=== PATIENT | female | born 1955 | race Caucasian/White ===

== ENCOUNTER 2019-07-24 12:42 | Outpatient (CLI) | payer MEDICARE, BC, SELFPAY ==
--- NOTE | 2019-07-24 12:57 | MM_ITS ---
WS: [id number] LEFT DIAGNOSTIC DIGITAL MAMMOGRAM WITH CAD LEFT breast ultrasound, limited HISTORY: LEFT BREAST PAIN, new probable area 7:00. COMPARISON: 02/25/2019, 04/15/2017 Technique: CC, MLO and ML views. Spot compression LEFT ML. Breast composition: There are scattered areas of fibroglandular density. Triangular palpable marker is placed over the medial anterior LEFT breast in the area of concern. There is no underlying mass. Ultrasound will be directed to this area only. LEFT breast ultrasound, limited. In the area of clinical concern there is no abnormality. This is at the 7:00 location. MM/[place] [id number] IMPRESSION: BI-RADS: 2-Benign FOLLOW UP: See Report 1. Resume annual screening screening. 2. Ultrasound imaging only to the area of clinical concern.
--- NOTE | 2019-07-24 13:04 | US_ITS ---
WS: [id number] LEFT DIAGNOSTIC DIGITAL MAMMOGRAM WITH CAD LEFT breast ultrasound, limited HISTORY: LEFT BREAST PAIN, new probable area 7:00. COMPARISON: 02/25/2019, 04/15/2017 Technique: CC, MLO and ML views. Spot compression LEFT ML. Breast composition: There are scattered areas of fibroglandular density. Triangular palpable marker is placed over the medial anterior LEFT breast in the area of concern. There is no underlying mass. Ultrasound will be directed to this area only. LEFT breast ultrasound, limited. In the area of clinical concern there is no abnormality. This is at the 7:00 location. US/US breast LT limited* [id number] IMPRESSION: BI-RADS: 2-Benign FOLLOW UP: See Report 1. Resume annual screening screening. 2. Ultrasound imaging only to the area of clinical concern.
== END 2019-07-24 12:43 | disposition home or self-care (01) ==
LOC: RADSHAW 12:48
PROVIDERS: Family Provider Nurse Practitioner Family; PCP Nurse Practitioner Family; Visit Provider Nurse Practitioner Family
DX: N64.4 Mastodynia (principal)
CPT/HCPCS: 76642; 77065

== ENCOUNTER 2019-08-20 10:44 | Outpatient (CLI) | payer MEDICARE, BC, SELFPAY ==
[2019-08-20 11:30] LABS: Basophils # 0.1 10^3/uL (0.0-0.1); Basophils % 1.1 %; Eosinophils # 0.3 10^3/uL (0.0-0.8); Eosinophils % 3.3 %; Hematocrit 44.5 % (37.0-47.0); Hemoglobin 14.3 g/dL (11.5-15.3); Lymphocytes # 2.8 10^3/uL (0.8-4.8); Lymphocytes % 27.6 %; Mean Corpuscular HGB Conc 32.1 g/dL (30.0-36.0); Mean Corpuscular Hemoglobin 28.9 pg (28.0-34.0); Mean Corpuscular Volume 89.9 fL (81-99); Mean Platelet Volume 10.9 fL (7.4-10.4); Monocytes # 0.6 10^3/uL (0.2-0.9); Monocytes % 5.9 %; Neutrophils # 6.2 10^3/uL (1.8-7.7); Neutrophils % 61.6 %; Nucleated Red Blood Cells % 0 %; Platelet Count 351 10^3/cmm (130-400); Red Blood Count 4.95 10^6/uL (4.1-5.3); Red Cell Distribution Width 14.2 % (12.1-15.1); White Blood Count 10.1 10^3/uL (4.0-10.0)
--- NOTE | 2019-08-20 11:42 | ECG_ITS ---
Measurements Intervals [place] Rate: 64 P: 19 NC: 178 QRS: -24 QRSD: 88 T: 19 QT: 356 QTc: 368 SINUS RHYTHM MINIMAL VOLTAGE CRITERIA FOR LVH, CONSIDER NORMAL VARIANT [MEETS CRITERIA IN ONE OF: R(aVL), S(V1), R(V5), R(V5/V6)+S(V1)] ANTERIOR MYOCARDIAL INFARCTION [40+ ms Q WAVE AND/OR ST/T ABNORMALITY IN V3/V4], OF OF OF INDETERMINATE AGE INFERIOR MYOCARDIAL INFARCTION [40+ ms Q WAVE AND/OR ST/T ABNORMALITY IN II/aVF], OF INDETERMINATE AGE Compared to ECG 08/06/2016 04:46:34 No significant changes Electronically Signed On 08-20-2019 17:37:27 HISTORIC SITES SUPERVISOR by Flynn Hansen M.D. [email or web address]
[2019-08-20 11:57] LABS: Anion Gap 15.8 (5-19); Blood Urea Nitrogen 15 mg/dL (8-23); Calcium 9.8 mg/dL (8.5-10.5); Carbon Dioxide 29 mmol/L (22-29); Chloride 101 mmol/L (98-107); Glomerular Filtration Rate 72.7 mL/min (90-130); Glucose 115 mg/dL (74-106); Osmolality Calculated 289 mOsm/kg (285-295); Potassium 4.8 mmol/L (3.5-5.1); Sodium 141 mmol/L (136-145)
== END 2019-08-20 10:45 | disposition home or self-care (01) ==
LOC: LAB 10:57
PROVIDERS: Family Provider Nurse Practitioner Family; PCP Nurse Practitioner Family; Visit Provider Podiatrist Foot & Ankle Surgery
DX: I10 Essential (primary) hypertension (principal); E11.9 Type 2 diabetes mellitus without complications
CPT/HCPCS: 36415; 80048; 85025; 93005

== ENCOUNTER 2019-09-01 14:06 | Outpatient (CLI) | payer MEDICARE, BC, SELFPAY ==
--- NOTE | 2019-09-01 14:07 | MR_ITS ---
WS: [id number] MRI CERVICAL SPINE NONCONTRAST TECHNIQUE: Sagittal T1, T2 and STIR imaging. Axial T2, gradient, and fiesta imaging. CLINICAL INFORMATION: MIGRAINE NOT INTRACTABLE W/O STATUS MIGRAINOSUS;CERVICALGIA COMPARISON: None. FINDINGS: Exaggeration of the normal cervical lordosis. Cord signal is normal. Mild disc bulging C5-C6 and C6-C 7. C2-C3: Normal. C3-C4: Small central disc protrusion. Mild facet arthropathy. Mild left and no significant right fora aye narrowing. C4-C5: Mild disc bulging with a small central protrusion. Slight contact of the cervical cord. Mild l eft and no significant right foraminal narrowing. Mild facet arthropathy. C5-C6: Small central disc protrusion with contact of the cervical cord. Mild central canal stenosis. Mild left greater than right foraminal narrowing. Mild facet arthropathy. C6-C7: Small left pericentral protrusion with mild central canal stenosis. Mild bilateral foraminal n arrowing. C7-T1: No significant disc bulging. Mild bilateral foraminal narrowing. Spinal canal is patent. Visualized upper thoracic cord is normal. Visualized brain stem structures: Normal. Prevertebral soft tissues: Normal. MR/MR cervical spin wo con* [id number] IMPRESSION: 1. Exaggeration of the normal cervical lordosis. Cord signal is normal. 2. Small central protrusions C5-C6 and C6-C7 with mild central canal stenosis and slight contact of the cervical cord. This is more prominent C6-C7. 3. Tiny shallow central protrusions at C3-C4 and C4-C5. 4. Mild bony foraminal narrowing more prominent at left C5-C6, bilateral C6-C7 worse on the left, and bilateral C7-T1.
== END 2019-09-01 14:07 | disposition home or self-care (01) ==
LOC: RADSHAW 14:06
PROVIDERS: Family Provider Nurse Practitioner Family; PCP Nurse Practitioner Family; Visit Provider Psychiatry & Neurology Neurology
DX: G43.909 Migraine, unspecified, not intractable, without status migrainosus (principal); M50.223 Other cervical disc displacement at C6-C7 level; M48.02 Spinal stenosis, cervical region
CPT/HCPCS: 72141

== ENCOUNTER 2019-10-08 20:00 | Outpatient (CLI) | payer MEDICARE, BC, SELFPAY | END 2019-10-08 20:01 | disposition home or self-care (01) | LOC: SLEEP 10-09 09:45 | PROVIDERS: Family Provider Nurse Practitioner Family; PCP Nurse Practitioner Family; Visit Provider Internal Medicine Critical Care Medicine | DX: G47.33 Obstructive sleep apnea (adult) (pediatric) (principal) | CPT/HCPCS: 95810 ==

== ENCOUNTER 2019-11-14 15:47 | Emergency (ER) | payer MEDICARE, BC, SELFPAY ==
[2019-11-14 15:56] VITALS: BP 193/101; PULSE 98; RESP 16; TEMP 37.2; O2SAT 98; BMI 33.9
--- NOTE | 2019-11-14 16:29 | CTR_ITS ---
PROCEDURE INFORMATION: Exam: CT Head Without Contrast Exam date and time: 11/14/2019 4:32 PM Age: 64 years old Clinical indication: Injury or trauma; Fall; Initial encounter; Blunt trauma (contusions or hematomas); Without loss of consciousness; Patient HX: Pulled off a porch by a dog - denies loc TECHNIQUE: Imaging protocol: Computed tomography of the head without contrast. Total DLP: 773.42 mGy-cm Radiation optimization: All CT scans at this facility use at least one of these dose optimization techniques: automated exposure control; mA and/or kV adjustment per patient size (includes targeted exams where dose is matched to clinical indication); or iterative reconstruction. COMPARISON: MR head wo con* [id number] 11/26/2018 2:34 PM FINDINGS: Brain: Unchanged mild periventricular low density compatible with unchanged small vessel ischemic change changes. No hemorrhage. Unremarkable white matter. No mass effect. Ventricles: The lateral ventricles are again noted to be slightly prominent but unchanged compared to the MRI. There is no funmi hydrocephalus. The temporal horns are not dilated. Third and 4th ventricles are not dilated. No new or progressive ventriculomegaly. Bones/joints: Unremarkable. No acute fracture. Sinuses: Visualized sinuses are unremarkable. No fluid levels. Mastoid air cells: Visualized mastoid air cells are well aerated. Soft tissues: Unremarkable. CT/CT head wo con* [id number] IMPRESSION: 1. No acute intracranial abnormality. 2. Unchanged prominence the lateral ventricles as compared to the prior MRI. Radiation Dose CTDIVOL = (mGy): DLP = 773.42 (mGy-cm)
--- NOTE | 2019-11-14 16:29 | XRR_ITS ---
PROCEDURE INFORMATION: Exam: XR Right Forearm Exam date and time: 11/14/2019 4:32 PM Age: 64 years old Clinical indication: Injury or trauma; Injury history: Dog bite; Initial encounter; Wrist; Right TECHNIQUE: Imaging protocol: XR Right forearm. Views: 2 views. COMPARISON: No relevant prior studies available. FINDINGS: Bones/joints: No acute bony fracture or bony puncture wound. There are mild degenerative changes in the wrist. 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 No elbow joint effusion. Soft tissues: There is abundant edema of the subcutaneous fat and soft tissues of the lateral distal forearm. There is also a trace amount of subcutaneous emphysema. No foreign body. XR/XR forearm RT 2V [id number] IMPRESSION: Soft tissue edema distal forearm. Trace subcutaneous emphysema compatible with soft tissue laceration or puncture wound. No foreign body or acute bony abnormality.
--- NOTE | 2019-11-14 16:36 | ED_ITS ---
Documented by User: Ivonne Fontenot 11/14/19 17:31 HPI - Animal Bite General: Chief Complaint: Animal Bite Stated Complaint: arm pain Time Seen by Provider: 11/14/19 15:58 Source: patient History of Present Illness: HPI narrative: pt was bit by uzbek ovalle 30 min BOTTLE GAUGER. This was neighbors dog. States UTD on vaccinations per owners. Unprovoked attack. Pt was dropping mail off at house on front porch. Dog charged her from inside. complaint: animal bite Animal: dog Location - Extremities: Right: forearm (small puncture wound and small tear) Pain description: sharp Severity scale (1-10): 6 Context: unprovoked Associated symptoms: Reports no associated symptoms Related Data: Patient tetanus UTD: No (UNABLE TO TAKE TETANUS SHOT DUE TO ALLERGY) Review of Systems General: Reports: 10 or more systems reviewed and unremarkable except in HPI and below PFSH ED PFSH: Medical History ASHD (arteriosclerotic heart disease) Diabetes mellitus Fibromyalgia GERD (gastroesophageal reflux disease) History of DVT (deep vein thrombosis) HTN (hypertension) Hyperlipidemia Neuropathy FRANCI (obstructive sleep apnea) Surgical History S/P bunionectomy S/P carpal tunnel release S/P hysterectomy S/P rotator cuff repair S/P tonsillectomy and adenoidectomy Family History Mother Diabetes Stroke Hypertension Grandmother Diabetes Hypertension Social History Smoking and tobacco status: never smoked Alcohol intake: never Lives independently: Yes Current occupational status: retired History of recent travel: No Current gender identity: Female Physical Exam Const: COMMON NORMALS: no apparent distress, oriented x3, no limitations and alert GENERAL APPEARANCE: cooperative and comfortable ORIENTATION/CONSCIOUSNESS: Yes awake, Yes oriented to person, Yes oriented to place and Yes oriented to time HENMT: COMMON NORMALS: normocephalic, head/scalp atraumatic, external ears normal, EAC's normal, TM's normal bilaterally and external nose normal HEAD & SCALP: normal to inspection, normocephalic and atraumatic FACE & SINUS: normal facial exam, sinuses nontender and face symmetric NOSE: external nose normal, nares normal and no nasal discharge EXTERNAL EAR: Yes external ears normal EXTERNAL AUDITORY CANAL: EAC's normal TYMPANIC MEMBRANE: TM's normal bilaterally MOUTH: oral and palatal mucosa normal, lip normal and tongue normal THROAT: posterior oropharynx normal, tonsils normal and uvula midline Eye: COMMON NORMALS: PERRL, EOMs intact bilaterally and conjunctivae normal GENERAL EYE: normal appearance of both eyes and normal light reflex EYELID: eyelids normal CONJUNCTIVA: Yes conjunctivae normal PUPIL: Yes PERRL EOM: Yes EOM abnormal DIRECT OPHTHALMOSCOPY: Yes normal light reflex Neck/C-Spine: COMMON NORMALS: full ROM, no lymphadenopathy, supple, no meningeal signs, no JVD and thyroid normal GENERAL: Yes normal visual inspection THYROID: thyroid normal CERVICAL SPINE: Yes cervical ROM normal and Yes normal cervical lordosis Lymph: LYMPHATIC: no lymphadenopathy noted Chest: COMMONS NORMALS: inspection of chest normal and palpation of chest normal Resp: COMMON NORMALS: normal respiratory effort, no retractions and clear to auscultation bilaterally AUSCULTATION: clear to auscultation bilaterally Cardio: COMMON NORMALS: no JVD, regular rate, regular rhythm, S1 normal heart sound, S2 normal heart sound, no gallops, no clicks, no murmurs, no rub and peripheral pulses 2+ throughout RATE: regular rate RHYTHM: regular rhythm HEART SOUNDS: S1 normal and S2 normal PERIPHERAL PULSES: pulses 2+ throughout GI: COMMON NORMALS: normal to inspection, nondistended, normoactive bowel sounds, soft to palpation, non-tender and no masses PALPATION: Yes soft : COMMON NORMALS: Yes no CVA tenderness and Yes external appearance normal BLADDER/KIDNEY EXAM: Yes no CVA tenderness Back/Pelvis: COMMON NORMALS: no CVA tenderness, thoracic and lumbar spine normal to inspection, no thoracic nor lumbar tenderness and thoraco-lumbar ROM normal Extremity: COMMON NORMALS: normal to inspection, full ROM, normal capillary refill, no joint enlargement, no clubbing, cyanosis or edema, no calf tenderness and no pedal edema GENERAL: Yes normal exam except as noted Neuro: COMMON NORMALS: oriented x3, moves all extremities, no focal motor deficits, no sensory deficits noted and gait normal SENSORIUM/ORIENTATION: Yes alert, Yes oriented to person, Yes oriented to place and Yes oriented to time MENINGEAL SIGNS: Yes no meningeal signs Psych: COMMON NORMALS: mental status grossly normal, thought process normal, cooperative, affect normal, speech normal and activity/motor behavior normal SPEECH: Yes normal speech THOUGHT PROCESS: normal thought process Skin: COMMON NORMALS: no rashes or lesions noted, no wounds and skin turgor normal GENERAL SKIN EXAM: no rashes or lesions noted and turgor normal Procedures Laceration Laceration 1: Site: upper extremity Side (If applicable): right Size (cm): 2.0 Description: linear Depth: simple, single layer Local Anesthetic: lidocaine 1% Pre-repair: wound explored and irrigated extensively Size (cm): 4-0 Number of sutures: 2 Course ED course: Due to ASA use, elevated BP, and nausea will proceed with CT of head. Cannot take tetanus shot due to allergies. Treatment with bactrim and suture to small puncture area after xray is performed of extremity. Reevaluation(s): Reevaluation #1: Lac repair of right forearm puncture wound. Report given to Bruce Ballard NP at shift change. Awaiting CT head and xray. Time: 17:30 Vital Signs: Vital signs: Vital Signs Temperature 98.9 F 11/14/19 15:56 Pulse Rate 98 11/14/19 15:56 Respiratory Rate 16 11/14/19 15:56 Blood Pressure 193/101 11/14/19 15:56 Pulse Oximetry 98 11/14/19 15:56 Discharge Plan Discharge Patient Disposition: Home, Self-Care Clinical Impression: Bite by animal Condition: Stable Prescriptions: New doxycycline hyclate 100 mg tablet 100 mg PO BID 10 Days Qty: 20 RF: 0 No Action ubixonvxlc-hwttmedayrtsg-jryr 50-325-40 mg capsule 1 cap PO Q8H PRNRF: 0 estradiol 0.1 mg/24 hr patch semiweekly transdermal RF: 0 topiramate 25 mg tablet 50 mg PO BID RF: 0 multivitamin Tablet 1 tab PO DAILY RF: 0 zolpidem 10 mg tablet 10 mg PO DAILY RF: 0 atorvastatin 20 mg tablet 20 mg PO DAILY RF: 0 hydrocodone-acetaminophen 10-325 mg tablet 1 tab PO Q4H PRNRF: 0 lansoprazole 30 mg capsule,delayed release(DR/EC) 30 mg PO BID RF: 0 pregabalin [Lyrica] 25 mg capsule 25 mg PO QID RF: 0 aspirin [Adult Low Dose Aspirin] 81 mg tablet,delayed release (DR/EC) 81 mg PO DAILY RF: 0 nitroglycerin [Nitrostat] 0.4 mg tablet, sublingual 0.4 mg SUBLINGUAL Q5M PRNRF: 0 omega-3 fatty acids [Fish Oil Concentrate] 1,000 mg capsule 1,000 mg PO DAILY RF: 0 vitamin B complex [B Complex-Vitamin B12] Tablet 1 tab PO DAILY RF: 0 cholecalciferol (vitamin D3) 4,000 unit tablet 4,000 unit PO DAILY RF: 0 magnesium 250 mg tablet 250 mg PO DAILY RF: 0 docusate sodium 100 mg capsule 100 mg PO DAILY PRNRF: 0 loratadine 10 mg tablet 10 mg PO DAILY RF: 0 amitriptyline 10 mg tablet 40 mg PO DAILY RF: 0 metoprolol tartrate 25 mg tablet 25 mg PO BID RF: 0 diltiazem HCl 120 mg capsule,extended release 24 hr 120 mg PO DAILY 30 Days Qty: 30 RF: 6 losartan 50 mg tablet 50 mg PO DAILY Qty: 90 RF: 3 furosemide [Lasix] 40 mg tablet 40 mg PO DAILY 90 Days Qty: 90 RF: 3 potassium chloride 20 mEq tablet extended release 20 meq PO DAILY 90 Days Qty: 90 RF: 3 Discharge Orders: Discharge Order (Routine); Ordered 11/14/19 Ordered By: Jero Ballard Referrals: Fortunato Palomares APN [Primary Care Provider] - Discharge Diet: Usual diet Discharge Activity: Increase activity as tolerated Patient Instructions: Animal Bite (ED) Activity Restrictions/Additional Instructions: Keep wound clean and dry. Stitches out in 7 to 10 days. Monitor for high fever or worsening pain and swelling. Follow-up with primary care in 1 week. Return to the ER for worsening symptoms or new concerns. Coding Level of Care Code ED Fitness And Wellness Director for Chg Fwd Exam Comprehensive Documented by User: MARTHA Dangelo 11/14/19 17:45 HPI - Animal Bite General: Chief Complaint: Animal Bite Stated Complaint: arm pain Time Seen by Provider: 11/14/19 15:58 PFSH ED PFSH: Medical History ASHD (arteriosclerotic heart disease) Diabetes mellitus Fibromyalgia GERD (gastroesophageal reflux disease) History of DVT (deep vein thrombosis) HTN (hypertension) Hyperlipidemia Neuropathy FRANCI (obstructive sleep apnea) Surgical History S/P bunionectomy S/P carpal tunnel release S/P hysterectomy S/P rotator cuff repair S/P tonsillectomy and adenoidectomy Family History Mother Diabetes Stroke Hypertension Grandmother Diabetes Hypertension Social History Smoking and tobacco status: never smoked Alcohol intake: never Lives independently: Yes Current occupational status: retired History of recent travel: No Current gender identity: Female Course Vital Signs: Vital signs: Vital Signs Temperature 98.9 F 11/14/19 15:56 Pulse Rate 98 11/14/19 15:56 Respiratory Rate 16 11/14/19 15:56 Blood Pressure 193/101 11/14/19 15:56 Pulse Oximetry 98 11/14/19 15:56 MDM - Animal Bite MDM Narrative: Medical decision making narrative: Received patient at 1730 from Sussy Fontenot NP. Was awaiting CT report. Patient had been attacked and injured by a neighbor's dog where she had hit her head against the ground. Concern for intracranial bleeding, CT of head was ordered. We was awaiting CT report. CT of the head came back and no sign of intracranial bleeding or changes from previous MRI was noted. X-ray of the forearm showed no foreign body or bony injury. Wounds were repaired per Ms. Fontenot. And dressing was applied. Patient was recommended for sutures out in 7 to 10 days. Antibiotic doxycycline was ordered with instruction for monitoring for worsening signs and symptoms of infection. Patient reported understanding. Discharge Plan Discharge Patient Disposition: Home, Self-Care Clinical Impression: Bite by animal Condition: Stable Prescriptions: New doxycycline hyclate 100 mg tablet 100 mg PO BID 10 Days Qty: 20 RF: 0 No Action yenngfphan-ukuqvkadicljh-bhsl 50-325-40 mg capsule 1 cap PO Q8H PRNRF: 0 estradiol 0.1 mg/24 hr patch semiweekly transdermal RF: 0 topiramate 25 mg tablet 50 mg PO BID RF: 0 multivitamin Tablet 1 tab PO DAILY RF: 0 zolpidem 10 mg tablet 10 mg PO DAILY RF: 0 atorvastatin 20 mg tablet 20 mg PO DAILY RF: 0 hydrocodone-acetaminophen 10-325 mg tablet 1 tab PO Q4H PRNRF: 0 lansoprazole 30 mg capsule,delayed release(DR/EC) 30 mg PO BID RF: 0 pregabalin [Lyrica] 25 mg capsule 25 mg PO QID RF: 0 aspirin [Adult Low Dose Aspirin] 81 mg tablet,delayed release (DR/EC) 81 mg PO DAILY RF: 0 nitroglycerin [Nitrostat] 0.4 mg tablet, sublingual 0.4 mg SUBLINGUAL Q5M PRNRF: 0 omega-3 fatty acids [Fish Oil Concentrate] 1,000 mg capsule 1,000 mg PO DAILY RF: 0 vitamin B complex [B Complex-Vitamin B12] Tablet 1 tab PO DAILY RF: 0 cholecalciferol (vitamin D3) 4,000 unit tablet 4,000 unit PO DAILY RF: 0 magnesium 250 mg tablet 250 mg PO DAILY RF: 0 docusate sodium 100 mg capsule 100 mg PO DAILY PRNRF: 0 loratadine 10 mg tablet 10 mg PO DAILY RF: 0 amitriptyline 10 mg tablet 40 mg PO DAILY RF: 0 metoprolol tartrate 25 mg tablet 25 mg PO BID RF: 0 diltiazem HCl 120 mg capsule,extended release 24 hr 120 mg PO DAILY 30 Days Qty: 30 RF: 6 losartan 50 mg tablet 50 mg PO DAILY Qty: 90 RF: 3 furosemide [Lasix] 40 mg tablet 40 mg PO DAILY 90 Days Qty: 90 RF: 3 potassium chloride 20 mEq tablet extended release 20 meq PO DAILY 90 Days Qty: 90 RF: 3 Discharge Orders: Discharge Order (Routine); Ordered 11/14/19 Ordered By: Jero Ballard Referrals: Fortunato Palomares APN [Primary Care Provider] - Discharge Diet: Usual diet Discharge Activity: Increase activity as tolerated Patient Instructions: Animal Bite (ED) Activity Restrictions/Additional Instructions: Keep wound clean and dry. Stitches out in 7 to 10 days. Monitor for high fever or worsening pain and swelling. Follow-up with primary care in 1 week. Return to the ER for worsening symptoms or new concerns. Coding Level of Care Code ED Fitness And Wellness Director for Christiana Mcnamara Exam Comprehensive
[2019-11-14] MEDS: cyclobenzaprine 10 mg Tablet PO (16:39)
[2019-11-14] MEDS: doxycycline 100 mg Tablet PO (16:39)
[2019-11-14] MEDS: HYDROcodone-acetaminophen 5-325 mg Tablet 1 TAB PO (16:39)
[2019-11-14] MEDS: lidocaine 1% INJ 20 mL INJECTION (17:00)
[2019-11-14 17:48] VITALS: BP 142/74; PULSE 89; RESP 18; O2SAT 94
== END 2019-11-14 17:48 | disposition home or self-care (01) ==
PROVIDERS: Emergency Provider Nurse Practitioner Family; Family Provider Nurse Practitioner Family; PCP Nurse Practitioner Family
DX: S51.851A Open bite of right forearm, initial encounter (principal); W54.0XXA Bitten by dog, initial encounter; Y92.009 Unspecified place in unspecified non-institutional (private) residence as the place of occurrence of the external cause; Z79.82 Long term (current) use of aspirin; I10 Essential (primary) hypertension; E78.5 Hyperlipidemia, unspecified; E11.40 Type 2 diabetes mellitus with diabetic neuropathy, unspecified; K21.9 Gastro-esophageal reflux disease without esophagitis
CPT/HCPCS: 12001; 12345; 70450; 73090; 99281; 99283; J2001

== ENCOUNTER 2019-12-15 07:10 | Outpatient (CLI) | payer MEDICARE, BC, SELFPAY ==
--- NOTE | 2019-12-15 14:23 | PFTS_ITS ---
Date of Study:12/15/19 Date of Dictation: MECHANICS: Forced vital capacity (FVC) is reduced. Forced expiratory volume in one second (FEV1) is reduced. FEV1/FVC is normal. FLOW VOLUME LOOP: Narrow, the expiratory limb suggestive of hesitation. LUNG VOLUMES: Total lung capacity (TLC) is mildly reduced. Residual volume (RV) is normal. DIFFUSING CAPACITY FOR CARBON MONOXIDE: Normal. INTERPRETATION: The pulmonary function tests are consistent with moderate restriction. The inspiratory capacity is intact with significantly reduced expiratory reserve volume suggestive of extrapulmonary restriction. Gas exchange (DLCO) is normal. MTDD
== END 2019-12-15 07:11 | disposition home or self-care (01) ==
PROVIDERS: Family Provider Nurse Practitioner Family; PCP Nurse Practitioner Family; Visit Provider Internal Medicine Critical Care Medicine
DX: R06.02 Shortness of breath (principal)
CPT/HCPCS: 94010; 94726; 94729

== ENCOUNTER 2020-03-10 20:00 | Outpatient (CLI) | payer MEDICARE, BC, SELFPAY | END 2020-03-10 20:01 | disposition home or self-care (01) | LOC: SLEEP 03-11 08:35 | PROVIDERS: Family Provider Nurse Practitioner Family; PCP Nurse Practitioner Family; Visit Provider Internal Medicine Critical Care Medicine | DX: G47.33 Obstructive sleep apnea (adult) (pediatric) (principal) | CPT/HCPCS: 95811 ==

== ENCOUNTER 2020-06-29 09:19 | Outpatient (CLI) | payer MEDICARE, BC, SELFPAY ==
[2020-06-29 10:25] VITALS: BMI 47.0
--- NOTE | 2020-06-29 10:26 | ECG_ITS ---
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 The perfusion scan will be documented separately. DATA: Baseline heart rate was 66 beats per minute. Baseline blood pressure was 130/80 millimeters of mercury. Target heart rate was 158. Maximum heart rate achieved was 90. which was 56 % of the predicted target heart rate. Maximum blood pressure was 130/80 millimeters of mercury. The reason for ending the test was completion of the protocol. The patient did not experience any symptoms. ELECTROCARDIOGRAM: BASELINE: Sinus rhythm. Normal axis. Otherwise, old inferior wall myocardial infarction. EXERCISE: After Lexiscan injection, no ST-T changes suggestive of ischemic noted. No arrhythmia noted. CONCLUSION: Please note due to baseline abnormality of the EKG specificity and sensitivity of the EKG portion of LexiScan MIBI stress test will be low 1. EKG not suggestive of ischemia 2. Lexiscan injection unremarkable. 3. Perfusion scan will be documented separately. Electronically Signed On 06-30-2020 18:34:53 SHAKER SCREEN OPERATOR by NILDA COON [email or web address]
--- NOTE | 2020-06-29 10:26 | NMCV_ITS ---
NM beck perf SPECT r/s* [id number] Ramon Nicole Age: 64 Gender: F : 1955 Exam Date: 06/29/2020 10:26 Ordering Phys: Alex Coon MD ([email or web address]) Technologist: DEEJAY Meehan Exam Location: [facility] Indications: CHEST PAIN STRESS TEST Please see separate stress test report in [facility] for full findings IMAGE PROTOCOL Rest/Stress 1 Lexiscan Day Radiopharmaceutical Dose (mCi) Administration Site Administered by Rest: Tc-99m 10.5 IV DEEJAY Joe Sestamibi Stress:Tc-99m 32.4 IV DEEJAY Joe Sestamibi Rest: 29-Jun-2020 60 Discovery 630 Stress: 29-Jun-2020 30 Discovery 630 0.4mg Lexiscan. Images obtained in supine and prone position. SPECT RESULTS Technical Quality: Excellent Raw Data Analysis: Normal Image Corrections: No attenuation or motion correction applied Summed Stress Score: 3 Summed Rest Score: 1 Summed Difference Score: 2 PERFUSION FINDINGS Perfusion scan is not suggestive of ischemia FUNCTIONAL RESULTS (calculated via Gated SPECT) Stress Image LV EF (%): 75 Stress EDV (mL):84 TID: 1.06 Stress ESV (mL):21 Rest Image LV EF (%): 75 FUNCTIONAL FINDINGS: There is normal left ventricular systolic function. IMPRESSIONS Perfusion scan is negative for ischemia. EKG segment will be documented separately. Alex Coon MD (Electronically Signed) Final Date: 29 June 2020 18:15 S
[2020-06-29] MEDS: regadenoson 0.4 Mg/5 ml Syringe IVP (11:46)
[2020-06-29 11:47] VITALS: BP 115/59; PULSE 89
== END 2020-06-29 09:20 | disposition home or self-care (01) ==
LOC: CDL 09:21
PROVIDERS: PCP Nurse Practitioner Family; Visit Provider Internal Medicine Cardiovascular Disease
DX: R07.9 Chest pain, unspecified (principal)
CPT/HCPCS: 78452; 93017; A9500; J2785

== ENCOUNTER → 2020-07-20 12:06 | Outpatient (BNVA) | payer MEDICARE, BC, SELFPAY | PROVIDERS: PCP Nurse Practitioner Family; Visit Provider Nurse Practitioner Family | DX: R42 Dizziness and giddiness (principal) | CPT/HCPCS: 80048; 84443; 85025 ==

== ENCOUNTER 2020-07-27 13:08 | Outpatient (CLI) | payer MEDICARE, BC, SELFPAY ==
--- NOTE | 2020-07-27 13:14 | MM_ITS ---
WS: [id number] BILATERAL SCREENING DIGITAL MAMMOGRAM WITH CAD HISTORY: SCREENING COMPARISON: 07/24/2019, 02/07/2018, 04/15/2017 and 02/25/2019 Bilateral CC and MLO views submitted. Computer aided detection analyzed. Breast composition: There are scattered areas of fibroglandular density. No suspicious masses, microc alcifications or architectural distortion. Asymmetries in each breast and calcifications are stable. MM/[place] [id number] IMPRESSION: BI-RADS: 2-Benign FOLLOW UP: 1 Year Follow-up
== END 2020-07-27 13:09 | disposition home or self-care (01) ==
LOC: RADSHAW 13:12
PROVIDERS: PCP Nurse Practitioner Family; Visit Provider Nurse Practitioner Family
DX: Z12.31 Encounter for screening mammogram for malignant neoplasm of breast (principal)
CPT/HCPCS: 77067

== ENCOUNTER → 2020-09-15 11:21 | Outpatient (BNVA) | payer MEDICARE, BC, SELFPAY | PROVIDERS: PCP Nurse Practitioner Family; Visit Provider Nurse Practitioner Family | DX: Z13.6 Encounter for screening for cardiovascular disorders (principal) | CPT/HCPCS: 80061; 82947; 83036 ==

== ENCOUNTER 2020-10-19 14:14 | Outpatient (CLI) | payer MEDICARE, BC, SELFPAY ==
[2020-10-19 15:29] LABS: Basophils # 0.1 10^3/uL (0.0-0.1); Eosinophils # 0.2 10^3/uL (0.0-0.8); Eosinophils % 2.2 %; Hematocrit 42.1 % (37.0-47.0); Hemoglobin 13.9 g/dL (11.5-15.3); Lymphocytes # 2.2 10^3/uL (0.8-4.8); Lymphocytes % 25.3 %; Mean Corpuscular Hemoglobin 30.1 pg (28.0-34.0); Mean Corpuscular Volume 91.1 fL (81-99); Monocytes # 0.5 10^3/uL (0.2-0.9); Monocytes % 5.7 %; Neutrophils # 5.71 10^3/uL (1.8-7.7); Neutrophils % 65.6 %; Nucleated Red Blood Cells % 0 %; Platelet Count 330 10^3/cmm (130-400); Red Blood Count 4.62 10^6/uL (4.1-5.3); Red Cell Distribution Width 13.1 % (12.1-15.1); White Blood Count 8.7 10^3/uL (4.0-10.0)
[2020-10-19 15:30] LABS: INR 1.05 (0.8-1.2)
[2020-10-19 15:42] LABS: Blood Urea Nitrogen 15 mg/dL (8-23); Carbon Dioxide 26 mmol/L (22-29); Chloride 102 mmol/L (98-107); Glomerular Filtration Rate 124.6 mL/min (90-130); Glucose 164 mg/dL (65-115); Osmolality Calculated 290 mOsm/kg (285-295); Sodium 138 mmol/L (136-145)
== END 2020-10-19 14:15 | disposition home or self-care (01) ==
PROVIDERS: Internal Medicine Cardiovascular Disease; PCP Nurse Practitioner Family; Visit Provider Internal Medicine Pulmonary Disease
DX: I10 Essential (primary) hypertension (principal)
CPT/HCPCS: 36415; 80048; 85025; 85610; 87635

== ENCOUNTER 2020-10-21 10:15 | Observation (INO) | payer MEDICARE, BC, SELFPAY ==
[2020-10-21] VITALS (57 sets, daily range): BP systolic 112–169; BP diastolic 66–89; PULSE 59–133; RESP 12–34; TEMP 36.1–37.2; O2SAT 91–98; BMI 34.7
--- NOTE | 2020-10-21 06:00 | XACV_ITS ---
Ht: 168 cm Wt: 98 kg BSA: 2.17 m2 Gender: Female : 1955 Any Known Allergies: Other Exam Priority: Routine Procedure(s): Procedure Description: Diagnostic procedure Procedure Description: Left Heart Catheterization Diagnostic Cath Status: Elective Diagnostic Findings * LM has 0% stenosis. * mLAD: Mild 40% stenosis, TUAN: 3 flow. * Mid Circumflex Coronary Artery: Severe 80% stenosis, TUAN: 3 flow. * RPDA: Mild 40% stenosis, TUAN: 3 flow. * RPDA: Mild 40% stenosis, TUAN: 3 flow. * Coronary angiography shows right dominance. PCI Indication: New Onset Angina <= 2 months Interventional Findings * Mid Circumflex Coronary Artery: 80% stenosis treated with MDT R RIGOBERTO 3.5X18 RONI. 0% residual stenosis, TUAN: 3 flow. Conclusions 1. There is severe coronary artery disease with three vessel disease. 2. Mid Circumflex Coronary Artery was treated with Drug Eluting Stent. Recommendations * 1-Return to inpatient for close monitoring and routine cath care 2-Risk factor modification for secondary prevention 3-Statin and aspirin 81 mg life--long, if tolerated 4-Patient was pre-loaded with 600 mg of Plavix, continue Plavix 75mg p.o. daily for at least one year. We will assess at the end of one year again to continue if further or not 5-Continue optimal medical management 6-Follow up with Dr. Coon in four weeks and your primary care in 10 days. Diagnostic RX Recommendation: PCI w/o planned CABG Pressures Phase:Rest AO : 141 / 104 ( 92 ) @ 3:43:00 AM 138 / 117 ( 90 ) @ 3:43:00 AM LV : 151 / -13 / @ 3:42:00 AM 146 / -8 / @ 3:43:00 AM Valves Phase:DefaultPhase AV : 0.0 @ 9:21:30 AM AV Mean Gradient: 0.0 @ 9:21:30 AM Clinical Evaluation EBL: 5mL-10mL Procedural Details Procedure Consent Obtained. Admit Source: Out Patient. Pre-Procedure Time Out. Identified patient by full name and date of as verbalized by the patient/guarantor. Does the consent match the physician's order: Yes. Accurate & Complete Informed Consent: Yes. Inpatient/Outpatient History & Physical on Chart: Yes. If H&P is completed, is and addenduem needed: N/A; If yes, is the addendum complete: N/A. Visualize and Verify Site with Patient/Guarantor: N/A. Relevant Radiology Images available: N/A. Pre-op teaching completed and patient verbalized understanding. The risks, benefits, and alternatives of sedation and/or procedure were discussed by physician. The patient agrees to continue. Procedure started. Correct patient, site and procedure confirmed by cath team. PERRLA. Strong, equal hand tie presser bilaterally. Lungs clear x 5 lobes. IV Site on Arrival: 20 gauge in the left anticubital. Pre Procedural Pulses: bilateral dorsalis pedis was Doppled. Pre Procedural Pulses: bilateral posterior tibial was Doppled. Pre Procedural Pulses: bilateral radial was 3+. Oxygen started at 2liters/min via nasal canula. bilateral groins was prepped with chloroprep then draped in the usual sterile fashion. Baseline sample Acquired. HR: 57 BPM. Physician notified. Physician arrived. Physician scrubbed in. Immediate Pre-Procedure Time Out. Correct Patient: Yes; Correct Procedure: Yes; Correct Site: Yes; Correct Patient Position: Yes; Correct Supplies: Yes; Dried Flammable Prep: Yes; Blood Products Available: N/A;. Lidocaine 1% infiltrated to the right groin. Arterial access obtained with micropuncture set. A 5 hungarian JL4 catheter in over wire. Multiple views taken of left coronary artery. Catheter out. A 5 hungarian JR4 catheter in over wire. Multiple views taken of right coronary artery. EDP Sample taken: LV 151/-14,135; HR: 64 BPM; SpO2: 100%. Pullback taken: LV 146/-9,86; AO 141/104(92); Mean: 0mmHg, Peak to Peak: 0mmHg, SEP: 9sec/min; HR: 63 BPM; SpO2: 100%. Catheter out. 6 hungarian XB 3.5 guide catheter was inserted over the wire. Docker guidewire was advanced through the guide catheter to lesion in the mid Circ. Inflation Number : 1 Bob Jackson RIGOBERTO 3.5X18 RONI -Lot Number# [id number] exp date: 10-01-2021 was prepped and advanced across the Mid CX. The stent was deployed at 14 SUNITA for 0:23 seconds. Stent balloon out over wire. Wire out. Guide catheter out. ProGlide 6F placed without complications. No signs or symptoms of hematoma noted. Sterile dressing applied per usual sterile fashion. Post Procedure: Pulses reassessed and unchanged. PERRLA. Strong, equal hand tie presser bilaterally. No VTE prophylaxis required. Medication's Wasted: Lidocaine 1% = 10 mL. Total IV fluids: 75 mL. Contrast type used: Omnipaque 300 mgI/mL, 500 mL bottle. Contrast Material : Omnipaque 149 ml. A Suture was successful obtaining hemostatsis at the Right Femoral artery insertion site. putting sheath back in due to perclose failing. 6F sheath removed. 7F sheath inserted in place. ACT drawn. Results 199 seconds. Therapeutic limits - pre-heparin administration 90-150 seconds and monitoring heparin during a vascular procedure >250 seconds. Sheath(s) sutured into position with 2-0 silk and sterile 4x4's and Op-site applied over the site. No oozing or signs and symptoms of hematoma noted. Arterial sheath flushed and connected to tranducer and pressure bag with heparinized saline. [facility] Clinical Fraility Score: 3: Managing Well. 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 Chest Pain Symptom Assessment: Typical Angina Symptoms. Cardiovascular Instability: Yes, if yes, worsening chest pain and taking more nitro. PCI Indication: segnificant stenosis of mid CX. Post-op diagnosis: successful stenting to mid CX. Complications: none. Estimated blood loss: 5mL-10mL. Procedure completed. Patient transferred by bed to 1st floor. Vital chart was stopped. Access Site Site: Right Femoral artery Sheath Size: 6 Fr Hemostasis Method: Suture Hemostasis Success: Successful Procedure Medications Start: 8:17 AM Stop: 8:17 AM Medication: Versed Amount: 1 mg Route: I.V. Start: 8:17 AM Stop: 8:17 AM Medication: Fentanyl Amount: 50 mcg Route: I.V. Start: 8:23 AM Stop: 8:23 AM Medication: Versed Amount: 1 mg Route: I.V. Start: 8:38 AM Stop: 8:38 AM Medication: Heparin Amount: 8000 units Route: I.V. Start: 8:46 AM Stop: 8:46 AM Medication: Heparin Amount: 2000 units Route: I.V. Start: 8:53 AM Stop: 8:53 AM Medication: Aggrastat 12.5 mg/250 mL Amount: 49 ml Route: I.V. bolus Start: 8:53 AM Stop: 8:53 AM Medication: Aggrastat 12.5 mg/250 mL Amount: 17.6 ml/hr Route: I.V. drip Start: 8:59 AM Stop: 8:59 AM Medication: Fentanyl Amount: 50 mcg Route: I.V. Start: 9:14 AM Stop: 9:14 AM Medication: Heparin Amount: 2000 units Route: I.V. Start: 9:20 AM Stop: 9:20 AM Medication: Plavix Amount: 600 mg Route: P.O. I, the attending physician, have reviewed and verified all procedure medications. Yes, all medications given per verbal order History/Risk Factors Hypertension: Yes Dyslipidemia: Yes Tobacco Use: Never Report Signatures Finalized by Alex Coon MD on 11/01/2020 06:34 PM
[2020-10-21] MEDS: diphenhydrAMINE 50 mg Capsule PO (06:45)
--- NOTE | 2020-10-21 09:40 | PC.NURSE ---
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 2 nurse verification of insertion site, asymptomatic. Patient educated on activity restrictions, verbalized understanding. VSS, patient A&O, nurse to continue to monitor.
[2020-10-21] MEDS: sodium chloride 0.9% 1,000 ML 100 ML IV (10:00)
[2020-10-21] MEDS: HYDROcodone-acetaminophen 10-325 mg Tablet 1 TAB PO ×3 (10:25→21:36)
[2020-10-21] MEDS: pregabalin 25 mg Capsule PO ×3 (13:12→21:39)
[2020-10-21 13:30] LABS: Partial Thromboplastin Time 36.7 SECONDS (23.9-36.7)
--- NOTE | 2020-10-21 13:30 | PC.NURSE ---
Dr. Coon notified that patient's dressing had become saturated. Dressing changed. Patient tolerated well. No new orders received. Nurse to continue to monitor.
--- NOTE | 2020-10-21 14:00 | PC.NURSE ---
Sheath pulled by Dr. al at 1326. Direct pressure held by physician for 25 minutes until hemostasis achieved. Patient tolerated well. Dressing applied, CDI. Nurse to continue to monitor.
[2020-10-21] MEDS: fentaNYL 50 mcg/mL INJ 2mL IVP (14:10)
[2020-10-21] MEDS: atorvastatin 40 mg Tablet 20 MG PO (21:37)
[2020-10-21] MEDS: losartan 50 mg Tablet 100 MG PO (21:38)
[2020-10-21] MEDS: aspirin 81 mg EC Tablet PO (21:40)
[2020-10-21] MEDS: amitriptyline 25 mg Tablet 50 MG PO (21:56)
[2020-10-21] MEDS: metoprolol tartrate 25 mg Tablet PO (21:56)
[2020-10-22] VITALS (9 sets, daily range): BP systolic 136–179; BP diastolic 65–80; PULSE 73–94; RESP 14–28; TEMP 36.7–37.1; O2SAT 90–97
[2020-10-22 05:53] LABS: Blood Urea Nitrogen 14 mg/dL (8-23); Calcium 9.7 mg/dL (8.5-10.5); Carbon Dioxide 25 mmol/L (22-29); Chloride 104 mmol/L (98-107); Glomerular Filtration Rate 84.5 mL/min (90-130); Glucose 96 mg/dL (65-115); Osmolality Calculated 286 mOsm/kg (285-295); Sodium 138 mmol/L (136-145)
[2020-10-22 05:54] LABS: Anion Gap 13.3 (5-19)
[2020-10-22 05:55] LABS: Potassium 4.3 mmol/L (3.5-5.1)
[2020-10-22] MEDS: HYDROcodone-acetaminophen 10-325 mg Tablet 1 TAB PO ×3 (06:03→16:59)
[2020-10-22 07:32] LABS: Basophils # 0.1 10^3/uL (0.0-0.1); Basophils % 0.4 %; Eosinophils # 0.1 10^3/uL (0.0-0.8); Eosinophils % 0.7 %; Hematocrit 40.1 % (37.0-47.0); Hemoglobin 13.2 g/dL (11.5-15.3); Lymphocytes # 2.3 10^3/uL (0.8-4.8); Lymphocytes % 20.2 %; Mean Corpuscular HGB Conc 32.9 g/dL (30.0-36.0); Mean Corpuscular Hemoglobin 30.1 pg (28.0-34.0); Mean Corpuscular Volume 91.6 fL (81-99); Mean Platelet Volume 10.8 fL (7.4-10.4); Monocytes # 0.9 10^3/uL (0.2-0.9); Monocytes % 7.6 %; Neutrophils # 7.94 10^3/uL (1.8-7.7); Neutrophils % 70.8 %; Nucleated Red Blood Cells % 0 %; Platelet Count 285 10^3/cmm (130-400); Red Blood Count 4.38 10^6/uL (4.1-5.3); Red Cell Distribution Width 13.2 % (12.1-15.1); White Blood Count 11.2 10^3/uL (4.0-10.0)
[2020-10-22] MEDS: cholecalciferol (vitamin D3) 1,000 unit Tablet 4000 UNIT PO (08:19)
[2020-10-22] MEDS: clopidogrel 75 mg Tablet PO (08:19)
[2020-10-22] MEDS: metoprolol tartrate 25 mg Tablet PO (08:20)
[2020-10-22] MEDS: pregabalin 25 mg Capsule PO ×3 (08:20→16:37)
[2020-10-22] MEDS: dilTIAZem ER (24HR) 120 mg Capsule PO (08:20)
--- NOTE | 2020-10-22 15:46 | P.SS_ITS ---
Short Stay Summary Providers Date of Admit/Discharge: 10/22/20 Attending Provider: Alex Coon MD Primary Care Provider: Marielle Bucio APN Chief Complaint: [facility] HPI History of Present Illness Nicole Navarro is a 65 year old female with medical history significant nonobstructive coronary artery disease for worsening of chest pain and shortness of breath in spite of medical management underwent left heart cath. She was noted to have 80% significant mid circumflex lesion treated with single drug- eluting stent. LAD mid lesion remains at 40% which is nonsignificant. No significant overnight event. This morning she is doing fine from cardiovascular perspective. Patient was loaded with 600 mg of Plavix yesterday. We will continue dual antiplatelet therapy for next 1 year at least. Further plan will be advised then. We will continue home medicine. Right groin looks good. Home Meds/Allergies Home Medications and Allergies Home Medications Medication Instructions Recorded Confirmed Type aspirin 81 mg tablet,delayed 81 mg PO DAILY 09/02/19 10/21/20 History release atorvastatin 20 mg tablet 20 mg PO DAILY 09/02/19 10/21/20 History kpawmuaiky-baiayfyyhfwjp-exoxbpon 1 cap PO Q8H PRN cap 09/02/19 10/21/20 History 50 mg-325 mg-40 mg capsule cholecalciferol (vitamin D3) 100 4,000 unit PO DAILY 09/02/19 10/21/20 History mcg (4,000 unit) tablet docusate sodium 100 mg capsule 100 mg PO DAILY PRN 09/02/19 10/21/20 History estradiol 0.1 mg/24 hr semiweekly 1 patch TRANSDERMAL BEDTIME 09/02/19 10/21/20 History transdermal patch hydrocodone 10 mg-acetaminophen 1 tab PO Q4H PRN 09/02/19 10/21/20 History 325 mg tablet lansoprazole 30 mg capsule,delayed 30 mg PO BID cap 09/02/19 10/21/20 History release magnesium 250 mg tablet 250 mg PO DAILY 09/02/19 10/21/20 History metoprolol tartrate 25 mg tablet 25 mg PO BID tab 09/02/19 10/21/20 History multivitamin 1 tab PO DAILY 09/02/19 10/21/20 History nitroglycerin 0.4 mg sublingual 0.4 mg SUBLINGUAL Q5M PRN 09/02/19 10/21/20 History tablet pregabalin 25 mg capsule 25 mg PO QID cap 09/02/19 10/21/20 History vitamin B complex 1 tab PO DAILY 09/02/19 10/21/20 History zolpidem 10 mg tablet 10 mg PO DAILY tab 09/02/19 10/21/20 History albuterol sulfate 90 mcg/actuation 2 puff INHALATION Q6H PRN 01/05/20 10/21/20 History aerosol inhaler erenumab-aooe 140 mg/mL 140 mg SUBCUT .monthly ml 05/03/20 10/21/20 History subcutaneous auto-injector vitamins-lipotropics tablet 1 tab PO DAILY 05/03/20 10/21/20 History amitriptyline 10 mg tablet 50 mg PO DAILY tab 06/01/20 10/21/20 History Allergies Allergy/AdvReac Type Severity Reaction Status Date / Time ampicillin Allergy Unknown ALGY-Rash Verified 10/21/20 07:02 Sulfa (Sulfonamide Allergy Unknown ALGY-Rash Verified 10/21/20 07:02 Antibiotics) Tetanus Vaccines and Toxoid Allergy Unknown ALGY-Redness Verified 10/21/20 07:02 of Skin isosorbide AdvReac Unknown ADR-Itching Verified 10/21/20 07:02 lisinopril AdvReac ADR-Cough Verified 10/21/20 07:02 PFSH Acute PFSH: Medical History ASHD (arteriosclerotic heart disease) Diabetes mellitus Fibromyalgia GERD (gastroesophageal reflux disease) History of DVT (deep vein thrombosis) HTN (hypertension) Hyperlipidemia Neuropathy FRANCI (obstructive sleep apnea) Surgical History S/P bunionectomy S/P carpal tunnel release S/P hysterectomy S/P rotator cuff repair S/P tonsillectomy and adenoidectomy Family History Mother Diabetes Stroke Hypertension Grandmother Diabetes Hypertension Social History Smoking and tobacco status: never smoked Alcohol intake: never Lives independently: Yes Household members: none Marital status: Single Current occupational status: retired History of recent travel: No Current gender identity: Female Dietary Habits: Current diet type/program: regular Caffeine: Yes Caffeine intake frequency: carbonated beverages and tea During the past year weight has: remained stable Vitals/I&O/Wt Last Vital Signs Temp 98.0 F 10/22/20 15:24 Pulse 75 10/22/20 15:24 Resp 28 H 10/22/20 15:24 BP 179/80 10/22/20 15:24 Pulse Ox 97 10/22/20 15:24 10/22/20 10/22/20 10/22/20 06:59 14:59 22:59 Intake Total 580 / 580 Output Total 1400 / 1400 Balance -820 / -820 Weight last 48 hrs Weight 215 lb Physical Exam Narrative: EXAM NARRATIVE: GENERAL: Patient is alert, awake and oriented x3. NECK: No jugular vein distension. HEENT: No cyanosis. No icterus. No pallor. HEART: Regular S1 and S2. No murmur, rub or gallop. LUNGS: Clear to auscultate bilaterally. ABDOMEN: Soft, nontender and nondistended. Positive bowel sounds. No guarding, rebound or tenderness. CENTRAL NERVOUS SYSTEM: Grossly nonfocal. EXTREMITIES: Lower extremities without edema bilaterally. 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 Routin e Exams 10/21/20 06:00 Taken Discharge Plan Discharge Patient Disposition: Home Condition: Stable Prescriptions: New clopidogrel 75 mg Tablet 75 mg PO DAILY Qty: 90 RF: 4 aspirin 81 mg Tablet,Delayed Release (Dr/Ec) 81 mg PO BEDTIME Qty: 90 RF: 5 Continued ojlrkslqqf-bxtpzeaponnua-ltzv 50-325-40 mg capsule 1 cap PO Q8H PRN (Reason: Migraine Headache) RF: 0 estradiol 0.1 mg/24 hr patch semiweekly 1 patch transdermal BEDTIME RF: 0 multivitamin Tablet 1 tab PO DAILY RF: 0 albuterol sulfate [ProAir HFA] 90 mcg/actuation HFA aerosol inhaler 2 puff INHALATION Q6H PRN (Reason: Shortness Of Breath Or Wheezing) RF: 0 isosorbide mononitrate 30 mg tablet extended release 24 hr 30 mg PO BID Qty: 90 RF: 3 zolpidem 10 mg tablet 10 mg PO DAILY RF: 0 atorvastatin 20 mg tablet 20 mg PO DAILY RF: 0 hydrocodone-acetaminophen 10-325 mg tablet 1 tab PO Q4H PRN (Reason: Pain) RF: 0 lansoprazole 30 mg capsule,delayed release(DR/EC) 30 mg PO BID RF: 0 pregabalin [Lyrica] 25 mg capsule 25 mg PO QID RF: 0 aspirin [Adult Low Dose Aspirin] 81 mg tablet,delayed release (DR/EC) 81 mg PO DAILY RF: 0 nitroglycerin [Nitrostat] 0.4 mg tablet, sublingual 0.4 mg SUBLINGUAL Q5M PRN (Reason: Chest Pain) RF: 0 vitamin B complex [B Complex-Vitamin B12] Tablet 1 tab PO DAILY RF: 0 cholecalciferol (vitamin D3) 4,000 unit tablet 4,000 unit PO DAILY RF: 0 magnesium 250 mg tablet 250 mg PO DAILY RF: 0 docusate sodium 100 mg capsule 100 mg PO DAILY PRN (Reason: Constipation) RF: 0 metoprolol tartrate 25 mg tablet 25 mg PO BID RF: 0 amitriptyline 10 mg tablet 50 mg PO DAILY RF: 0 Aimovig Autoinjector 140 mg/mL auto-injector 140 mg SUBCUT .monthly RF: 0 vitamins-lipotropics Tablet 1 tab PO DAILY RF: 0 diltiazem HCl 120 mg capsule,extended release 24hr 120 mg PO DAILY Qty: 90 RF: 3 potassium chloride 20 mEq tablet extended release 20 meq PO DAILY Qty: 90 RF: 3 furosemide [Lasix] 40 mg tablet 40 mg PO DAILY Qty: 90 RF: 3 Changed losartan 100 mg tablet 150 mg PO DAILY Qty: 90 RF: 3 Discharge Orders: Discharge Order (Routine); Ordered 10/22/20 Ordered By: Alex Coon Referrals: Alex Coon MD [Physician] - ([facility] will contact you to schedule an follow-up appointment with Dr. Coon in 1 month. If you haven't heard from them by Saturday. Please call ) Awa Cerna FNP [Nurse Practitioner] - ([facility] will contact you to schedule an follow-up appointment with Awa Cerna in 1 week. If you haven't heard from by Saturday. Please call ) Discharge Diet: Cardiac Discharge Activity: Increase activity as tolerated Patient Instructions: Aspirin (By mouth), Clopidogrel (By mouth), Left Heart Catheterization (DC), Post Angiogram Home Care Instructions Activity Restrictions/Additional Instructions: Follow-up with Awa Cerna cardiology nurse practitioner in 7 days, follow-up with Dr. Coon as scheduled. Attestations Medical Necessity Statement*: Stable doing fine from a cardiovascular perspective. Patient can be discharged home. 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
--- NOTE | 2020-10-22 17:15 | PC.NURSE ---
Discharge instructions given per the physician's orders. patient verbalized understanding of teaching and did not have any further questions. IV has been removed. Patient dressed self. No further needs identified at this time.
== END 2020-10-22 17:15 | disposition home or self-care (01) ==
LOC: CSU 10:18
PROVIDERS: Admitting Provider Internal Medicine Cardiovascular Disease; PCP Nurse Practitioner Family; Visit Provider Internal Medicine Cardiovascular Disease
DX: I25.10 Atherosclerotic heart disease of native coronary artery without angina pectoris (principal); I10 Essential (primary) hypertension; E78.5 Hyperlipidemia, unspecified; E11.9 Type 2 diabetes mellitus without complications; M79.7 Fibromyalgia; K21.9 Gastro-esophageal reflux disease without esophagitis; Z86.718 Personal history of other venous thrombosis and embolism; G47.33 Obstructive sleep apnea (adult) (pediatric); Z82.49 Family history of ischemic heart disease and other diseases of the circulatory system; Z83.3 Family history of diabetes mellitus; Z82.3 Family history of stroke
CPT/HCPCS: 36415; 80048; 85025; 85347; 85730; 93458; C1760; C1769; C1874; C1887; C1894; C9600; G0378; J1644; J2250; J3010; J3246; J7030; Q0163; Q9967

== ENCOUNTER → 2020-10-31 12:17 | Outpatient (BNVA) | payer MEDICARE, BC, SELFPAY | PROVIDERS: PCP Nurse Practitioner Family; Visit Provider Nurse Practitioner Family | DX: I25.10 Atherosclerotic heart disease of native coronary artery without angina pectoris (principal); I10 Essential (primary) hypertension | CPT/HCPCS: 80048 ==

== ENCOUNTER 2020-12-09 10:48 | Outpatient (CLI) | payer MEDICARE, BC, SELFPAY ==
--- NOTE | 2020-12-09 10:58 | XR_ITS ---
WS: [id number] Lumbar spine with flexion, extension, and neutral lateral, 12/09/2020 Clinical Data: SPONDYLOLISTHESIS, LUMBAR REGION Comparison: Lumbar myelogram, 01/21/2019, Lateral lumbar spine, 10/09/2018. Findings: No compression fractures are seen. There is disc space narrowing at L4-L5.There is a 0.5 cm subluxati on of L4 on L5. This does not change on flexion or extension. There is no limitation of motion on fle xion or extension. There is calcification in the abdominal aorta wall but no aneurysm is seen. XR/XR lumbar spine f/e only [id number] Impression: 1. Degenerative disc narrowing at L4-L5. 2. Subluxation of 0.5 cm of L4 on L5 which does not change with flexion or exte nsion.
--- NOTE | 2020-12-09 10:58 | XR_ITS ---
WS: [id number] Left hip, 2 views, 12/09/2020 Clinical Data: PAIN IN LEFT HIP Comparison: Left hip, 05/12/2015. Findings: No fractures or dislocations are seen. The left hip joint is intact. The soft tissues are not remarka ble. The adjacent pelvis is normal. There is calcification over the greater trochanter probably from prior injury. XR/XR hip LT 2-3V wo/w pel* [id number] Impression: Negative left hip. Tonnis classification: grade 0: normal radiographs
== END 2020-12-09 10:49 | disposition home or self-care (01) ==
PROVIDERS: PCP Nurse Practitioner Family; Visit Provider Anesthesiology Pain Medicine
DX: M25.552 Pain in left hip (principal); S33.140A Subluxation of L4/L5 lumbar vertebra, initial encounter; X58.XXXA Exposure to other specified factors, initial encounter
CPT/HCPCS: 72120; 73502

== ENCOUNTER 2021-02-13 12:02 | Outpatient (CLI) | payer MEDICARE, BC, SELFPAY ==
--- NOTE | 2021-02-13 12:06 | MM_ITS ---
WS: [id number] LEFT DIGITAL MAMMOGRAPHY WITH CAD CLINICAL INFORMATION: LEFT BREAST PAIN COMPARISON: July 27, 2020 TECHNIQUE: 4 views of the left breast were obtained. FINDINGS: Scattered fibroglandular densities of the left breast. Palpable marker upper outer left breast. No de finite underlying mammographic abnormalities. Punctate calcifications. Ultrasound is pending. ULTRASOUND BREAST LEFT TECHNIQUE: Ultrasound left breast focused area of concern. CLINICAL INFORMATION: LEFT BREAST PAIN FINDINGS: Ultrasound left breast at the 2:00 and 6:00 position. No underlying pathologic mass or lesion. No cys tic or solid nodules. No lesions to target for biopsy. No suspicious findings. MM/[place] [id number] IMPRESSION: BI-RADS: 2-Benign FOLLOW UP: 1 Year Follow-up Recommend return to annual screening mammography.
== END 2021-02-13 12:03 | disposition home or self-care (01) ==
LOC: RADSHAW 12:05
PROVIDERS: PCP Nurse Practitioner Family; Visit Provider Nurse Practitioner Family
DX: N64.4 Mastodynia (principal)
CPT/HCPCS: 76642; 77065

== ENCOUNTER → 2021-11-21 14:41 | Outpatient (BNVA) | payer MEDICARE, BC, SELFPAY | PROVIDERS: PCP Nurse Practitioner Family; Visit Provider Internal Medicine | DX: I25.10 Atherosclerotic heart disease of native coronary artery without angina pectoris (principal); I10 Essential (primary) hypertension | CPT/HCPCS: 99214 ==

== ENCOUNTER 2022-03-14 14:41 | Outpatient (CLI) | payer MEDICARE, BC, SELFPAY ==
--- NOTE | 2022-03-14 14:50 | MM_ITS ---
WS: [id number] BILATERAL 3D TOMOSYNTHESIS DIGITAL SCREENING MAMMOGRAPHY WITH CAD CLINICAL INFORMATION: SCREENING HISTORY: Screening mammogram. LEFT breast soreness COMPARISON: February 13, 2021 TECHNIQUE: Bilateral CC and MLO views. FINDINGS: Scattered fibroglandular densities bilaterally. Punctate and lucent centered calcifications. No suspi cious focal mass, asymmetry, calcifications, or architectural distortion. No evidence of malignancy. MM/[place] [id number] IMPRESSION: BI-RADS: 2-Benign FOLLOW UP: 1 Year Follow-up Recommend return to annual screening mammography.
== END 2022-03-14 14:42 | disposition home or self-care (01) ==
LOC: RAD 14:42
PROVIDERS: PCP Nurse Practitioner Family; Visit Provider Nurse Practitioner Family
DX: Z12.31 Encounter for screening mammogram for malignant neoplasm of breast (principal)
CPT/HCPCS: 77063; 77067

== ENCOUNTER 2022-03-15 08:46 | Observation (INO) | payer MEDICARE, BC, SELFPAY ==
[2022-03-15] VITALS (8 sets, daily range): BP systolic 135–183; BP diastolic 61–78; PULSE 59–74; RESP 17–21; TEMP 36.7–37.2; O2SAT 92–98; BMI 34.8
--- NOTE | 2022-03-15 09:00 | PC.NURSE ---
pt placed on continuous nibp, spo2, and cm
--- NOTE | 2022-03-15 09:10 | ECG_ITS ---
[facility] Test Date: 2022-03-15 Pat Name: Nicole Navarro Department: Room: Gender: Female Global Lead: : 1955 Requested By: Jorge Luis Carvalho Order Number: [id number] William MD: Joselyn Quezada M.D. Measurements Intervals [place] Rate: 69 P: 32 AK: 209 QRS: -16 QRSD: 97 T: 34 QT: 341 QTc: 366 Interpretive Statements SINUS RHYTHM LOW QRS VOLTAGE IN PRECORDIAL LEADS [QRS DEFLECTION < 1.0 mV IN CHEST LEADS] INFERIOR MYOCARDIAL INFARCTION , OF INDETERMINATE AGE [40+ ms Q WAVE AND/OR ST/T ABNORMALITY IN II/aVF] Compared to ECG 08/20/2019 11:10:30 Low QRS voltage now present Myocardial infarct finding still present Electronically Signed On 03-16-2022 6:23:14 CDT by Joselyn Quezada M.D. [email or web address]/store/NU/[id number]/ecg/[id number] f
--- NOTE | 2022-03-15 09:10 | XR_ITS ---
WS: [id number] Portable AP upright chest, 03/15/2022 Clinical Data: chest pain Comparison: PA and lateral chest, 08/13/2017. Findings: No nodules, masses or effusions are seen. The heart is normal. The pulmonary vascularity is not increased. No pneumonia or pneumothorax is seen. There is minimal calcification and tortuosity o f the thoracic aorta. Monitor leads are on the chest wall. XR/XR chest 1V portable [id number] Impression: Atherosclerosis.
[2022-03-15] MEDS: nitroglycerin 1 gm/inch oint Pkt 1 INCH TOPICAL (09:32)
--- NOTE | 2022-03-15 09:48 | ED_ITS ---
HPI - Chest Pain General: Chief Complaint: Chest Pain Stated Complaint: CHEST PAIN Time Seen by Provider: 03/15/22 08:57 Source: patient Mode of arrival: ambulatory History of Present Illness: 66-year-old female with a known history of coronary disease presents morning with complaint of chest pain that began while she was sleeping. She awoke with chest pain she took 3 nitro had relief for a brief period of time and then began to worsen again she called EMS they gave her 3 more nitro. On arrival here she states her pain is down to a 2 out of 10 earlier today she stated it was 10 of 10. Patient has known history of coronary artery disease had severe multivessel disease with an angiogram done approximately a year and a half ago a single stent was placed she is still taking clopidogrel. She denies any recent escalating episode of chest pain prior to today. Pain made her nauseous mildly diaphoretic and radiated into her left shoulder and down her left arm MD complaint: chest pain Pertinent past history: coronary artery disease Onset (ago): minute(s) Timing of current episode: episodic Prior episodes: No Onset: during rest Pain location: substernal and left chest Pain radiation: left arm and left shoulder Severity: severe Pain scale (0-10): 10 Quality: aching and heaviness Relieving factors: nothing Exacerbating factors: nothing Associated symptoms: Deny abdominal pain, diaphoresis, dyspnea, fever(s), leg edema, nausea, palpitations, sense of impending doom, syncope or vomiting Treatment prior to arrival: nitroglycerin Review of Systems Const: Denies: fever(s) or diaphoresis Card: Denies: palpitations or syncope Resp: Denies: dyspnea GI: Denies: abdominal pain, nausea or vomiting PFS ED PFSH: Medical History ASHD (arteriosclerotic heart disease) Chronic back pain Diabetes mellitus Fibromyalgia GERD (gastroesophageal reflux disease) History of coronary angiogram Last procedure October 2020 where she received a drug-eluting stent in her circumflex. LAD 40%, RPDA 40% at that time History of DVT (deep vein thrombosis) HTN (hypertension) Hyperlipidemia Migraine headache Neuropathy FRANCI (obstructive sleep apnea) Surgical History S/P bunionectomy S/P carpal tunnel release S/P hysterectomy S/P rotator cuff repair S/P tonsillectomy and adenoidectomy Family History Mother Diabetes Stroke Hypertension Grandmother Diabetes Hypertension Social History Smoking and tobacco status: never smoked Alcohol intake: never Lives independently: Yes Household members: none Marital status: Single Current occupational status: retired History of recent travel: No Current gender identity: Female Physical Exam Const: GENERAL APPEARANCE: cooperative and comfortable ORIENTATION/CONSCIOUSNESS: Yes awake, Yes oriented to person, Yes oriented to place and Yes oriented to time HENMT: COMMON NORMALS: normocephalic, atraumatic and hearing grossly normal bilaterally HEAD & SCALP: normocephalic and atraumatic Eye: COMMON NORMALS: Equal, round and reactive pupils present, EOMs intact bilaterally, conjunctivae normal and no scleral icterus CONJUNCTIVA: Yes conjunctivae normal PUPIL: Yes Equal, round and reactive pupils present Neck/C-Spine: COMMON NORMALS: full ROM, no lymphadenopathy, supple and no JVD Lymph: LYMPHATIC: no lymphadenopathy noted and no lymphedema noted Resp: COMMON NORMALS: normal respiratory effort, No retractions, No use of accessory muscles and clear to auscultation bilaterally AUSCULTATION: clear to auscultation bilaterally Cardio: COMMON NORMALS: no JVD, regular rate, regular rhythm and No murmurs present (Cardio) RATE: regular rate RHYTHM: regular rhythm GI: COMMON NORMALS: Soft to palpation and No hepatosplenomegaly present AUSCULTATION: Yes normoactive bowel sounds PALPATION: Yes Soft to palpation, No Tenderness to palpation present (GI), No Guarding due to palpation present (GI) and Yes No hepatosplenomegaly present Extremity: COMMON NORMALS: normal to inspection, capillary refill normal, no clubbing, cyanosis or edema, no calf tenderness and no pedal edema Neuro: SENSORIUM/ORIENTATION: Yes oriented to person, Yes oriented to place and Yes oriented to time Skin: COMMON NORMALS: no rashes or lesions noted GENERAL SKIN EXAM: no rashes or lesions noted Course Vital Signs: Vital signs: Vital Signs Temperature 98.3 F 03/16/22 16:08 Pulse Rate 79 03/16/22 16:08 Respiratory Rate 21 H 03/16/22 16:08 Blood Pressure 159/82 03/16/22 16:08 Pulse Oximetry 95 03/16/22 16:08 Oxygen Delivery Me thod 03/16/22 15:54 MDM - Chest Pain Medical Decision Making Negative stress test in June 2020. Patient has chest pain today with some response to nitro. Will admit for further evaluation with cardiology. Medical Records I reviewed the patient's medical records. Lab Data I reviewed the patient's lab results. : 03/16/22 04:24 03/16/22 04:24 Radiology Impressions Chest X-Ray 03/15/22 09:10 Impression: Atherosclerosis. Chest/Abdomen/Pelvis CTA 03/15/22 18:40 IMPRESSION: 1. Equivocal findings for acute cholecystitis. Consider ultrasound follow-up if there is clinical evidence of gallbladder disease. 2. No aortic dissection or aneurysm. 3. Focal subcutaneous edema and gas in the left lower quadrant abdominal wall. Question skin laceration or injection site. 4. Incidental findings above. Gallbladder Ultrasound 03/16/22 07:37 IMPRESSION: 1. Quality of this examination is compromised by body habitus. 2. No cholelithiasis or pericholecystic fluid. 3. Normally distended gallbladder with diffuse wall thickening. No Delacruz's sign. Changes in the gallbladder may be seen with acalculous cholecystitis or h epatocellular disease. 4. Moderate hepatomegaly with hepatic steatosis. Laboratory Results WBC 8.4 10^3/uL (4.0-10.0) 03/15/22 10:52 Corrected WBC Cancelled 03/15/22 09:04 RBC 4.64 10^6/uL (4.1-5.3) 03/15/22 10:52 Hgb 13.7 g/dL (11.5-15.3) 03/15/22 10:52 Hct 42.2 % (37.0-47.0) 03/15/22 10:52 MCV 90.9 fl (81-99) 03/15/22 10:52 MCH 29.5 pg (28.0-34.0) 03/15/22 10:52 MCHC 32.5 g/dL (30.0-36.0) 03/15/22 10:52 RDW 13.7 % (12.1-15.1) 03/15/22 10:52 Plt Count 291 10^3/cmm (130-400) 03/15/22 10:52 MPV 11.0 fL (7.4-10.4) H 03/15/22 10:52 Gran % Cancelled 03/15/22 09:04 Neut % (Auto) 70.5 % 03/15/22 10:52 Lymph % (Auto) 20.9 % 03/15/22 10:52 [place] % (Auto) 5.4 % 03/15/22 10:52 Eos % (Auto) 1.9 % 03/15/22 10:52 Baso % (Auto) 1.1 % 03/15/22 10:52 Neut # (Auto) 5.93 10^3/uL (1.8-7.7) 03/15/22 10:52 Lymph # (Auto) 1.8 10^3/uL (0.8-4.8) 03/15/22 10:52 [place] # (Auto) 0.5 10^3/uL (0.2-0.9) 03/15/22 10:52 Eos # (Auto) 0.2 10^3/uL (0.0-0.8) 03/15/22 10:52 Baso # (Auto) 0.1 10^3/uL (0.0-0.1) 03/15/22 10:52 Absolute Gran (auto) Cancelled 03/15/22 09:04 Nucleated RBC % (auto) 0 % 03/15/22 10:52 Nucleated RBCs # 0.0 /100WBC 03/15/22 10:52 Sodium 142 mmol/L (136-145) 03/15/22 09:04 Potassium 4.3 mmol/L (3.5-5.1) 03/15/22 09:04 Chloride 108 mmol/L (98-107) H 03/15/22 09:04 Carbon Dioxide 23 mmol/L (22-29) 03/15/22 09:04 Anion Gap 15.3 (5-19) 03/15/22 09:04 BUN 9 mg/dL (8-23) 03/15/22 09:04 Creatinine 0.6 mg/dL (0.5-0.9) 03/15/22 09:04 GFR Calculation 100.6 mL/min (90-130) 03/15/22 09:04 Glucose 117 mg/dL (65-115) H 03/15/22 09:04 Calculated Osmolality 294 mOsm/kg (285-295) 03/15/22 09:04 Calcium 9.0 mg/dL (8.5-10.5) 03/15/22 09:04 Total Bilirubin 0.2 mg/dL (0.15-1.2) 03/15/22 09:04 AST 13 U/L (0-32) 03/15/22 09:04 ALT 17 U/L (0-33) 03/15/22 09:04 Alkaline Phosphatase 95 U/L (35-105) 03/15/22 09:04 Troponin T Baseline 6 ng/L (0-10) 03/15/22 09:04 Troponin T 120 Minute 6.97 ng/L (0-10) 03/15/22 10:58 Delta Troponin T -0.86 ABS# (0-10) L 03/15/22 10:58 Total Protein 6.6 g/dL (6.6-8.7) 03/15/22 09:04 Albumin 3.9 g/dL (3.5-5.2) 03/15/22 09:04 Globulin 2.7 g/dL (1.3-4.6) 03/15/22 09:04 TSH 1.15 uIU/mL (0.27-4.20) 03/15/22 08:20 Discharge Plan Discharge Patient Disposition: Admitted As Inpatient Admit Provider: Bam Landa Clinical Impression: Chest pain, ASHD (arteriosclerotic heart disease), HTN (hypertension), FRANCI (obstructive sleep apnea), Diabetes mellitus, Hyperlipidemia Condition: Stable Discharge Diet: Cardiac Discharge Activity: Increase activity as tolerated Coding Level of Care Code ED Rehabilitation Attendant for Christiana Mcnamara
[2022-03-15 10:09] LABS: Alanine Aminotransferase 17 U/L (0-33); Albumin Level 3.9 g/dL (3.5-5.2); Alkaline Phosphatase 95 U/L (35-105); Blood Urea Nitrogen 9 mg/dL (8-23); Carbon Dioxide 23 mmol/L (22-29); Chloride 108 mmol/L (98-107); Globulin 2.7 g/dL (1.3-4.6); Glomerular Filtration Rate 100.6 mL/min (90-130); Glucose 117 mg/dL (65-115); Osmolality Calculated 294 mOsm/kg (285-295); Sodium 142 mmol/L (136-145); Total Bilirubin 0.2 mg/dL (0.15-1.2); Total Protein 6.6 g/dL (6.6-8.7)
[2022-03-15 10:10] LABS: Troponin(5th) Baseline 6 ng/L (0-10)
[2022-03-15 10:11] LABS: Anion Gap 15.3 (5-19); Potassium 4.3 mmol/L (3.5-5.1)
[2022-03-15 10:12] LABS: Aspartate Amino Transferase 13 U/L (0-32)
[2022-03-15 10:56] LABS: Basophils # 0.1 10^3/uL (0.0-0.1); Basophils % 1.1 %; Eosinophils # 0.2 10^3/uL (0.0-0.8); Eosinophils % 1.9 %; Hematocrit 42.2 % (37.0-47.0); Hemoglobin 13.7 g/dL (11.5-15.3); Lymphocytes # 1.8 10^3/uL (0.8-4.8); Lymphocytes % 20.9 %; Mean Corpuscular HGB Conc 32.5 g/dL (30.0-36.0); Mean Corpuscular Hemoglobin 29.5 pg (28.0-34.0); Mean Corpuscular Volume 90.9 fl (81-99); Monocytes # 0.5 10^3/uL (0.2-0.9); Monocytes % 5.4 %; Neutrophils # 5.93 10^3/uL (1.8-7.7); Neutrophils % 70.5 %; Nucleated Red Blood Cells % 0 %; Platelet Count 291 10^3/cmm (130-400); Red Blood Count 4.64 10^6/uL (4.1-5.3); Red Cell Distribution Width 13.7 % (12.1-15.1); White Blood Count 8.4 10^3/uL (4.0-10.0)
--- NOTE | 2022-03-15 11:15 | ECG_ITS ---
[facility] Test Date: 2022-03-15 Pat Name: Nicole Navarro Department: Room: Gender: Female Supervisor Rod Placing: : 1955 Requested By: Jorge Luis Carvalho Order Number: [id number] William MD: Joselyn Quezada M.D. Measurements Intervals [place] Rate: 55 P: 25 CT: 239 QRS: -14 QRSD: 93 T: 30 QT: 377 QTc: 362 Interpretive Statements SINUS BRADYCARDIA WITH FIRST DEGREE AV BLOCK INFERIOR MYOCARDIAL INFARCTION , OF INDETERMINATE AGE [40+ ms Q WAVE AND/OR ST/T ABNORMALITY IN II/aVF] Compared to ECG 03/15/2022 08:55:42 First degree AV block now present Sinus rhythm no longer present Myocardial infarct finding still present Electronically Signed On 03-16-2022 6:30:17 CDT by Joselyn Quezada M.D. [email or web address]
[2022-03-15 11:34] LABS: Troponin 5 2HR 6.97 ng/L (0-10)
[2022-03-15 11:36] LABS: Troponin 5 2HR Delta -0.86 ABS# (0-10)
--- NOTE | 2022-03-15 12:32 | PM.HP ---
Providers/Chief Complaint Admitting Physician: Bam Landa MD Primary Care Provider: Marielle Bucio APN Chief Complaint: CHEST PAIN History of Present Illness Nicole Navarro is a 66 year old female who presents to the emergency department via EMS with concerns of chest discomfort. She reports she had chest discomfort, substernal, lower sternal border awakening her from sleep at 7 AM. She states it was severe, and somewhat sharp. As it did not go away and seem to worsen she ended up taking nitroglycerin, total of 3 with minimal relief. She got in her car to drive to the hospital for evaluation, when discomfort worsened and she called ambulance services. When they arrived 3 more sublingual nitroglycerin were given and in the emergency department chest discomfort is greatly improved/resolved. She reports some associated symptoms of shortness of breath and lightheadedness. She denies any nausea, radiation of the discomfort. She has past history of coronary disease with last intervention to her circumflex in October 2020. She typically will have some chest discomfort approximately twice a month that responds promptly to nitroglycerin. She reports the discomfort she had this morning was similar but very severe. She had recently been off her Plavix for the last 9 days, restarting today. This was held secondary to an injection in her back, spinal, given for chronic back pain by anesthesiology yesterday. She reports no recent fevers, or other illness. No blood in her stool or black or tarry stools. In the emergency department some nitroglycerin ointment was applied, and she received an aspirin. Review of Systems General: Reports: 10 or more systems reviewed and unremarkable except in HPI and below Const: Denies: fever(s) or chills Eyes: Denies: change in vision ENMT: Denies: throat pain Card: Reports: chest pain; Denies: palpitations Resp: Reports: dyspnea; Denies: productive cough or non-productive cough GI: Denies: abdominal pain : Denies: flank pain Musc: Denies: neck pain Skin/Breast: Denies: rash Neuro: Denies: headache(s) Psych: Denies: anxiety or depression Endo: Denies: polyuria [place]/Lymph: Denies: easy bruising All/Imm: Denies: urticaria Medications/Allergies Home Medications Medication Instructions Recorded Confirmed Last Taken Type yzwojctkxe-yfnlpfegmdcgy-evxoqkai 1 cap PO Q8H PRN Migraine Headache 09/02/19 03/15/22 Unknown History 50 mg-325 mg-40 mg capsule cholecalciferol (vitamin D3) 100 4,000 unit PO DAILY 09/02/19 03/15/22 03/15/22 History mcg (4,000 unit) tablet docusate sodium 100 mg capsule 100 mg PO DAILY PRN Constipation 09/02/19 03/15/22 10/20/20 22:00 History hydrocodone 10 mg-acetaminophen 1 tab PO Q4H PRN Pain 09/02/19 03/15/22 10/20/20 22:00 History 325 mg tablet lansoprazole 30 mg capsule,delayed 30 mg PO BID 09/02/19 03/15/22 03/15/22 History release magnesium 250 mg tablet 250 mg PO DAILY 09/02/19 03/15/22 03/15/22 History multivitamin 1 tab PO DAILY 09/02/19 03/15/22 03/15/22 History pregabalin 25 mg capsule (Lyrica) 25 mg PO QID 09/02/19 03/15/22 03/15/22 History vitamin B complex (B 1 tab PO DAILY 09/02/19 03/15/22 03/15/22 History Complex-Vitamin B12) zolpidem 10 mg tablet 10 mg PO BEDTIME 09/02/19 03/15/22 03/14/22 History albuterol sulfate 90 mcg/actuation 2 puff inhalation Q6H PRN 01/05/20 03/15/22 Unknown History aerosol inhaler (ProAir HFA) Shortness Of Breath Or Wheezing erenumab-aooe 140 mg/mL 140 mg SUBCUT .monthly 05/03/20 03/15/22 03/14/22 History subcutaneous auto-injector (Aimovig Autoinjector) amitriptyline 10 mg tablet 50 mg PO DAILY 06/01/20 03/15/22 03/15/22 History nitroglycerin 0.4 mg sublingual 0.4 mg sublingual Q5M PRN Chest 03/24/21 03/15/22 03/15/22 Rx tablet (Nitrostat) Pain #25 tabs estradiol 1 mg tablet 1 mg PO DAILY 05/25/21 03/15/22 03/15/22 History furosemide 40 mg tablet (Lasix) 40 mg PO DAILY #90 tabs 10/19/21 03/15/22 03/15/22 Rx potassium chloride 20 mEq 20 meq PO DAILY #90 tabs 10/19/21 03/15/22 03/15/22 Rx tablet,extended release carvedilol 25 mg tablet 25 mg PO BID #180 tabs 11/21/21 03/15/22 03/15/22 Rx loratadine 10 mg tablet (Claritin) 10 mg PO DAILY PRN Allergy Symptoms 11/21/21 03/15/22 Unknown History omega-3 fatty acids 1,000 mg 2,000 mg PO BID 11/21/21 03/15/22 03/15/22 History capsule clopidogrel 75 mg tablet 75 mg PO DAILY #90 tabs 11/22/21 03/15/22 03/15/22 Rx losartan 100 mg tablet 100 mg PO DAILY #90 tabs 11/22/21 03/15/22 03/15/22 Rx aspirin 81 mg tablet,delayed 81 mg PO BEDTIME #90 tabs 11/23/21 03/15/22 03/15/22 Rx release diltiazem HCl 240 mg 240 mg PO DAILY #90 caps 12/20/21 03/15/22 03/15/22 Rx capsule,extended release 24 hr atorvastatin 20 mg tablet 20 mg PO BEDTIME 03/15/22 03/15/22 03/14/22 History isosorbide mononitrate 30 mg 30 mg PO BID 03/15/22 03/15/22 03/15/22 History tablet,extended release 24 hr Allergies Allergy/AdvReac Type Severity Reaction Status Date / Time ampicillin Allergy Unknown ALGY-Rash Verified 03/15/22 09:43 Sulfa (Sulfonamide Allergy Unknown ALGY-Rash Verified 03/15/22 09:43 Antibiotics) Tetanus Vaccines and Toxoid Allergy Unknown ALGY-Redness Verified 03/15/22 09:43 of Skin isosorbide AdvReac Unknown ADR-Itching Verified 03/15/22 09:43 lisinopril AdvReac ADR-Cough Verified 03/15/22 09:43 PFSH Acute PFSH: Medical History (Updated 03/15/22 @ 13:22 by Bam Landa MD) ASHD (arteriosclerotic heart disease) Chronic back pain Diabetes mellitus Fibromyalgia GERD (gastroesophageal reflux disease) History of coronary angiogram Last procedure October 2020 where she received a drug-eluting stent in her circumflex. LAD 40%, RPDA 40% at that time History of DVT (deep vein thrombosis) HTN (hypertension) Hyperlipidemia Migraine headache Neuropathy FRANCI (obstructive sleep apnea) Surgical History S/P bunionectomy S/P carpal tunnel release S/P hysterectomy S/P rotator cuff repair S/P tonsillectomy and adenoidectomy Family History Mother Diabetes Stroke Hypertension Grandmother Diabetes Hypertension Social History Smoking and tobacco status: never smoked Alcohol intake: never Lives independently: Yes Household members: none Marital status: Single Current occupational status: retired History of recent travel: No Current gender identity: Female Vitals/I&O/Wt Last Vital Signs Temp 98.9 F 03/15/22 08:50 Pulse 70 03/15/22 08:50 Resp 18 03/15/22 08:50 BP 158/75 03/15/22 08:50 Pulse Ox 92 03/15/22 08:50 O2 Del Method 03/15/22 08:50 Weight last 48 hrs Weight 97.976 kg Physical Exam Narrative: General exam is a white female, reporting no chest discomfort currently, in no distress HEENT: Pupils equally round. Oropharynx clear. Head is atraumatic and normocephalic. Neck is supple no lymphadenopathy thyromegaly Cardiovascular regular rate and rhythm without murmur, no S3 or S4 Lungs clear to auscultation bilaterally. No wheezes or crackles Abdomen is soft nontender positive bowel sounds. No obvious organomegaly exams deferred Extremities no cyanosis clubbing or edema, cap refill brisk Skin no rash Neuro no obvious focal deficits. Data : 03/15/22 10:52 03/15/22 09:04 Other Labs: LFTs normal, calcium normal. Troponin 6 with repeat of 6.97 Chest x-ray shows no infiltrate EKG demonstrates sinus rhythm, left axis deviation, Q waves inferiorly. No acute changes. A&P Assessment and plan (1) Chest pain: History is concerning for anginal event. However, it is somewhat atypical that troponin is not elevated with this prolonged chest discomfort event. She has known coronary disease, with three-vessel disease and most recent intervention in October where she received a circumflex drug-eluting stent. Continue her chronic medications including carvedilol, statin, Plavix, aspirin. Hold her long-acting nitroglycerin as we will be putting her on Nitropaste. At this point considering troponin is normal and she recently had a spinal yesterday for back pain I am not putting her on full dose anticoagulation. Should discomfort recur, troponin elevate then this will be done. Check echocardiogram Cardiology consultation Telemetry Check TSH Status: Acute (2) ASHD (arteriosclerotic heart disease): See above Status: Acute Plan Multiple other medical runs as outlined in past medical history Allow natural . 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 She would never want to undergo to her code situation, knowing that her outcome would likely be worse following the code and she reports overall poor quality of life currently. Lovenox for DVT prophylaxis Attestations Medical Necessity Statement*: Will require less than 2 midnight stay for evaluation and treatment of chest discomfort Coding Level of Care Code Acute [employer] for Christiana Mcnamara Diagnoses Chest pain R07.9 ASHD (arteriosclerotic heart disease) I25.10
--- NOTE | 2022-03-15 12:59 | PM.CONSULT ---
Providers/Reason For Consult Consulting Physician/Specialty*: DARRELL Vaughn MD/cardiology Reason for Consult*: Patient is a history of coronary artery disease, presenting with chest pain Requesting Physician: Dr. Landa Attending Physician: Dr. Landa Primary Care Provider: Marielle Bucio APN History of Present Illness History of Present Illness Nicole Navarro is a 66 year old female with a history of coronary disease and PCI, is present with complaints of a prolonged episode of chest pain which woke her up from sleep, this morning. Cardiology consult is requested for further cardiac evaluation recommendations. This patient has a history of atherosclerotic heart disease. She had multiple coronary angiograms in the past. In 2014, she had a cardiac catheterization which revealed a moderate lesion in the LAD. FFR at that time was unremarkable. In 2016 and 2018, she had repeat angiograms by . The FFR on the LAD lesions were performed and was found to be not significant to perform PCI. In October 2020, she had a repeat angiogram for unstable anginal symptoms. She was found to have a 80% lesion in the circumflex artery for which she underwent PCI with a drug-eluting stent. According the patient, she been doing okay since then except for occasional chest pains. This morning, she woke up with severe chest pain. The pain was 10/10 intensity. It was radiating across the chest, to the back and also to the left arm. She took a total of 3 sublingual nitro with not much relief. She was brought to emergency room by ambulance. In the ambulance, she had 3 more sublingual nitro. She started having some improvement of the pain. By the time she reached the emergency room, the pain was 5/10 in intensity. She was placed on Nitropaste. The symptoms gradually started subsiding. At the time of my examination, the pain is 1-2 over 10. She had associated shortness of breath. No nausea vomiting. No sweating or dizziness. No palpitations or syncopal episodes. According the patient, today's chest pain was different from the previous pain she had. The quality, severity and duration were different. She was taken off the Plavix for 9 days for a nerve block injection yesterday. She took the Plavix this morning She has a history of hypertension, type 2 diabetes and dyslipidemia. Her blood pressure has been staying in the 1 50-1 82 since the ER visit. Denies any fever or chills. No cough. Review of Systems Narrative: CONSTITUTIONAL: No fever or chills. EYES: No blurring of vision or other visual disturbances lately. ENT: No hoarseness of voice, auditory disturbances or sore throat. CARDIOVASCULAR: As mentioned above. RESPIRATORY: Has shortness of breath with the chest pain. GASTROINTESTINAL: No hematemesis or melena. GENITOURINARY: No dysuria or hematuria. INTEGUMENTARY: No skin rashes or history of skin cancer. NEURO: No transient ischemic attacks or amaurosis. PSYCHIATRIC: No history of psychosis or major depression. HEMATOLOGIC: No bleeding disorders or significant anemia. ENDOCRINE: History of diabetes MUSCULOSKELETAL: No recent joint pain or swelling. ALLERGY/IMMUNOLOGY: As mentioned above. Medications/Allergies Home Medications Medication Instructions Recorded Confirmed Last Taken Type nzgwkxsxbk-qieczoqmfzmko-iernfaka 1 cap PO Q8H PRN Migraine Headache 09/02/19 03/15/22 Unknown History 50 mg-325 mg-40 mg capsule cholecalciferol (vitamin D3) 100 4,000 unit PO DAILY 09/02/19 03/15/22 03/15/22 History mcg (4,000 unit) tablet docusate sodium 100 mg capsule 100 mg PO DAILY PRN Constipation 09/02/19 03/15/22 10/20/20 22:00 History hydrocodone 10 mg-acetaminophen 1 tab PO Q4H PRN Pain 09/02/19 03/15/22 10/20/20 22:00 History 325 mg tablet lansoprazole 30 mg capsule,delayed 30 mg PO BID 09/02/19 03/15/22 03/15/22 History release magnesium 250 mg tablet 250 mg PO DAILY 09/02/19 03/15/22 03/15/22 History multivitamin 1 tab PO DAILY 09/02/19 03/15/22 03/15/22 History pregabalin 25 mg capsule (Lyrica) 25 mg PO QID 09/02/19 03/15/22 03/15/22 History vitamin B complex (B 1 tab PO DAILY 09/02/19 03/15/22 03/15/22 History Complex-Vitamin B12) zolpidem 10 mg tablet 10 mg PO BEDTIME 09/02/19 03/15/22 03/14/22 History albuterol sulfate 90 mcg/actuation 2 puff inhalation Q6H PRN 01/05/20 03/15/22 Unknown History aerosol inhaler (ProAir HFA) Shortness Of Breath Or Wheezing erenumab-aooe 140 mg/mL 140 mg SUBCUT .monthly 05/03/20 03/15/22 03/14/22 History subcutaneous auto-injector (Aimovig Autoinjector) amitriptyline 10 mg tablet 50 mg PO DAILY 06/01/20 03/15/22 03/15/22 History nitroglycerin 0.4 mg sublingual 0.4 mg sublingual Q5M PRN Chest 03/24/21 03/15/22 03/15/22 Rx tablet (Nitrostat) Pain #25 tabs estradiol 1 mg tablet 1 mg PO DAILY 05/25/21 03/15/22 03/15/22 History furosemide 40 mg tablet (Lasix) 40 mg PO DAILY #90 tabs 10/19/21 03/15/22 03/15/22 Rx potassium chloride 20 mEq 20 meq PO DAILY #90 tabs 10/19/21 03/15/22 03/15/22 Rx tablet,extended release carvedilol 25 mg tablet 25 mg PO BID #180 tabs 11/21/21 03/15/22 03/15/22 Rx loratadine 10 mg tablet (Claritin) 10 mg PO DAILY PRN Allergy Symptoms 11/21/21 03/15/22 Unknown History omega-3 fatty acids 1,000 mg 2,000 mg PO BID 11/21/21 03/15/22 03/15/22 History capsule clopidogrel 75 mg tablet 75 mg PO DAILY #90 tabs 11/22/21 03/15/22 03/15/22 Rx losartan 100 mg tablet 100 mg PO DAILY #90 tabs 11/22/21 03/15/22 03/15/22 Rx aspirin 81 mg tablet,delayed 81 mg PO BEDTIME #90 tabs 11/23/21 03/15/22 03/15/22 Rx release diltiazem HCl 240 mg 240 mg PO DAILY #90 caps 12/20/21 03/15/22 03/15/22 Rx capsule,extended release 24 hr atorvastatin 20 mg tablet 20 mg PO BEDTIME 03/15/22 03/15/22 03/14/22 History isosorbide mononitrate 30 mg 30 mg PO BID 03/15/22 03/15/22 03/15/22 History tablet,extended release 24 hr Allergies Allergy/AdvReac Type Severity Reaction Status Date / Time ampicillin Allergy Unknown ALGY-Rash Verified 03/15/22 09:43 Sulfa (Sulfonamide Allergy Unknown ALGY-Rash Verified 03/15/22 09:43 Antibiotics) Tetanus Vaccines and Toxoid Allergy Unknown ALGY-Redness Verified 03/15/22 09:43 of Skin isosorbide AdvReac Unknown ADR-Itching Verified 03/15/22 09:43 lisinopril AdvReac ADR-Cough Verified 03/15/22 09:43 PFSH Acute PFSH: Medical History (Updated 03/15/22 @ 19:01 by Nohemi Vaughn MD) ASHD (arteriosclerotic heart disease) Chronic back pain Diabetes mellitus Fibromyalgia GERD (gastroesophageal reflux disease) History of coronary angiogram Last procedure October 2020 where she received a drug-eluting stent in her circumflex. LAD 40%, RPDA 40% at that time History of DVT (deep vein thrombosis) HTN (hypertension) Hyperlipidemia Migraine headache Neuropathy FRANCI (obstructive sleep apnea) Surgical History S/P bunionectomy S/P carpal tunnel release S/P hysterectomy S/P rotator cuff repair S/P tonsillectomy and adenoidectomy Family History Mother Diabetes Stroke Hypertension Grandmother Diabetes Hypertension Social History Smoking and tobacco status: never smoked Alcohol intake: never Lives independently: Yes Household members: none Marital status: Single Current occupational status: retired History of recent travel: No Current gender identity: Female Vitals/I&O/Wt Last Vital Signs Temp 98.9 F 03/15/22 08:50 Pulse 70 03/15/22 08:50 Resp 18 03/15/22 08:50 BP 158/75 03/15/22 08:50 Pulse Ox 92 03/15/22 08:50 O2 Del Method 03/15/22 08:50 Weight last 48 hrs Weight 216 lb Physical Exam Narrative: GENERAL: The patient is alert and oriented times three. Not in any acute distress. HEENT: No significant pallor, icterus or lymphadenopathy.Oral cavity: There are no mucous membrane lesions. NECK: Trachea appears to be central. No masses noted. No JVD or thyromegaly appreciated. RESPIRATORY: Chest is symmetrical. No intercostals muscle retraction or any accessory muscle activation. There is no chest wall tenderness. Breath sounds are heard bilaterally. No rales or rhonchi heard. No evidence of any consolidation. BREASTS: Deferred. HEART: The heart sounds are normal. No S3 or S4. No significant murmurs. No pericardial rub ABDOMEN: No vessel pulsations or distention. No tenderness. No organomegaly appreciated. Bowel sounds are normally heard. : Deferred. RECTAL: Deferred. LYMPHATIC: No lymphadenopathy noted in the neck. EXTREMITIES: No edema or cyanosis. No clubbing. MUSCULOSKELETAL: No acute joint deformities or swelling SKIN: There are no significant rashes or ecchymosis NEUROPSYCHIATRIC: The patient is alert and oriented x3. Appears to be in a good mood. No tremors or rigidity noted. Data : 03/15/22 10:52 03/15/22 09:04 Other Labs: Laboratory Last Values WBC 8.4 10^3/uL (4.0-10.0) 03/15/22 10:52 Corrected WBC Cancelled 03/15/22 09:04 RBC 4.64 10^6/uL (4.1-5.3) 03/15/22 10:52 Hgb 13.7 g/dL (11.5-15.3) 03/15/22 10:52 Hct 42.2 % (37.0-47.0) 03/15/22 10:52 MCV 90.9 fl (81-99) 03/15/22 10:52 MCH 29.5 pg (28.0-34.0) 03/15/22 10:52 MCHC 32.5 g/dL (30.0-36.0) 03/15/22 10:52 RDW 13.7 % (12.1-15.1) 03/15/22 10:52 Plt Count 291 10^3/cmm (130-400) 03/15/22 10:52 MPV 11.0 fL (7.4-10.4) H 03/15/22 10:52 Gran % Cancelled 03/15/22 09:04 Neut % (Auto) 70.5 % 03/15/22 10:52 Lymph % (Auto) 20.9 % 03/15/22 10:52 [place] % (Auto) 5.4 % 03/15/22 10:52 Eos % (Auto) 1.9 % 03/15/22 10:52 Baso % (Auto) 1.1 % 03/15/22 10:52 Neut # (Auto) 5.93 10^3/uL (1.8-7.7) 03/15/22 10:52 Lymph # (Auto) 1.8 10^3/uL (0.8-4.8) 03/15/22 10:52 [place] # (Auto) 0.5 10^3/uL (0.2-0.9) 03/15/22 10:52 Eos # (Auto) 0.2 10^3/uL (0.0-0.8) 03/15/22 10:52 Baso # (Auto) 0.1 10^3/uL (0.0-0.1) 03/15/22 10:52 Absolute Gran (auto) Cancelled 03/15/22 09:04 Nucleated RBC % (auto) 0 % 03/15/22 10:52 Nucleated RBCs # 0.0 /100WBC 03/15/22 10:52 Sodium 142 mmol/L (136-145) 03/15/22 09:04 Potassium 4.3 mmol/L (3.5-5.1) 03/15/22 09:04 Chloride 108 mmol/L (98-107) H 03/15/22 09:04 Carbon Dioxide 23 mmol/L (22-29) 03/15/22 09:04 Anion Gap 15.3 (5-19) 03/15/22 09:04 BUN 9 mg/dL (8-23) 03/15/22 09:04 Creatinine 0.6 mg/dL (0.5-0.9) 03/15/22 09:04 GFR Calculation 100.6 mL/min (90-130) 03/15/22 09:04 Glucose 117 mg/dL (65-115) H 03/15/22 09:04 Calculated Osmolality 294 mOsm/kg (285-295) 03/15/22 09:04 Calcium 9.0 mg/dL (8.5-10.5) 03/15/22 09:04 Total Bilirubin 0.2 mg/dL (0.15-1.2) 03/15/22 09:04 AST 13 U/L (0-32) 03/15/22 09:04 ALT 17 U/L (0-33) 03/15/22 09:04 Alkaline Phosphatase 95 U/L (35-105) 03/15/22 09:04 Troponin T Baseline 6 ng/L (0-10) 03/15/22 09:04 Troponin T 120 Minute 6.97 ng/L (0-10) 03/15/22 10:58 Delta Troponin T -0.86 ABS# (0-10) L 03/15/22 10:58 Total Protein 6.6 g/dL (6.6-8.7) 03/15/22 09:04 Albumin 3.9 g/dL (3.5-5.2) 03/15/22 09:04 Globulin 2.7 g/dL (1.3-4.6) 03/15/22 09:04 Echo: My impression: From 03/15/2022 Normal left ventricular size and systolic function, EF 55%. No ?regional wall motion abnormalities. ?The right ventricle is normal in size and function.? ?Thickened mitral valve. Mild mitral annular calcification. ?Thickened aortic valve with features of aortic valve sclerosis ?Trace tricuspid valve regurgitation. ?Estimated pulmonary artery peak systolic pressure, normal ?There is no pericardial effusion. ?There are no intracardiac masses. ?Compared to the previous study from 08/05/2016, there may not be ?a significant change EKG 1: My Interpretation: Sinus bradycardia with a rate of [address] Ts. Possible old inferior wall myocardial infarction. First-degree AV block. Normal QRS duration. EKG computer-generated impression: Chest X-Ray 03/15/22 09:10 Impression: Atherosclerosis. Other data: 10/21/20 ? * LM has 0% stenosis. ? * mLAD: Mild 40% stenosis, TUAN: 3 flow. ? * Mid Circumflex Coronary Artery: Severe 80% stenosis, TUAN: 3 flow. ? * RPDA: Mild 40% stenosis, TUAN: 3 flow. ? * RPDA: Mild 40% stenosis, TUAN: 3 flow. ? * Coronary angiography shows right dominance. A&P Assessment and plan (1) Chest pain: The etiology of patient's chest pain is unclear at this time. Apparently her pain was very severe to begin with and is different from the pains that she had in the past. Possibility of a aortic dissection causing this is a consideration. PE may be very low in my less since she has no shortness of breath at this time. If there is no evidence of dissection, this could suggest an unstable angina. Her enzymes are negative so far. No ischemic EKG changes. Her echocardiogram is unremarkable. Status: Acute (2) Atherosclerotic heart disease of [place] coronary artery with other forms of angina pectoris: Patient had a PCI of mid circumflex lesion in October of last year. She was found to have mild disease in the LAD and the right coronary artery at that time. Possibility of restenosis of the circumflex lesion is a consideration. Patient has been off the Plavix for 9 days. Is not very clear whether this has any role in the current event or not. Currently her pain is almost gone. Status: Acute (3) FRANCI (obstructive sleep apnea): May continue on the current treatment Status: Acute (4) HTN (hypertension): Cut relative blood pressure is a stage II. The antihypertensive medication need to be optimized. Status: Acute Qualifiers: Hypertension type: essential hypertension Qualified Code(s): I10 - Essential (primary) hypertension (5) Diabetes mellitus: Post monitoring of the blood sugar review appropriate. Her kidney function within normal limits. Status: Acute (6) Hyperlipidemia: May continue on the current medications. Status: Acute Plan The other problems are History of GERD Fibromyalgia Chronic back pains We will go ahead and do a CT of the chest to rule out any aortic dissection. If there is no evidence of dissection, I may go ahead and give total of 300 mg of Plavix p.o. Will discuss with Dr. Suh regarding further management. Discussed my recommendations with the Dr. Bam Landa Thank for the opportunity to evaluate this patient and make these recommendations Coding Level of Care Code Acute Docketing Specialist for Christiana Fwvidya History Expanded Problem Focused Exam Detailed Medical Decision Making High Complexity Diagnoses Chest pain R07.9 Atherosclerotic heart disease of [place] coronary artery with other forms of angina pectoris I25.118 FRANCI (obstructive sleep apnea) G47.33 HTN (hypertension) I10 Hypertension type: essential hypertension Diabetes mellitus E11.9 Hyperlipidemia E78.5
--- NOTE | 2022-03-15 13:16 | USCV_ITS ---
Ramon Nicole Age: 66 Gender: F : 1955 Exam Date: 03/15/2022 14:46 Ordering Phys: Bam Landa MD Technologist: Richard Rodríguez Exam Location: [facility] [place] Indication: chest pain BP: 131 / 61 HR: 70 Rhythm: Sinus Technical Quality: Adequate MEASUREMENTS (Male / Female) Normal Values 2D ECHO LV Diastolic Diameter PLAX 2.8 cm 4.2 - 5.9 / 3.9 - 5.3 cm LV Systolic Diameter PLAX 2.2 cm IVS Diastolic Thickness 0.8 cm 0.6 - 1.0 / 0.6 - 0.9 cm IVS Systolic Thickness 1.6 cm LVPW Diastolic Thickness 1.0 cm 0.6 - 1.0 / 0.6 - 0.9 cm LVPW Systolic Thickness 1.4 cm LVOT Diameter 2.0 cm LV Ejection Fraction 2D Teich 48.0 % LA Diameter 4.0 cm M-MODE Aortic Annulus Diameter 3.2 cm LA Ao Ratio MM 1.4 MV E Point Septal Separation 0.9 cm DOPPLER AV Peak Velocity 178.0 cm/s LVOT Peak Velocity 116.0 cm/s AV Area Cont Eq vti 2.0 cm squared AV Area Cont Eq pk 2.1 cm squared MV E' Velocity 6.0 cm/s TR Peak Velocity 196.2 cm/s TR Peak Gradient 15.4 mmHg TV Peak E Velocity 85.0 cm/s Right Atrial Pressure 3.0 mmHg Pulmonary Artery Systolic Pressu 18.4 mmHg PV Peak Velocity 110.0 cm/s FINDINGS Left Ventricle Normal left ventricular size and systolic function, EF 55%. No regional wall motion abnormalities. Right Ventricle The right ventricle is normal in size and function. Right Atrium The right atrium is normal in size. Left Atrium The left atrium is normal in size. Mitral Valve Thickened mitral valve. Mild mitral annular calcification. Aortic Valve Thickened aortic valve. Tricuspid Valve Trace tricuspid valve regurgitation. Pulmonic Valve Pulmonic valve not well visualized. Pericardium Normal pericardium without effusion. Aorta Normal ascending aorta dimension. IVC Inferior vena cava not visualized. CONCLUSIONS Normal left ventricular size and systolic function, EF 55%. No regional wall motion abnormalities. The right ventricle is normal in size and function. Thickened mitral valve. Mild mitral annular calcification. Thickened aortic valve with features of aortic valve sclerosis Trace tricuspid valve regurgitation. Estimated pulmonary artery peak systolic pressure, normal There is no pericardial effusion. There are no intracardiac masses. Compared to the previous study from 08/05/2016, there may not be a significant change Dr Nohemi Vaughn MD FAC (Electronically Signed) Final Date: 15 March 2022 18:18 S
[2022-03-15 13:44] LABS: Thyroid Stimulating Hormone 1.15 uIU/mL (0.27-4.20)
[2022-03-15 15:41] LABS: Troponin 5 6HR 6.29 ng/L (0-10)
--- NOTE | 2022-03-15 16:49 | ECG_ITS ---
[facility] Test Date: 2022-03-15 Pat Name: Nicole Navarro Department: Room: 276 Gender: Female [employer]: : 1955 Requested By: Jorge Luis Carvalho Order Number: [id number] William MD: Joselyn Quezada M.D. Measurements Intervals [place] Rate: 59 P: 27 MI: 209 QRS: -13 QRSD: 95 T: 27 QT: 371 QTc: 368 Interpretive Statements SINUS BRADYCARDIA INFERIOR MYOCARDIAL INFARCTION , OF INDETERMINATE AGE [40+ ms Q WAVE AND/OR ST/T ABNORMALITY IN II/aVF] Compared to ECG 03/15/2022 11:15:14 First degree AV block no longer present Myocardial infarct finding still present Electronically Signed On 03-16-2022 6:28:05 CDT by Joselyn Quezada M.D. [id number]
[2022-03-15 18:10] LABS: Troponin 5 6HR Delta -0.29 ng/L (0-12)
[2022-03-15] MEDS: pantoprazole DR 40 mg Tablet PO (18:24)
[2022-03-15] MEDS: enoxaparin 40 mg/0.4 mL Syringe SUBCUT (18:24)
[2022-03-15] MEDS: carvedilol 25 mg Tablet PO (18:24)
[2022-03-15] MEDS: pregabalin 25 mg Capsule PO ×2 (18:24→20:42)
[2022-03-15] MEDS: nitroglycerin 1 gm/inch oint Pkt 0.5 INCH TOPICAL ×2 (18:25→20:38)
--- NOTE | 2022-03-15 18:40 | CTR_ITS ---
PROCEDURE INFORMATION: Exam: CTA Chest With Contrast CTA Abdomen and Pelvis With Contrast Exam date and time: 03/15/2022 8:28 PM Age: 66 years old Clinical indication: Shortness of breath; Additional info: R/O aortic dissection TECHNIQUE: Imaging protocol: Computed tomographic angiography of the chest with contrast. Computed tomographic angiography of the abdomen and pelvis with contrast. 3D rendering (Not supervised by radiologist): MIP and/or 3D reconstructed images were created by the technologist. Radiation optimization: All CT scans at this facility use at least one of these dose optimization techniques: automated exposure control; mA and/or kV adjustment per patient size (includes targeted exams where dose is matched to clinical indication); or iterative reconstruction. Contrast material: OMNIPAQUE 350; Contrast volume: 95 ml; Contrast route: INTRAVENOUS (IV); COMPARISON: CR XR hip LT 2-3V wo/w pel* [id number] 12/09/2020 11:05 AM RADIATION DOSE METRICS: Total DLP (mGy-cm): 1214.5 FINDINGS: VASCULATURE: Pulmonary arteries: The central pulmonary arteries are unremarkable. Aorta: There is mild aortic atherosclerotic disease. There is no aortic dissection or aneurysm. Celiac trunk and mesenteric arteries: No occlusion or significant stenosis. Renal arteries: No occlusion or significant stenosis. Right iliac arteries: No occlusion or significant stenosis. Left iliac arteries: No occlusion or significant stenosis. CHEST: Lungs: Lungs are clear. Pleural spaces: There is no pleural effusion or pneumothorax. Heart: There is mild coronary artery calcification. There is no pericardial effusion. Heart size is normal. ABDOMEN AND PELVIS: Liver: The liver is normal. Gallbladder and bile ducts: The gallbladder is distended. The wall is mildly thickened and there is trace pericholecystic fluid adjacent to the liver. No calcified stones. No biliary dilation. Pancreas: The pancreas is unremarkable. Spleen: The spleen is unremarkable. Adrenal glands: The adrenal glands are unremarkable. Kidneys and ureters: The kidneys are unremarkable. No hydronephrosis or stones. No ureteral dilation. Stomach and bowel: The stomach is unremarkable. The small bowel is nondilated. The colon is unremarkable. Appendix: The appendix is normal. Intraperitoneal space: There is no free air or significant intraperitoneal free fluid. Urinary bladder: The urinary bladder is decompressed, preventing meaningful evaluation of wall thickness. Reproductive: The uterus is absent. There is no adnexal mass or large cyst. Lymph nodes: There is no mediastinal or hilar lymphadenopathy. There is no lymphadenopathy in the retroperitoneum, mesentery, pelvis or inguinal regions. Bones/joints: The visible portions of the clavicles and shoulders, scapula, ribs, sternum, and spine are unremarkable. There is moderate degenerative disease in the lumbar spine. The pelvis and hips are unremarkable. Soft tissues: The extrathoracic soft tissues are unremarkable. Focal subcutaneous edema and soft tissue gas in the left lower quadrant abdominal wall. The abdominal wall is intact. CT/CT angio chest abdomen pelvis IMPRESSION: 1. Equivocal findings for acute cholecystitis. Consider ultrasound follow-up if there is clinical evidence of gallbladder disease. 2. No aortic dissection or aneurysm. 3. Focal subcutaneous edema and gas in the left lower quadrant abdominal wall. Question skin laceration or injection site. 4. Incidental findings above.
[2022-03-15] MEDS: iohexol 350 mg/mL 100 mL Btl IV (20:17)
[2022-03-15] MEDS: atorvastatin 40 mg Tablet 20 MG PO (20:37)
[2022-03-15] MEDS: aspirin 81 mg EC Tablet PO (20:38)
[2022-03-15] MEDS: zolpidem 5 mg Tablet 10 MG PO (20:38)
[2022-03-15] MEDS: clopidogrel 75 mg Tablet 225 MG PO (22:21)
[2022-03-16] VITALS (20 sets, daily range): BP systolic 144–188; BP diastolic 68–98; PULSE 60–120; RESP 12–26; TEMP 36.6–36.8; O2SAT 93–96
[2022-03-16] MEDS: sodium chloride 0.9% 1,000 ML 50 ML IV (04:51)
[2022-03-16] MEDS: nitroglycerin 1 gm/inch oint Pkt 0.5 INCH TOPICAL (04:52)
[2022-03-16 04:58] LABS: Basophils # 0.1 10^3/uL (0.0-0.1); Basophils % 0.8 %; Eosinophils # 0.2 10^3/uL (0.0-0.8); Eosinophils % 1.7 %; Hematocrit 42.7 % (37.0-47.0); Hemoglobin 13.8 g/dL (11.5-15.3); Lymphocytes # 2.4 10^3/uL (0.8-4.8); Lymphocytes % 27.2 %; Mean Corpuscular HGB Conc 32.3 g/dL (30.0-36.0); Mean Corpuscular Hemoglobin 29.1 pg (28.0-34.0); Mean Corpuscular Volume 90.1 fl (81-99); Mean Platelet Volume 11.2 fL (7.4-10.4); Monocytes # 0.5 10^3/uL (0.2-0.9); Monocytes % 5.6 %; Neutrophils # 5.65 10^3/uL (1.8-7.7); Neutrophils % 64.4 %; Nucleated Red Blood Cells % 0 %; Platelet Count 291 10^3/cmm (130-400); Red Blood Count 4.74 10^6/uL (4.1-5.3); Red Cell Distribution Width 13.3 % (12.1-15.1); White Blood Count 8.8 10^3/uL (4.0-10.0)
--- NOTE | 2022-03-16 05:12 | XACV_ITS ---
Exam Room: [facility] Ht: 168 cm Wt: 98 kg BSA: 2.18 m2 Gender: Female : 1955 Performing Physician(s): Gary Suh MD Any Known Allergies: Other Exam Priority: Routine Procedure(s): Procedure Description: Diagnostic procedure Procedure Description: Left Heart Catheterization Procedure Description: Miscellaneous Procedure Description: Angio-Seal Procedure Description: Coronary Angiography Procedure Description: Pressure Wire Diagnostic Cath Status: Urgent Diagnostic Findings * Left Main has no disease. * Left Anterior Descending has no disease. * Mid Right Coronary Artery: obstructive 60% stenosis, TUAN: 3 flow. * Proximal Circumflex: minimal 30% stenosis, TUAN: 3 flow. * Coronary angiography shows right dominance. Interventional Findings * Procedure detail: We engaged RCA with JR4 guide catheter. IV heparin was administered to maintain ACT above above 250 S. iFR wire was advanced into the distal RCA after normalization. IFR value of 0.92 was obtained. As this was nonischemic, medical therapy was decided. IFR wire was removed and final angiogram was performed that showed no complications. Guide catheter was removed. Patient left the Nurse Tech in a stable condition. Conclusions 1. Moderate mid RCA stenosis. IFR nonischemic. Medical therapy.. Recommendations * Aggressive medical therapy. * Outpatient cardiology follow-up in 4 weeks. Interventional RX Recommendation: medical therapy and/or counseling Anticoagulation: Heparin Pressures Phase:Rest AO : 137 / 90 ( 113 ) @ 7:27:00 AM 136 / 89 ( 112 ) @ 7:31:00 AM 184 / 68 ( 113 ) @ 7:35:00 AM 159 / 81 ( 117 ) @ 7:35:00 AM 161 / 81 ( 117 ) @ 7:36:00 AM LV : 197 / -23 / 24 @ 7:34:00 AM 198 / -13 / 22 @ 7:35:00 AM Valves Phase:DefaultPhase AV : 25.0 @ 1:34:14 PM AV Mean Gradient: 21.0 @ 1:34:14 PM Clinical Evaluation EBL: 5mL-10mL Procedural Details Procedure Consent Obtained. Current Diagnosis : Chest Pain. Pre-Procedure Time Out. Identified patient by full name and date of as verbalized by the patient/guarantor. Does the consent match the physician's order: Yes. Accurate & Complete Informed Consent: Yes. Inpatient/Outpatient History & Physical on Chart: Yes. If H&P is completed, is and addenduem needed: No; If yes, is the addendum complete: N/A. Visualize and Verify Site with Patient/Guarantor: N/A. Relevant Radiology Images available: Yes. Pre-op teaching completed and patient verbalized understanding. The risks, benefits, and alternatives of sedation and/or procedure were discussed by physician. The patient agrees to continue. Procedure started. [facility] Clinical Fraility Score: 3: Managing Well. Nurse Tech Indications: ACS > 24 hours. Chest Pain Symptom Assessment: Atypical Angina. Correct patient, site and procedure confirmed by cath team. Current diagnosis: Chest Pain. PERRLA. Strong, equal hand cuprous chloride operator bilaterally. Lungs clear x 5 lobes. IV Site on Arrival: 20 gauge in the right forearm. IV Site on Arrival: 22 gauge in the left wrist. IV Fluids: 0.9% NaCl at KVO. 0 mL infused prior to brush clearing laborer. Oxygen started at 2liters/min via nasal canula. bilateral groins was prepped with chloroprep then draped in the usual sterile fashion. Baseline sample Acquired. HR: 72 BPM. Physician arrived. Physician scrubbed in. Immediate Pre-Procedure Time Out. Correct Patient: Yes; Correct Procedure: Yes; Correct Site: Yes; Correct Patient Position: Yes; Correct Supplies: Yes; Dried Flammable Prep: Yes; Blood Products Available: N/A;. Lidocaine 1% infiltrated to the right groin. Arterial access obtained. A 5 anguillan JL4 catheter in over wire. Multiple views taken of left coronary artery. Catheter removed over the standard wire. A 5 anguillan JR4 catheter in over wire. Multiple views taken of right coronary artery. Catheter removed over the standard wire. 6 anguillan JR 4 guide catheter was inserted over the wire. EDP Sample taken: LV 197/-24,24; HR: 81 BPM; SpO2: 96%. Pullback taken: LV 198/-14,22; AO 184/68(113); Mean: 21mmHg, Peak to Peak: 25mmHg, SEP: 21sec/min; HR: 81 BPM; SpO2: 96%. FFR guidewire was advanced through the guide catheter to lesion in the mid RCA. IFR Results: 0.92. Wire out. Guide catheter out. A Right femoral angiogram was performed to determine safe placement of closure device. Lidocaine 1% infiltrated to the right groin. A Angio-Seal VIP ([facility]) was successful obtaining hemostatsis at the Right Femoral artery insertion site. Post Procedure: Pulses reassessed and unchanged. PERRLA. Strong, equal hand cuprous chloride operator bilaterally. No VTE prophylaxis required. Medication's Wasted: Heparin = 4000 units. Total IV fluids: 50 mL. Complications: None. Estimated blood loss: 5mL-10mL. Responsiveness - Normal response to verbal stimuli; alert and oriented, PERRLA. Airway - Unaffected, no intervention required; spontaneous ventilation. Circulation: W/N/L, pulses unchanged. Nausea/Vomiting: No. Procedure completed. Patient transferred by bed to [facility]. Vital chart was stopped. Access Site Site: Right Femoral artery Sheath Size: 6 Fr Hemostasis Method: Angio-Seal VIP ([facility]) Hemostasis Success: Successful Procedure Medications Start: 6:17 AM Stop: 6:17 AM Medication: Fentanyl Amount: 50 mcg Route: I.V. Start: 6:18 AM Stop: 6:18 AM Medication: Benadryl Amount: 50 mg Route: I.V. Start: 6:19 AM Stop: 6:19 AM Medication: Versed Amount: 1 mg Route: I.V. Start: 6:22 AM Stop: 6:22 AM Medication: Fentanyl Amount: 25 mcg Route: I.V. Start: 6:25 AM Stop: 6:25 AM Medication: Versed Amount: 1 mg Route: I.V. Start: 6:32 AM Stop: 6:32 AM Medication: Fentanyl Amount: 25 mcg Route: I.V. Start: 6:32 AM Stop: 6:32 AM Medication: Heparin Amount: 7000 units Route: I.V. Start: 6:47 AM Stop: 6:47 AM Medication: Fentanyl Amount: 50 mcg Route: I.V. I, the attending physician, have reviewed and verified all procedure medications. Yes, all medications given per verbal order History/Risk Factors Hypertension: Yes Dyslipidemia: Yes Peripheral Arterial Disease (PAD): No Myocardial Infarction (SC): No Obesity: No Renal Disease: No Tobacco Use: Never Prior Interventions PCI: No CABG: No Valve Surgery: No Report Signatures Interventional Workflow Finalized by Gary Suh MD on 03/31/2022 10:23 AM Diagnostic Workflow Finalized by Gary Suh MD on 03/31/2022 10:23 AM
[2022-03-16 05:31] LABS: Anion Gap 12.8 (5-19); Blood Urea Nitrogen 10 mg/dL (8-23); Carbon Dioxide 27 mmol/L (22-29); Chloride 107 mmol/L (98-107); Glomerular Filtration Rate 84.2 mL/min (90-130); Glucose 96 mg/dL (65-115); Osmolality Calculated 295 mOsm/kg (285-295); Potassium 3.8 mmol/L (3.5-5.1); Sodium 143 mmol/L (136-145)
--- NOTE | 2022-03-16 06:19 | W.PM.OPSUD ---
Surgery/Procedure H&P Update DATE OF PROCEDURE: March 16, 2022 DATE H&P PERFORMED: 03/15/22 H&P UPDATE INFORMATION: I have reviewed H&P completed within last 30 days, I have examined patient prior to procedure and No changes to prior documentation PREOP DIAGNOSIS: Unstable angina PRIMARY INDICATION FOR PROCEDURE: Unstable angina PLANNED PROCEDURE: Operation Date: 03/16/22 06:00 Proposed Procedures p Cardiac Catheterization(Left) - Gary Suh MD PATIENT REASSESSED PRIOR TO SEDATION, WITH NO CHANGE NOTED: Yes PHYSICAL EXAM: alert, oriented x 3, clear to auscultation bilaterally and regular rate & rhythm AIRWAY EVAL/ANESTHESIA PLAN: ASA III, Local Anesthesia, Risks, benefits & alternatives of sedation and/or procedure discussed and Patient agrees to continue as planned ADDITIONAL INFORMATION: Moderate sedation
--- NOTE | 2022-03-16 06:58 | PC.NURSE ---
Off floor in [employer] Controller. Report received from shift superintendent nurse. Report also received from DAVID Ruff in catheter finisher and inspector. Awaiting patients arrival back to the floor.
--- NOTE | 2022-03-16 07:11 | PM.PN ---
Subjective Subjective: Patient is doing well. No chest pain this morning. Coronary angiogram was performed that showed moderate mid RCA stenosis and mild to moderate left circumflex artery stenosis. RCA had IFR that was nonischemic. Left for medical therapy Vitals/I&O/Wt Last Vital Signs Temp 98.3 F 03/16/22 04:00 Pulse 83 03/16/22 05:26 Resp 20 H 03/16/22 04:00 BP 168/74 03/16/22 04:00 Pulse Ox 93 03/16/22 04:00 O2 Del Method 03/16/22 00:00 03/15/22 03/16/22 03/16/22 22:59 06:59 14:59 Intake Total 400 / 400 0 / 400 Balance 400 / 400 0 / 400 Weight last 48 hrs Weight 205 lb 8 oz Weight 216 lb Physical Exam Narrative: GENERAL: Patient is alert, awake and oriented x3. [] NECK: No jugular vein distension. [] HEENT: No cyanosis. No icterus. No pallor. [] HEART: Regular S1 and S2. No murmur, rub or gallop. [] LUNGS: Clear to auscultate bilaterally. [] ABDOMEN: Soft, nontender and nondistended. Positive bowel sounds. No guarding, rebound or tenderness. [] CENTRAL NERVOUS SYSTEM: Grossly nonfocal. [] EXTREMITIES: Lower extremities with 1+ edema bilaterally. Pulses palpable in the lower extremities, both dorsalis pedis and posterior tibial. [] Data : 03/16/22 04:24 03/16/22 04:24 A&P Assessment and plan (1) Chest pain: Symptoms were consistent with unstable angina. Patient underwent coronary angiogram that showed moderate mid RCA stenosis. iFR was nonischemic. Can uptitrate her Imdur and continue as needed nitro. As outpatient if she continues having chest discomfort, we will consider adding Ranexa. Status: Acute (2) Atherosclerotic heart disease of [place] coronary artery with other forms of angina pectoris: Continue aspirin and Plavix Status: Acute (3) FRANCI (obstructive sleep apnea): May continue on the current treatment Status: Acute (4) HTN (hypertension): Blood pressure is elevated in the hospital however says at home it is staying in the normal range. Can consider uptitrating Cardizem. Status: Acute Qualifiers: Hypertension type: essential hypertension Qualified Code(s): I10 - Essential (primary) hypertension (5) Diabetes mellitus: Post monitoring of the blood sugar review appropriate. Her kidney function within normal limits. Status: Acute (6) Hyperlipidemia: May continue on the current medications. Status: Acute Plan Patient is stable to be discharged from cardiac standpoint. Outpatient follow-up. Please call with questions. Attestations Medical Necessity Statement*: Care expected to cross 2 midnights. Coding Level of Care Code Acute Heddle Machine Operator for Christiana Mcnamara Diagnoses Chest pain R07.9 Atherosclerotic heart disease of [place] coronary artery with other forms of angina pectoris I25.118 FRANCI (obstructive sleep apnea) G47.33 HTN (hypertension) I10 Hypertension type: essential hypertension Diabetes mellitus E11.9 Hyperlipidemia E78.5
--- NOTE | 2022-03-16 07:23 | PC.NURSE ---
Patient arrived back from microbiology lab manager. Angioseal to right groin, no hematoma present. Minimal drainage. Patient educated regarding safety instructions. Call onofre placed next to patient. VS stable.
--- NOTE | 2022-03-16 07:37 | US_ITS ---
WS: [id number] RIGHT UPPER QUADRANT ULTRASOUND HISTORY: abnormal CT COMPARISON: 08/21/[address] 03/15/2022 Liver: 19.7 cm in length. Liver is moderately enlarged with coarse diffuse echotexture. The entire li tito cannot be penetrated. No bile duct dilatation or mass. Portal Vein: Normal hepatopetal flow with monophasic waveform. Gallbladder: Normally distended gallbladder. Mild diffuse wall thickening measuring up to 3.2 mm. No pericholecystic fluid. No stones are identified. Negative Delacruz's sign. CBD: 0.3 cm Pancreas: Normal size and echogenicity. Right kidney: 10.4 cm in length. Normal size and echogenicity. No hydronephrosis or mass. Aorta and IVC: Poorly visualized. No ascites. US/US gall bladder [id number] IMPRESSION: 1. Quality of this examination is compromised by body habitus. 2. No cholelithiasis or pericholecystic fluid. 3. Normally distended gallbladder with diffuse wall thickening. No Delacruz's si gn. Changes in the gallbladder may be seen with acalculous cholecystitis or hep atocellular disease. 4. Moderate hepatomegaly with hepatic steatosis.
[2022-03-16] MEDS: losartan 50 mg Tablet 100 MG PO (08:17)
[2022-03-16] MEDS: isosorbide mononitrate ER 30 mg Tablet PO (08:17)
[2022-03-16] MEDS: pregabalin 25 mg Capsule PO ×2 (08:17→12:35)
[2022-03-16] MEDS: pantoprazole DR 40 mg Tablet PO (08:18)
[2022-03-16] MEDS: carvedilol 25 mg Tablet PO (08:18)
[2022-03-16] MEDS: amitriptyline 25 mg Tablet 50 MG PO (08:18)
[2022-03-16] MEDS: potassium chloride ER 20 mEq Tablet PO (08:18)
[2022-03-16] MEDS: dilTIAZem ER (24HR) 240 mg Capsule PO (08:18)
[2022-03-16] MEDS: FUROsemide 40 mg Tablet PO (08:18)
[2022-03-16] MEDS: HYDROcodone-acetaminophen 10-325 mg Tablet 1 TAB PO ×2 (08:19→12:29)
[2022-03-16] MEDS: clopidogrel 75 mg Tablet PO (08:40)
--- NOTE | 2022-03-16 09:00 | PC.NURSE ---
Patient dressing had no drainage upon arrival. However, patient has started to saturate the dressing. Pressure was applied and a clean dressing placed. Physician notified.
--- NOTE | 2022-03-16 09:46 | PM.DCS ---
Discharge Providers Date of Admission: 03/15/22 12:07 Date of Discharge: March 16, 2022 Attending Provider at Admission: Bam Landa MD Attending Provider at Discharge: Bam Landa MD Primary Care Provider: Marielle Bucoi APN Diagnoses at Discharge Discharge Diagnosis (1) Chest pain: Status: Acute (2) Atherosclerotic heart disease of [place] coronary artery with other forms of angina pectoris: Status: Acute (3) FRANCI (obstructive sleep apnea): Status: Acute (4) HTN (hypertension): Status: Acute Qualifiers: Hypertension type: essential hypertension Qualified Code(s): I10 - Essential (primary) hypertension (5) Diabetes mellitus: Status: Acute (6) Hyperlipidemia: Status: Acute Reason for Visit Reason for Visit: CHEST PAIN Hospital Course Hospital Course Nicole is a 66-year-old white female who presented to the hospital with chest discomfort. She had a known history of heart disease with previous angiogram in 2020 showing three-vessel disease, at which time she received a circumflex drug-eluting stent. This admission, EKG showed no acute changes. CTA showed no thrombus. Troponin was not elevated. However, the nature of her discomfort was concerning with its responsiveness to nitroglycerin and her previous history. She underwent an angiogram March 16, demonstrating no flow-limiting lesions requiring intervention. Please see cardiology full angiogram report. Echocardiogram was done demonstrating an EF of 55%, aortic valve sclerosis, trace tricuspid regurgitation. There was some concern on her CTA of her chest of possible gallbladder disease. However, patient's LFTs were normal, she had no right upper quadrant tenderness, and gallbladder ultrasound did not show any concerns. Fatty liver was noted. It was thought she could be discharged home with close follow-up with cardiology as well as her primary care provider following appropriate interval of observation after left heart catheterization with femoral artery cannulization. Patient's questions were answered, and she agreed with the plan. Discharge will be held until okayed by cardiology after the appropriate observation time. Physical Exam Narrative: General exam no distress Neck is supple no lymphadenopathy or thyromegaly Cardiovascular regular rate and rhythm without murmur Lungs clear Abdomen is soft nontender positive bowel sounds Extremities no cyanosis clubbing or edema. Right femoral artery site with small bandage, slightly blood stained, with no evidence of active bleeding. Distal pulses intact. This will be reevaluated by nursing prior to discharge. Skin without rash. Discharge Data Studies Completed and Pending Completed Studies During Hospitalization Category Date Time Status CT angio chest abdomen pelvis Routine Cat Scan 03/15/22 18:40 Completed XR chest 1V portable [id number] Stat Exams 03/15/22 09:10 Completed CV. echo complete* [id number] Routine Ultrasound 03/15/22 13:16 Completed US gall bladder [id number] Routine Ultrasound 03/16/22 07:37 Completed Pending at discharge Category Date Time Status MARKET RESEARCH LEAD request for service Routine Exams 03/16/22 05:12 Ordered Radiology Impressions Chest X-Ray 03/15/22 09:10 Impression: Atherosclerosis. Chest/Abdomen/Pelvis CTA 03/15/22 18:40 IMPRESSION: 1. Equivocal findings for acute cholecystitis. Consider ultrasound follow-up if there is clinical evidence of gallbladder disease. 2. No aortic dissection or aneurysm. 3. Focal subcutaneous edema and gas in the left lower quadrant abdominal wall. Question skin laceration or injection site. 4. Incidental findings above. Gallbladder Ultrasound 03/16/22 07:37 IMPRESSION: 1. Quality of this examination is compromised by body habitus. 2. No cholelithiasis or pericholecystic fluid. 3. Normally distended gallbladder with diffuse wall thickening. No Delacruz's sign. Changes in the gallbladder may be seen with acalculous cholecystitis or hepatocellular disease. 4. Moderate hepatomegaly with hepatic steatosis. Laboratory Results WBC 8.8 10^3/uL (4.0-10.0) 03/16/22 04:24 Corrected WBC Cancelled 03/15/22 09:04 RBC 4.74 10^6/uL (4.1-5.3) 03/16/22 04:24 Hgb 13.8 g/dL (11.5-15.3) 03/16/22 04:24 Hct 42.7 % (37.0-47.0) 03/16/22 04:24 MCV 90.1 fl (81-99) 03/16/22 04:24 MCH 29.1 pg (28.0-34.0) 03/16/22 04:24 MCHC 32.3 g/dL (30.0-36.0) 03/16/22 04:24 RDW 13.3 % (12.1-15.1) 03/16/22 04:24 Plt Count 291 10^3/cmm (130-400) 03/16/22 04:24 MPV 11.2 fL (7.4-10.4) H 03/16/22 04:24 Gran % Cancelled 03/15/22 09:04 Neut % (Auto) 64.4 % 03/16/22 04:24 Lymph % (Auto) 27.2 % 03/16/22 04:24 [place] % (Auto) 5.6 % 03/16/22 04:24 Eos % (Auto) 1.7 % 03/16/22 04:24 Baso % (Auto) 0.8 % 03/16/22 04:24 Neut # (Auto) 5.65 10^3/uL (1.8-7.7) 03/16/22 04:24 Lymph # (Auto) 2.4 10^3/uL (0.8-4.8) 03/16/22 04:24 [place] # (Auto) 0.5 10^3/uL (0.2-0.9) 03/16/22 04:24 Eos # (Auto) 0.2 10^3/uL (0.0-0.8) 03/16/22 04:24 Baso # (Auto) 0.1 10^3/uL (0.0-0.1) 03/16/22 04:24 Absolute Gran (auto) Cancelled 03/15/22 09:04 Nucleated RBC % (auto) 0 % 03/16/22 04:24 Nucleated RBCs # 0.0 /100WBC 03/16/22 04:24 Sodium 143 mmol/L (136-145) 03/16/22 04:24 Potassium 3.8 mmol/L (3.5-5.1) 03/16/22 04:24 Chloride 107 mmol/L (98-107) 03/16/22 04:24 Carbon Dioxide 27 mmol/L (22-29) 03/16/22 04:24 Anion Gap 12.8 (5-19) 03/16/22 04:24 BUN 10 mg/dL (8-23) 03/16/22 04:24 Creatinine 0.7 mg/dL (0.5-0.9) 03/16/22 04:24 GFR Calculation 84.2 mL/min (90-130) L 03/16/22 04:24 Glucose 96 mg/dL (65-115) 03/16/22 04:24 Calculated Osmolality 295 mOsm/kg (285-295) 03/16/22 04:24 Calcium 9.0 mg/dL (8.5-10.5) 03/16/22 04:24 Total Bilirubin 0.2 mg/dL (0.15-1.2) 03/15/22 09:04 AST 13 U/L (0-32) 03/15/22 09:04 ALT 17 U/L (0-33) 03/15/22 09:04 Alkaline Phosphatase 95 U/L (35-105) 03/15/22 09:04 Troponin T Baseline 6 ng/L (0-10) 03/15/22 09:04 Troponin T 120 Minute 6.97 ng/L (0-10) 03/15/22 10:58 Delta Troponin T -0.86 ABS# (0-10) L 03/15/22 10:58 Troponin T Hi Sens 6Hr 6.29 ng/L (0-10) 03/15/22 15:04 Troponin T Hi Sens 6Hr Delta -0.29 ng/L (0-12) L 03/15/22 15:04 Total Protein 6.6 g/dL (6.6-8.7) 03/15/22 09:04 Albumin 3.9 g/dL (3.5-5.2) 03/15/22 09:04 Globulin 2.7 g/dL (1.3-4.6) 03/15/22 09:04 TSH 1.15 uIU/mL (0.27-4.20) 03/15/22 08:20 Vitals Last Vital Signs Temp 98.0 F 03/16/22 07:36 Pulse 67 03/16/22 08:00 Resp 12 03/16/22 07:55 BP 169/88 03/16/22 08:17 Pulse Ox 94 03/16/22 08:00 O2 Del Method 03/16/22 08:00 Discharge Plan Discharge Patient Disposition: Home Condition: Stable Prescriptions: Continued xjldisxuqb-zbqxehwsixtby-pqri 50-325-40 mg capsule 1 cap PO Q8H PRN (Reason: Migraine Headache) multivitamin Tablet 1 tab PO DAILY albuterol sulfate [ProAir HFA] 90 mcg/actuation HFA aerosol inhaler 2 puff INHALATION Q6H PRN (Reason: Shortness Of Breath Or Wheezing) omega-3 fatty acids 1,000 mg capsule 2,000 mg PO BID loratadine [Claritin] 10 mg tablet 10 mg PO DAILY PRN (Reason: Allergy Symptoms) carvedilol 25 mg tablet 25 mg PO BID Qty: 180 3RF zolpidem 10 mg tablet 10 mg PO BEDTIME hydrocodone-acetaminophen 10-325 mg tablet 1 tab PO Q4H PRN (Reason: Pain) lansoprazole 30 mg capsule,delayed release(DR/EC) 30 mg PO BID pregabalin [Lyrica] 25 mg capsule 25 mg PO QID vitamin B complex [B Complex-Vitamin B12] Tablet 1 tab PO DAILY cholecalciferol (vitamin D3) 4,000 unit tablet 4,000 unit PO DAILY magnesium 250 mg tablet 250 mg PO DAILY docusate sodium 100 mg capsule 100 mg PO DAILY PRN (Reason: Constipation) amitriptyline 10 mg tablet 50 mg PO DAILY Aimovig Autoinjector 140 mg/mL auto-injector 140 mg SUBCUT .monthly nitroglycerin [Nitrostat] 0.4 mg tablet, sublingual 0.4 mg SUBLINGUAL Q5M PRN (Reason: Chest Pain) Qty: 25 1RF furosemide [Lasix] 40 mg tablet 40 mg PO DAILY Qty: 90 3RF potassium chloride 20 mEq tablet extended release 20 meq PO DAILY Qty: 90 1RF losartan 100 mg tablet 100 mg PO DAILY Qty: 90 3RF clopidogrel 75 mg tablet 75 mg PO DAILY Qty: 90 4RF aspirin 81 mg tablet,delayed release (DR/EC) 81 mg PO BEDTIME Qty: 90 3RF diltiazem HCl 240 mg capsule,extended release 24hr 240 mg PO DAILY Qty: 90 3RF atorvastatin 20 mg tablet 20 mg PO BEDTIME isosorbide mononitrate 30 mg tablet extended release 24 hr 30 mg PO BID Discontinued estradiol 1 mg tablet 1 mg PO DAILY Rx Instructions: off 1 week; repeat cycle Discharge Orders: Discharge Order (Routine); Ordered 03/16/22 Ordered By: Bam Landa Referrals: Gary Suh M.D [Physician] - 2 weeks Bucio,PILAR Palomares [Primary Care Provider] - 4-7 days Discharge Diet: Cardiac Discharge Activity: Increase activity as tolerated Patient Instructions: Opioid Safety Activity Restrictions/Additional Instructions: Take all medicines as prescribed. Follow-up with cardiology in 2 weeks, primary care provider 3 to 5 days Please provide close care instructions for left heart cath, femoral artery approach Return for any concerns Please hold for appropriate interval following angiogram, 8 hours would be appropriate. Clear discharge with cardiology prior to patient leaving. Discharge Attestations Time Spent in Discharge Care*: greater than 30 min Quality Metrics Clinical Quality Measures [ No reported AMI, CVA or VTE this stay] Coding Level of Care Code Acute [facility] [place] note Diagnoses Chest pain R07.9 Atherosclerotic heart disease of [place] coronary artery with other forms of angina pectoris I25.118 FRANCI (obstructive sleep apnea) G47.33 HTN (hypertension) I10 Hypertension type: essential hypertension Diabetes mellitus E11.9 Hyperlipidemia E78.5
--- NOTE | 2022-03-16 10:25 | PC.NURSE ---
Second dressing has been saturated. Pressure applied for 20min and no evidence of drainage on fresh dressing. No hematoma is present currently.
--- NOTE | 2022-03-16 16:09 | PC.NURSE ---
Discharge Note Patient discharged to home via w/c accompanied by family member. Discharge instructions reviewed with patient and/or international representative. Mobile pharmacy medications and/or prescriptions provided. Belongings/home medications returned.
== END 2022-03-16 16:24 | disposition home or self-care (01) ==
LOC: ER 09:50 → MEDSURG 23:08
PROVIDERS: Internal Medicine; Admitting Provider Internal Medicine; Emergency Provider Family Medicine; PCP Nurse Practitioner Family; Visit Provider Internal Medicine
DX: I25.118 Atherosclerotic heart disease of native coronary artery with other forms of angina pectoris (principal); G47.33 Obstructive sleep apnea (adult) (pediatric); E78.5 Hyperlipidemia, unspecified; I11.0 Hypertensive heart disease with heart failure; I50.9 Heart failure, unspecified; Z95.5 Presence of coronary angioplasty implant and graft; Z79.82 Long term (current) use of aspirin; K21.9 Gastro-esophageal reflux disease without esophagitis; Z86.718 Personal history of other venous thrombosis and embolism; E11.40 Type 2 diabetes mellitus with diabetic neuropathy, unspecified
CPT/HCPCS: 36415; 71045; 71275; 74174; 76705; 80048; 80053; 84443; 84484; 85025; 93005; 93306; 93458; 93571; 96360; 96372; 99152; 99153; 99285; C1760; C1769; C1887; C1894; G0378; J1200; J1644; J1650; J2250; J3010; J7030; Q9967

== ENCOUNTER → 2022-03-23 12:00 | Outpatient (BNVA) | payer MEDICARE, BC, SELFPAY | PROVIDERS: PCP Nurse Practitioner Family; Visit Provider Nurse Practitioner Family | DX: I25.118 Atherosclerotic heart disease of native coronary artery with other forms of angina pectoris (principal) | CPT/HCPCS: 80048; 99213; 99214 ==

== ENCOUNTER 2022-04-03 12:18 | Inpatient (IN) | payer MEDICARE, BC, SELFPAY ==
[2022-04-03] VITALS (7 sets, daily range): BP systolic 88–120; BP diastolic 42–68; PULSE 61–97; RESP 14–18; TEMP 36.7–37.3; O2SAT 92–96; BMI 35.2; BMI 34.5
--- NOTE | 2022-04-03 12:21 | XRR_ITS ---
PROCEDURE INFORMATION: Exam: XR Chest Exam date and time: 04/03/2022 1:00 PM Age: 66 years old Clinical indication: Pain; Angina pectoris; Additional info: Chest pain TECHNIQUE: Imaging protocol: Radiologic exam of the chest. Views: 1 view. COMPARISON: CR XR chest 1V portable [id number] 03/15/2022 9:18 AM FINDINGS: Lungs: Unremarkable. No consolidation. Pleural spaces: Unremarkable. No pleural effusion. No pneumothorax. Heart/Mediastinum: Unremarkable. No cardiomegaly. Bones/joints: Unremarkable. XR/XR chest 1V portable [id number] IMPRESSION: No acute findings.
--- NOTE | 2022-04-03 12:22 | ECG_ITS ---
[facility] Test Date: 2022-04-03 Pat Name: Nicole Navarro Department: Room: Gender: Female Quality Assistant: : 1955 Requested By: Nura Adhikari Order Number: [id number] Thomas MD: Joselyn Quezada M.D. Measurements Intervals [place] Rate: 85 P: 16 FL: 219 QRS: -11 QRSD: 86 T: 33 QT: 299 QTc: 356 Interpretive Statements SINUS RHYTHM WITH FIRST DEGREE AV BLOCK ANTERIOR MYOCARDIAL INFARCTION , OF INDETERMINATE AGE INFERIOR MYOCARDIAL INFARCTION , POSSIBLY RECENT Compared to ECG 03/15/2022 16:49:21 First degree AV block now present Sinus bradycardia no longer present Myocardial infarct finding still present Electronically Signed On 04-03-2022 18:03:19 CDT by Joselyn Quezada M.D. [id number]
[2022-04-03] MEDS: morphine 4 mg/mL SDV 1 mL IVP (13:04)
[2022-04-03] MEDS: aspirin 325 mg Tablet PO (13:04)
[2022-04-03 13:06] LABS: Basophils % 0.2 %; Lymphocytes # 0.5 10^3/uL (0.8-4.8); Lymphocytes % 3.7 %; Mean Corpuscular HGB Conc 32.5 g/dL (30.0-36.0); Mean Corpuscular Hemoglobin 29.8 pg (28.0-34.0); Mean Corpuscular Volume 91.7 fl (81-99); Mean Platelet Volume 11.1 fL (7.4-10.4); Monocytes # 0.6 10^3/uL (0.2-0.9); Monocytes % 4.6 %; Neutrophils # 12.41 10^3/uL (1.8-7.7); Neutrophils % 91.1 %; Nucleated Red Blood Cells % 0 %; Platelet Count 305 10^3/cmm (130-400); Red Blood Count 4.36 10^6/uL (4.1-5.3); Red Cell Distribution Width 13.7 % (12.1-15.1); White Blood Count 13.6 10^3/uL (4.0-10.0)
--- NOTE | 2022-04-03 13:09 | ECG_ITS ---
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 Measurements Intervals [place] Rate: 87 P: -18 AL: 240 QRS: 237 QRSD: 10 T: 0 QT: 115 QTc: 139 Interpretive Statements SINUS RHYTHM WITH FIRST DEGREE AV BLOCK WITH OCCASIONAL ECTOPIC PREMATURE COMPLEXES RIGHT ATRIAL ENLARGEMENT [0.3mV P-WAVE] LEFT ATRIAL ENLARGEMENT [-0.15mV P-WAVE IN V1/V2] POSSIBLE ANTERIOR MYOCARDIAL INFARCTION , PROBABLY OLD Compared to ECG 04/03/2022 12:52:02 ST (T wave) deviation now present Myocardial infarct finding still present Electronically Signed On 04-04-2022 9:51:55 CDT by Joselyn Quezada M.D. [id number]
--- NOTE | 2022-04-03 13:16 | USCV_ITS ---
Nicole Navarro Age: 66 Gender: F : 1955 Exam Date: 04/03/2022 13:39 Ordering Phys: Nura Adhikari MD Technologist: RENETTA Exam Location: [place] Indication: EF ONLY, CHEST PAIN BP: 113 / 52 HR: 79 Rhythm: Sinus Technical Quality: Adequate MEASUREMENTS (Male / Female) Normal Values 2D ECHO LV Ejection Fraction MOD 2C 62.7 % LV Ejection Fraction 2C AL 62.7 % FINDINGS Left Ventricle Right Ventricle Right Atrium Left Atrium Mitral Valve Aortic Valve Tricuspid Valve Pulmonic Valve Pericardium Aorta IVC CONCLUSIONS This is a limited echocardiogram performed to assess LV systolic function. LV systolic function is normal with EF of 60 to 65%. No regional wall motion abnormalities are seen. No change seen in LV function compared to previous echo from 03/15/2022. Gary Suh MD (Electronically Signed) Final Date: 03 April 2022 14:51 S
--- NOTE | 2022-04-03 13:20 | ED_ITS ---
HPI - General Adult General: Chief complaint: ER Hold Stated complaint: Chest Pain Time Seen by Provider: 04/03/22 12:58 History of Present Illness: Patient is a 66-year-old female with a history of CAD with stent x1, recent cath study from 03/16 which showed multiple vessel lesions presenting to the emergency room with complaints of chest pain since midnight. Patient tells me that she felt has been having ongoing chest pressure and shortness of breath since midnight. Earlier today, patient daughter became concerned brought her to the emergency room for further evaluation. Patient took 3 doses of nitro with some improvement in chest pain. Patient denies any fever/chills cough, runny nose, or sore throat. Onset: midnight Duration:ongoing Location:home Severity:moderate Associated symptoms: Reports chest pain and dyspnea; Deny nausea, rash, palpitations or vomiting Review of Systems Const: Denies: fever(s) or chills Eyes: Denies: change in vision ENMT: Denies: mouth pain Card: Reports: chest pain; Denies: palpitations Resp: Reports: dyspnea; Denies: non-productive cough GI: Denies: abdominal pain, nausea, vomiting or diarrhea : Denies: dysuria Musc: Denies: extremity pain Skin/Breast: Denies: rash or new lesions Neuro: Denies: weakness in extremities Psych: Reports: other (Normal mood) Nazario/Lymph: Denies: easy bruising PFSH ED PFSH: Medical History ASHD (arteriosclerotic heart disease) Chronic back pain Diabetes mellitus Fibromyalgia GERD (gastroesophageal reflux disease) History of coronary angiogram Last procedure October 2020 where she received a drug-eluting stent in her circumflex. LAD 40%, RPDA 40% at that time History of DVT (deep vein thrombosis) HTN (hypertension) Hyperlipidemia Migraine headache Neuropathy FRANCI (obstructive sleep apnea) Surgical History S/P bunionectomy S/P carpal tunnel release S/P hysterectomy S/P rotator cuff repair S/P tonsillectomy and adenoidectomy Family History Mother Diabetes Stroke Hypertension Grandmother Diabetes Hypertension Social History Smoking and tobacco status: never smoked Alcohol intake: never Lives independently: Yes Household members: none Marital status: Single Current occupational status: retired History of recent travel: No Current gender identity: Female Physical Exam Const: COMMON NORMALS: alert HENMT: COMMON NORMALS: atraumatic HEAD & SCALP: atraumatic MOUTH: moist mucous membranes not abnormal Eye: COMMON NORMALS: EOMs intact bilaterally and conjunctivae normal CONJUNCTIVA: Yes conjunctivae normal Neck/C-Spine: COMMON NORMALS: full ROM and supple Resp: COMMON NORMALS: normal respiratory effort and clear to auscultation bilaterally AUSCULTATION: clear to auscultation bilaterally Cardio: COMMON NORMALS: regular rate RATE: regular rate OTHER: 2+ radial pulses b/l GI: COMMON NORMALS: Soft to palpation and non-tender PALPATION: Yes Soft to palpation OTHER: No focal TTP. NO guarding rebound, guarding, rigidity. No CVA tenderness to percussion. Neg Delacruz/Neg McBurney's point tenderness, no suprabupic tenderness to palpation. Extremity: COMMON NORMALS: full ROM Neuro: SENSORIUM/ORIENTATION: Yes alert MOTOR EXAM: No Abnormal motor strength present and Other motor observations present (no focal motor deficits) Psych: COMMON NORMALS: speech normal SPEECH: Yes normal speech MOOD & AFFECT: Yes euthymic mood Course Vital Signs: Vital signs: Vital Signs Temperature 99.2 F 04/03/22 12:30 Pulse Rate 65 04/03/22 17:16 Respiratory Rate 14 04/03/22 17:16 Blood Pressure 107/42 04/03/22 17:16 Pulse Oximetry 92 04/03/22 17:16 Oxygen Delivery Me thod 04/03/22 17:16 MDM - General Adult Medical Decision Making 66-year-old female with history of CAD x1, diabetes, multivessel diseases who presents the emergency room with complaints of chest pain since midnight. Initially improved, stimulator was called given presentation. Dr. Jade sherman ewed the EKG and the blood work does not think presentation is consistent with an acute STEMI. X-ray chest appears to be clear. Initial troponin of 11. Initial troponin of 12. Patient continues to have intermittent chest pain. We will keep patient for observation for chest pain. S/p ASA and morphine. Disposition: admission Lab Data : 04/03/22 13:02 04/03/22 13:02 Radiology Impressions Chest X-Ray 04/03/22 12:21 IMPRESSION: No acute findings. Gallbladder Ultrasound 04/03/22 13:58 IMPRESSION: 1. Abnormal gallbladder. Gallbladder is moderately contracted with diffuse wall thickening. No stones are identified. Gallbladder wall thickening may be on the basis of hepatocellular disease or chronic cholecystitis. Imaging is suboptimal due to body habitus. 2. No bile duct dilatation. 3. Hepatomegaly and hepatic steatosis. Laboratory Results WBC 13.6 10^3/uL (4.0-10.0) H 04/03/22 13: RBC 4.36 10^6/uL (4.1-5.3) 04/03/22 13: Hgb 13.0 g/dL (11.5-15.3) 04/03/22 13: Hct 40.0 % (37.0-47.0) 04/03/22 13: MCV 91.7 fl (81-99) 04/03/22 13: MCH 29.8 pg (28.0-34.0) 04/03/22 13: MCHC 32.5 g/dL (30.0-36.0) 04/03/22 13: RDW 13.7 % (12.1-15.1) 04/03/22 13:02 Plt Count 305 10^3/cmm (130-400) 04/03/22 13:02 MPV 11.1 fL (7.4-10.4) H 04/03/22 13:02 Neut % (Auto) 91.1 % 04/03/22 13:02 Lymph % (Auto) 3.7 % 04/03/22 13:02 Wirt % (Auto) 4.6 % 04/03/22 13:02 Eos % (Auto) 0.0 % 04/03/22 13: Baso % (Auto) 0.2 % 04/03/22 13:02 Neut # (Auto) 12.41 10^3/uL (1.8-7.7) H 04/03/22 13:02 Lymph # (Auto) 0.5 10^3/uL (0.8-4.8) L 04/03/22 13:02 Wirt # (Auto) 0.6 10^3/uL (0.2-0.9) 04/03/22 13:02 Eos # (Auto) 0.0 10^3/uL (0.0-0.8) 04/03/22 13:02 Baso # (Auto) 0.0 10^3/uL (0.0-0.1) 04/03/22 13:02 Nucleated RBC % (auto) 0 % 04/03/22 13:02 Nucleated RBCs # 0.0 /100WBC 04/03/22 13:02 Sodium 138 mmol/L (136-145) 04/03/22 13:02 Potassium 4.4 mmol/L (3.5-5.1) 04/03/22 13:02 Chloride 104 mmol/L (98-107) 04/03/22 13:02 Carbon Dioxide 20 mmol/L (22-29) L 04/03/22 13:02 Anion Gap 18.4 (5-19) 04/03/22 13:02 BUN 16 mg/dL (8-23) 04/03/22 13:02 Creatinine 0.9 mg/dL (0.5-0.9) 04/03/22 13:02 GFR Calculation 63.0 mL/min (90-130) L 04/03/22 13:02 Glucose 141 mg/dL (65-115) H 04/03/22 13:02 Calculated Osmolality 290 mOsm/kg (285-295) 04/03/22 13:02 Calcium 9.2 mg/dL (8.5-10.5) 04/03/22 13:02 Total Bilirubin 1.6 mg/dL (0.15-1.2) H 04/03/22 13:05 Direct Bilirubin 1.40 mg/dL (0.00-0.30) H 04/03/22 13:05 AST 783 U/L (0-32) H 04/03/22 13:05 ALT 653 U/L (0-33) H 04/03/22 13:05 Alkaline Phosphatase 281 U/L (35-105) H 04/03/22 13:05 Troponin T Baseline 12 ng/L (0-10) H 04/03/22 13:02 Total Protein 6.5 g/dL (6.6-8.7) L 04/03/22 13:05 Albumin 3.9 g/dL (3.5-5.2) 04/03/22 13:05 Globulin 2.6 g/dL (1.3-4.6) 04/03/22 13:05 Imaging Data Other Imaging: Radiologist's impression: [facility] [address] [place] [address] XRay Report Signed Patient: Nicole Navarro Unit #: [id number] : 1955 Age/Sex: 66 / F ADM Date: 04/03/22 Loc: ER Room/Bed: Attending Dr: Ordering Provider/Ordering MD: Nura Adhikari MD Date of Service: 04/03/22 Procedure(s): XR chest 1V portable [id number] Accession Number(s): [id number] Report Number: [id number] PROCEDURE INFORMATION: Exam: XR Chest Exam date and time: 04/03/2022 1:00 PM Age: 66 years old Clinical indication: Pain; Angina pectoris; Additional info: Chest pain TECHNIQUE: Imaging protocol: Radiologic exam of the chest. Views: 1 view. COMPARISON: CR XR chest 1V portable [id number] 03/15/2022 9:18 AM FINDINGS: Lungs: Unremarkable. No consolidation. Pleural spaces: Unremarkable. No pleural effusion. No pneumothorax. Heart/Mediastinum: Unremarkable. No cardiomegaly. Bones/joints: Unremarkable. XR/XR chest 1V portable [id number] IMPRESSION: No acute findings. ? 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
[2022-04-03 13:24] LABS: Troponin(5th) Baseline 12 ng/L (0-10)
[2022-04-03 13:26] LABS: Anion Gap 18.4 (5-19); Blood Urea Nitrogen 16 mg/dL (8-23); Calcium 9.2 mg/dL (8.5-10.5); Carbon Dioxide 20 mmol/L (22-29); Chloride 104 mmol/L (98-107); Glucose 141 mg/dL (65-115); Osmolality Calculated 290 mOsm/kg (285-295); Potassium 4.4 mmol/L (3.5-5.1); Sodium 138 mmol/L (136-145)
--- NOTE | 2022-04-03 13:37 | PM.CONSULT ---
Providers/Reason For Consult Consulting Physician/Specialty*: Cardiac vascular medicine Reason for Consult*: Chest pain, STEMI alert Requesting Physician: Emergency room Primary Care Provider: Marielle Bucio APN History of Present Illness History of Present Illness Nicole Navarro is a 66 year old female who came to the emergency room today for chest pain. The emergency room physician called a STEMI alert after the EKG was read by the computer as an acute WI. Patient is not having a STEMI. She does have coronary disease and last year in October had a stent placed to her circumflex. She has been having chest pain intermittently and just a few days ago on the of last month had a coronary angiogram here. It revealed a patent circumflex stent with a 50% stenosis proximal to the stent, mild plaque in the LAD and a 50% stenosis in the mid right coronary artery. Her EKG from March 15 of this year revealed sinus bradycardia with nondiagnostic Q waves in leads III and aVF. She has a borderline first-degree AV block. The first EKG from today at 1252 reveals similar findings in the inferior leads and unusual R wave progression in the anterior precordial leads suggesting the possibility of lead misplacement. Second EKG from today done at 1309 hrs. reveals similar findings in the inferior leads, significant baseline artifact and similar findings in the anterior precordial leads. She is scheduled to have a back procedure in a pain clinic tomorrow. She began to have chest pain last night just before midnight. She has been having chest pain all night long and again this morning. At home last night she took 3 nitroglycerin, medicine for acid reflux, Tums and then drank a Dr. Hayden. The Dr. Hayden was the only thing that helped. She called our office earlier today and was told to come to the emergency room. Upon her arrival a STEMI alert was called. Currently her chest pain is a 3 on a 10 scale. She has been given aspirin. Her first troponin is 12. She has a long history of other problems including migraine headaches, fibromyalgia, sleep apnea, DVT, chronic back pain, glucose intolerance and hypertension. She is dizzy and falls frequently. Her friend, who accompanies her, wonders if anxiety can cause this. Patient is not a smoker and does not have an alcohol history. She has a hiatal hernia. Review of Systems Narrative: Her review of systems is diffusely positive. Medications/Allergies Home Medications Medication Instructions Recorded Confirmed Last Taken Type buzbuwsude-vdnbolneemzfn-pabnavvv 1 cap PO Q8H PRN Migraine Headache 09/02/19 03/23/22 Unknown History 50 mg-325 mg-40 mg capsule cholecalciferol (vitamin D3) 100 4,000 unit PO DAILY 09/02/19 03/23/22 03/15/22 History mcg (4,000 unit) tablet docusate sodium 100 mg capsule 100 mg PO DAILY PRN Constipation 09/02/19 03/23/22 10/20/20 22:00 History hydrocodone 10 mg-acetaminophen 1 tab PO Q4H PRN Pain 09/02/19 03/23/22 10/20/20 22:00 History 325 mg tablet lansoprazole 30 mg capsule,delayed 30 mg PO BID 09/02/19 03/23/22 03/15/22 History release magnesium 250 mg tablet 250 mg PO DAILY 09/02/19 03/23/22 03/15/22 History multivitamin 1 tab PO DAILY 09/02/19 03/23/22 03/15/22 History pregabalin 25 mg capsule (Lyrica) 25 mg PO QID 09/02/19 03/23/22 03/15/22 History vitamin B complex (B 1 tab PO DAILY 09/02/19 03/23/22 03/15/22 History Complex-Vitamin B12) zolpidem 10 mg tablet 10 mg PO BEDTIME 09/02/19 03/23/22 03/14/22 History albuterol sulfate 90 mcg/actuation 2 puff inhalation Q6H PRN 01/05/20 03/23/22 Unknown History aerosol inhaler (ProAir HFA) Shortness Of Breath Or Wheezing erenumab-aooe 140 mg/mL 140 mg SUBCUT .monthly 05/03/20 03/23/22 03/14/22 History subcutaneous auto-injector (Aimovig Autoinjector) amitriptyline 10 mg tablet 50 mg PO DAILY 06/01/20 03/23/22 03/15/22 History furosemide 40 mg tablet (Lasix) 40 mg PO DAILY #90 tabs 10/19/21 03/23/22 03/15/22 Rx potassium chloride 20 mEq 20 meq PO DAILY #90 tabs 10/19/21 03/23/22 03/15/22 Rx tablet,extended release carvedilol 25 mg tablet 25 mg PO BID #180 tabs 11/21/21 03/23/22 03/15/22 Rx loratadine 10 mg tablet (Claritin) 10 mg PO DAILY PRN Allergy Symptoms 11/21/21 03/23/22 Unknown History omega-3 fatty acids 1,000 mg 2,000 mg PO BID 11/21/21 03/23/22 03/15/22 History capsule clopidogrel 75 mg tablet 75 mg PO DAILY #90 tabs 11/22/21 03/23/22 03/15/22 Rx losartan 100 mg tablet 100 mg PO DAILY #90 tabs 11/22/21 03/23/22 03/15/22 Rx aspirin 81 mg tablet,delayed 81 mg PO BEDTIME #90 tabs 11/23/21 03/23/22 03/15/22 Rx release diltiazem HCl 240 mg 240 mg PO DAILY #90 caps 12/20/21 03/23/22 03/15/22 Rx capsule,extended release 24 hr atorvastatin 20 mg tablet 20 mg PO BEDTIME 03/15/22 03/23/22 03/14/22 History isosorbide mononitrate 30 mg 30 mg PO BID 03/15/22 03/23/22 03/15/22 History tablet,extended release 24 hr nitroglycerin 0.4 mg sublingual 0.4 mg sublingual Q5M PRN Chest 03/23/22 03/23/22 Unknown Rx tablet (Nitrostat) Pain #25 tabs Allergies Allergy/AdvReac Type Severity Reaction Status Date / Time ampicillin Allergy Unknown ALGY-Rash Verified 03/23/22 08:56 Sulfa (Sulfonamide Allergy Unknown ALGY-Rash Verified 03/23/22 08:56 Antibiotics) Tetanus Vaccines and Toxoid Allergy Unknown ALGY-Redness Verified 03/23/22 08:56 of Skin isosorbide AdvReac Unknown ADR-Itching Verified 03/23/22 08:56 lisinopril AdvReac ADR-Cough Verified 03/23/22 08:56 PFSH Acute PFSH: Medical History ASHD (arteriosclerotic heart disease) Chronic back pain Diabetes mellitus Fibromyalgia GERD (gastroesophageal reflux disease) History of coronary angiogram Last procedure October 2020 where she received a drug-eluting stent in her circumflex. LAD 40%, RPDA 40% at that time History of DVT (deep vein thrombosis) HTN (hypertension) Hyperlipidemia Migraine headache Neuropathy FRANCI (obstructive sleep apnea) Surgical History S/P bunionectomy S/P carpal tunnel release S/P hysterectomy S/P rotator cuff repair S/P tonsillectomy and adenoidectomy Family History Mother Diabetes Stroke Hypertension Grandmother Diabetes Hypertension Social History Smoking and tobacco status: never smoked Alcohol intake: never Lives independently: Yes Household members: none Marital status: Single Current occupational status: retired History of recent travel: No Current gender identity: Female Vitals/I&O/Wt Last Vital Signs Temp 99.2 F 04/03/22 12:30 Pulse 87 04/03/22 12:30 Resp 18 04/03/22 13:04 BP 88/55 04/03/22 12:30 Pulse Ox 95 04/03/22 12:30 O2 Del Method 04/03/22 12:30 Weight last 48 hrs Weight 218 lb Physical Exam Narrative: GENERAL: In general she seems somewhat anxious but frequently drifts off to sleep during the history and physical taking. HEENT: Exam within normal limits. NECK: Supple without jugular vein distention. The carotid upstroke is normal without bruits. BACK: Exam normal. LUNGS: Clear. HEART: Regular rate and rhythm. ABDOMEN: Benign without organomegaly or tenderness. EXTREMITIES: No edema. NEUROLOGIC: Exam normal. SKIN: Unremarkable. Data : 04/03/22 13:02 04/03/22 13:02 A&P Assessment and plan (1) Chest pain: Status: Acute (2) Diabetes mellitus: Status: Acute (3) Hyperlipidemia: Status: Acute (4) Chronic back pain: Status: Acute (5) FRANCI (obstructive sleep apnea): Status: Acute (6) HTN (hypertension): Status: Acute (7) ASHD (arteriosclerotic heart disease): Status: Acute Plan This patient is not having an acute myocardial infarction. The computer has over read this. I personally looked at her films from just the other day and there is nothing to suggest unstable plaque or stent thrombosis pending. I recommend she be kept in the emergency room for 2 or 3 troponins and if she is well she could be discharged. The other option is to watch her overnight under the hospitalist service. I do not believe she is having an acute transmural WI or a non-ST segment elevation WI. Consult Attestations Medical Necessity Statement: Could possibly go home. Coding Level of Care Code New Pt Acute Thread Trimmer for g Fwd Patient Type New History Detailed Exam Detailed Medical Decision Making Moderate Complexity Diagnoses Chest pain R07.9 Diabetes mellitus E11.9 Hyperlipidemia E78.5 Chronic back pain M54.9; G89.29 FRANCI (obstructive sleep apnea) G47.33 HTN (hypertension) I10 ASHD (arteriosclerotic heart disease) I25.10
--- NOTE | 2022-04-03 13:58 | US_ITS ---
WS: [id number] RIGHT UPPER QUADRANT ULTRASOUND HISTORY: ruq abd pain COMPARISON: 03/16/2022 Liver: 21.1 cm in length. Markedly enlarged liver. Coarse echotexture throughout the liver. The entir e liver not well visualized due to body habitus. No bile duct dilatation. Portal Vein: Normal hepatopetal flow with monophasic waveform. Gallbladder: Mild diffuse wall thickening. The lumen is very difficult to see as it is partially cont racted. No stones are identified but there does appear to be some sludge present. Gallbladder wall me asures up to 5.6 mm. CBD: 0.5 cm Pancreas: Normal size and echogenicity. Right kidney: 10.3 cm in length. Normal size and echogenicity. No hydronephrosis or mass. Aorta and IVC: Unremarkable abdominal aorta and IVC. No ascites. US/US gall bladder [id number] IMPRESSION: 1. Abnormal gallbladder. Gallbladder is moderately contracted with diffuse wal l thickening. No stones are identified. Gallbladder wall thickening may be on t he basis of hepatocellular disease or chronic cholecystitis. Imaging is subopti mal due to body habitus. 2. No bile duct dilatation. 3. Hepatomegaly and hepatic steatosis.
--- NOTE | 2022-04-03 14:22 | ECG_ITS ---
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 Measurements Intervals [place] Rate: 82 P: 21 TX: 219 QRS: 10 QRSD: 97 T: 45 QT: 312 QTc: 366 Interpretive Statements SINUS RHYTHM WITH FIRST DEGREE AV BLOCK Compared to ECG 04/03/2022 13:09:46 Atrial abnormality no longer present Right-axis deviation no longer present ST (T wave) deviation no longer present Myocardial infarct finding no longer present Electronically Signed On 04-04-2022 9:50:01 CDT by Joselyn Quezada M.D. [id number]
[2022-04-03 15:40] LABS: Alanine Aminotransferase 653 U/L (0-33); Albumin Level 3.9 g/dL (3.5-5.2); Alkaline Phosphatase 281 U/L (35-105); Globulin 2.6 g/dL (1.3-4.6); Total Bilirubin 1.6 mg/dL (0.15-1.2); Total Protein 6.5 g/dL (6.6-8.7)
[2022-04-03 16:08] LABS: Aspartate Amino Transferase 783 U/L (0-32)
[2022-04-03 16:09] LABS: Troponin 5 2HR 11.69 ng/L (0-10)
[2022-04-03 16:13] LABS: Troponin 5 2HR Delta -0.31 ABS# (0-10)
[2022-04-03] MEDS: ciprofloxacin 400 MG/200 ML PREMIX 200 MG IV (17:03)
--- NOTE | 2022-04-03 17:09 | P.HP_ITS ---
Providers/Chief Complaint Admitting Physician: Bertin Guadalupe Primary Care Provider: Marielle Bucio APN Chief Complaint: Chest Pain History of Present Illness Pleasant 66-year-old lady presented to ER after having symptoms of chest pressure, mild difficulty breathing starting yesterday, she had taken 3 nitroglycerin for it which did not improve her condition, she thought maybe it was heartburn, so then took Tums which did not help either, this morning again with chest pressure due to which she contacted cardiology clinic and was directed to ER. Here was assessed by cardiology after initial concern regarding EKG changes, with noted mild troponin elevation, recent coronary angiogram with finding of 50% stenosis of circumflex artery proximal to prior stent, mild plaque in LAD and 50% stenosis in mid RCA. On cardiac evaluation likelihood of transmural MS or NSTEMI was found to be low. Recommendation was for serial troponins. Observation was requested overnight from ER. She tells me that she had had some on and off discomfort ever since her last discharge. She currently denies any chest pressure or discomfort. However, as we are speaking she is having sinus tachycardia, heart rates 100 teens up to 130s. She denies any significant shortness of breath. Denies hemoptysis. Minimal leg swelling currently, but states did have an episode of [place] swelling previously. No unilateral swelling. Echocardiogram performed in ER shows ejection fraction within normal limit, no R WMA. Chest x-ray without acute findings. Gallbladder ultrasound abnormal, gallbladder moderately contracted with diffuse wall thickening. No stones identified. Hepatomegaly and hepatic steatosis. Review of Systems Const: Denies: fever(s), chills, body aches or malaise Eyes: Denies: change in vision, eye discomfort or eye redness ENMT: Denies: throat pain, oral sores or ear or mastoid pain Card: Reports: chest pain; Denies: edema, pre-syncope or dyspnea on exertion Resp: Reports: dyspnea; Denies: productive cough, change in phlegm color or hemoptysis GI: Denies: abdominal pain, nausea, vomiting, diarrhea, constipation, hematochezia or melena : Denies: flank pain, urinary frequency or hematuria Musc: Denies: back pain, joint swelling or joint redness Skin/Breast: Denies: rash or new lesions Neuro: Denies: headache(s), numbness in extremities, weakness in extremities, dizziness, confusion or seizure-like activity Endo: Denies: polyuria or polydipsia Nazario/Lymph: Denies: easy bleeding or tender lymph nodes All/Imm: Denies: urticaria or tongue swelling Medications/Allergies Home Medications Medication Instructions Recorded Confirmed Last Taken Type jimpvziocr-kiiizxbsflrvq-qffsiind 2 cap PO Q8H PRN Migraine Headache 09/02/19 04/03/22 Unknown History 50 mg-325 mg-40 mg capsule docusate sodium 100 mg capsule 100 mg PO BEDTIME PRN Constipation 09/02/19 04/03/22 10/20/20 22:00 History hydrocodone 10 mg-acetaminophen 1 - 2 tab PO Q4H PRN Pain 09/02/19 04/03/22 04/03/22 10:00 History 325 mg tablet lansoprazole 30 mg capsule,delayed 30 mg PO BID 09/02/19 04/03/22 04/03/22 History release magnesium 250 mg tablet 250 mg PO DAILY@09/02/19 04/03/22 04/02/22 History multivitamin 1 tab PO DAILY@09/02/19 04/03/22 04/02/22 History pregabalin 25 mg capsule (Lyrica) 25 mg PO QID 09/02/19 04/03/22 04/03/22 08:00 History vitamin B complex (B 1 tab PO DAILY@09/02/19 04/03/22 04/02/22 History Complex-Vitamin B12) zolpidem 10 mg tablet 10 mg PO BEDTIME PRN Sleep 09/02/19 04/03/22 03/14/22 History albuterol sulfate 90 mcg/actuation 2 puff inhalation Q6H PRN 01/05/20 04/03/22 Unknown History aerosol inhaler (ProAir HFA) Shortness Of Breath Or Wheezing erenumab-aooe 140 mg/mL 140 mg SUBCUT .monthly 05/03/20 04/03/22 03/14/22 History subcutaneous auto-injector (Aimovig Autoinjector) loratadine 10 mg tablet (Claritin) 10 mg PO DAILY PRN Allergy Symptoms 11/21/21 04/03/22 Unknown History omega-3 fatty acids 1,000 mg 2,000 mg PO BID@11/21/21 04/03/22 04/03/22 08:00 History capsule aspirin 81 mg tablet,delayed 81 mg PO BEDTIME #90 tabs 11/23/21 04/03/22 04/02/22 Rx release atorvastatin 20 mg tablet 20 mg PO QPM 03/15/22 04/03/22 04/02/22 History isosorbide mononitrate 30 mg 30 mg PO BID@08,18 03/15/22 04/03/22 04/03/22 08:00 History tablet,extended release 24 hr nitroglycerin 0.4 mg sublingual 0.4 mg sublingual Q5M PRN Chest 03/23/22 04/03/22 04/03/22 Rx tablet (Nitrostat) Pain #25 tabs amitriptyline 50 mg tablet 50 mg PO BEDTIME 04/03/22 04/03/22 04/02/22 History calcium carbonate 200 mg calcium 200 mg PO QID PRN Indigestion 04/03/22 04/03/22 04/02/22 History (500 mg) chewable tablet (Tums) carvedilol 25 mg tablet 25 mg PO BID@08,18 04/03/22 04/03/22 04/03/22 History cholecalciferol (vitamin D3) 50 50 mcg PO BID 04/03/22 04/03/22 04/03/22 History mcg (2,000 unit) capsule (Vitamin D3) clopidogrel 75 mg tablet 75 mg PO QAM 04/03/22 04/03/22 04/03/22 History diltiazem HCl 240 mg 240 mg PO QAM 04/03/22 04/03/22 04/03/22 History capsule,extended release 24 hr furosemide 40 mg tablet (Lasix) 40 mg PO QAM 04/03/22 04/03/22 04/03/22 History losartan 100 mg tablet 100 mg PO DAILY@12 04/03/22 04/03/22 04/02/22 History metoclopramide HCl 10 mg tablet See Rx Instructions .Route .COMPLEX 04/03/22 04/03/22 Unknown History peg 3350-electrolytes 236 See Rx Instructions .Route .COMPLEX 04/03/22 04/03/22 Unknown History gram-22.74 gram-6.74 gram-5.86 gram solution (Golytely) potassium chloride 20 mEq 20 meq PO QAM 09/04/03/22 04/03/22 History tablet,extended release Allergies Allergy/AdvReac Type Severity Reaction Status Date / Time ampicillin Allergy Unknown ALGY-Rash Verified 03/23/22 08:56 Sulfa (Sulfonamide Allergy Unknown ALGY-Rash Verified 03/23/22 08:56 Antibiotics) Tetanus Vaccines and Toxoid Allergy Unknown ALGY-Redness Verified 03/23/22 08:56 of Skin isosorbide AdvReac Unknown ADR-Itching Verified 03/23/22 08:56 lisinopril AdvReac ADR-Cough Verified 03/23/22 08:56 PFSH Acute PFSH: Medical History ASHD (arteriosclerotic heart disease) Chronic back pain Diabetes mellitus Fibromyalgia GERD (gastroesophageal reflux disease) History of coronary angiogram Last procedure October 2020 where she received a drug-eluting stent in her cir cumflex. LAD 40%, RPDA 40% at that time History of DVT (deep vein thrombosis) HTN (hypertension) Hyperlipidemia Migraine headache Neuropathy FRANCI (obstructive sleep apnea) Surgical History S/P bunionectomy S/P carpal tunnel release S/P hysterectomy S/P rotator cuff repair S/P tonsillectomy and adenoidectomy Family History Mother Diabetes Stroke Hypertension Grandmother Diabetes Hypertension Social History Smoking and tobacco status: never smoked Alcohol intake: never Lives independently: Yes Household members: none Marital status: Single Current occupational status: retired History of recent travel: No Current gender identity: Female Vitals/I&O/Wt Last Vital Signs Temp 99.2 F 04/03/22 12:30 Pulse 97 04/03/22 15:38 Resp 15 04/03/22 15:38 BP 115/45 04/03/22 15:38 Pulse Ox 95 04/03/22 15:38 O2 Del Method 04/03/22 15:38 Weight last 48 hrs Weight 98.883 kg Physical Exam Narrative: Accompanied by family. Const: COMMON NORMALS: patient oriented x3 and alert GENERAL APPEARANCE: cooperative ORIENTATION/CONSCIOUSNESS: Yes awake HENMT: COMMON NORMALS: oropharynx normal Neck/C-Spine: COMMON NORMALS: no JVD Resp: COMMON NORMALS: normal respiratory effort and clear to auscultation bilaterally AUSCULTATION: clear to auscultation bilaterally Cardio: COMMON NORMALS: no JVD, regular rhythm, S1 normal heart sound present, S2 normal heart sound present and No murmurs present (Cardio) RATE: tachycardic RHYTHM: regular rhythm HEART SOUNDS: S1 normal heart sound present and S2 normal heart sound present GI: COMMON NORMALS: Normal to inspection, nondistended, normoactive bowel sounds present, Soft to palpation and non-tender PALPATION: Yes Soft to palpation OTHER: Mild pain right upper quadrant on deep inspiration Extremity: COMMON NORMALS: no joint enlargement and no pedal edema Neuro: COMMON NORMALS: patient oriented x3 and moves all extremities SENSORIUM/ORIENTATION: Yes alert Skin: COMMON NORMALS: no rashes or lesions noted GENERAL SKIN EXAM: no rashes or lesions noted Data : 04/03/22 13:02 04/03/22 13:02 A&P Assessment and plan (1) Chest pressure: Complete troponin series. Currently low suspicion for transmural MS or NSTEMI. Cardiac evaluation, TTE appreciated. Recent coronary angiogram results noted. Currently pressure free. She had just had assessment with CTA during previous admission, no PE noted and large pulmonary arteries. Discussed with her current findings appear to have new features. With sinus tachycardia, chest pressure, some dyspnea as well, recent hospitalization, discussed with her assessment of D-dimer. Discussed with her risk of renal dysfunction in case of need of repeat contrast enhanced imaging. Status: Acute (2) Sinus tachycardia: Unclear cause of sinus tachycardia. Soft blood pressure in ER as well, down to 88/55. Sinus tachycardia 100 teens up to 130s. She is afebrile, temp 99.2. Leukocytosis mostly neutrophilic 13.6. Gallbladder abnormality. Mild tenderness on palpation of right upper quadrant with deep inspiration. Discussed with her concern for possible developing sepsis with leukocytosis, tachycardia, possible biliary origin infection. She has been assessed by ultrasound with abnormal finding. Discussed with her additional assessment with HIDA scan. Empiric antibiotic coverage at this time for possible cholecystitis. Collect blood cultures, lactic acid due to possible sepsis. Status: Acute (3) Leukocytosis: As above Status: Acute (4) Abnormal liver function tests: Mild tenderness on deep inspiration on right upper quadrant palpation. Hyperbilirubinemia Alk phos elevation, transaminitis. Abnormal appearance of gallbladder on ultrasound and recent CT. Assess HIDA scan. Additional treatment of possible infection as above. Hepatitis panel. She additionally reports chronically dry mouth, dry eyes. Not formally diagnosed with autoimmune condition. When asked about it states some consideration of lupus in the past, but work-up was never completed. Assess PREMA panel, autoimmune hepatitis studies. Assess iron studies. COVID-19. Does not appear to have signs of right heart failure at this time. Blood pressure soft in ER. Cannot exclude transient hypotension at home, possibility of shock liver as well, although currently blood pressure is better. She states has been taking all her medications. Hold antihypertensives for now. Hold statin. She states she had been off Plavix for some time, then resumed it. Hold Plavix. Status: Acute (5) Dry mouth: Dry mouth, possibly dehydration, hold Lasix. Reports chronically dry mouth as well and has dry eyes. Is not aware of being formally diagnosed with any autoimmune condition, but in the past states there was some consideration of lupus, but work-up was never completed. Check ESR, CRP. Additional assessment as above PREMA panel, SSA, SSB, antidouble- stranded DNA. Status: Acute Plan CAD: 50% prestent stenosis of left circumflex, 50% stenosis RCA, mild plaque in LAD. 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
[2022-04-03 17:29] LABS: INR 1.17 (0.8-1.2)
[2022-04-03 17:31] LABS: D Dimer 0.83 ug/mIFEU (0-0.59)
--- NOTE | 2022-04-03 17:35 | CTR_ITS ---
PROCEDURE INFORMATION: Exam: CTA Chest With Contrast Exam date and time: 04/03/2022 6:11 PM Age: 66 years old Clinical indication: Pain; Dyspnea; Chest pressure; Additional info: Chest pressure, dyspnea, abnormal ddimer TECHNIQUE: Imaging protocol: Computed tomographic angiography of the chest with contrast. 3D rendering (Not supervised by radiologist): MIP and/or 3D reconstructed images were created by the technologist. Radiation optimization: All CT scans at this facility use at least one of these dose optimization techniques: automated exposure control; mA and/or kV adjustment per patient size (includes targeted exams where dose is matched to clinical indication); or iterative reconstruction. Contrast material: OMNI 350; Contrast volume: 67 ml; Contrast route: INTRAVENOUS (IV); COMPARISON: CT angio chest abdomen pelvis 03/15/2022 8:14 PM RADIATION DOSE METRICS: Total DLP (mGy-cm): 351.45 FINDINGS: Pulmonary arteries: Normal. No pulmonary emboli. Aorta: No aortic aneurysm. No aortic dissection. Lungs: Mild bronchial wall thickening. No consolidation. Pleural spaces: No pneumothorax. No pleural effusion. Heart: Heart borderline prominent. Coronary calcifications and/or stent(s). Lymph nodes: No enlarged lymph nodes. Bones/joints: No acute fracture. Soft tissues: Unremarkable. Other findings: Expiratory phase imaging suggested. CT/CT angio chest PE protcl [id number] IMPRESSION: No evident pulmonary embolic disease. Bronchial wall thickening can be correlated for infectious/inflammatory process.
[2022-04-03 17:48] LABS: Hepatitis A Antibody IgM Non-Reactive (Nonreactive); Hepatitis B Core IgM Non-Reactive (Nonreactive); Hepatitis B Surface Antigen Non-Reactive (Nonreactive); Hepatitis C Virus Antibody Non-Reactive (Nonreactive)
[2022-04-03 17:49] LABS: Lactic Sepsis W/Reflex 1.2 mmol/L (0.5-2.2)
[2022-04-03] MEDS: iohexol 350 mg/mL 100 mL Btl IV (18:13)
[2022-04-03 18:17] LABS: SARS Covid-2 Antigen Negative (Negative)
[2022-04-03] MEDS: metroNIDAZOLE IV 500 MG/100 ML PREMIX 100 MG IV (18:17)
[2022-04-03] MEDS: pantoprazole DR 40 mg Tablet PO (18:24)
[2022-04-03 18:37] LABS: Erythrocyte Sedimentation Rate 23 mm/hr (0-15)
[2022-04-03 18:46] LABS: Unsaturated Iron Binding 227 ug/dL (112-347)
[2022-04-03 18:48] LABS: Ferritin 1024 ng/mL (15-150)
[2022-04-03 19:19] LABS: Percent Saturation 29.2 % (20-50); Total Iron Binding Capacity 321 mcg/dl
[2022-04-03 19:20] LABS: C Reactive Protein 14.4 mg/L (0.0-4.9); Iron 94 ug/dL (37-145)
[2022-04-03 20:39] LABS: Troponin 5 6HR 8.97 ng/L (0-10)
[2022-04-03 20:41] LABS: Troponin 5 6HR Delta -3.03 ng/L (0-12)
[2022-04-03 21:25] LABS: Glucose Point of Care 117 mg/dL (70-110)
[2022-04-03] MEDS: HYDROcodone-acetaminophen 10-325 mg Tablet 1 TAB PO (23:23)
[2022-04-04] MEDS: metroNIDAZOLE IV 500 MG/100 ML PREMIX 100 MG IV ×3 (00:02→18:44)
[2022-04-04 03:53] VITALS: BP 108/64; PULSE 89; RESP 16; TEMP 36.9; O2SAT 94
[2022-04-04 04:53] LABS: Basophils % 0.3 %; Eosinophils # 0.1 10^3/uL (0.0-0.8); Eosinophils % 0.4 %; Hemoglobin 12.2 g/dL (11.5-15.3); Lymphocytes # 0.6 10^3/uL (0.8-4.8); Lymphocytes % 4.9 %; Mean Corpuscular HGB Conc 32.1 g/dL (30.0-36.0); Mean Corpuscular Hemoglobin 29.5 pg (28.0-34.0); Mean Corpuscular Volume 91.8 fl (81-99); Mean Platelet Volume 11.1 fL (7.4-10.4); Monocytes # 0.6 10^3/uL (0.2-0.9); Monocytes % 4.9 %; Neutrophils # 10.44 10^3/uL (1.8-7.7); Nucleated Red Blood Cells % 0 %; Platelet Count 260 10^3/cmm (130-400); Red Blood Count 4.14 10^6/uL (4.1-5.3); Red Cell Distribution Width 14.2 % (12.1-15.1); White Blood Count 11.7 10^3/uL (4.0-10.0)
[2022-04-04 05:17] LABS: INR 1.26 (0.8-1.2)
[2022-04-04 05:20] LABS: Alanine Aminotransferase 441 U/L (0-33); Albumin Level 3.3 g/dL (3.5-5.2); Alkaline Phosphatase 242 U/L (35-105); Anion Gap 16.4 (5-19); Aspartate Amino Transferase 197 U/L (0-32); Blood Urea Nitrogen 19 mg/dL (8-23); Calcium 9.1 mg/dL (8.5-10.5); Carbon Dioxide 23 mmol/L (22-29); Chloride 107 mmol/L (98-107); Globulin 2.7 g/dL (1.3-4.6); Glucose 149 mg/dL (65-115); Osmolality Calculated 299 mOsm/kg (285-295); Potassium 4.4 mmol/L (3.5-5.1); Sodium 142 mmol/L (136-145); Total Bilirubin 2.1 mg/dL (0.15-1.2)
[2022-04-04] MEDS: ciprofloxacin 400 MG/200 ML PREMIX 200 MG IV ×2 (06:11→18:44)
[2022-04-04 06:28] LABS: Glucose Point of Care 125 mg/dL (70-110)
--- NOTE | 2022-04-04 07:54 | P.PN_ITS ---
Subjective Subjective: Patient is down for the hepatobiliary scan. Her transaminases are elevated. Her troponins are all negative. She still has some intermittent discomfort. Vitals/I&O/Wt Last Vital Signs Temp 98.5 F 04/04/22 03:53 Pulse 89 04/04/22 03:53 Resp 16 04/04/22 03:53 BP 108/64 04/04/22 03:53 Pulse Ox 94 04/04/22 03:53 O2 Del Method 04/04/22 03:53 04/03/22 04/04/22 04/04/22 22:59 06:59 14:59 Intake Total 300 / 300 400 / 700 200 / 200 Balance 300 / 300 400 / 700 200 / 200 Weight last 48 hrs Weight 214 lb Weight 218 lb Physical Exam Narrative: GENERAL: No distress HEENT: Exam within normal limits. NECK: Supple without jugular vein distention. The carotid upstroke is normal without bruits. BACK: Exam normal. LUNGS: Clear. HEART: Regular rate and rhythm. ABDOMEN: Benign without organomegaly or tenderness. EXTREMITIES: No edema. NEUROLOGIC: Exam normal. SKIN: Unremarkable. Data : 04/04/22 04:32 04/04/22 04:32 Micro: Microbiology 04/03/22 17:08 Blood Culture - Preliminary Blood SPECIMEN COLLECTED 04/03/22 17:11 Blood Culture - Preliminary Blood SPECIMEN COLLECTED A&P Assessment and plan (1) Abnormal liver function tests: Status: Acute (2) Sinus tachycardia: Status: Acute (3) Chest pain: Status: Acute (4) Diabetes mellitus: Status: Acute (5) Atherosclerotic heart disease of habematolel coronary artery with other forms of angina pectoris: Status: Acute (6) FRANCI (obstructive sleep apnea): Status: Acute Plan This is a noncardiac event. I will sign off. Please call if necessary. 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
[2022-04-04 08:00] VITALS: BP 150/70; PULSE 62; RESP 16; O2SAT 95
--- NOTE | 2022-04-04 09:13 | PC.CHAP ---
Pastoral Care Encounter/Spiritual Assessment Type of Contact [] Declined street department dispatcher visit [] Patient/Family/Request visit [] Outpatient visit [] Follow-up visit [] Physician referral [] Code/Alert [x] Routine visit [] Staff referral [] Actively dying [] Patient sleeping [] Family support [] [] Out of room [] Palliative care [] [] Receiving care in room [] Pre-surgical visit [] Trauma [] Long length of stay [] ICU visit [] Other: Relational/Emotional Strength [x] Patient feels connected with others/family/visitors/staff [] Distress [] Loneliness/isolation [] Abandonment Spirituality of Patient [x] Person of Fatou [] Attends [employer] of their Fatou [] Believes in Prayer [] Reads Bible or Buddhist materials [] There are Spiritual issues to be addressed Field Representatives Director Interventions [] Prayer [x] Active listening [x Non-anxious presence [x] Spiritual/emotional support [] Crisis/trauma care [] Spiritual counseling [] Bereavement support [] Provided bereavement packet [] Provided Bible/devotional materials [] Provided toy/stuffed animal, coloring book to patient or family member [] Provided Communion [] Anointing/[place] [] Salvation [x] Completed spiritual assessment [] Other: Impact on Illness or Injury [] Angry [] Fearful [] Anxious [] Often cries [] Exhaustion [] Unable to work [] Unable to attend confucianism [] Unable to walk/stand [] Unable to read [] Unable to drive [] Unable to eat/drink [] Unable to sleep [] Unable to be with family [] Patient intubated [] Other: Summary Pt describes herself as a person of fatou. She attends a small taoism in [place]. Describes having a good relationship with her director learning and development and family. Pt lives alone, no children. Does have pets. Has someone watching her pets while she is in hospital. Declined prayer but did take Bible and Daily Bread material. Time spent with patient 10m
--- NOTE | 2022-04-04 10:15 | MRR_ITS ---
PROCEDURE INFORMATION: Exam: MR Abdomen Without Contrast Exam date and time: 04/04/2022 5:37 PM Age: 66 years old Clinical indication: Abdominal tenderness; Additional info: Cbd occlusion? , Order was changed to stat per Dr kirkpatrick. TECHNIQUE: Imaging protocol: Magnetic resonance imaging of the abdomen without contrast. COMPARISON: 1. CT angio chest abdomen pelvis 03/15/2022 8:14 PM 2. NM hepatobiliary w phar* [id number] 04/04/2022 4:44 PM 3. US gall bladder [id number] 04/03/2022 2:[address] angio chest PE protcl [id number] 04/03/2022 6:11 PM FINDINGS: Limitations: Study is somewhat limited by respiratory motion. Pleural spaces: There are tiny bilateral pleural effusions. Liver: There is no focal abnormality within the liver. Liver shows slight decrease in signal intensity on the opposed phase Mejias images which may represent some mild fatty change. Gallbladder and bile ducts: Gallbladder is unremarkable. No definite gallstone is identified. There is no intrahepatic or extrahepatic biliary tract dilatation common hepatic duct and common bile duct have a normal diameter. Common bile duct measures around 4 mm distally. Pancreas: Unremarkable. No ductal dilation. Spleen: Unremarkable. No splenomegaly. Adrenal glands: Unremarkable. No mass. Kidneys and ureters: Unremarkable. No solid mass. No hydronephrosis. Stomach and bowel: Visualized stomach and intestines are unremarkable. Intraperitoneal space: No free fluid. Vasculature: No abdominal aortic aneurysm. Bones/joints: Unremarkable. Soft tissues: Unremarkable. MR/MR MRCP [id number] IMPRESSION: 1. Mild fatty liver 2. No evidence of common bile duct obstruction.
[2022-04-04] MEDS: aspirin 81 mg EC Tablet PO (11:01)
[2022-04-04] MEDS: pantoprazole DR 40 mg Tablet PO ×2 (11:01→18:45)
[2022-04-04 12:00] VITALS: BP 125/63; PULSE 75; RESP 17; TEMP 36.6; O2SAT 96
--- NOTE | 2022-04-04 12:26 | PM.PN ---
Subjective Subjective: She is overall doing little better today. She has so far not had any further chest pressure or discomfort. No shortness of breath. Denies abdominal pain at rest. No nausea or vomiting. Some tenderness and arrest of inspiration in the right upper quadrant on deep palpation. Vitals/I&O/Wt Last Vital Signs Temp 97.9 F 04/04/22 12:00 Pulse 75 04/04/22 12:00 Resp 17 04/04/22 12:00 BP 125/63 04/04/22 12:00 Pulse Ox 96 04/04/22 12:00 O2 Del Method 04/04/22 12:00 04/03/22 04/04/22 04/04/22 22:59 06:59 14:59 Intake Total 300 / 300 400 / 700 300 / 300 Balance 300 / 300 400 / 700 300 / 300 Weight last 48 hrs Weight 97.069 kg Weight 98.883 kg Physical Exam Const: COMMON NORMALS: patient oriented x3 and alert GENERAL APPEARANCE: cooperative ORIENTATION/CONSCIOUSNESS: Yes awake HENMT: COMMON NORMALS: oropharynx normal Neck/C-Spine: COMMON NORMALS: no JVD Resp: COMMON NORMALS: normal respiratory effort and clear to auscultation bilaterally AUSCULTATION: clear to auscultation bilaterally Cardio: COMMON NORMALS: no JVD, regular rhythm, S1 normal heart sound present, S2 normal heart sound present and No murmurs present (Cardio) RATE: tachycardic RHYTHM: regular rhythm HEART SOUNDS: S1 normal heart sound present and S2 normal heart sound present GI: COMMON NORMALS: Normal to inspection, nondistended, normoactive bowel sounds present, Soft to palpation and non-tender PALPATION: Yes Soft to palpation OTHER: Mild pain right upper quadrant on deep inspiration, with some arrest of inspiration Extremity: COMMON NORMALS: no joint enlargement and no pedal edema Neuro: COMMON NORMALS: patient oriented x3 and moves all extremities SENSORIUM/ORIENTATION: Yes alert Skin: COMMON NORMALS: no rashes or lesions noted GENERAL SKIN EXAM: no rashes or lesions noted Data : 04/04/22 04:32 04/04/22 04:32 Micro: Microbiology 04/03/22 17:08 Blood Culture - Preliminary Blood SPECIMEN COLLECTED 04/03/22 17:11 Blood Culture - Preliminary Blood SPECIMEN COLLECTED A&P Assessment and plan (1) Abnormal liver function tests: Hyperbilirubinemia and alk phos elevation. Direct hyperbilirubinemia. Some tenderness right upper quadrant, to do some resting inspiration. Gallbladder abnormality on ultrasound, further assessed today with HIDA scan. Abnormality noted with delayed excretion from liver suggestive of common bile duct obstruction, no uptake within gallbladder or small bowel. Delayed excretion. Unclear if secondary to hepatocellular injury or possible early CBD occlusion. Discussed with radiology, discussed with her regarding MRCP for further evaluation. Requested. Additional treatment of possible infection continue Cipro, Flagyl. Hepatitis panel negative. COVID-19 negative. She additionally reports chronically dry mouth, dry eyes. Not formally diagnosed with autoimmune condition. When asked about it states some consideration of lupus in the past, but work-up was never completed. Pending PREMA panel, autoimmune hepatitis studies. Elevated ferritin over 1000 on iron studies, although transferrin saturation not elevated. Normal iron level. This may be secondary to inflammation. For now hold off on hemochromatosis study, but may need to be revisited. Transaminitis appears to be improving today. Unclear cause. Does not appear to have signs of right heart failure at this time. Blood pressure soft in ER. Cannot exclude transient hypotension at home, possibility of shock liver as well, although currently blood pressure is better. She states has been taking all her medications. Hold antihypertensives for now. Hold statin. She states she had been off Plavix for some time, then resumed it. Hold Plavix. Status: Acute (2) Chest pressure: Resolved. Unremarkable troponin series. Currently low suspicion for transmural DC or NSTEMI. Cardiac evaluation, TTE appreciated. Recent coronary angiogram results noted. Currently pressure free. Abnormal D-dimer. CT without PE. Status: Acute (3) Sinus tachycardia: Sinus tachycardia improving, suspect was related to developing gallbladder infection, possible sepsis, with leukocytosis, sinus tachycardia. Continue work-up as above, Cipro, Flagyl. Otherwise possibly related to acute hepatitis of unclear cause, possibly shock liver with transient hypotension. Status: Acute (4) Leukocytosis: As above Status: Acute (5) Dry mouth: Dry mouth, possibly dehydration, hold Lasix. Reports chronically dry mouth as well and has dry eyes. Is not aware of being formally diagnosed with any autoimmune condition, but in the past states there was some consideration of lupus, but work-up was never completed. Elevated ESR, CRP. Pending assessment as above PREMA panel, SSA, SSB, antidouble-stranded DNA. Status: Acute Plan CAD: 50% prestent stenosis of left circumflex, 50% stenosis RCA, mild plaque in LAD. Chronic back pain DM2 Fibromyalgia GERD: PPI HTN: Hold antihypertensives for now, soft blood pressure on presentation HLD Migraine headaches Neuropathy FRANCI Attestations Medical Necessity Statement*: Continue admission for assessment management of possible cholestasis, possible CBD occlusion, possible hepatitis of unclear etiology, possible improving sepsis, and lady with underlying CAD. Coding Level of Care Code Acute Vice President Marketing & Development for Chg Fwd Diagnoses Abnormal liver function tests R79.89 Chest pressure R07.89 Sinus tachycardia R00.0 Leukocytosis D72.829 Dry mouth R68.2
[2022-04-04] MEDS: HYDROcodone-acetaminophen 10-325 mg Tablet 1 TAB PO ×2 (13:10→18:41)
[2022-04-04 15:47] VITALS: BP 153/68; PULSE 72; RESP 17; TEMP 36.6; O2SAT 95
--- NOTE | 2022-04-04 16:44 | NM_ITS ---
WS: [id number] NUCLEAR MEDICINE HIDA SCAN HISTORY: assess for possible cholecystitis COMPARISON: Gallbladder ultrasound 04/03/2022 TECHNIQUE: The patient was intravenously injected with 8.2 mCi of TC99m Mebrofenin. Immediate imaging over the right upper quadrant was followed by 5 minute image and additional images for a total of 60 minutes. Normal uptake of radiotracer throughout the liver. Liver appears slightly enlarged. Activity in the gallbladder is not identified up to 120 minutes. There is still uptake throughout the liver suggesting delayed excretion. NM/NM hepatobiliary w phar* [id number] IMPRESSION: Delayed excretion from the liver suggesting common bile duct obstruction. There is no uptake within the gallbladder or small bowel. Delayed excretion, also be seen with acute hepatocellular injury. No common bile duct dilatation was noted on a recent ultrasound 04/03/2022. Nond ilatation of the common bile duct at that time may have been due to early obstr uction of the bile duct.
[2022-04-04] MEDS: amitriptyline 25 mg Tablet 50 MG PO ×2 (19:59)
[2022-04-04 20:00] VITALS: BP 144/76; PULSE 65; RESP 16; TEMP 37.2; O2SAT 95
[2022-04-05] VITALS (7 sets, daily range): BP systolic 138–198; BP diastolic 73–95; PULSE 63–75; RESP 14–19; TEMP 36.8–37.8; O2SAT 93–97
[2022-04-05] MEDS: metroNIDAZOLE IV 500 MG/100 ML PREMIX 100 MG IV ×2 (01:50→11:33)
[2022-04-05] MEDS: HYDROcodone-acetaminophen 10-325 mg Tablet 1 TAB PO ×5 (01:51→23:57)
[2022-04-05 04:54] LABS: Basophils % 0.6 %; Eosinophils # 0.2 10^3/uL (0.0-0.8); Eosinophils % 3.1 %; Hematocrit 40.5 % (37.0-47.0); Hemoglobin 12.4 g/dL (11.5-15.3); Lymphocytes # 0.9 10^3/uL (0.8-4.8); Lymphocytes % 14.4 %; Mean Corpuscular HGB Conc 30.6 g/dL (30.0-36.0); Mean Corpuscular Hemoglobin 29.3 pg (28.0-34.0); Mean Corpuscular Volume 95.7 fl (81-99); Mean Platelet Volume 11.2 fL (7.4-10.4); Monocytes # 0.5 10^3/uL (0.2-0.9); Monocytes % 7.4 %; Neutrophils # 4.82 10^3/uL (1.8-7.7); Nucleated Red Blood Cells % 0 %; Platelet Count 256 10^3/cmm (130-400); Red Blood Count 4.23 10^6/uL (4.1-5.3); Red Cell Distribution Width 14.4 % (12.1-15.1); White Blood Count 6.5 10^3/uL (4.0-10.0)
[2022-04-05 05:03] LABS: INR 1.11 (0.8-1.2)
[2022-04-05] MEDS: ciprofloxacin 400 MG/200 ML PREMIX 200 MG IV (05:59)
[2022-04-05 07:40] LABS: Alanine Aminotransferase 256 U/L (0-33); Albumin Level 3.4 g/dL (3.5-5.2); Alkaline Phosphatase 251 U/L (35-105); Aspartate Amino Transferase 53 U/L (0-32); Blood Urea Nitrogen 18 mg/dL (8-23); Carbon Dioxide 26 mmol/L (22-29); Chloride 104 mmol/L (98-107); Globulin 2.9 g/dL (1.3-4.6); Glomerular Filtration Rate 72.2 mL/min (90-130); Glucose 105 mg/dL (65-115); Osmolality Calculated 292 mOsm/kg (285-295); Sodium 140 mmol/L (136-145); Total Bilirubin 1.9 mg/dL (0.15-1.2); Total Protein 6.3 g/dL (6.6-8.7)
[2022-04-05] MEDS: aspirin 81 mg EC Tablet PO (08:28)
[2022-04-05] MEDS: pantoprazole DR 40 mg Tablet PO ×2 (08:29→17:22)
--- NOTE | 2022-04-05 10:03 | PC.CHAP ---
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 [] Patient/Family/Request visit [] Outpatient visit [] Follow-up visit [] Physician referral [] Code/Alert [x] Routine visit [] Staff referral [] Actively dying [] Patient sleeping [] Family support [] [] Out of room [] Palliative care [] [x] Receiving care in room [] Pre-surgical visit [] Trauma [x] Long length of stay [] ICU visit [] Other: Relational/Emotional Strength [x] Patient feels connected with others/family/visitors/staff [] Distress [] Loneliness/isolation [] Abandonment Spirituality of Patient [x] Person of Fatou [] Attends Yazidism of their Ftaou [x] Believes in Prayer [] Reads Bible or Muslim materials [] There are Spiritual issues to be addressed Decker Operator Interventions [x] Prayer [x] Active listening [x] Non-anxious presence [x] Spiritual/emotional support [] Crisis/trauma care [x] Spiritual counseling [] Bereavement support [] Provided bereavement packet [] Provided Bible/devotional materials [] Provided toy/stuffed animal, coloring book to patient or family member [] Provided Communion [] Anointing/Gordon [] Salvation [x] Completed spiritual assessment [] Other: Impact on Illness or Injury [] Angry [] Fearful [c] Anxious [] Often cries [] Exhaustion [c] Unable to work [] Unable to attend taoism [] Unable to walk/stand [] Unable to read [] Unable to drive [] Unable to eat/drink [] Unable to sleep [] Unable to be with family [] Patient intubated [] Other: Summary senior doesn't know about her health has a good attitude not sure when she can go home Time spent with patient 10 mins
[2022-04-05] MEDS: sucralfate 1 gm/10 mL Oral Liq UDC PO ×3 (12:09→19:53)
[2022-04-05] MEDS: lidocaine 2% viscous 15 ML, aluminum-mag hydrox-simethicon 30 ML, sucralfate oral liq 1 GM PO (13:53)
[2022-04-05 13:57] LABS: Anti-Double Strand DNA AB <1 IU/mL; SS A Ro Sjogrens Antibody <1.0 NEG AI (<1.0 NEG); SS-B/LA IGG <1.0 NEG AI (<1.0 NEG)
[2022-04-05 16:04] LABS: Lipase 33 U/L (13-60)
[2022-04-05 17:05] LABS: Troponin T (5th) Once 8 ng/L (0-10)
--- NOTE | 2022-04-05 17:42 | ECG_ITS ---
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 Measurements Intervals [place] Rate: 73 P: 15 UT: 193 QRS: -18 QRSD: 98 T: 21 QT: 322 QTc: 356 Interpretive Statements SINUS RHYTHM MINIMAL VOLTAGE CRITERIA FOR LVH, CONSIDER NORMAL VARIANT [MEETS CRITERIA IN ONE OF: R(aVL), S(V1), R(V5), R(V5/V6)+S(V1)] INFERIOR MYOCARDIAL INFARCTION , OF INDETERMINATE AGE [40+ ms Q WAVE AND/OR ST/T ABNORMALITY IN II/aVF] Compared to ECG 04/03/2022 13:28:43 Myocardial infarct finding now present First degree AV block no longer present Electronically Signed On 04-06-2022 0:20:02 CDT by Gary Suh M.D. [id number]
--- NOTE | 2022-04-05 19:25 | PM.PN ---
Subjective Subjective: Since this morning she has been having bothersome severe heartburn, did not appear to respond to PPI so far just yet, improvement with sucralfate, GI cocktail. Burning sensation on swallowing. No right upper quadrant pain or discomfort. Vitals/I&O/Wt Last Vital Signs Temp 99.1 F 04/05/22 16:00 Pulse 71 04/05/22 16:00 Resp 16 04/05/22 16:00 BP 185/78 04/05/22 16:00 Pulse Ox 97 04/05/22 16:00 O2 Del Method 04/05/22 16:00 04/05/22 04/05/22 04/05/22 06:59 14:59 22:59 Intake Total 600 / 1200 240 / 240 360 / 600 Balance 600 / 1200 240 / 240 360 / 600 Weight last 48 hrs Weight 97.069 kg Physical Exam Const: COMMON NORMALS: patient oriented x3 and alert GENERAL APPEARANCE: cooperative ORIENTATION/CONSCIOUSNESS: Yes awake HENMT: COMMON NORMALS: oropharynx normal Neck/C-Spine: COMMON NORMALS: no JVD Resp: COMMON NORMALS: normal respiratory effort and clear to auscultation bilaterally AUSCULTATION: clear to auscultation bilaterally Cardio: COMMON NORMALS: no JVD, regular rhythm, S1 normal heart sound present, S2 normal heart sound present and No murmurs present (Cardio) RATE: tachycardic RHYTHM: regular rhythm HEART SOUNDS: S1 normal heart sound present and S2 normal heart sound present GI: COMMON NORMALS: Normal to inspection, nondistended, normoactive bowel sounds present, Soft to palpation and non-tender PALPATION: Yes Soft to palpation OTHER: No RUQ pain. Extremity: COMMON NORMALS: no joint enlargement and no pedal edema Neuro: COMMON NORMALS: patient oriented x3 and moves all extremities SENSORIUM/ORIENTATION: Yes alert Skin: COMMON NORMALS: no rashes or lesions noted GENERAL SKIN EXAM: no rashes or lesions noted Data : 04/05/22 03:46 04/05/22 06:37 Micro: Microbiology 04/03/22 17:11 Blood Culture - Preliminary Blood NEGATIVE TO DATE 04/03/22 17:08 Blood Culture - Preliminary Blood NEGATIVE TO DATE A&P Assessment and plan (1) Epigastric burning sensation: Today severe epigastric burning sensation, so far unresponsive to continued PPI, sucralfate, GI cocktail. Burning with swallowing. For now continue PPI. Sucralfate. She has had scheduled endoscopy but is not supposed to be happening until June. If symptoms persist despite treatment consider endoscopic evaluation this admission. EKG repeated, as well as troponin, troponin normal, EKG without acute changes. Lipase checked as well, normal. Stop Flagyl in case contributing to abdominal discomfort. Given persistence, severity of symptoms discharge for now postponed. Status: Acute (2) Abnormal liver function tests: Liver parameters are now improving. AST down to 53, ALT down to 256. She states she has been recently taking Plavix. Discussed with her to discontinue medication due to risk of hepatitis. Arraignment studies still pending. She only takes Fioricet once Has not taken it for probably about a month. Does not take Tylenol apart from what is in hydrocodone, max 4 tablets a day. Continue to withhold statin for now. MRCP results appreciated, no CBD occlusion. Did not require transfer for additional evaluation. Consideration was given to discharge home this morning, but deferred as above. Discontinued Cipro, Flagyl. Hepatitis panel negative. COVID-19 negative. She additionally reports chronically dry mouth, dry eyes. Not formally diagnosed with autoimmune condition. When asked about it states some consideration of lupus in the past, but work-up was never completed. SSA, SSB negative. NT dsDNA negative. Pending PREMA panel, autoimmune hepatitis studies. Elevated ferritin over 1000 on iron studies, although transferrin saturation not elevated. Normal iron level. This may be secondary to inflammation. For now hold off on hemochromatosis study, but may need to be revisited. Does not appear to have signs of right heart failure at this time. Blood pressure soft in ER. Cannot exclude transient hypotension at home, possibility of shock liver as well, although currently blood pressure is better. Discussed with her possible shock liver. Hypotension resolved, now becoming hypertensive, resume carvedilol, resume diltiazem. Hold losartan for now. Status: Acute (3) Chest pressure: Resolved. Unremarkable troponin series. Currently low suspicion for transmural MO or NSTEMI. Cardiac evaluation, TTE appreciated. Recent coronary angiogram results noted. Currently pressure free. Abnormal D-dimer. CT without PE. Status: Acute (4) Sinus tachycardia: Sinus tachycardia improving, suspect was related to developing gallbladder infection, possible sepsis, with leukocytosis, sinus tachycardia. Continue work-up as above, Cipro, Flagyl. Otherwise possibly related to acute hepatitis of unclear cause, possibly shock liver with transient hypotension. Status: Acute (5) Leukocytosis: As above Status: Acute (6) Dry mouth: Dry mouth, possibly dehydration, hold Lasix. Reports chronically dry mouth as well and has dry eyes. Is not aware of being formally diagnosed with any autoimmune condition, but in the past states there was some consideration of lupus, but work-up was never completed. Elevated ESR, CRP. Pending assessment as above PREMA panel. Negative SSA, SSB, antidouble-stranded DNA. Status: Acute Plan CAD: 50% prestent stenosis of left circumflex, 50% stenosis RCA, mild plaque in LAD. Chronic back pain DM2 Fibromyalgia GERD: PPI HTN: Hold antihypertensives for now, soft blood pressure on presentation HLD Migraine headaches Neuropathy FRANCI Attestations Medical Necessity Statement*: Continue admission for assessment of management of severe, persistent heartburn sensation in a lady underlying CAD, improving hepatitis of unclear etiology, possible shock liver after hypotension prior to hospitalization. Coding Level of Care Code Acute Instrumentation Instructor for Chg Fwd Diagnoses Epigastric burning sensation R10.13 Abnormal liver function tests R79.89 Chest pressure R07.89 Sinus tachycardia R00.0 Leukocytosis D72.829 Dry mouth R68.2
[2022-04-05] MEDS: amitriptyline 25 mg Tablet 50 MG PO (19:53)
[2022-04-05] MEDS: carvedilol 25 mg Tablet PO (19:53)
--- NOTE | 2022-04-05 21:12 | PC.NURSE ---
Lab states that 2 hour troponin was missed and did not get drawn. It is currently time for 6 hour troponin to be drawb.
[2022-04-06 04:00] VITALS: BP 160/73; PULSE 61; RESP 18; TEMP 36.7; O2SAT 95
[2022-04-06 05:04] LABS: Basophils % 0.7 %; Eosinophils # 0.1 10^3/uL (0.0-0.8); Eosinophils % 2.2 %; Hematocrit 40.8 % (37.0-47.0); Hemoglobin 12.9 g/dL (11.5-15.3); Lymphocytes # 1.6 10^3/uL (0.8-4.8); Lymphocytes % 26.8 %; Mean Corpuscular HGB Conc 31.6 g/dL (30.0-36.0); Mean Corpuscular Hemoglobin 29.5 pg (28.0-34.0); Mean Corpuscular Volume 93.2 fl (81-99); Mean Platelet Volume 10.9 fL (7.4-10.4); Monocytes # 0.5 10^3/uL (0.2-0.9); Monocytes % 8.9 %; Neutrophils # 3.56 10^3/uL (1.8-7.7); Neutrophils % 61.1 %; Nucleated Red Blood Cells % 0 %; Platelet Count 222 10^3/cmm (130-400); Red Blood Count 4.38 10^6/uL (4.1-5.3); Red Cell Distribution Width 14.3 % (12.1-15.1); White Blood Count 5.8 10^3/uL (4.0-10.0)
[2022-04-06] MEDS: sucralfate 1 gm/10 mL Oral Liq UDC PO (05:38)
[2022-04-06] MEDS: HYDROcodone-acetaminophen 10-325 mg Tablet 1 TAB PO ×2 (05:38→11:42)
[2022-04-06] MEDS: dilTIAZem ER (24HR) 240 mg Capsule PO (05:38)
[2022-04-06] MEDS: ondansetron 2 mg/ML SDV 2 mL 4 MG IVP (06:09)
[2022-04-06 06:33] LABS: Alanine Aminotransferase 180 U/L (0-33); Albumin Level 3.6 g/dL (3.5-5.2); Alkaline Phosphatase 296 U/L (35-105); Anion Gap 12.8 (5-19); Aspartate Amino Transferase 55 U/L (0-32); Blood Urea Nitrogen 13 mg/dL (8-23); Carbon Dioxide 26 mmol/L (22-29); Chloride 102 mmol/L (98-107); Glomerular Filtration Rate 72.2 mL/min (90-130); Glucose 93 mg/dL (65-115); Osmolality Calculated 284 mOsm/kg (285-295); Potassium 3.8 mmol/L (3.5-5.1); Sodium 137 mmol/L (136-145); Total Bilirubin 1.3 mg/dL (0.15-1.2); Total Protein 6.6 g/dL (6.6-8.7)
[2022-04-06 08:00] VITALS: BP 155/75; PULSE 65; RESP 16; TEMP 36.9; O2SAT 94
[2022-04-06] MEDS: pantoprazole DR 40 mg Tablet PO (10:04)
[2022-04-06] MEDS: carvedilol 25 mg Tablet PO (10:05)
[2022-04-06] MEDS: aspirin 81 mg EC Tablet PO (10:05)
--- NOTE | 2022-04-06 11:34 | CT_ITS ---
WS: [id number] CT ABDOMEN PELVIS TECHNIQUE: Contrast-enhanced CT of the abdomen and pelvis with coronal and sagittal reformatted image s. CLINICAL INFORMATION: epigastric pain, mild RLQ pain COMPARISON: MRCP April 04, 2022 DLP: 940.[address] scans at [facility] use at least one of these dose optimization techniques: automated e xposure control; mA and/or kV adjustment per patient size (includes targeted exams where dose is matc hed to clinical indication); or iterative reconstruction. FINDINGS: Hepatomegaly with diffuse fatty infiltration of the liver. Normal portal vein and splenic vein. Elvira l GE junction. Proximal duodenum appears normal. Lung bases are well aerated. Calcified granuloma RIG HT lower lobe. Mild fluid distention of the gallbladder similar to the recent MRCP. No fluid in the gallbladder urban a. Normal pancreatic parenchymal enhancement. Fatty atrophy of the pancreas. Normal spleen. Adrenal glands are normal. Normal renal parenchymal enhancement. No hydronephrosis. No rmal caliber abdominal aorta. Aortic calcification. No abdominal or pelvic lymphadenopathy. No inguin al lymphadenopathy. Normal sigmoid colon. No evidence of high-grade small or large bowel obstruction. Mild transverse col on constipation. Grade 1 anterol[address] on L5. CT/CT abdomen pelvis w con* [id number] IMPRESSION: 1. Normal appendix in the RIGHT lower quadrant. No evidence of acute appendici tis. 2. Hepatomegaly diffuse fatty infiltration liver. 3. Moderate RIGHT colon and transverse colon constipation. 4. No evidence of high-grade small or large bowel obstruction. 5. Mild fluid distention of the gallbladder unchanged since the MRCP. No peric holecystic fluid. 6. Hepatomegaly diffuse fatty infiltration liver. 7. No other remarkable findings.
[2022-04-06 12:00] VITALS: BP 128/72; PULSE 58; RESP 16; TEMP 36.6; O2SAT 94
[2022-04-06 12:42] LABS: Anti-Nuclear Antibody Screen POSITIVE (NEGATIVE)
[2022-04-06 12:53] LABS: Anti-Nuclear Antibody Pattern Nuclear, Speckled
[2022-04-06 15:47] VITALS: BP 136/77; PULSE 59; RESP 15; TEMP 36.8; O2SAT 96
--- NOTE | 2022-04-06 21:57 | P.DS_ITS ---
Discharge Providers Date of Admission: 04/04/22 18:41 Date of Discharge: April 06, 2022 Attending Provider at Admission: Bertin Guadalupe Attending Provider at Discharge: Bertin Guadalupe Primary Care Provider: Marielle Bucio APN Diagnoses at Discharge Discharge Diagnosis (1) Epigastric burning sensation: Status: Acute (2) Abnormal liver function tests: Status: Acute (3) Chest pressure: Status: Acute (4) Sinus tachycardia: Status: Acute (5) Leukocytosis: Status: Acute (6) Dry mouth: Status: Acute Reason for Visit Reason for Visit: Chest Pain Hospital Course Hospital Course Pleasant 66-year-old lady with history of coronary disease presented after episode of ill-defined chest pressure, mild shortness of breath, on initial assessment with concern for possible acute RI was assessed by cardiology, limited TTE, with low suspicion for NSTEMI or transmural infarct, having had recently an angiogram with finding of 50% prestent LAD stenosis, 50% RCA stenosis, was admitted for additional assessment of management, with noted sinus tachycardia, leukocytosis on presentation initially empiric antibiotics with noted liver parameter abnormalities, with transaminitis, as well as T bili and alk phos elevation, with gallbladder abnormality on ultrasound, however, also noted dehydrated, diuretic was held, received fluid challenge, additionally assessed with D-dimer which was abnormal, CTA did not show PE, showed possible bronchitis. Additionally assessed by HIDA scan which showed concern for possible CBD occlusion without biliary flow, with noted also rising transaminases concerning for hepatitis, no hepatitis panel negative, suspected possible shock liver with initial hypotension, possibly secondary to dehydration, antihypertensives, diuretics have been withheld. Possible appetite is secondary to Plavix which she recently resumed, which were stopped. Continued on aspirin alone (last stent reported in October 2020). Additionally statins were held. ESR, CRP were elevated. Autoimmune studies including PREMA as well as autoimmune hepatitis studies were requested, and are pending. Please follow-up results. Initially complained of dry mouth which stated was recurrent,'s urine studies were sent as well, but negative. Dry mouth likely secondary to recurrent dehydration, diuretics were held. Antihypertensives de-escalated to avoid further episodes of hypotension. With metoprolol, diltiazem resumed. Losartan held for now. Assessed by MRCP, CBD found without obstruction. Liver parameters with rapid improvement. AST and ALT down from 700s to 55, 180 respectively. T bili decreasing from 2.1-1.3, alk phos lagging behind at 296. Without right upper quadrant pain she subsequently did complain of having epigastric burning sensation for a while, recently progressive. Continued on twice daily PPI, without add sucralfate, GI cocktail. With unremarkable lipase. CT abdomen pelvis with noted constipation reaching right colon. No evidence of appendicitis. Fatty liver and hepatomegaly. With persistent dyspepsia, she states was planned for endoscopic evaluation in June of both upper and lower, however, with persistent symptoms wanted to advance the studies, and is set up to return for upper and lower endoscopy on Saturday with Dr. Prescott with requested prep. Physical Exam Narrative: Accompanied by her cousin. Const: COMMON NORMALS: patient oriented x3 and alert GENERAL APPEARANCE: cooperative ORIENTATION/CONSCIOUSNESS: Yes awake HENMT: COMMON NORMALS: oropharynx normal Neck/C-Spine: COMMON NORMALS: no JVD Resp: COMMON NORMALS: normal respiratory effort and clear to auscultation bilaterally AUSCULTATION: clear to auscultation bilaterally Cardio: COMMON NORMALS: no JVD, regular rhythm, S1 normal heart sound present, S2 normal heart sound present and No murmurs present (Cardio) RATE: tachycardic RHYTHM: regular rhythm HEART SOUNDS: S1 normal heart sound present and S2 normal heart sound present GI: COMMON NORMALS: Normal to inspection, nondistended, normoactive bowel sounds present and Soft to palpation PALPATION: Yes Soft to palpation and Yes Tenderness to palpation present (GI) (Epigastric) OTHER: No RUQ pain. Extremity: COMMON NORMALS: no joint enlargement and no pedal edema Neuro: COMMON NORMALS: patient oriented x3 and moves all extremities SENSORIUM/ORIENTATION: Yes alert Skin: COMMON NORMALS: no rashes or lesions noted GENERAL SKIN EXAM: no rashes or lesions noted Discharge Data Studies Completed and Pending Completed Studies During Hospitalization Category Date Time Status CT abdomen pelvis w con* [id number] Routine Cat Scan 04/06/22 11:34 Completed CTA PE [CT angio chest PE protcl [id number]] Routine Cat Scan 04/03/22 17:35 Completed XR chest 1V portable [id number] Stat Exams 04/03/22 12:21 Completed MR MRCP 13450 Stat MRI 04/04/22 10:15 Completed NM hepatobiliary w phar* [id number] Routine Nuc Med 04/04/22 16:44 Completed CV. echo limited [id number] Stat Ultrasound 04/03/22 13:16 Completed US gall bladder [id number] Stat Ultrasound 04/03/22 13:58 Completed Pending at discharge Category Date Time Status AMA [Mitochondrial AB Screen] Routine Lab 04/03/22 17:45 Received Blood Culture Stat Lab 04/03/22 17:08 Results SMAB [Smooth Muscle AB Screen w/Refl] Routine Lab 04/03/22 17:45 Results SSA [SS A Ro Sjogrens Antibody] Routine Lab 04/03/22 17:45 Results Radiology Impressions Chest X-Ray 04/03/22 12:21 IMPRESSION: No acute findings. Gallbladder Ultrasound 04/03/22 13:58 IMPRESSION: 1. Abnormal gallbladder. Gallbladder is moderately contracted with diffuse wall thickening. No stones are identified. Gallbladder wall thickening may be on the basis of hepatocellular disease or chronic cholecystitis. Imaging is suboptimal due to body habitus. 2. No bile duct dilatation. 3. Hepatomegaly and hepatic steatosis. Chest CTA 04/03/22 17:35 IMPRESSION: No evident pulmonary embolic disease. Bronchial wall thickening can be correlated for infectious/inflammatory process. Cholangiopancreatography MRI 04/04/22 10:15 IMPRESSION: 1. Mild fatty liver 2. No evidence of common bile duct obstruction. Hepatobiliary Scan Nuclear Medicine 04/04/22 16:44 IMPRESSION: Delayed excretion from the liver suggesting common bile duct obstruction. There is no uptake within the gallbladder or small bowel. Delayed excretion, also be seen with acute hepatocellular injury. No common bile duct dilatation was noted on a recent ultrasound 04/03/2022. Nondilatation of the common bile duct at that time may have been due to early obstruction of the bile duct. Abdomen/Pelvis CT 04/06/22 11:34 IMPRESSION: 1. Normal appendix in the RIGHT lower quadrant. No evidence of acute appendicitis. 2. Hepatomegaly diffuse fatty infiltration liver. 3. Moderate RIGHT colon and transverse colon constipation. 4. No evidence of high-grade small or large bowel obstruction. 5. Mild fluid distention of the gallbladder unchanged since the MRCP. No pericholecystic fluid. 6. Hepatomegaly diffuse fatty infiltration liver. 7. No other remarkable findings. Laboratory Results WBC 5.8 10^3/uL (4.0-10.0) 04/06/22 04:18 RBC 4.38 10^6/uL (4.1-5.3) 04/06/22 04:18 Hgb 12.9 g/dL (11.5-15.3) 04/06/22 04:18 Hct 40.8 % (37.0-47.0) 04/06/22 04:18 MCV 93.2 fl (81-99) 04/06/22 04:18 MCH 29.5 pg (28.0-34.0) 04/06/22 04:18 MCHC 31.6 g/dL (30.0-36.0) 04/06/22 04:18 RDW 14.3 % (12.1-15.1) 04/06/22 04:18 Plt Count 222 10^3/cmm (130-400) 04/06/22 04:18 MPV 10.9 fL (7.4-10.4) H 04/06/22 04:18 Neut % (Auto) 61.1 % 04/06/22 04:18 Lymph % (Auto) 26.8 % 04/06/22 04:18 [place] % (Auto) 8.9 % 04/06/22 04:18 Eos % (Auto) 2.2 % 04/06/22 04:18 Baso % (Auto) 0.7 % 04/06/22 04:18 Neut # (Auto) 3.56 10^3/uL (1.8-7.7) 04/06/22 04:18 Lymph # (Auto) 1.6 10^3/uL (0.8-4.8) 04/06/22 04:18 [place] # (Auto) 0.5 10^3/uL (0.2-0.9) 04/06/22 04:18 Eos # (Auto) 0.1 10^3/uL (0.0-0.8) 04/06/22 04:18 Baso # (Auto) 0.0 10^3/uL (0.0-0.1) 04/06/22 04:18 Nucleated RBC % (auto) 0 % 04/06/22 04:18 Nucleated RBCs # 0.0 /100WBC 04/06/22 04:18 ESR 23 mm/hr (0-15) H 04/03/22 13:05 PT 14.50 SECONDS (12.1-14.9) 04/06/22 04:18 INR 1.10 (0.8-1.2) 04/06/22 04:18 D-Dimer 0.83 ug/mIFEU (0-0.59) H 04/03/22 17:08 Sodium 137 mmol/L (136-145) 04/06/22 05:55 Potassium 3.8 mmol/L (3.5-5.1) 04/06/22 05:55 Chloride 102 mmol/L (98-107) 04/06/22 05:55 Carbon Dioxide 26 mmol/L (22-29) 04/06/22 05:55 Anion Gap 12.8 (5-19) 04/06/22 05:55 BUN 13 mg/dL (8-23) 04/06/22 05:55 Creatinine 0.8 mg/dL (0.5-0.9) 04/06/22 05:55 GFR Calculation 72.2 mL/min (90-130) L 04/06/22 05:55 Glucose 93 mg/dL (65-115) 04/06/22 05:55 POC Glucose 125 mg/dL (70-110) H 04/04/22 06:19 Calculated Osmolality 284 mOsm/kg (285-295) L 04/06/22 05:55 Lactic Acid 1.2 mmol/L (0.5-2.2) 04/03/22 17:22 Calcium 9.0 mg/dL (8.5-10.5) 04/06/22 05:55 Iron 94 ug/dL (37-145) 04/03/22 13:05 TIBC 321 mcg/dl 04/03/22 13:05 % Saturation 29.2 % (20-50) 04/03/22 13:05 Unsat Iron Binding 227 ug/dL (112-347) 04/03/22 13:05 Ferritin 1024 ng/mL (15-150) H 04/03/22 13:05 Total Bilirubin 1.3 mg/dL (0.15-1.2) H 04/06/22 05:55 Direct Bilirubin 1.40 mg/dL (0.00-0.30) H 04/03/22 13:05 AST 55 U/L (0-32) H 04/06/22 05:55 ALT 180 U/L (0-33) H 04/06/22 05:55 Alkaline Phosphatase 296 U/L (35-105) H 04/06/22 05:55 Troponin T Gen 5 ng/L 8 ng/L (0-10) 04/05/22 16:29 Troponin T Baseline 12 ng/L (0-10) H 04/03/22 13:02 Troponin T 120 Minute 11.69 ng/L (0-10) H 04/03/22 15:22 Delta Troponin T -0.31 ABS# (0-10) L 04/03/22 15:22 Troponin T Hi Sens 6Hr 8.97 ng/L (0-10) 04/03/22 19:00 Troponin T Hi Sens 6Hr Delta -3.03 ng/L (0-12) L 04/03/22 19:00 C-Reactive Protein 14.4 mg/L (0.0-4.9) H 04/03/22 13:05 Total Protein 6.6 g/dL (6.6-8.7) 04/06/22 05:55 Albumin 3.6 g/dL (3.5-5.2) 04/06/22 05:55 Globulin 3.0 g/dL (1.3-4.6) 04/06/22 05:55 Lipase 33 U/L (13-60) 04/05/22 06:37 PREMA Screen Positive (NEGATIVE) A 04/03/22 17:45 PREMA Titer 1:80 titer H 04/03/22 17:45 PREMA Pattern Nuclear, speckled A 04/03/22 17:45 SS-A/Ro Antibody <1.0 neg AI (<1.0 NEG) 04/03/22 17:45 SS-B/La IgG Antibody <1.0 neg AI (<1.0 NEG) 04/03/22 17:45 Anti-ds DNA IgG Ab <1 IU/mL 04/03/22 17:45 Hepatitis A IgM Ab Non-reactive (Nonreactive) 04/03/22 17:08 Hep Bs Antigen Non-reactive (Nonreactive) 04/03/22 17:08 Hep B Core IgM Ab Non-reactive (Nonreactive) 04/03/22 17:08 Hepatitis C Antibody Non-reactive (Nonreactive) 04/03/22 17:08 SARS-CoV-2 Ag (Rapid) Negative (Negative) 04/03/22 17:10 Vitals Last Vital Signs Temp 98.2 F 04/06/22 15:47 Pulse 59 L 04/06/22 15:47 Resp 15 04/06/22 15:47 BP 136/77 04/06/22 15:47 Pulse Ox 96 04/06/22 15:47 O2 Del Method 04/06/22 15:47 Discharge Plan Discharge Patient Disposition: Home Condition: Stable Prescriptions: New sucralfate 1 gram tablet 1 g PO BID PRN (Reason: heartburn) 56 Days Qty: 112 0RF Rx Instructions: Please do not take until after endoscopic evaluation Miralax 17 gram/dose powder See Rx Instructions .ROUTE .COMPLEX Qty: 119 0RF Rx Instructions: Dissolve in large (not red) Gatorade, drink with 2 Dulcolax Dulcolax (bisacodyl) 5 mg tablet,delayed release (DR/EC) 10 mg PO ONCE Qty: 2 0RF Rx Instructions: With Miralax for bowel prep Continued qtgthkhyoa-asvihqvtvdkbq-guyk 50-325-40 mg capsule 1 cap PO Q8H PRN (Reason: Migraine Headache) multivitamin Tablet 1 tab PO DAILY@12 albuterol sulfate [ProAir HFA] 90 mcg/actuation HFA aerosol inhaler 2 puff INHALATION Q6H PRN (Reason: Shortness Of Breath Or Wheezing) omega-3 fatty acids 1,000 mg capsule 2,000 mg PO BID@08,18 loratadine [Claritin] 10 mg tablet 10 mg PO DAILY PRN (Reason: Allergy Symptoms) hydrocodone-acetaminophen 10-325 mg tablet 1 tab PO Q4H PRN (Reason: Pain) Rx Instructions: up to 5X QD lansoprazole 30 mg capsule,delayed release(DR/EC) 30 mg PO BID pregabalin [Lyrica] 25 mg capsule 25 mg PO QID Rx Instructions: @08:00,12:00,18:00,22:00 vitamin B complex [B Complex-Vitamin B12] Tablet 1 tab PO DAILY@12 magnesium 250 mg tablet 400 mg PO DAILY@12 docusate sodium 100 mg capsule 100 mg PO BEDTIME PRN (Reason: Constipation) Aimovig Autoinjector 140 mg/mL auto-injector 140 mg SUBCUT .monthly Rx Instructions: Taken on the nitroglycerin [Nitrostat] 0.4 mg tablet, sublingual 0.4 mg SUBLINGUAL Q5M PRN (Reason: Chest Pain) Qty: 25 1RF aspirin 81 mg tablet,delayed release (DR/EC) 81 mg PO BEDTIME Qty: 90 3RF isosorbide mononitrate 30 mg tablet extended release 24 hr 30 mg PO BID@08,18 amitriptyline 50 mg tablet 50 mg PO BEDTIME cholecalciferol (vitamin D3) [Vitamin D3] 50 mcg (2,000 unit) Capsule 100 mcg PO DAILY Tums 200 mg calcium (500 mg) Tablet,Chewable 200 mg PO QID PRN (Reason: Indigestion) carvedilol 25 mg tablet 25 mg PO BID@08,18 diltiazem HCl 240 mg capsule,extended release 24hr 240 mg PO QAM Changed Lasix 40 mg tablet 40 mg PO QAM PRN (Reason: Edema) Qty: 10 0RF potassium chloride 20 mEq tablet extended release 20 meq PO QAM PRN (Reason: Edema) Qty: 10 0RF Rx Instructions: Only if taking Lasix Held losartan 100 mg tablet 100 mg PO DAILY@12 Hold Instructions: Resume on 04/19/22. Discontinued atorvastatin 20 mg tablet 20 mg PO QPM clopidogrel 75 mg tablet 75 mg PO QAM Discharge Orders: Discharge Order (Routine); Ordered 04/06/22 Ordered By: Bertin Guadalupe Referrals: [facility] [Provider Group] - 04/09/22 (GI lab for upper and lower endoscopy with Dr Prescott CHECK IN AT [facility] ADMISSION AT 07:00 SATURDAY MORNING FOR EGD AND COLONOSCOPY 04-09-22) Marielle Bucio APN [Primary Care Provider] - 04/13/22 1:45 pm Discharge Diet: As Directed and Cardiac Discharge Activity: Increase activity as tolerated Patient Instructions: Polyethylene Glycol 3350 (By mouth), Bisacodyl (By mouth), Constipation (GEN), Non-Alcoholic Fatty Liver Disease (GEN), Colonoscopy (GEN), Upper Endoscopy (GEN), Prevent Cardiovascular Disease (GEN), Opioid Safety Activity Restrictions/Additional Instructions: Monitor blood pressures closely as we have discussed, hold blood pressure medications in case blood pressure is less than 110 top number or less than 50 bottom number to avoid hypotension. Medications to hold would include isosorbide, carvedilol, diltiazem. Please hold losartan for now, monitor blood pressures twice daily at home, record values, on follow-up appointment discussed with your primary doctor if losartan can be restarted. Hypotension likely caused shock to your liver causing elevation of liver numbers. Please stop Plavix in case it caused hepatitis. Continue aspirin alone. Hold atorvastatin for now until your liver parameters can be reassessed and hepatitis noted resolving by her primary doctor. Discussed that if it may be safe to restart atorvastatin, possibly at lower dose. Please limit acetaminophen (Tylenol) to less than 2000 mg in a day. Follow-up with your primary doctor regarding mild fatty liver. Follow-up with your primary doctor for resolution of mild bronchitis. No additional treatment should be necessary at this time. Continue acid marlon medication. Please prepare for upper endoscopy and colonoscopy. As per Dr. Prescott instructions, please take small bottle of MiraLAX and dissolve it in large (not read) Gatorade bottle, drink this through the afternoon on Saturday (day before procedure) together with 2 Dulcolax in preparation for procedure on Saturday. Please do not take additional sucralfate until after endoscopic evaluation. Please note that constipation all the way up to the right side of your colon is seen on CT. Please avoid constipation. Avoid hydrocodone if possible as opioids contribute to constipation. Add fiber to your diet after you resume regular diet after your procedures. Avoid dehydration. Take potassium only if you are taking Lasix. Resume follow-up with cardiology. Continue to work with your primary provider for optimization of control of cardiovascular risk factors. Discharge Attestations Time Spent in Discharge Care*: greater than 30 min Quality Metrics Clinical Quality Measures [ No reported AMI, CVA or VTE this stay] Coding Level of Care Code Acute Chg FW DC note Diagnoses Epigastric burning sensation R10.13 Abnormal liver function tests R79.89 Chest pressure R07.89 Sinus tachycardia R00.0 Leukocytosis D72.829 Dry mouth R68.2
[2022-04-07 16:53] LABS: Smooth Muscle Ab Screen NEGATIVE (NEGATIVE)
== END 2022-04-06 17:00 | disposition home or self-care (01) | DRG 443 ==
LOC: ER 14:57 → ER IP 15:38 → MEDSURG 18:26
PROVIDERS: Admitting Provider Internal Medicine; Emergency Provider Emergency Medicine; PCP Nurse Practitioner Family; Visit Provider Internal Medicine
DX: K72.00 Acute and subacute hepatic failure without coma (principal); R10.13 Epigastric pain; R79.89 Other specified abnormal findings of blood chemistry; R07.89 Other chest pain; R00.0 Tachycardia, unspecified; D72.829 Elevated white blood cell count, unspecified; R68.2 Dry mouth, unspecified; I25.10 Atherosclerotic heart disease of native coronary artery without angina pectoris; Z95.5 Presence of coronary angioplasty implant and graft; I10 Essential (primary) hypertension; E78.5 Hyperlipidemia, unspecified; R93.3 Abnormal findings on diagnostic imaging of other parts of digestive tract; Z79.02 Long term (current) use of antithrombotics/antiplatelets; Z79.52 Long term (current) use of systemic steroids; G47.33 Obstructive sleep apnea (adult) (pediatric); M54.9 Dorsalgia, unspecified; G89.29 Other chronic pain; R94.5 Abnormal results of liver function studies; K21.9 Gastro-esophageal reflux disease without esophagitis; E11.40 Type 2 diabetes mellitus with diabetic neuropathy, unspecified; E80.6 Other disorders of bilirubin metabolism; I95.9 Hypotension, unspecified; K59.00 Constipation, unspecified; K76.0 Fatty (change of) liver, not elsewhere classified; R16.0 Hepatomegaly, not elsewhere classified; J20.9 Acute bronchitis, unspecified
CPT/HCPCS: 36415; 36416; 71045; 71275; 74177; 74181; 76705; 78227; 80048; 80053; 80074; 80076; 82728; 82962; 83516; 83540; 83550; 83605; 83690; 84484; 85025; 85378; 85610; 85651; 86038; 86140; 86225; 86235; 87040; 87426; 93005; 93308; 99285; A9537; G0378; J0744; J2270; J2405; Q9967; S0030

== ENCOUNTER 2022-04-09 07:04 | Day surgery (SDC) | payer MEDICARE, BC, SELFPAY ==
[2022-04-09 07:41] VITALS: BMI 34.5
[2022-04-09 07:48] VITALS: BP 168/79; PULSE 68; RESP 18; TEMP 37; O2SAT 95
[2022-04-09] MEDS: sodium chloride 0.9% 1,000 ML 30 ML IV (08:08)
--- NOTE | 2022-04-09 08:33 | P.ANESASSM_ITS ---
Pre-Anesthetic Assessment Height/Weight: Height 1.68 m Weight 97.069 kg Temp Pulse Resp BP Pulse Ox O2 Del Method 98.6 F 68 18 168/79 95 04/09/22 07:48 04/09/22 07:48 04/09/22 07:48 04/09/22 07:48 04/09/22 07:48 04/09/22 07:48 Preop Diagnosis: Persistent dyspepsia, abdominal pain. Operation Date: 04/09/22 08:00 Proposed Procedures p EGD(Not Applicable) - Jorge Alberto Prescott MD s Colonoscopy(Not Applicable) - Jorge Alberto Prescott MD Familial anesthetic complications: None Was Beta Adina taken within 24 hours: Yes Was Clonidine taken within 24 hours: N/A Last intake: Intake Last Liquid Date 04/08/22 Last Liquid Time 23:55 Last Solid Date 04/07/22 Last Solid Time 20:00 Social No alcohol and No tobacco Exam alert, oriented x 3, clear to auscultation bilaterally and regular rate & rhythm Airway Mallampati: Class II Dentition: full Pulmonary Sleep Apnea recent bronchititis - feels back to baseline now CV/HEM Coronary Artery Disease (tents), Deep Vein Thrombosis and Hypertension Hepatic fatty liver - increased LFTS, unknown etiology GI Hiatal Hernia Metabolic Diabetes Mellitus [facility] [place]/sk Fibromyalgia Anesthetic Plan ASA status: 3 Anesthesia: MAC Risk of > 500 ml blood loss (7ml/kg in children): No Medications/Allergies Home Medications Medication Instructions Recorded Confirmed Last Taken Type mdfhvnrjyy-nqatkdhlvjcjk-upyndvvn 1 cap PO Q8H PRN Migraine Headache 09/02/19 04/03/22 Unknown History 50 mg-325 mg-40 mg capsule docusate sodium 100 mg capsule 100 mg PO BEDTIME PRN Constipation 09/02/19 04/03/22 10/20/20 22:00 History hydrocodone 10 mg-acetaminophen 1 tab PO Q4H PRN Pain 09/02/19 04/03/22 04/03/22 10:00 History 325 mg tablet lansoprazole 30 mg capsule,delayed 30 mg PO BID 09/02/19 04/03/22 04/03/22 History release magnesium 250 mg tablet 400 mg PO DAILY@12 09/02/19 04/03/22 04/02/22 History multivitamin 1 tab PO DAILY@09/02/19 04/03/22 04/02/22 History pregabalin 25 mg capsule (Lyrica) 25 mg PO QID 09/02/19 04/03/22 04/03/22 08:00 History vitamin B complex (B 1 tab PO DAILY@12 09/02/19 04/03/22 04/02/22 History Complex-Vitamin B12) albuterol sulfate 90 mcg/actuation 2 puff inhalation Q6H PRN 01/05/20 04/03/22 Unknown History aerosol inhaler (ProAir HFA) Shortness Of Breath Or Wheezing erenumab-aooe 140 mg/mL 140 mg SUBCUT .monthly 05/03/20 04/03/22 03/14/22 History subcutaneous auto-injector (Aimovig Autoinjector) loratadine 10 mg tablet (Claritin) 10 mg PO DAILY PRN Allergy Symptoms 11/21/21 04/03/22 Unknown History omega-3 fatty acids 1,000 mg 2,000 mg PO BID@08,18 11/21/21 04/03/22 04/03/22 08:00 History capsule aspirin 81 mg tablet,delayed 81 mg PO BEDTIME #90 tabs 11/23/21 04/03/22 04/02/22 Rx release isosorbide mononitrate 30 mg 30 mg PO BID@08,18 03/15/22 04/03/22 04/03/22 08:00 History tablet,extended release 24 hr nitroglycerin 0.4 mg sublingual 0.4 mg sublingual Q5M PRN Chest 03/23/22 0 04/03/22 04/03/22 Rx tablet (Nitrostat) Pain #25 tabs amitriptyline 50 mg tablet 50 mg PO BEDTIME 04/03/22 04/03/22 04/02/22 History calcium carbonate 200 mg calcium 200 mg PO QID PRN Indigestion 04/03/22 04/03/22 04/02/22 History (500 mg) chewable tablet (Tums) carvedilol 25 mg tablet 25 mg PO BID@08,18 04/03/22 04/03/22 04/03/22 History cholecalciferol (vitamin D3) 50 100 mcg PO DAILY 04/03/22 04/03/22 04/03/22 History mcg (2,000 unit) capsule (Vitamin D3) diltiazem HCl 240 mg 240 mg PO QAM 04/03/22 04/03/22 04/03/22 History capsule,extended release 24 hr losartan 100 mg tablet 100 mg PO DAILY@12 04/03/22 04/03/22 04/02/22 History furosemide 40 mg tablet (Lasix) 40 mg PO QAM PRN Edema #10 tabs 04/06/22 04/03/22 04/03/22 Rx potassium chloride 20 mEq 20 meq PO QAM PRN Edema #10 tabs 04/06/22 04/03/22 04/03/22 Rx tablet,extended release sucralfate 1 gram tablet 1 g PO BID PRN heartburn 8 weeks 04/06/22 Unknown Rx #112 tabs Allergies Allergy/AdvReac Type Severity Reaction Status Date / Time ampicillin Allergy Unknown ALGY-Rash Verified 04/09/22 07:33 Sulfa (Sulfonamide Allergy Unknown ALGY-Rash Verified 04/09/22 07:33 Antibiotics) Tetanus Vaccines and Toxoid Allergy Unknown ALGY-Redness Verified 04/09/22 07:33 of Skin lisinopril AdvReac ADR-Cough Verified 04/09/22 07:33 Current Medications Generic Name Dose Route Start Last Admin Trade Name Freq PRN Reason Stop Dose Admin Sodium Chloride 1,000 mls @ 30 mls/hr 04/09/22 07:30 04/09/22 08:08 Sodium Chloride 0.9% IV 04/10/22 07:29 30 mls/hr .Q24H COMPA Administration PFSH Anesthesia Medical History ASHD (arteriosclerotic heart disease) Chronic back pain Diabetes mellitus Fibromyalgia GERD (gastroesophageal reflux disease) History of coronary angiogram Last procedure October 2020 where she received a drug-eluting stent in her circumflex. LAD 40%, RPDA 40% at that time History of DVT (deep vein thrombosis) HTN (hypertension) Hyperlipidemia Migraine headache Neuropathy FRANCI (obstructive sleep apnea) Surgical History S/P bunionectomy S/P carpal tunnel release S/P hysterectomy S/P rotator cuff repair S/P tonsillectomy and adenoidectomy Family History Mother Diabetes Stroke Hypertension Grandmother Diabetes Hypertension Social History Smoking and tobacco status: never smoked Alcohol intake: never Lives independently: Yes Household members: none Marital status: Single Current occupational status: retired History of recent travel: No Current gender identity: Female Data Anesthesia Cardiac Studies: Echocardiogram 03/15/22 Echocardiogram Limited Views 04/03/22 Sestamibi Stress Test (Cardiology) 06/29 Cardiac Event Monitor 07/21/20
[2022-04-09 08:58] VITALS: BP 120/61; PULSE 59; RESP 16; TEMP 36.1; O2SAT 95
[2022-04-09 09:10] VITALS: BP 146/75; PULSE 61; RESP 18; O2SAT 95
--- NOTE | 2022-04-09 12:32 | P.HP_ITS ---
Same Day Surgery H&P Indication for Procedure/HPI DATE OF PROCEDURE: April 09, 2022 CHIEF COMPLAINT/INDICATIONFOR SURGICAL PROCEDURE: Postprandial abdominal pain and abnormal CT PREOP DIAGNOSIS: Persistent dyspepsia, abdominal pain. PLANNED PROCEDURE: Operation Date: 04/09/22 08:00 Proposed Procedures p EGD(Not Applicable) - Jorge Alberto Prescott MD s Colonoscopy(Not Applicable) - Jorge Alberto Prescott MD Medications/Allergies* Home Medications Medication Instructions Recorded Confirmed Type inidmgkxio-lzvlnpwiucotp-qlxjuctr 1 cap PO Q8H PRN Migraine Headache 09/02/19 04/09/22 History 50 mg-325 mg-40 mg capsule docusate sodium 100 mg capsule 100 mg PO BEDTIME PRN Constipation 09/02/19 04/09/22 History hydrocodone 10 mg-acetaminophen 1 tab PO Q4H PRN Pain 09/02/19 04/09/22 History 325 mg tablet lansoprazole 30 mg capsule,delayed 30 mg PO BID 09/02/19 04/09/22 History release magnesium 250 mg tablet 400 mg PO DAILY@12 09/02/19 04/09/22 History multivitamin 1 tab PO DAILY@12 09/02/19 04/09/22 History pregabalin 25 mg capsule (Lyrica) 25 mg PO QID 09/02/19 04/09/22 History vitamin B complex (B 1 tab PO DAILY@09/02/19 04/09/22 History Complex-Vitamin B12) albuterol sulfate 90 mcg/actuation 2 puff inhalation Q6H PRN 01/05/20 04/09/22 History aerosol inhaler (ProAir HFA) Shortness Of Breath Or Wheezing erenumab-aooe 140 mg/mL 140 mg SUBCUT .monthly 05/03/20 04/09/22 History subcutaneous auto-injector (Aimovig Autoinjector) loratadine 10 mg tablet (Claritin) 10 mg PO DAILY PRN Allergy Symptoms 11/21/21 04/09/22 History omega-3 fatty acids 1,000 mg 2,000 mg PO BID@,11/21/21 04/09/22 History capsule isosorbide mononitrate 30 mg 30 mg PO BID@,03/15/22 04/09/22 History tablet,extended release 24 hr amitriptyline 50 mg tablet 50 mg PO BEDTIME 04/03/22 04/09/22 History calcium carbonate 200 mg calcium 200 mg PO QID PRN Indigestion 04/03/22 04/09/22 History (500 mg) chewable tablet (Tums) carvedilol 25 mg tablet 25 mg PO BID@08,18 04/03/22 04/09/22 History cholecalciferol (vitamin D3) 50 100 mcg PO DAILY 04/03/22 04/09/22 History mcg (2,000 unit) capsule (Vitamin D3) diltiazem HCl 240 mg 240 mg PO QAM 04/03/22 04/09/22 History capsule,extended release 24 hr losartan 100 mg tablet 100 mg PO DAILY@12 04/03/22 04/09/22 History Allergies/Adverse Reactions Allergy/AdvReac Type Severity Reaction Status Date / Time ampicillin Allergy Unknown ALGY-Rash Verified 04/09/22 07:33 Sulfa (Sulfonamide Allergy Unknown ALGY-Rash Verified 04/09/22 07:33 Antibiotics) Tetanus Vaccines and Toxoid Allergy Unknown ALGY-Redness Verified 04/09/22 07:33 of Skin lisinopril AdvReac ADR-Cough Verified 04/09/22 07:33 Pertinent History/Comorbid Conditions* Medical History (Updated 04/07/22 @ 00:02 by ) ASHD (arteriosclerotic heart disease) Chronic back pain Diabetes mellitus Fibromyalgia GERD (gastroesophageal reflux disease) History of coronary angiogram Last procedure October 2020 where she received a drug-eluting stent in her circumflex. LAD 40%, RPDA 40% at that time History of DVT (deep vein thrombosis) HTN (hypertension) Hyperlipidemia Migraine headache Neuropathy FRANCI (obstructive sleep apnea) Surgical History (Updated 09/10/19 @ 13:36 by Jessie Greco MD) S/P bunionectomy S/P carpal tunnel release S/P hysterectomy S/P rotator cuff repair S/P tonsillectomy and adenoidectomy Family History (Updated 09/02/19 @ 10:58 by Elzbieta Tobias RN) Diabetes Mother Grandmother Hypertension Mother Grandmother Stroke Mother Social History Smoking and tobacco status: never smoked Alcohol intake: never Lives independently: Yes Household members: none Marital status: Single Current occupational status: retired History of recent travel: No Current gender identity: Female Pertinent Exam Findings alert, oriented x 3, clear to auscultation bilaterally, regular rate & rhythm, operative site marked and procedure specific exam findings Recommendations Surgery/Procedure today Coding Level of Care Code Acute Collaborative Physician for Christiana Mcnamara
--- NOTE | 2022-04-09 14:07 | ANE.PACU2 ---
Inpatient post-anesthesia follow up: Airway intact: Yes Vital signs: Temperature 97.0 F Pulse Rate 61 Respiratory Rate 18 Blood Pressure 146/75 Pulse Oximetry 95 Oxygen Delivery Me thod Room Air Oxygen Flow Rate Fraction of Inspir ed Oxygen Hydration adequate: Yes Nausea and vomiting: No Pain level: 1 Mental status: Baseline
[2022-04-10 10:17] LABS: H. Pylori / CLO Test Negative
== END 2022-04-09 09:32 | disposition home or self-care (01) ==
PROVIDERS: PCP Nurse Practitioner Family; Visit Provider Internal Medicine
PROC: 0DJ08ZZ Inspection of Upper Intestinal Tract, Via Natural or Artificial Opening Endoscopic (ICD-10-PCS; CPT 43235; principal; 2022-04-09 08:00)
PROC: 0DJD8ZZ Inspection of Lower Intestinal Tract, Via Natural or Artificial Opening Endoscopic (ICD-10-PCS; CPT 45378; 2022-04-09 08:00)
DX: R10.13 Epigastric pain (principal); K29.70 Gastritis, unspecified, without bleeding; D12.4 Benign neoplasm of descending colon; I25.10 Atherosclerotic heart disease of native coronary artery without angina pectoris; M79.7 Fibromyalgia; K21.9 Gastro-esophageal reflux disease without esophagitis; I10 Essential (primary) hypertension; E78.5 Hyperlipidemia, unspecified; E11.40 Type 2 diabetes mellitus with diabetic neuropathy, unspecified; G47.33 Obstructive sleep apnea (adult) (pediatric); Z86.718 Personal history of other venous thrombosis and embolism
CPT/HCPCS: 43239; 45385; 87077; 88305; J2704; J7030

== ENCOUNTER → 2022-04-16 15:04 | Outpatient (BNVA) | payer MEDICARE, BC, SELFPAY | PROVIDERS: PCP Nurse Practitioner Family; Visit Provider Surgery | DX: R10.9 Unspecified abdominal pain (principal); K82.8 Other specified diseases of gallbladder; K76.0 Fatty (change of) liver, not elsewhere classified | CPT/HCPCS: 99203 ==

== ENCOUNTER 2022-05-21 05:54 | Day surgery (SDC) | payer MEDICARE, BC, SELFPAY ==
[2022-05-18 11:24] VITALS: BMI 34.7
[2022-05-21] VITALS (9 sets, daily range): BP systolic 101–145; BP diastolic 51–72; PULSE 54–84; RESP 16–20; TEMP 36.1–36.7; O2SAT 92–98
--- NOTE | 2022-05-21 06:31 | P.HP_ITS ---
Same Day Surgery H&P Indication for Procedure/HPI DATE OF PROCEDURE: May 21, 2022 CHIEF COMPLAINT/INDICATIONFOR SURGICAL PROCEDURE: Belly pain PREOP DIAGNOSIS: Biliary colic PLANNED PROCEDURE: Operation Date: 05/21/22 07:00 Proposed Procedures p Laparoscopic Cholecystectomy 23815,R10.9(Not Applicable) - Carlos Gill MD 04/16/2022 this is a pleasant with history of epigastric pain?that has been constant and in addition to right sided abdominal pain.? Patient reports that the pain is more dull and aching and nothing seems to make it better or worse. Previous work-up was done in the form of laboratory blood work that showed on 04/06/2022 a total bilirubin of 1.3, AST 55, ALT 180 and alk phos 296 and seems that the patient has been having persistent elevated LFTs. Imaging studies in the form of; Chest abdomen and pelvis CTA on 03/15/2022 1. Equivocal findings for acute cholecystitis. Consider ultrasound follow-up if there is clinical evidence of gallbladder disease. 2. No aortic dissection or aneurysm. 3. Focal subcutaneous edema and gas in the left lower quadrant abdominal wall. Question skin laceration or injection site. 4. Incidental findings above. ? Ultrasound of the liver and gallbladder 03/16/2022 that did show 1.? Quality of this examination is compromised by body habitus. 2.? No cholelithiasis or pericholecystic fluid. 3.? Normally distended gallbladder with diffuse wall thickening. No Delacruz's sign. Changes in the gallbladder may be seen with acalculous cholecystitis or hepatocellular disease. 4.? Moderate hepatomegaly with hepatic steatosis. Repeat ultrasound of the gallbladder on 04/03/2022 that did show 1.? Abnormal gallbladder. Gallbladder is moderately contracted with diffuse wall thickening. No stones are identified. Gallbladder wall thickening may be on the basis of hepatocellular disease or chronic cholecystitis. Imaging is suboptimal due to body habitus. 2.? No bile duct dilatation. 3.? Hepatomegaly and hepatic steatosis. ? Followed by an MRCP on 04/05/2022 that did show 1. Mild fatty liver 2. No evidence of common bile duct obstruction. The HIDA scan was done on 04/05/2020 Delayed excretion from the liver suggesting common bile duct obstruction. There is no uptake within the gallbladder or small bowel. Delayed excretion, also be seen with acute hepatocellular injury. No common bile duct dilatation was noted on a recent ultrasound 04/03/2022. Nondilatation of the common bile duct at that time may have been due to early obstruction of the bile duct. ? Followed by CT of the abdomen pelvis on 04/06/2022 1.? Normal appendix in the RIGHT lower quadrant. No evidence of acute appendicitis. 2.? Hepatomegaly diffuse fatty infiltration liver. 3.? Moderate RIGHT colon and transverse colon constipation. 4.? No evidence of high-grade small or large bowel obstruction. 5.? Mild fluid distention of the gallbladder unchanged since the MRCP. No pericholecystic fluid. 6.? Hepatomegaly diffuse fatty infiltration liver. 7.? No other remarkable findings. Patient is well-known history of diabetes mellitus type 2, hyperlipidemia, coronary artery disease, chronic back pain, shortness of breath, obesity related obstructive sleep apnea and hypertension.? It seems that the patient has been having fatty dyspepsia and she has been referred to me for potential gallbladder surgery.? Patient undergone an EGD and colonoscopy by Dr. Prescott on 04/09/2022 that did show gastritis and colon polyps respectively. Pathology did show A.? Colon, sigmoid colon polyp , polypectomy: ? Hyperplastic polyp, inflamed. ? No overt adenomatous changes identified. B.? Colon, distal transverse colon polyp , polypectomy: ? Tubular adenoma. ? No high-grade dysplasia identified. 05/21/2022 Patient comes today for elective laparoscopic cholecystectomy. Patient is down to 201 pounds being on liquid protein diet. ROS All systems have been reviewed negative except as for the above or per problem list. Medications/Allergies* Home Medications Medication Instructions Recorded Confirmed Type jeffcwqawv-zdgunnrjgjmop-qqmccvkn 1 cap PO Q8H PRN Migraine Headache 09/02/19 05/18/22 History 50 mg-325 mg-40 mg capsule docusate sodium 100 mg capsule 100 mg PO BEDTIME PRN Constipation 09/02/19 05/21/22 History hydrocodone 10 mg-acetaminophen 1 tab PO Q4H PRN Pain 09/02/19 05/21/22 History 325 mg tablet magnesium 250 mg tablet 400 mg PO DAILY@12 09/02/19 05/21/22 History multivitamin 1 tab PO DAILY@12 09/02/19 05/21/22 History pregabalin 25 mg capsule (Lyrica) 25 mg PO QID 09/02/19 05/21/22 History vitamin B complex (B 1 tab PO DAILY@12 09/02/19 05/21/22 History Complex-Vitamin B12 tablet) albuterol sulfate 90 mcg/actuation 2 puff inhalation Q6H PRN 01/05/20 05/18/22 History aerosol inhaler (ProAir HFA) Shortness Of Breath Or Wheezing erenumab-aooe 140 mg/mL 140 mg SUBCUT .monthly 05/03/20 05/21/22 History subcutaneous auto-injector (Aimovig Autoinjector) loratadine 10 mg tablet (Claritin) 10 mg PO DAILY PRN Allergy Symptoms 11/21/21 05/21/22 History omega-3 fatty acids 1,000 mg 2,000 mg PO BID@08,18 11/21/21 05/21/22 History capsule isosorbide mononitrate 30 mg 30 mg PO BID@08,18 03/15/22 05/21/22 History tablet,extended release 24 hr amitriptyline 50 mg tablet 50 mg PO BEDTIME 04/03/22 05/21/22 History carvedilol 25 mg tablet 25 mg PO BID@08,18 04/03/22 05/21/22 History cholecalciferol (vitamin D3) 50 100 mcg PO DAILY 04/03/22 05/21/22 History mcg (2,000 unit) capsule (Vitamin D3) diltiazem HCl 240 mg 240 mg PO QAM 04/03/22 05/21/22 History capsule,extended release 24 hr losartan 100 mg tablet 100 mg PO DAILY@12 04/03/22 05/21/22 History pantoprazole 40 mg tablet,delayed 40 mg PO DAILY 05/18/22 05/21/22 History release Allergies/Adverse Reactions Allergy/AdvReac Type Severity Reaction Status Date / Time ampicillin Allergy Unknown ALGY-Rash Verified 05/21/22 06:36 Sulfa (Sulfonamide Allergy Unknown ALGY-Rash Verified 05/21/22 06:36 Antibiotics) Tetanus Vaccines and Toxoid Allergy Unknown ALGY-Redness Verified 05/21/22 06:36 of Skin lisinopril AdvReac ADR-Cough Verified 05/21/22 06:36 Pertinent History/Comorbid Conditions* Medical History (Updated 04/19/22 @ 16:41 by Carlos Gill MD) ASHD (arteriosclerotic heart disease) Chronic back pain Diabetes mellitus Fibromyalgia GERD (gastroesophageal reflux disease) History of coronary angiogram Last procedure October 2020 where she received a drug-eluting stent in her circumflex. LAD 40%, RPDA 40% at that time History of DVT (deep vein thrombosis) HTN (hypertension) Hyperlipidemia Migraine headache Neuropathy FRANCI (obstructive sleep apnea) Surgical History (Updated 09/10/19 @ 13:36 by Jessie Greco MD) S/P bunionectomy S/P carpal tunnel release S/P hysterectomy S/P rotator cuff repair S/P tonsillectomy and adenoidectomy Family History (Updated 09/02/19 @ 10:58 by Elzbieta Tobias RN) Diabetes Mother Grandmother Hypertension Mother Grandmother Stroke Mother Social History Smoking and tobacco status: never smoked Alcohol intake: never Lives independently: Yes Household members: none Marital status: Single Current occupational status: retired History of recent travel: No Current gender identity: Female Pertinent Exam Findings alert, oriented x 3, regular rate & rhythm and procedure specific exam findings (Abdominal exam nontender nondistended soft) Recommendations Surgery/Procedure today (Laparoscopic cholecystectomy possible open) Other Plans: We will repeat LFTs Coding Level of Care Code Acute Chainstitch Seat Joiner for Christiana Mcnamara
--- NOTE | 2022-05-21 06:53 | ANES.PREANE2 ---
Pre-Anesthetic Assessment Height/Weight: Height 1.68 m Weight 97.522 kg Temp Pulse Resp BP Pulse Ox O2 Del Method 98.1 F 84 18 145/71 98 05/21/22 06:20 05/21/22 06:20 05/21/22 06:20 05/21/22 06:20 05/21/22 06:20 05/21/22 06:26 Preop Diagnosis: Biliary colic Operation Date: 05/21/22 07:00 Proposed Procedures p Laparoscopic Cholecystectomy 50682,R10.9(Not Applicable) - Carlos Gill MD Familial anesthetic complications: none Was Beta Adina taken within 24 hours: Yes Was Clonidine taken within 24 hours: N/A Last intake: Intake Last Liquid Date 05/20/22 Last Liquid Time 23:30 Last Solid Date 05/20/22 Last Solid Time 18:00 Social No alcohol and No tobacco Exam alert, oriented x 3, clear to auscultation bilaterally and regular rate & rhythm Airway Mallampati: Class II Dentition: full Pulmonary Sleep Apnea CV/HEM Coronary Artery Disease, Deep Vein Thrombosis and Hypertension Hepatic fatty liver GI Hiatal Hernia Metabolic Diabetes Mellitus [facility] [place]/skel Fibromyalgia Anesthetic Plan ASA status: 3 Anesthesia: General Risk of > 500 ml blood loss (7ml/kg in children): No Medications/Allergies Home Medications Medication Instructions Recorded Confirmed Last Taken Type dvydzhqeom-jmwocdbyraayk-tzkmkusn 1 cap PO Q8H PRN Migraine Headache 09/02/19 05/18/22 03/12/22 History 50 mg-325 mg-40 mg capsule docusate sodium 100 mg capsule 100 mg PO BEDTIME PRN Constipation 09/02/19 05/21/22 05/20/22 History hydrocodone 10 mg-acetaminophen 1 tab PO Q4H PRN Pain 09/02/19 05/21/22 05/21/22 History 325 mg tablet magnesium 250 mg tablet 400 mg PO DAILY@12 09/02/19 05/21/22 05/20/22 History multivitamin 1 tab PO DAILY@09/02/19 05/21/22 05/20/22 History pregabalin 25 mg capsule (Lyrica) 25 mg PO QID 09/02/19 05/21/22 05/21/22 History vitamin B complex (B 1 tab PO DAILY@12 09/02/19 05/21/22 05/21/22 History Complex-Vitamin B12 tablet) albuterol sulfate 90 mcg/actuation 2 puff inhalation Q6H PRN 01/05/20 05/18/22 03/22/22 History aerosol inhaler (ProAir HFA) Shortness Of Breath Or Wheezing erenumab-aooe 140 mg/mL 140 mg SUBCUT .monthly 05/03/20 05/21/22 05/14/22 History subcutaneous auto-injector (Aimovig Autoinjector) loratadine 10 mg tablet (Claritin) 10 mg PO DAILY PRN Allergy Symptoms 11/21/21 05/21/22 05/20/22 History omega-3 fatty acids 1,000 mg 2,000 mg PO BID@,18 11/21/21 05/21/22 05/20/22 History capsule aspirin 81 mg tablet,delayed 81 mg PO BEDTIME #90 tabs 11/23/21 05/21/22 05/17/22 Rx release isosorbide mononitrate 30 mg 30 mg PO BID@08,18 03/15/22 05/21/22 05/21/22 History tablet,extended release 24 hr amitriptyline 50 mg tablet 50 mg PO BEDTIME 04/03/22 05/21/22 05/20/22 History carvedilol 25 mg tablet 25 mg PO BID@08,18 04/03/22 05/21/22 05/21/22 History cholecalciferol (vitamin D3) 50 100 mcg PO DAILY 04/03/22 05/21/22 05/20/22 History mcg (2,000 unit) capsule (Vitamin D3) diltiazem HCl 240 mg 240 mg PO QAM 04/03/22 05/21/22 05/21/22 History capsule,extended release 24 hr losartan 100 mg tablet 100 mg PO DAILY@12 04/03/22 05/21/22 05/20/22 History furosemide 40 mg tablet (Lasix) 40 mg PO QAM PRN Edema #10 tabs 04/06/22 05/21/22 04/03/22 Rx sucralfate 1 gram tablet 1 g PO BID PRN heartburn 8 weeks 04/06/22 05/18/22 Unknown Rx #112 tabs potassium chloride 20 mEq 20 meq PO QAM PRN Edema #90 tabs 04/18/22 05/18/22 Unknown Rx tablet,extended release nitroglycerin 0.4 mg sublingual 0.4 mg sublingual Q5M PRN Chest 04/24/22 05/18/22 Unknown Rx tablet (Nitrostat) Pain #25 tabs budesonide-formoterol HFA 80 1 inh inhalation .COMPLEX 30 days 04/25/22 05/21/22 05/18/22 Rx mcg-4.5 mcg/actuation aerosol #10.2 grams inhaler (Symbicort) amlodipine 5 mg tablet 5 mg PO DAILY #90 tabs 04/27/22 05/21/22 05/21/22 Rx pantoprazole 40 mg tablet,delayed 40 mg PO DAILY 05/18/22 05/21/22 05/20/22 History release Allergies Allergy/AdvReac Type Severity Reaction Status Date / Time ampicillin Allergy Unknown ALGY-Rash Verified 05/21/22 06:36 Sulfa (Sulfonamide Allergy Unknown ALGY-Rash Verified 05/21/22 06:36 Antibiotics) Tetanus Vaccines and Toxoid Allergy Unknown ALGY-Redness Verified 05/21/22 06:36 of Skin lisinopril AdvReac ADR-Cough Verified 05/21/22 06:36 [facility] Anesthesia Medical History ASHD (arteriosclerotic heart disease) Chronic back pain Diabetes mellitus Fibromyalgia GERD (gastroesophageal reflux disease) History of coronary angiogram Last procedure October 2020 where she received a drug-eluting stent in her circumflex. LAD 40%, RPDA 40% at that time History of DVT (deep vein thrombosis) HTN (hypertension) Hyperlipidemia Migraine headache Neuropathy FRANCI (obstructive sleep apnea) Surgical History S/P bunionectomy S/P carpal tunnel release S/P hysterectomy S/P rotator cuff repair S/P tonsillectomy and adenoidectomy Family History Mother Diabetes Stroke Hypertension Grandmother Diabetes Hypertension Social History Smoking and tobacco status: never smoked Alcohol intake: never Lives independently: Yes Household members: none Marital status: Single Current occupational status: retired History of recent travel: No Current gender identity: Female Data Anesthesia Cardiac Studies: Echocardiogram 03/15/22 Echocardiogram Limited Views 04/03/22 Sestamibi Stress Test (Cardiology) 06/29/20 Cardiac Event Monitor 07/21/20
[2022-05-21] MEDS: heparin 5,000 unit/mL INJ 1 mL 3000 UNIT SUBCUT (07:02)
[2022-05-21] MEDS: sodium chloride 0.9% 1,000 ML 30 ML IV (07:04)
[2022-05-21] MEDS: acetaminophen 1,000 MG/100 ML PIGGYBACK 400 MG IV (07:05)
[2022-05-21] MEDS: ciprofloxacin 400 MG/200 ML PREMIX 200 MG IV (07:05)
[2022-05-21] MEDS: lidocaine 1% INJ 50 mL 10 ML INJECTION (07:28)
[2022-05-21 07:45] LABS: Alanine Aminotransferase 14 U/L (0-33); Albumin Level 3.7 g/dL (3.5-5.2); Alkaline Phosphatase 92 U/L (35-105); Aspartate Amino Transferase 10 U/L (0-32); Globulin 2.9 g/dL (1.3-4.6); Total Bilirubin 0.2 mg/dL (0.15-1.2); Total Protein 6.6 g/dL (6.6-8.7)
--- NOTE | 2022-05-21 08:18 | PM.OP ---
Operative Report Date of procedure: May 21, 2022 Pre-op diagnosis: Preop Diagnosis Biliary colic Post-op diagnosis: Chronic cholecystitis and fatty liver Procedure done: Laparoscopic cholecystectomy and laparoscopic liver biopsy Implants: Surgicel at the gallbladder fossa Specimens removed/disposition: Gallbladder and contents Liver biopsy Surgeon: Carlos Gill MD Sericulturist: Surgical techmichael Rubalcava Circulating nurse Teresa Anesthesia: General (presidential helicopter crew chief Don Monreal) Estimated blood loss (mL): 20 IV fluids (mL): 800 Procedure: Patient was identified in the holding area and taken back to the operative suite, placed in supine position intubated by anesthesia . Time-out was done verifying the patient's name/date of /planned procedure and destination after the procedure, all were in agreement. SCDs confirmed to be functioning, preoperative antibiotics administered per protocol, and beta marlon protocol was confirmed. Patient was appropriately secured to the table, footboard was applied to the OR table, before prep and drape anesthesia was asked to tilt the table back and forth to make sure that the patient is appropriately secured and she was. Prep and drape of the abdomen was done under the usual sterile technique, followed by that supraumbilical skin incision,skin incision was done by a 15 blade knife, and stay sutures were applied to the fascia and Dotson trocar technique was used to enter the abdominal without injuring any abdominal viscera, started by low flow gas insufflation followed by a high flow, started with a 10 mm laparoscope and under direct vision there was no evidence of any injuries, the scope then switched to a 30? ,10 millimeter scope and under direct visualization 5 millimeter trocar was inserted in the epigastric region followed by two 5 mm trocars were inserted in the right upper quadrant that was done after injection of local lidocaine 2% at all incision sites. Gallbladder showed chronic cholecystitis and Fatty Liver. Patient was then positioned in the head up and tilted to the left. Ratcheted forceps were introduced into the lateral most 5mm port and was applied unto the fundus of the gallbladder cephalad and using Bullet forceps the infundibulum of the gallbladder was retracted laterally. Using [place] forceps then L-hook cautery to dissect the peritoneum overlying the Calot's triangle which was then opened medially and laterally until the cystic duct and the cystic artery were skeletonized. Dissection was carried along the body of the gallbladder and after ensuring critical view of safety was identfied. Cystic duct and cystic artery where seen connected to the gallbladder. Clips were applied on the cystic duct towards the common bile duct 1 towards the gallbladder then divided is in sharp scissors, 2 clips were then applied onto the cystic artery and 1 towards the gallbladder and divided by sharp scissors. Additional vessel was clipped and divided Dissection was then carried along of the gallbladder from the gallbladder fossa using cautery as well as sharp dissection with heat energy. The gallbladder then was dissected out from the gallbladder fossa totally , cholecystectomy was then achieved and was placed in an Endo Catch bag and then retrieved from the Dotson trocar site under direct visualization using a 5 mm 30? scope through the epigastric trocar, specimen was then passed to the circulating nurse to go for permanent pathology, following that I elected to have a piece of the liver edge of the right lobe for permanent pathology to stage the fatty liver it was retrieved and sent separately. Irrigation and hemostasis was done to the gallbladder fossa after hemostasis was secured pieces of Surgicel were placed at the gallbladder fossa for completion of hemostasis., final survey laparoscopy was done that showed no injuries. Suction irrigation was obtained. The supraumbilical fascial defect was then closed using interrupted number one PDS sutures using a fascial closure device ;Justo Barron under direct visualization following that Gas was allowed to deflate,Trocars were then taken out under direct vision there was no evidence of bleeding. Specimens were passed to the circulating nurse for permanent pathology. No drains were placed and the supraumbilical incision as well as all trocar sites were closed by 3/0 Vicryl followed by 4-0 Monocryl to approximate the skin edges of the incisions , dressing was applied in the form of surical glue and the patient patient got extubated and was taken to recovery area in a stable condition. Count of sponges,needles and instruments were completed at the end of the procedure I was present for the whole entire procedure.
[2022-05-21] MEDS: fentaNYL 50 mcg/mL INJ 2mL IVP (08:46)
[2022-05-21] MEDS: HYDROcodone-acetaminophen 10-325 mg Tablet 1 TAB PO (09:35)
--- NOTE | 2022-05-21 13:48 | ANE.PACU2 ---
Inpatient post-anesthesia follow up: Airway intact: Yes Vital signs: Temperature 98 F Pulse Rate 55 Respiratory Rate 18 Blood Pressure 133/72 Pulse Oximetry 97 Oxygen Delivery Me thod Room Air Oxygen Flow Rate 3 Fraction of Inspir ed Oxygen Hydration adequate: Yes Nausea and vomiting: No Pain level: 1 Mental status: Baseline
== END 2022-05-21 10:16 | disposition home or self-care (01) ==
PROVIDERS: PCP Nurse Practitioner Family; Visit Provider Surgery
PROC: 0FT44ZZ Resection of Gallbladder, Percutaneous Endoscopic Approach (ICD-10-PCS; CPT 47562; principal; 2022-05-21 07:00)
DX: K80.10 Calculus of gallbladder with chronic cholecystitis without obstruction (principal); K76.0 Fatty (change of) liver, not elsewhere classified; I25.10 Atherosclerotic heart disease of native coronary artery without angina pectoris; I10 Essential (primary) hypertension; Z86.718 Personal history of other venous thrombosis and embolism; M79.7 Fibromyalgia; E11.40 Type 2 diabetes mellitus with diabetic neuropathy, unspecified; G47.33 Obstructive sleep apnea (adult) (pediatric)
CPT/HCPCS: 47379; 47562; 80076; 88304; 88307; 88313; J0131; J0744; J1100; J1644; J2370; J2405; J2704; J2710; J3010; J3490; J7030

== ENCOUNTER 2022-05-26 17:28 | Emergency (ER) | payer MEDICARE, BC, SELFPAY ==
[2022-05-26 17:37] VITALS: BP 121/54; PULSE 91; RESP 22; TEMP 39.5; O2SAT 88; BMI 37.0
--- NOTE | 2022-05-26 17:54 | XRR_ITS ---
PROCEDURE INFORMATION: Exam: XR Chest Exam date and time: 05/26/2022 6:09 PM Age: 66 years old Clinical indication: Fever TECHNIQUE: Imaging protocol: Radiologic exam of the chest. Views: 1 view. COMPARISON: CR XR chest 1V portable [id number] 04/03/2022 1:00 PM FINDINGS: Lungs: Low lung volumes are demonstrated. This causes crowding of the lung markings. Left lung demonstrates mild discoid atelectasis. Minimal atelectasis at the bilateral lung bases. No consolidative pulmonary infiltrate noted. Pleural spaces: No pleural effusion. No pneumothorax. Heart/Mediastinum: No cardiomegaly. Bones/joints: Degenerative spine changes are noted. XR/XR chest 1V portable [id number] IMPRESSION: 1. Low lung volumes are demonstrated. This causes crowding of the lung markings. 2. Left lung demonstrates mild discoid atelectasis. Minimal atelectasis at the bilateral lung bases. 3. No consolidative pulmonary infiltrate noted.
--- NOTE | 2022-05-26 17:57 | W.ED.FEVER ---
HPI - Fever General: Chief Complaint: Weakness Stated Complaint: AMS Time Seen by Provider: 05/26/22 17:49 History of Present Illness: 66-year-old female who presents with fever and altered mental status and generalized weakness. Patient had a laparoscopic cholecystectomy performed this past Saturday. She was doing fine all week. When her friend went to check on her today, she was unable to get to the door to answer the door. When she found her friend in bed, she stated she was too weak to even answer the phone. EMS had to be called to get the patient and found that she was febrile. The patient denies any complaints. She dates that her abdominal pain is mild. She has had a cough which has been nonproductive. She denies difficulty urinating. No vomiting or diarrhea. Associated symptoms: Reports abdominal pain and confusion; Deny diarrhea, dysuria, headache(s), nausea or vomiting Review of Systems General: Reports: 10 or more systems reviewed and unremarkable except in HPI and below Const: Reports: fever(s), fatigue and malaise Resp: Reports: non-productive cough GI: Reports: abdominal pain; Denies: nausea, vomiting, diarrhea or constipation : Denies: difficulty voiding or dysuria Musc: Denies: neck pain or back pain Skin/Breast: Denies: rash Neuro: Reports: confusion; Denies: headache(s) PFSH ED PFSH: Medical History ASHD (arteriosclerotic heart disease) Chronic back pain Diabetes mellitus Fibromyalgia GERD (gastroesophageal reflux disease) History of coronary angiogram Last procedure October 2020 where she received a drug-eluting stent in her circumflex. LAD 40%, RPDA 40% at that time History of DVT (deep vein thrombosis) HTN (hypertension) Hyperlipidemia Migraine headache Neuropathy FRANCI (obstructive sleep apnea) Surgical History S/P bunionectomy S/P carpal tunnel release S/P hysterectomy S/P rotator cuff repair S/P tonsillectomy and adenoidectomy Family History Mother Diabetes Stroke Hypertension Grandmother Diabetes Hypertension Social History (Reviewed 04/25/22 @ 12:07 by MORGAN Rodney Smoking and tobacco status: never smoked Alcohol intake: never Lives independently: Yes Household members: none Marital status: Single Current occupational status: retired History of recent travel: No Current gender identity: Female Physical Exam Narrative: EXAM NARRATIVE: General: Patient is somnolent, wakes easily; oriented. in no acute distress. Neck: No JVD Respiratory: lungs clear bilaterally Inspection: No visible deformity of the chest wall Palpation: Trachea is mildly deviated to the right, bilateral symmetric expansion, bilateral symmetric vocal fremitus present Auscultation: Also wheezing, occasional rhonchi bilaterally posteriorl Cardiovascular: Regular rate and rhythm, S1-S2 present, ejection systolic murmur in the aortic area,, no peripheral edema Abdomen: Soft, nontender, nondistended, positive bowel sound; healing incision at umbilicus Musculoskeletal: no swelling or tenderness Skin: No rash Lymphatic: The axillary and inguinal lymph node groups are not examined Neuro: Mental status is normal, no gross cranial nerve deficit, grossly normal motor function Course ED course: Patient's been evaluated in the emergency department. She had an IV placed and labs obtained. She has been given a liter of saline. She was given 650 mg of Tylenol p.o. for her fever. Chest x-ray has been obtained and is unremarkable. Her laboratory studies, lactic acid is normal. White blood cell count is minimally elevated at 10.1. LFTs are unremarkable. Renal functions normal. CT of her chest, abdomen and pelvis have been obtained and show no acute findings. Her operative site appears stable. Patient's urinalysis is consistent with a UTI with 15-25 white blood cells, positive nitrite and positive leukocyte esterase., urine culture has been sent. She is been given Rocephin 2 g IV. Room air saturations now 92%. She is awake and talking and oriented x3 and stable for discharge home. Vital Signs: Vital signs: Vital Signs Temperature 103.1 F H 05/26/22 18:22 Pulse Rate 91 05/26/22 18:22 Respiratory Rate 22 H 05/26/22 18:22 Blood Pressure 122/58 05/26/22 18:22 Pulse Oximetry 88 L 05/26/22 18:22 Oxygen Delivery Me thod 05/26/22 18:22 MDM - Fever Medical Decision Making 66-year-old female who is 5 days postoperative from a laparoscopic cholecystectomy who presents with fever and altered mental status. She presents with a fever of 103.1, lethargic and generalized weakness. She denies complaints other than a nonproductive cough. Differential Diagnosis Likely abdominal pain and gastroenteritis Lab Data : 05/26/22 18:49 05/26/22 18:49 Radiology Impressions Chest X-Ray 05/26/22 17:54 IMPRESSION: 1. Low lung volumes are demonstrated. This causes crowding of the lung markings. 2. Left lung demonstrates mild discoid atelectasis. Minimal atelectasis at the bilateral lung bases. 3. No consolidative pulmonary infiltrate noted. Chest/Abdomen/Pelvis CT 05/26/22 19:13 IMPRESSION: 1. The study is limited by patient respiratory motion artifact. 2. Mild cardiomegaly is noted. 3. Mild prominence of the pulmonary interstitium, which may represent mild interstitial edema. 4. No consolidative pulmonary infiltrate noted. No findings to suggest pneumonia. 5. Minimal bilateral pleural effusions noted. IMPRESSION: 1. Status post cholecystectomy. Surgical clips, minimal air, and fluid are seen in the gallbladder fossa. The appearance is highly suggestive of routine postop change. Superimposed infection of the fluid can not be definitely excluded, but is considered unlikely based on the CT appearance. 2. No acute bowel abnormality identified. 3. No pathologically enlarged lymph nodes are demonstrated. 4. No acute abnormality of the solid organs demonstrated. COMMENTS: Consistent with the [employer]'s Incidental Findings Committee white paper (J Am Drew Radiol 2018): Any incidental renal lesion less than 1 cm or classified as too small to characterize, or any incidental cystic renal lesion characterized as simple-appearing, is likely benign. No follow-up imaging is recommended for these lesions per consensus recommendations based on imaging criteria. Laboratory Results WBC 10.1 10^3/uL (4.0-10.0) H 05/26/22 18:49 RBC 4.30 10^6/uL (4.1-5.3) 05/26/22 18:49 Hgb 12.4 g/dL (11.5-15.3) 05/26/22 18:49 Hct 39.8 % (37.0-47.0) 05/26/22 18:49 MCV 92.6 fl (81-99) 11/05/22 18:49 MCH 28.8 pg (28.0-34.0) 05/26/22 18:49 MCHC 31.2 g/dL (30.0-36.0) 05/26/22 18:49 RDW 13.7 % (12.1-15.1) 05/26/22 18:49 Plt Count 299 10^3/cmm (130-400) 05/26/22 18:49 MPV 11.5 fL (7.4-10.4) H 05/26/22 18:49 Neut % (Auto) 72.6 % 05/26/22 18:49 Lymph % (Auto) 14.8 % 05/26/22 18:49 [place] % (Auto) 11.8 % 05/26/22 18:49 Eos % (Auto) 0.1 % 05/26/22 18:49 Baso % (Auto) 0.4 % 05/26/22 18:49 Neut # (Auto) 7.32 10^3/uL (1.8-7.7) 05/26/22 18:49 Lymph # (Auto) 1.5 10^3/uL (0.8-4.8) 05/26/22 18:49 [place] # (Auto) 1.2 10^3/uL (0.2-0.9) H 05/26/22 18:49 Eos # (Auto) 0.0 10^3/uL (0.0-0.8) 05/26/22 18:49 Baso # (Auto) 0.0 10^3/uL (0.0-0.1) 05/26/22 18:49 Nucleated RBC % (auto) 0 % 05/26/22 18:49 Nucleated RBCs # 0.0 /100WBC 05/26/22 18:49 Sodium 134 mmol/L (136-145) L 05/26/22 18:49 Potassium 4.1 mmol/L (3.5-5.1) 05/26/22 18:49 Chloride 99 mmol/L (98-107) 05/26/22 18:49 Carbon Dioxide 24 mmol/L (22-29) 05/26/22 18:49 Anion Gap 15.1 (5-19) 05/26/22 18:49 BUN 24 mg/dL (8-23) H 05/26/22 18:49 Creatinine 1.3 mg/dL (0.5-0.9) H 05/26/22 18:49 GFR Calculation 41.2 mL/min (90-130) L 05/26/22 18:49 Glucose 92 mg/dL (65-115) 05/26/22 18:49 Calculated Osmolality 282 mOsm/kg (285-295) L 05/26/22 18:49 Lactic Acid 1.0 mmol/L (0.5-2.2) 05/26/22 18:49 Lactate Cancelled 05/26/22 18:49 Calcium 8.6 mg/dL (8.5-10.5) 05/26/22 18:49 Total Bilirubin 0.4 mg/dL (0.15-1.2) 05/26/22 18:49 AST 14 U/L (0-32) 05/26/22 18:49 ALT 32 U/L (0-33) 05/26/22 18:49 Alkaline Phosphatase 121 U/L (35-105) H 05/26/22 18:49 C-Reactive Protein 103.5 mg/L (0.0-4.9) H 05/26/22 18:49 Total Protein 6.7 g/dL (6.6-8.7) 05/26/22 18:49 Albumin 3.6 g/dL (3.5-5.2) 05/26/22 18:49 Globulin 3.1 g/dL (1.3-4.6) 05/26/22 18:49 Lipase 18 U/L (13-60) 05/26/22 18:49 Urine Color Yellow (Yellow) 05/26/22 20:54 Urine Appearance Clear (CLEAR) 05/26/22 20:54 Urine pH 5 (5-7) 05/26/22 20:54 Ur Specific [place] 1.010 (1.005-1.030) 05/26/22 20:54 Urine Protein 1+ (Negative) H 05/26/22 20:54 Urine Glucose (UA) Norm (Normal) 05/26/22 20:54 Urine Ketones 1+ (Negative) H 05/26/22 20:54 Urine Blood Neg (Negative) 05/26/22 20:54 Urine Nitrate Positive (Negative) H 05/26/22 20:54 Urine Bilirubin 1+ (Negative) H 05/26/22 20:54 Urine Urobilinogen Norm mg/dL (Negative) 05/26/22 20:54 Ur Leukocyte Esterase 1+ (Negative) H 05/26/22 20:54 Urine RBC 0-4 /hpf (0-2) H 05/26/22 20:54 Urine WBC 15-25 /hpf (0-5) H 05/26/22 20:54 Ur Squamous Epith Cells None /hpf (0-5) 05/26/22 20:54 Ur Transition Epith Cell 0-4 /hpf 05/26/22 20:54 Amorphous Sediment Not Reportable 05/26/22 20:54 Urine Bacteria 3+ /hpf (NONE) H 05/26/22 20:54 Discharge Plan Discharge Clinical Impression: Fever, Urinary tract infection Condition: Stable Prescriptions: New cephalexin 500 mg capsule 500 mg PO TID 10 Days Qty: 30 0RF No Action luqfaqhmeb-yolgaixxxekfz-fhos 50-325-40 mg capsule 1 cap PO Q8H PRN (Reason: Migraine Headache) multivitamin Tablet 1 tab PO DAILY@12 albuterol sulfate [ProAir HFA] 90 mcg/actuation HFA aerosol inhaler 2 puff INHALATION Q6H PRN (Reason: Shortness Of Breath Or Wheezing) omega-3 fatty acids 1,000 mg capsule 2,000 mg PO BID@08,18 loratadine [Claritin] 10 mg tablet 10 mg PO DAILY PRN (Reason: Allergy Symptoms) hydrocodone-acetaminophen 10-325 mg tablet 1 tab PO Q4H PRN (Reason: Pain) Rx Instructions: up to 5X QD pregabalin [Lyrica] 25 mg capsule 25 mg PO QID Rx Instructions: @08:00,12:00,18:00,22:00 vitamin B complex [B Complex-Vitamin B12] Tablet 1 tab PO DAILY@12 magnesium 250 mg tablet 400 mg PO DAILY@12 docusate sodium 100 mg capsule 100 mg PO BEDTIME PRN (Reason: Constipation) Aimovig Autoinjector 140 mg/mL auto-injector 140 mg SUBCUT .monthly Rx Instructions: Taken on the budesonide-formoterol [Symbicort] 80-4.5 mcg/actuation HFA aerosol inhaler 1 inh inhalation .COMPLEX 30 Days Qty: 10.2 6RF Rx Instructions: 1 inh inhaled 1 puff as needed up to 6 times a day; aspirin 81 mg tablet,delayed release (DR/EC) 81 mg PO BEDTIME Qty: 90 3RF Hold Instructions: Resume on 05/26/22. potassium chloride 20 mEq tablet extended release 20 meq PO QAM PRN (Reason: Edema) Qty: 90 0RF Rx Instructions: Only if taking Lasix nitroglycerin [Nitrostat] 0.4 mg tablet, sublingual 0.4 mg SUBLINGUAL Q5M PRN (Reason: Chest Pain) Qty: 25 1RF amlodipine 5 mg tablet 5 mg PO DAILY Qty: 90 3RF amlodipine 2.5 mg tablet 2.5 mg PO BEDTIME Qty: 90 3RF isosorbide mononitrate 30 mg tablet extended release 24 hr 30 mg PO BID@08,18 amitriptyline 50 mg tablet 50 mg PO BEDTIME cholecalciferol (vitamin D3) [Vitamin D3] 50 mcg (2,000 unit) Capsule 100 mcg PO DAILY carvedilol 25 mg tablet 25 mg PO BID@08,18 diltiazem HCl 240 mg capsule,extended release 24hr 240 mg PO QAM losartan 100 mg tablet 100 mg PO DAILY@12 Hold Instructions: Resume on 04/19/22. sucralfate 1 gram tablet 1 g PO BID PRN (Reason: heartburn) 56 Days Qty: 112 0RF Rx Instructions: Please do not take until after endoscopic evaluation furosemide [Lasix] 40 mg tablet 40 mg PO QAM PRN (Reason: Edema) Qty: 10 0RF pantoprazole 40 mg Tablet,Delayed Release (Dr/Ec) 40 mg PO DAILY Discharge Orders: Discharge ED (Routine); Ordered 05/26/22 Ordered By: Valerie Cannon Referrals: Marielle Bucio APN [Primary Care Provider] - Discharge Diet: Advance as tolerated Discharge Activity: Increase activity as tolerated Patient Instructions: Fever - Adult, Urinary Tract Infection in Women (ED) Activity Restrictions/Additional Instructions: Take your antibiotics 3 times daily until gone. Make sure you are taking Tylenol and/or ibuprofen as needed for fever. You need to be drinking plenty of fluids. Return if your symptoms are worsening. Finish antibiotics completely. Follow-up Saturday as scheduled with your primary care doctor. Coding Level of Care Code ED Radiagraph Operator for Chg Fwd History Comprehensive Exam Comprehensive Medical Decision Making High Complexity
[2022-05-26 18:22] VITALS: BP 122/58; PULSE 91; RESP 22; TEMP 39.5; O2SAT 88
[2022-05-26] MEDS: sodium chloride 0.9% 1,000 ML 999 ML IV (18:23)
[2022-05-26] MEDS: acetaminophen 325 mg Tablet 650 MG PO (18:23)
[2022-05-26 19:03] LABS: Basophils % 0.4 %; Eosinophils % 0.1 %; Hematocrit 39.8 % (37.0-47.0); Hemoglobin 12.4 g/dL (11.5-15.3); Lymphocytes # 1.5 10^3/uL (0.8-4.8); Lymphocytes % 14.8 %; Mean Corpuscular HGB Conc 31.2 g/dL (30.0-36.0); Mean Corpuscular Hemoglobin 28.8 pg (28.0-34.0); Mean Corpuscular Volume 92.6 fl (81-99); Mean Platelet Volume 11.5 fL (7.4-10.4); Monocytes # 1.2 10^3/uL (0.2-0.9); Monocytes % 11.8 %; Neutrophils # 7.32 10^3/uL (1.8-7.7); Neutrophils % 72.6 %; Nucleated Red Blood Cells % 0 %; Platelet Count 299 10^3/cmm (130-400); Red Cell Distribution Width 13.7 % (12.1-15.1); White Blood Count 10.1 10^3/uL (4.0-10.0)
--- NOTE | 2022-05-26 19:13 | CTR_ITS ---
PROCEDURE INFORMATION: Exam: CT Chest With Contrast; Diagnostic Exam date and time: 05/26/2022 7:55 PM Age: 66 years old Clinical indication: Fever and shortness of breath; Additional info: Post operative fever TECHNIQUE: Imaging protocol: Diagnostic computed tomography of the chest with contrast. Radiation optimization: All CT scans at this facility use at least one of these dose optimization techniques: automated exposure control; mA and/or kV adjustment per patient size (includes targeted exams where dose is matched to clinical indication); or iterative reconstruction. Contrast material: OMNIPAQUE 350; Contrast volume: 100 ml; Contrast route: INTRAVENOUS (IV); COMPARISON: CT angio chest PE protcl [id number] 04/03/2022 6:11 PM RADIATION DOSE METRICS: Total DLP (mGy-cm): 1340.69 FINDINGS: Limitations: The study is limited by patient respiratory motion artifact. Lungs: Mild atelectasis in the bilateral lower lobes. Mild prominence of the pulmonary interstitium, which may represent mild interstitial edema. No consolidative pulmonary infiltrate noted. Pleural spaces: Minimal bilateral pleural effusions noted. Heart: Heart/Mediastinum: 1.8 cm pericardial cyst noted in the anterior mediastinum. Mild cardiomegaly is noted. The coronary arteries demonstrate atherosclerotic calcifications. Lymph nodes: No pathologically enlarged lymph nodes are demonstrated. Vasculature: Unremarkable. No aortic aneurysm. Bones/joints: Degenerative spine changes are noted. No fracture or other acute osseous abnormality. Soft tissues: The soft tissues are unremarkable as demonstrated. PROCEDURE INFORMATION: Exam: CT Abdomen And Pelvis With Contrast Exam date and time: 05/26/2022 7:55 PM Age: 66 years old Clinical indication: Fever and shortness of breath; Additional info: Post operative fever TECHNIQUE: Imaging protocol: Computed tomography of the abdomen and pelvis with contrast. Radiation optimization: All CT scans at this facility use at least one of these dose optimization techniques: automated exposure control; mA and/or kV adjustment per patient size (includes targeted exams where dose is matched to clinical indication); or iterative reconstruction. Contrast material: OMNIPAQUE 350; Contrast volume: 100 ml; Contrast route: INTRAVENOUS (IV); COMPARISON: CT abdomen pelvis w con* [id number] 04/06/2022 12:08 PM RADIATION DOSE METRICS: Total DLP (mGy-cm): 1340.69 FINDINGS: Liver: The liver is unremarkable in appearance. Gallbladder and bile ducts: Status post cholecystectomy. Surgical clips, minimal air, and fluid are seen in the gallbladder fossa. No calcified gallstones in the gallbladder. No gallbladder wall thickening. No pericholecystic fluid. No biliary dilatation. Pancreas: The pancreas is normal in appearance. No pancreatic duct dilatation. Spleen: Unremarkable. No splenomegaly. Adrenal glands: The adrenal glands appear within normal limits. Kidneys and ureters: Simple appearing less than 10 mm left renal cyst. No solid renal mass. No hydronephrosis. No ureteral dilatation. Stomach and bowel: No acute gastric abnormality demonstrated. The small bowel is unremarkable as demonstrated. No acute abnormality/inflammatory change of the colon. Appendix: No evidence of appendicitis. Intraperitoneal space: No pneumoperitoneum. No significant fluid collection. Vasculature: The aorta is atherosclerotic. No aortic aneurysm. Lymph nodes: No pathologically enlarged lymph nodes. Urinary bladder: The urinary bladder is unremarkable in appearance. Reproductive: The uterus is not visualized, consistent with hysterectomy. Bones/joints: Degenerative spine changes are noted. No fracture or other acute osseous abnormality. No fracture or other acute osseous abnormality. Soft tissues: Postop change of the anterior abdominal wall. No fluid collection. CT/CT chest abd pel w con* IMPRESSION: 1. The study is limited by patient respiratory motion artifact. 2. Mild cardiomegaly is noted. 3. Mild prominence of the pulmonary interstitium, which may represent mild interstitial edema. 4. No consolidative pulmonary infiltrate noted. No findings to suggest pneumonia. 5. Minimal bilateral pleural effusions noted. IMPRESSION: 1. Status post cholecystectomy. Surgical clips, minimal air, and fluid are seen in the gallbladder fossa. The appearance is highly suggestive of routine postop change. Superimposed infection of the fluid can not be definitely excluded, but is considered unlikely based on the CT appearance. 2. No acute bowel abnormality identified. 3. No pathologically enlarged lymph nodes are demonstrated. 4. No acute abnormality of the solid organs demonstrated. COMMENTS: Consistent with the [employer]'s Incidental Findings Committee white paper (J Am Drew Radiol 2018): Any incidental renal lesion less than 1 cm or classified as too small to characterize, or any incidental cystic renal lesion characterized as simple-appearing, is likely benign. No follow-up imaging is recommended for these lesions per consensus recommendations based on imaging criteria.
[2022-05-26 19:26] LABS: Alanine Aminotransferase 32 U/L (0-33); Albumin Level 3.6 g/dL (3.5-5.2); Alkaline Phosphatase 121 U/L (35-105); Anion Gap 15.1 (5-19); Aspartate Amino Transferase 14 U/L (0-32); Blood Urea Nitrogen 24 mg/dL (8-23); C Reactive Protein 103.5 mg/L (0.0-4.9); Calcium 8.6 mg/dL (8.5-10.5); Carbon Dioxide 24 mmol/L (22-29); Chloride 99 mmol/L (98-107); Globulin 3.1 g/dL (1.3-4.6); Glomerular Filtration Rate 41.2 mL/min (90-130); Glucose 92 mg/dL (65-115); Lipase 18 U/L (13-60); Osmolality Calculated 282 mOsm/kg (285-295); Potassium 4.1 mmol/L (3.5-5.1); Sodium 134 mmol/L (136-145); Total Bilirubin 0.4 mg/dL (0.15-1.2); Total Protein 6.7 g/dL (6.6-8.7)
[2022-05-26] MEDS: iohexol 350 mg/mL 500 mL Btl (per mL) IV (19:55)
[2022-05-26 20:09] LABS: Adenovirus Not Detected (NOT DETECT); Chlamydia Pneumoniae Not Detected (NOT DETECT); Coronavirus 229E,HKU1,NL63,OC4 Not Detected (NOT DETECT); Human Metapneumovirus Not Detected (NOT DETECT); Human Rhinovirus/Enterovirus Not Detected (NOT DETECT); Influenza A Not Detected (NOT DETECT); Influenza A H1 Not Detected (NOT DETECT); Influenza A H1-2009 Not Detected (NOT DETECT); Influenza A H3 Not Detected (NOT DETECT); Influenza B Not Detected (NOT DETECT); Mycoplasma Pneumoniae Not Detected (NOT DETECT); Parainfluenza Virus Type 1 Not Detected (NOT DETECT); Parainfluenza Virus Type 2 Not Detected (NOT DETECT); Parainfluenza Virus Type 3 Not Detected (NOT DETECT); Parainfluenza Virus Type 4 Not Detected (NOT DETECT); Respiratory Syncytial Virus A Not Detected (NOT DETECT); Respiratory Syncytial Virus B Not Detected (NOT DETECT); SARS-COV-2 Detected (NOT DETECT)
[2022-05-26] MEDS: cefTRIAXone 2,000 MG in sodium chloride 0.9% (plus) 50 ML 100 MG IV (21:06)
[2022-05-26 21:35] LABS: Bilirubin Urine 1+ (Negative); Blood Urine Neg (Negative); Glucose Urine UA Norm (Normal); Ketones Urine 1+ (Negative); Leukocyte Esterase Urine 1+ (Negative); Nitrate Urine Positive (Negative); Protein Urine 1+ (Negative); Urine Appearance Clear (CLEAR); Urine Color Yellow (Yellow); pH Urine 5 (5-7)
[2022-05-26 21:36] LABS: Add Urine Microscopic? YES; Urobilinogen Urine Norm (Negative)
[2022-05-26 21:38] LABS: Add Urine Culture? Yes; Bacteria Urine 3+ /hpf; RBC Urine 0-4 /hpf (0-2); Transitional Epi Cells Urine 0-4 /hpf; WBC Urine 15-25 /hpf (0-5)
--- NOTE | 2022-05-27 09:53 | PC.NURSE ---
attempted to contact pt for positive covid results
== END 2022-05-26 22:18 | disposition home or self-care (01) ==
PROVIDERS: Emergency Provider Emergency Medicine; PCP Nurse Practitioner Family
DX: N39.0 Urinary tract infection, site not specified (principal); Z79.891 Long term (current) use of opiate analgesic; Z79.82 Long term (current) use of aspirin
CPT/HCPCS: 71045; 71260; 74177; 80053; 81001; 83605; 83690; 85025; 86140; 87040; 87077; 87086; 87186; 87635; 96365; 99285; J0696; J7030; Q9967

== ENCOUNTER → 2022-06-06 15:10 | Outpatient (BNVA) | payer MEDICARE, BC, SELFPAY | PROVIDERS: PCP Nurse Practitioner Family; Visit Provider Surgery | DX: Z98.890 Other specified postprocedural states (principal); K76.0 Fatty (change of) liver, not elsewhere classified | CPT/HCPCS: 99024 ==

== ENCOUNTER → 2022-06-12 13:50 | Outpatient (BNVA) | payer MEDICARE, BC, SELFPAY | PROVIDERS: PCP Nurse Practitioner Family; Visit Provider Internal Medicine | DX: I25.10 Atherosclerotic heart disease of native coronary artery without angina pectoris (principal); I10 Essential (primary) hypertension | CPT/HCPCS: 99214 ==

== ENCOUNTER → 2022-07-30 13:45 | Outpatient (BNVA) | payer MEDICARE, BC, SELFPAY | PROVIDERS: PCP Nurse Practitioner Family; Visit Provider Podiatrist Foot & Ankle Surgery | DX: M25.571 Pain in right ankle and joints of right foot (principal); E11.69 Type 2 diabetes mellitus with other specified complication; L60.3 Nail dystrophy | CPT/HCPCS: 73610; 99204 ==

== ENCOUNTER → 2022-08-31 09:59 | Outpatient (BNVA) | payer MEDICARE, BC, SELFPAY | PROVIDERS: PCP Nurse Practitioner Family; Visit Provider Podiatrist Foot & Ankle Surgery | DX: L60.0 Ingrowing nail (principal); L97.519 Non-pressure chronic ulcer of other part of right foot with unspecified severity | CPT/HCPCS: 11750; 73630 ==

== ENCOUNTER 2022-09-07 14:19 | Outpatient (CLI) | payer MEDICARE, BC, SELFPAY ==
--- NOTE | 2022-09-07 14:25 | XR_ITS ---
WS: [id number] SCREENING DEXA SCAN [facility] CLINICAL INFORMATION: MENOPAUSE COMPARISON: None. FINDINGS: The L1-L4 bone mineral density measures 1.343 g/cm2. This corresponds to a T score score of 1.4 and Z score of 2.0. Left femoral neck bone mineral density measures 1.137 g/cm2. This corresponds to a T score of 1.0 and Z score of 1.6. Right femoral neck bone mineral density measures 1.126 g/cm2. This corresponds to a T score 0.9of and Z score of 1.5. Mean femoral neck bone mineral density measures 1.131 g/cm2. This corresponds to a T score of 1.0 and Z score of 1.5. XR/XR DEXA axial skeleton* [id number] IMPRESSION: Normal bone mineralization. Patient's FRAX calculated 10 year probability for major osteoporotic fracture i s 6.9 % and osteoporotic hip fracture is 0.4%.
== END 2022-09-07 14:20 | disposition home or self-care (01) ==
LOC: RAD 14:19
PROVIDERS: PCP Nurse Practitioner Family; Visit Provider Nurse Practitioner Family
DX: Z78.0 Asymptomatic menopausal state (principal)
CPT/HCPCS: 77080

== ENCOUNTER 2022-09-07 15:18 | Emergency (ER) | payer MEDICARE, BC, SELFPAY ==
[2022-09-07 15:28] VITALS: BP 150/79; PULSE 68; RESP 16; TEMP 36.8; O2SAT 96; BMI 34.3
--- NOTE | 2022-09-07 15:48 | W.ED.HA ---
HPI - Headache General: Chief Complaint: Headache Stated Complaint: headache Time Seen by Provider: 09/07/22 15:40 Source: patient Mode of arrival: ambulatory Limitations: no limitations History of Present Illness: Patient is a nice 67-year-old female here for evaluation and treatment of a migraine headache x 3 days. Patient states she has a longstanding history of migraine headaches in which she follows up with a neurologist for. She states she is on monthly Aimovig for treatment of her migraines and also has abortive Fioricet which she has used without relief. She reports sensitivity to light. She has nausea without episodes of vomiting. She feels like her headache today is consistent with previous migraine headaches. MD elicited complaint: headache and migraine Pertinent past history: migraines Onset (ago): day(s) Onset description: gradually Severity: severe Pain scale (0-10): 8 Quality & Timing: similar to previous headaches Exacerbating factors: light Relieving factors: nothing Associated symptoms: Reports nausea; Deny confusion, fever(s), lightheadedness, malaise, rash or vomiting Treatments prior to arrival: other (Fioricet) Review of Systems Const: Denies: fever(s), chills, body aches, fatigue or malaise Eyes: Reports: photophobia; Denies: change in vision, blurry vision, floaters or seeing flashes Card: Denies: lightheadedness GI: Reports: nausea; Denies: vomiting Musc: Denies: neck pain Skin/Breast: Denies: rash Neuro: Reports: headache(s); Denies: numbness in extremities, weakness in extremities, sensory changes, lack of coordination, difficulty walking, dizziness, confusion, behavioral changes or difficulty communicating thoughts PFS ED PFSH: Medical History ASHD (arteriosclerotic heart disease) Chronic back pain Diabetes mellitus Fibromyalgia GERD (gastroesophageal reflux disease) History of coronary angiogram Last procedure October 2020 where she received a drug-eluting stent in her circumflex. LAD 40%, RPDA 40% at that time History of DVT (deep vein thrombosis) HTN (hypertension) Hyperlipidemia Migraine headache Neuropathy FRANCI (obstructive sleep apnea) Surgical History S/P bunionectomy S/P carpal tunnel release S/P hysterectomy S/P rotator cuff repair S/P tonsillectomy and adenoidectomy Family History Mother Diabetes Stroke Hypertension Grandmother Diabetes Hypertension Social History Smoking and tobacco status: never smoked Alcohol intake: never Lives independently: Yes Household members: none Marital status: Single Current occupational status: retired Current gender identity: Female Physical Exam Const: COMMON NORMALS: no acute distress, average body habitus, patient oriented x3, no limitations, healthy appearing, alert and well nourished GENERAL APPEARANCE: cooperative ORIENTATION/CONSCIOUSNESS: Yes awake, Yes oriented to person, Yes oriented to place and Yes oriented to time HENMT: COMMON NORMALS: normocephalic and atraumatic HEAD & SCALP: normal to inspection, normocephalic and atraumatic FACE & SINUS: normal facial exam Eye: COMMON NORMALS: Equal, round and reactive pupils present and EOMs intact bilaterally GENERAL EYE: appearance normal, both eyes and all related structures PUPIL: Yes Equal, round and reactive pupils present Neck/C-Spine: COMMON NORMALS: full ROM, no lymphadenopathy and no meningeal signs Neuro: TAIWO COMA SCALE: document GCS findings Taiwo coma scale eye opening: Spontaneous [place] coma scale verbal response: Orientated [place] coma scale motor response: Obey commands Taiwo coma scale total score: 15 COMMON NORMALS: patient oriented x3, CN's II-XII intact bilaterally, moves all extremities, no focal motor deficits, no sensory deficits noted and gait normal SENSORIUM/ORIENTATION: Yes alert, Yes oriented to person, Yes oriented to place and Yes oriented to time MENINGEAL SIGNS: Yes no meningeal signs SPEECH: speech normal GAIT: Yes Normal gait present Skin: COMMON NORMALS: no rashes or lesions noted GENERAL SKIN EXAM: no rashes or lesions noted Course Vital Signs: Vital signs: Vital Signs Temperature 98.3 F 09/07/22 15:28 Pulse Rate 68 09/07/22 15:28 Respiratory Rate 16 09/07/22 15:28 Blood Pressure 128/60 09/07/22 16:40 Pulse Oximetry 99 09/07/22 16:40 Oxygen Delivery Me thod 09/07/22 15:28 MDM - Headache Medical Decision Making Patient states her headache is down from an 8/10 to a 3?4/10. She states she feels comfortable going home at this time. Return ED precautions given. Discharge Plan Discharge Patient Disposition: Home Clinical Impression: Migraine Qualifiers: Migraine type: without aura Status migrainosus presence: without status migrainosus Intractability: not intractable Qualified Code(s): G43.009 - Migraine without aura, not intractable, without status migrainosus Condition: Stable Prescriptions: No Action uzekpvmlqy-sxzksrfvkggfi-darb 50-325-40 mg capsule 1 cap PO Q8H PRN (Reason: Migraine Headache) multivitamin Tablet 1 tab PO DAILY@12 albuterol sulfate [ProAir HFA] 90 mcg/actuation HFA aerosol inhaler 2 puff INHALATION Q6H PRN (Reason: Shortness Of Breath Or Wheezing) omega-3 fatty acids 1,000 mg capsule 2,000 mg PO BID@08,18 loratadine [Claritin] 10 mg tablet 10 mg PO DAILY PRN (Reason: Allergy Symptoms) pregabalin [Lyrica] 25 mg capsule 25 mg PO QID Rx Instructions: @08:00,12:00,18:00,22:00 vitamin B complex [B Complex-Vitamin B12] Tablet 1 tab PO DAILY@12 magnesium 250 mg tablet 400 mg PO DAILY@12 docusate sodium 100 mg capsule 100 mg PO BEDTIME PRN (Reason: Constipation) Aimovig Autoinjector 140 mg/mL auto-injector 140 mg SUBCUT .monthly Rx Instructions: Taken on the budesonide-formoterol [Symbicort] 80-4.5 mcg/actuation HFA aerosol inhaler 1 inh inhalation .COMPLEX 30 Days Qty: 10.2 6RF Rx Instructions: 1 inh inhaled 1 puff as needed up to 6 times a day; mupirocin 2 % ointment 1 applic topical BID 14 Days Qty: 22 2RF aspirin 81 mg tablet,delayed release (DR/EC) 81 mg PO BEDTIME Qty: 90 3RF Hold Instructions: Resume on 05/26/22. potassium chloride 20 mEq tablet extended release 20 meq PO QAM PRN (Reason: Edema) Qty: 90 0RF Rx Instructions: Only if taking Lasix nitroglycerin [Nitrostat] 0.4 mg tablet, sublingual 0.4 mg SUBLINGUAL Q5M PRN (Reason: Chest Pain) Qty: 25 1RF amlodipine 5 mg tablet 5 mg PO DAILY Qty: 90 3RF amlodipine 2.5 mg tablet 2.5 mg PO BEDTIME Qty: 90 3RF isosorbide mononitrate 30 mg tablet extended release 24 hr See Rx Instructions .ROUTE .COMPLEX Qty: 60 2RF Dose Instruction: TAKE ONE TABLET BY MOUTH TWICE DAILY Rx Instructions: TAKE ONE TABLET BY MOUTH TWICE DAILY amitriptyline 50 mg tablet 50 mg PO BEDTIME cholecalciferol (vitamin D3) [Vitamin D3] 50 mcg (2,000 unit) Capsule 100 mcg PO DAILY carvedilol 25 mg tablet 25 mg PO BID@08,18 diltiazem HCl 240 mg capsule,extended release 24hr 240 mg PO QAM losartan 100 mg tablet 100 mg PO DAILY@12 Hold Instructions: Resume on 04/19/22. furosemide [Lasix] 40 mg tablet 40 mg PO QAM PRN (Reason: Edema) Qty: 10 0RF pantoprazole 40 mg Tablet,Delayed Release (Dr/Ec) 40 mg PO DAILY Discharge Orders: Discharge ED (Routine); Ordered 09/07/22 Ordered By: Franchesca Herndon Referrals: Fortunato,PILAR Palomares [Primary Care Provider] - Patient Instructions: Migraine Headache (ED) Coding Level of Care Code ED Blower Installer for Christiana Mcnamara
[2022-09-07] MEDS: sodium chloride 0.9% 1,000 ML 999 ML IV (16:11)
[2022-09-07] MEDS: ketorolac 60 mg/2 mL INJ 15 MG IVP (16:11)
[2022-09-07] MEDS: diphenhydrAMINE 50 mg/mL SDV 1mL IVP (16:12)
[2022-09-07] MEDS: ondansetron 2 mg/ML SDV 2 mL 4 MG IVP (16:12)
[2022-09-07] MEDS: dexamethasone 10 mg/mL INJ 8 MG IV (16:12)
[2022-09-07 16:40] VITALS: BP 128/60; O2SAT 99
[2022-09-07 17:02] VITALS: BP 128/60; PULSE 64; RESP 18; O2SAT 97
== END 2022-09-07 17:03 | disposition home or self-care (01) ==
PROVIDERS: Emergency Provider Physician Assistant; PCP Nurse Practitioner Family
DX: G43.009 Migraine without aura, not intractable, without status migrainosus (principal); Z79.82 Long term (current) use of aspirin; E11.9 Type 2 diabetes mellitus without complications; I10 Essential (primary) hypertension; E78.5 Hyperlipidemia, unspecified
CPT/HCPCS: 96361; 96374; 96375; 99284; J1100; J1200; J1885; J2405; J7030

== ENCOUNTER → 2022-09-27 14:15 | Outpatient (BNVA) | payer MEDICARE, BC, SELFPAY | PROVIDERS: PCP Nurse Practitioner Family; Visit Provider Podiatrist Foot & Ankle Surgery | DX: E11.8 Type 2 diabetes mellitus with unspecified complications (principal); E11.69 Type 2 diabetes mellitus with other specified complication; L60.3 Nail dystrophy | CPT/HCPCS: 99214 ==

== ENCOUNTER 2022-10-19 07:49 | Outpatient (CLI) | payer MEDICARE, BC, SELFPAY ==
[2022-10-19 08:37] VITALS: BMI 32.3
--- NOTE | 2022-10-19 08:39 | ECG_ITS ---
[facility] Test Date: 2022-10-19 Pat Name: Nicole Navarro Department: Room: Gender: Female Social Service Liaison: : 1955 Requested By: Gary Suh Order Number: [id number] William MD: Gary Suh M.D. Interpretive Statements NAME OF STUDY: LEXISCAN SESTAMIBI STRESS TEST INDICATION: [Chest Pain, ] Procedure: At the baseline, the blood pressure was 101/65 mmHg with a heart rate of 60 bpm. The electrocardiogram showed normal sinus rhythm, normal axis with normal ST and T's. The Lexiscan was infused over a period of 20 seconds. A total of 0.4 mg of Lexiscan was infused. The stress phase was continued for a total of 5 minutes. Heart rate was at the end of stress phase was 68 bpm and a blood pressure of 106/51mmHg. The EKG at the peak infusion revealed normal sinus rhythm with no significant ST-T wave changes. Sestamibi was injected 20 seconds after the Lexiscan infusion. Blood pressure at the end of recovery phase was 110/74 mmHg with a heart rate of 66 bpm. Conclusion: 1. Normal EKG response to Lexiscan infusion 2. No Lexiscan induced chest pain or cardiac arrhythmia. 3. Normal blood pressure and heart rate response. 4. Sestamibi/sestamibi perfusion scan pending; see separate report. Electronically Signed On 10-28-2022 14:44:56 CDT by Gary Suh M.D. [id number]
--- NOTE | 2022-10-19 08:40 | NMCV_ITS ---
NM beck perf SPECT r/s* [id number] Nicole Navarro Age: 67 Gender: F : 1955 Exam Date: 10/19/2022 09:48 Ordering Phys: Gary Suh M.D ([email or web address]) Technologist: DEEJAY Meehan Exam Location: [facility] Indications: CHEST PAIN STRESS TEST Please [facility] IMAGE PROTOCOL Rest/Stress 1 Lexiscan Day Radiopharmaceutical Dose (mCi) Administration Site Administered by Rest: Tc-99m 10.9 IV DEEJAY Meehan Sestamibi Stress:Tc-99m 32.6 IV DEEJAY Joe Sestamibi Rest: 19-Oct-2022 60 Discovery 630 Stress: 19-Oct-2022 30 Discovery 630 0.4mg Lexiscan. Images obtained in supine and prone position. SPECT RESULTS Technical Quality: Excellent Raw Data Analysis: Normal Image Corrections: No attenuation or motion correction applied Summed Stress Score: 5 Summed Rest Score: 0 Summed Difference Score: 5 PERFUSION FINDINGS There is a moderate sized area of inconsistent perfusion defect noted in the lateral wall. This is consistent with moderate-sized area of ischemia in lateral wall versus attenuation artifact. FUNCTIONAL RESULTS (calculated via Gated SPECT) Stress Image LV EF (%): 75 Stress EDV (mL):91 TID: 1.12 Stress ESV (mL):23 FUNCTIONAL FINDINGS: There is normal left ventricular systolic function. IMPRESSIONS 1. Medium sized area of ischemia in left circumflex artery territory vs attenuation artifact is noted. Clinical correlation is needed 2. LV systolic function is normal Gary Suh MD (Electronically Signed) Final Date: 19 October 2022 16:26 S
[2022-10-19] MEDS: regadenoson 0.4 Mg/5 ml Syringe IVP (10:22)
[2022-10-19 10:45] VITALS: BP 110/74; PULSE 64
== END 2022-10-19 07:50 | disposition home or self-care (01) ==
LOC: CDL 07:51
PROVIDERS: PCP Nurse Practitioner Family; Visit Provider Internal Medicine
DX: R07.9 Chest pain, unspecified (principal)
CPT/HCPCS: 36415; 78452; 93017; 96374; 99214; A9500; J2785

== ENCOUNTER 2022-10-30 10:02 | Outpatient (CLI) | payer MEDICARE, BC, SELFPAY ==
--- NOTE | 2022-10-30 10:52 | US_ITS ---
WS: [id number] ABDOMINAL ULTRASOUND LIMITED REASON FOR EXAM: ELEVATED LIVER FUNCTION TESTS COMPARISON: 04/03/2022 ORDER DATE: 10/30/2022 11:21 AM TECHNIQUE: Grayscale and Doppler ultrasound examination of the abdomen. FINDINGS: Pancreas: Unremarkable Abdominal aorta and IVC: Unremarkable Liver: Liver measures 18.9 cm in length. Echotexture unremarkable. Prominence of the portal vein at t he upper limits of normal measuring 13.5 mm Gallbladder: Previous cholecystectomy since 04/03/2022 Right kidney: Right kidney measures 11.4 cm x 6.5 cm x 4.1 cm. Right kidney cortex measures 1.1 cm. R enal vascular flow unremarkable US/US abdomen limited [id number] IMPRESSION: No acute abnormality.
== END 2022-10-30 10:03 | disposition home or self-care (01) ==
LOC: RAD 10:06
PROVIDERS: PCP Nurse Practitioner Family; Visit Provider Nurse Practitioner Family
DX: R74.8 Abnormal levels of other serum enzymes (principal)
CPT/HCPCS: 76705

== ENCOUNTER 2022-11-05 08:53 | Outpatient (CLI) | payer MEDICARE, BC, SELFPAY ==
[2022-11-05] VITALS (36 sets, daily range): BP systolic 126–165; BP diastolic 61–104; PULSE 59–97; RESP 15–33; TEMP 36.8–37.6; O2SAT 92–99; BMI 33.0
--- NOTE | 2022-11-05 09:00 | XACV_ITS ---
Exam Room: [facility] Ht: 168 cm Wt: 93 kg BSA: 2.12 m2 Gender: Female : 1955 Any Known Allergies: Other Exam Priority: Routine Procedure(s): Procedure Description: Diagnostic procedure Procedure Description: PCI procedure Procedure Description: Drug Eluting Coronary Stent Procedure Description: PTCA Procedure Description: Miscellaneous Procedure Description: ACT Procedure Description: Coronary Angiography Diagnostic Cath Status: Elective Diagnostic Findings * INDICATION: 67-year-old woman with past medical history of hypertension has been having worsening chest pain symptoms and underwent stress test that was abnormal. Plan for coronary angiogram with possible percutaneous coronary intervention. * Left Anterior Descending has mild to moderate diffuse luminal irregularities.. * Circumflex has 40 to 50% proximal vessel stenosis prior to old stent. * Mid Right Coronary Artery: obstructive 80% stenosis, TUAN: 3 flow. Has a patent prior stent in mid to distal vessel.. * Posterior Descending Right: Severe 90% stenosis, TUAN: 3 flow. * Left Main has no disease. * Coronary angiography shows right dominance. PCI Status: Elective PCI Indication: Other Interventional Findings * Mid Right Coronary Artery: 80 % stenosis treated with a AB TREK 3.00X15 RX BALLOON, and HARPREET Jackson RIGOBERTO 3.5X22 RONI. 0% residual stenosis, TUAN: 3 flow. * Posterior Descending Right: 90 % stenosis treated with a AB TREK 2.25X12 RX BALLOON, and MDT R RIGOBERTO 2.25X12 RONI. 0% residual stenosis, TUAN: 3 flow. * Procedure detail: We engaged RCA with JR4 guide catheter. IV heparin was administered to maintain anticoagulation. 0.014 run-through guidewire was used to cross the stenosis and was put in distal PDA. We predilated the PDA stenosis with 2.25 x 12 mm semicompliant balloon. This was followed by placement of 2.25 x 12 mm resolute Rigoberto drug-eluting stent. We then predilated mild mid RCA stenosis with 3.0 x 15 mm semicompliant balloon. We then performed PCI with 3.5 x 22 mm resolute [facility] drug-eluting stent. Recent final angiogram was performed that showed excellent stent expansion, no residual stenosis and TUAN-3 flow. Guidewire and guide catheter were removed. Patient left the Production Control Manager in a stable condition.. Conclusions 1. Severe mid RCA stenosis and severe PDA stenosis s/p successful revascularization with RONI x2. 2. . 3. Mid Right Coronary Artery to Mid Right Coronary Artery was treated with a Balloon, and Drug Eluting Stent. 4. Posterior Descending Right was treated with a Balloon, and Drug Eluting Stent. Recommendations * Dual antiplatelet therapy with aspirin and Plavix for at least 1 year.. * High intensity statin therapy. * Outpatient cardiology follow-up in 2 weeks. Interventional RX Recommendation: PCI w/o planned CABG Diagnostic RX Recommendation: PCI w/o planned CABG Anticoagulation: Heparin Pressures Phase:Rest AO : 98 / 65 ( 80 ) @ 11:37:00 AM 134 / 69 ( 73 ) @ 11:48:00 AM 124 / 84 ( 105 ) @ 12:00:00 PM 105 / 61 ( 79 ) @ 12:03:00 PM Clinical Evaluation EBL: 5mL-10mL Procedural Details Procedure Consent Obtained. Pre-Procedure Time Out. Identified patient by full name and date of as verbalized by the patient/guarantor. Does the consent match the physician's order: Yes. Accurate & Complete Informed Consent: Yes. Inpatient/Outpatient History & Physical on Chart: Yes. If H&P is completed, is and addenduem needed: No. Visualize and Verify Site with Patient/Guarantor: N/A. Relevant Radiology Images available: Yes. The risks, benefits, and alternatives of sedation and/or procedure were discussed by physician. The patient agrees to continue. Procedure started. [facility] Clinical Fraility Score: 3: Managing Well. Production Control Manager Indications: Worsening Angina/Abnormal stress test. Chest Pain Symptom Assessment: Atypical Angina. Cardiovascular Instability: No. Correct patient, site and procedure confirmed by cath team. PERRLA. Strong, equal hand vice president of sales bilaterally. Lungs clear x 5 lobes. IV Site on Arrival: 18 gauge in the right anticubital. IV Fluids: 0.9% NaCl at KVO. 0 mL infused prior to blood bank laboratory technologist. Pre Procedural Pulses: bilateral dorsalis pedis was 1+. Pre Procedural Pulses: bilateral posterior tibial was 1+. Pre Procedural Pulses: bilateral radial was 3+. Oxygen started at 2liters/min via nasal canula. bilateral groins was prepped with chloroprep then draped in the usual sterile fashion. Physician notified. Baseline sample Acquired. HR: 62 BPM. Patient's family unavailable. Equipment: 6F - Femoral. Cardiac Cath Pack. ACIST Manifold Kit Model BT 2000. Heparinized Saline (2 units/mL), 1000 mL bag. Kit, Micropuncture. Physician arrived. Physician scrubbed in. Immediate Pre-Procedure Time Out. Correct Patient: Yes; Correct Procedure: Yes; Correct Site: Yes; Correct Patient Position: Yes; Correct Supplies: Yes; Dried Flammable Prep: Yes; Blood Products Available: N/A. Lidocaine 1% infiltrated to the right groin. Arterial access obtained with micropuncture set. A 5 citizen [place] JL4 catheter in over the standard J wire. Multiple views taken of left coronary artery. Catheter removed over the standard J wire. A 5 [place] JR4 catheter in over the standard J wire. Multiple views taken of right coronary artery. Catheter removed over the standard J wire. 6 [place] JR 4 guide catheter was inserted over the standard J wire. Runthrough guidewire was advanced through the guide catheter to lesion in the PDA. Inflation number : 1 A AB TREK 2.25X12 RX BALLOON was prepped and advanced across the R PDA , then inflated to 12 SUNITA for 0:19 seconds. Inflation number: 2 The AB TREK 2.25X12 RX BALLOON was reinflated across the R PDA, to 12 SUNITA for 0:44 seconds. Balloon out. Results checked. Inflation Number : 3 A MDT R RIGOBERTO 2.25X12 RONI -Lot Number# [id number] was prepped and advanced across the R PDA. The stent was deployed at 12 SUNITA for 0:16 seconds. Exp.2024-05-15. Stent balloon out over wire. Inflation number : 1 A AB TREK 3.00X15 RX BALLOON was prepped and advanced across the Mid RCA , then inflated to 12 SUNITA for 0:20 seconds. Inflation number: 2 The AB TREK 3.00X15 RX BALLOON was reinflated across the Mid RCA, to 12 SUNITA for 0:11 seconds. Balloon out. Results checked. Inflation Number : 3 A MDT R RIGOBERTO 3.5X22 RONI -Lot Number# [id number] was prepped and advanced across the Mid RCA. The stent was deployed at 12 SUNITA for 0:19 seconds. 2025-01-29. Stent balloon out over wire. Results checked. Wire out. ACT drawn & out of range HI. ACT drawn. Results 252 seconds. Therapeutic limits - pre-heparin administration 90-150 seconds and monitoring heparin during a vascular procedure >250 seconds. A Suture was successful obtaining hemostatsis at the Right Femoral artery insertion site. Sheath(s) sutured into position with 2-0 silk and sterile 4x4's and Op-site applied over the site. No oozing or signs and symptoms of hematoma noted. Arterial sheath flushed and connected to tranducer and pressure bag with heparinized saline. Post Procedure: Pulses reassessed and unchanged. PERRLA. Strong, equal hand vice president of sales bilaterally. No VTE prophylaxis required. Medication's Wasted: Lidocaine 1% = 1 mL. Medication's Wasted: Nitro = 49.8 mg. Medication's Wasted: Other = Versed 1 mg. Medication's Wasted: Other = Fentanyl 50 mcg. Total IV fluids: 60 mL. PCI Indication: Other. Post-op diagnosis: PCI of the right GRINDER OPERATOR EXTERNAL TOOL and Mid RCA. Complications: none. Estimated blood loss: 5mL-10mL. Responsiveness - Normal response to verbal stimuli; alert and oriented, PERRLA. Airway - Unaffected, no intervention required; spontaneous ventilation. Circulation: W/N/L, pulses unchanged. Nausea/Vomiting: No. Procedure completed. Patient transferred by bed to CPRU. Vital chart was stopped. Access Site Site: Right Femoral artery Sheath Size: 6 Fr Hemostasis Method: Suture Hemostasis Success: Successful Procedure Medications Start: 10:34 AM Stop: 10:34 AM Medication: Versed Amount: 1 mg Route: I.V. Start: 10:35 AM Stop: 10:35 AM Medication: Fentanyl Amount: 50 mcg Route: I.V. Start: 10:46 AM Stop: 10:46 AM Medication: Heparin Amount: 8000 units Route: I.V. Start: 10:58 AM Stop: 10:58 AM Medication: Heparin Amount: 1000 units Route: I.V. I, the attending physician, have reviewed and verified all procedure medications. Yes, all medications given per verbal order History/Risk Factors Hypertension: Yes Dyslipidemia: Yes Peripheral Arterial Disease (PAD): No Myocardial Infarction (IN): No Obesity: Yes Renal Disease: No Tobacco Use: Never Prior Interventions PCI: Yes CABG: No Valve Surgery: No Date of PCI: 10/21/2020 Report Signatures Finalized by Gary Suh MD on 11/18/2022 12:05 PM
[2022-11-05 09:41] LABS: Basophils # 0.1 10^3/uL (0.0-0.1); Basophils % 0.9 %; Eosinophils # 0.2 10^3/uL (0.0-0.8); Eosinophils % 2.3 %; Hematocrit 41.5 % (37.0-47.0); Hemoglobin 13.4 g/dL (11.5-15.3); Lymphocytes # 1.7 10^3/uL (0.8-4.8); Lymphocytes % 22.3 %; Mean Corpuscular HGB Conc 32.3 g/dL (30.0-36.0); Mean Corpuscular Hemoglobin 28.9 pg (28.0-34.0); Mean Corpuscular Volume 89.6 fl (81-99); Mean Platelet Volume 10.6 fL (7.4-10.4); Monocytes # 0.7 10^3/uL (0.2-0.9); Monocytes % 9.5 %; Neutrophils # 5.06 10^3/uL (1.8-7.7); Neutrophils % 64.7 %; Nucleated Red Blood Cells % 0 %; Platelet Count 288 10^3/cmm (130-400); Red Blood Count 4.63 10^6/uL (4.1-5.3); Red Cell Distribution Width 13.9 % (12.1-15.1); White Blood Count 7.8 10^3/uL (4.0-10.0)
[2022-11-05] MEDS: diphenhydrAMINE 50 mg Capsule PO (09:45)
[2022-11-05] MEDS: aspirin 325 mg Tablet PO (09:45)
[2022-11-05 09:56] LABS: Glucose Point of Care 99 mg/dL (70-110)
[2022-11-05 10:17] LABS: Anion Gap 12.9 (5-19); Blood Urea Nitrogen 10 mg/dL (8-23); Calcium 8.8 mg/dL (8.5-10.5); Carbon Dioxide 26 mmol/L (22-29); Chloride 106 mmol/L (98-107); Creatinine Clr Calc Pharmacy 80.5446; Glomerular Filtration Rate 100.3 mL/min (90-130); Glucose 104 mg/dL (65-115); Osmolality Calculated 291 mOsm/kg (285-295); Potassium 3.9 mmol/L (3.5-5.1); Sodium 141 mmol/L (136-145)
--- NOTE | 2022-11-05 10:22 | W.PM.OPSFHP ---
Same Day Surgery H&P Indication for Procedure/HPI DATE OF PROCEDURE: November 05, 2022 CHIEF COMPLAINT/INDICATIONFOR SURGICAL PROCEDURE: Chest pain/ abnormal stress test PREOP DIAGNOSIS: Chest pain/ abnormal stress test PLANNED PROCEDURE: Operation Date: 11/05/22 10:00 Proposed Procedures p [facility] [id number],R94.39, R07.9(Left) - Gary Suh M.D Possible percutaneous coronary intervention 67-year-old woman with past medical history of hypertension has been having worsening chest pain symptoms and underwent stress test that was abnormal. Plan for coronary angiogram with possible percutaneous coronary intervention ROS CONSTITUTIONAL: No fever chills weight loss or gain or night sweats. [] HEENT: Normocephalic, atraumatic.[] RESPIRATORY: No cough, sputum, hemoptysis or wheezing.[] CARDIOVASCULAR: Chest pain GI: no nausea vomiting diarrhea. [] PSYCHOLOGIST INDUSTRIAL ORGANIZATIONAL: No numbness, tingling, weakness or loss of function in any part of the body. [] MUSCULOSKELETAL: No knee or joint pain or rashes. [] Medications/Allergies* Home Medications Medication Instructions Recorded Confirmed Type visjpiuszg-wuzcoyvkjqpga-dciirybt 1 cap PO Q8H PRN Migraine Headache 09/02/19 11/02/22 History 50 mg-325 mg-40 mg capsule magnesium 250 mg tablet 400 mg PO DAILY@12 09/02/19 11/02/22 History multivitamin 1 tab PO DAILY@09/02/19 11/02/22 History pregabalin 25 mg capsule (Lyrica) 25 mg PO QID 09/02/19 11/02/22 History vitamin B complex (B 1 tab PO DAILY@09/02/19 11/02/22 History Complex-Vitamin B12 tablet) erenumab-aooe 140 mg/mL 140 mg SUBCUT .monthly 05/03/20 11/02/22 History subcutaneous auto-injector (Aimovig Autoinjector) omega-3 fatty acids 1,000 mg 2,000 mg PO BID@,11/21/21 11/02/22 History capsule amitriptyline 50 mg tablet 50 mg PO BEDTIME 04/03/22 11/05/22 History carvedilol 25 mg tablet 25 mg PO BID@,04/03/22 11/05/22 History cholecalciferol (vitamin D3) 50 100 mcg PO DAILY 04/03/22 11/05/22 History mcg (2,000 unit) capsule (Vitamin D3) diltiazem HCl 240 mg 240 mg PO QAM 04/03/22 11/05/22 History capsule,extended release 24 hr losartan 100 mg tablet 100 mg PO DAILY@12 04/03/22 11/05/22 History pantoprazole 40 mg tablet,delayed 40 mg PO DAILY 05/18/22 11/02/22 History release Allergies/Adverse Reactions Allergy/AdvReac Type Severity Reaction Status Date / Time ampicillin Allergy Unknown ALGY-Rash Verified 11/02/22 09:48 Sulfa (Sulfonamide Allergy Unknown ALGY-Rash Verified 11/02/22 09:48 Antibiotics) Tetanus Vaccines and Toxoid Allergy Unknown ALGY-Redness Verified 11/02/22 09:48 of Skin lisinopril AdvReac ADR-Cough Verified 11/02/22 09:48 Pertinent History/Comorbid Conditions* Medical History (Updated 09/15/22 @ 00:00 by ANDREW Nash) ASHD (arteriosclerotic heart disease) Chronic back pain Diabetes mellitus Fibromyalgia GERD (gastroesophageal reflux disease) History of coronary angiogram Last procedure October 2020 where she received a drug-eluting stent in her circumflex. LAD 40%, RPDA 40% at that time History of DVT (deep vein thrombosis) HTN (hypertension) Hyperlipidemia Migraine headache Neuropathy FRANCI (obstructive sleep apnea) Surgical History (Updated 09/10/19 @ 13:36 by Jessie Greco MD) S/P bunionectomy S/P carpal tunnel release S/P hysterectomy S/P rotator cuff repair S/P tonsillectomy and adenoidectomy Family History (Updated 09/02/19 @ 10:58 by Elzbieta Tobias RN) Diabetes Mother Grandmother Hypertension Mother Grandmother Stroke Mother Social History Smoking and tobacco status: never smoked Alcohol intake: never Lives independently: Yes Household members: none Marital status: Single Current occupational status: retired Current gender identity: Female Pertinent Exam Findings alert, oriented x 3, clear to auscultation bilaterally and regular rate & rhythm Conscious Sedation Assessment PATIENT ASSESSED PRIOR TO SEDATION, WITH NO CHANGE NOTED: Yes AIRWAY EVAL/ANESTHESIA PLAN: normal airway, ASA III, Local Anesthesia, Risks, benefits & alternatives of sedation and/or procedure discussed and Patient agrees to continue as planned ADDITIONAL INFORMATION: Moderate sedation Recommendations Surgery/Procedure today (Left heart cath with possible percutaneous coronary intervention) Coding Level of Care Code Acute Code for Chg Fwd Diagnoses
--- NOTE | 2022-11-05 12:00 | PC.NURSE ---
called dr regarding pts back pain. order given for 25mcg fentanyl.
--- NOTE | 2022-11-05 12:48 | PC.NURSE ---
25 mcg of fentanyl given ivp at 1145. documented in MAR as not admin and was pulled and wasted in minilab operator per suggestion of pharmacists.
[2022-11-05] MEDS: pregabalin 25 mg Capsule PO ×3 (14:01→21:21)
[2022-11-05] MEDS: sodium chloride 0.9% 1,000 ML 100 ML IV (14:02)
[2022-11-05 14:09] LABS: Partial Thromboplastin Time 70.6 SECONDS (23.9-36.7)
[2022-11-05 15:58] LABS: Partial Thromboplastin Time 30.9 SECONDS (23.9-36.7)
[2022-11-05] MEDS: morphine 4 mg/mL SDV 1 mL 2 MG IVP (16:08)
[2022-11-05] MEDS: fentaNYL 50 mcg/mL INJ 2mL IVP (16:36)
[2022-11-05] MEDS: isosorbide mononitrate ER 60 mg Tablet PO (18:26)
[2022-11-05] MEDS: losartan 50 mg Tablet 100 MG PO (18:26)
[2022-11-05] MEDS: carvedilol 25 mg Tablet PO (18:29)
--- NOTE | 2022-11-05 19:23 | PC.NURSE ---
Sheath pull started at 1643. pressure held for 20 minutes. no hematoma present. no bruising noted at this time. post tib and pedial pulses palpated. patient given fent to help with pain.
--- NOTE | 2022-11-05 19:30 | PC.NURSE ---
Right groin site assessed. Dressing is dry and intact, no hematoma present. pulses are palpable. Bedrest is up at 23:00.
--- NOTE | 2022-11-05 20:42 | PC.NURSE ---
Spoke with Dr Suh regarding patient complaints of back pain and is on bedrest until 23:00. Take hydrocodone-acetaminophen at home for chronic back pain. ordered prn for back pain.
[2022-11-05] MEDS: HYDROcodone-acetaminophen 10-325 mg Tablet 1 TAB PO (21:21)
[2022-11-05] MEDS: aspirin 81 mg EC Tablet PO (21:21)
[2022-11-05] MEDS: temazepam 15 mg Capsule PO (23:42)
--- NOTE | 2022-11-06 | PC.NURSE ---
bedrest completed at 23:00. Patient assisted OOB to BR. Right groin site dressing is dry and intact, no hematoma present.
[2022-11-06 02:31] LABS: Basophils # 0.1 10^3/uL (0.0-0.1); Basophils % 0.6 %; Eosinophils # 0.1 10^3/uL (0.0-0.8); Eosinophils % 0.6 %; Hemoglobin 12.8 g/dL (11.5-15.3); Lymphocytes # 1.5 10^3/uL (0.8-4.8); Lymphocytes % 19.5 %; Mean Corpuscular HGB Conc 31.2 g/dL (30.0-36.0); Mean Corpuscular Hemoglobin 28.8 pg (28.0-34.0); Mean Corpuscular Volume 92.3 fl (81-99); Mean Platelet Volume 10.5 fL (7.4-10.4); Monocytes # 0.6 10^3/uL (0.2-0.9); Monocytes % 7.2 %; Neutrophils # 5.55 10^3/uL (1.8-7.7); Nucleated Red Blood Cells % 0 %; Platelet Count 230 10^3/cmm (130-400); Red Blood Count 4.44 10^6/uL (4.1-5.3); Red Cell Distribution Width 13.8 % (12.1-15.1); White Blood Count 7.7 10^3/uL (4.0-10.0)
[2022-11-06 02:57] LABS: Blood Urea Nitrogen 9 mg/dL (8-23); Calcium 8.5 mg/dL (8.5-10.5); Carbon Dioxide 20 mmol/L (22-29); Chloride 105 mmol/L (98-107); Creatinine Clr Calc Pharmacy 80.5446; Glomerular Filtration Rate 123.8 mL/min (90-130); Glucose 105 mg/dL (65-115); Osmolality Calculated 281 mOsm/kg (285-295); Sodium 136 mmol/L (136-145)
[2022-11-06 02:58] LABS: Anion Gap 15.4 (5-19); Potassium 4.4 mmol/L (3.5-5.1)
[2022-11-06 04:00] VITALS: BP 144/74; PULSE 79; RESP 18; TEMP 37.2; O2SAT 93
[2022-11-06 05:47] VITALS: PULSE 80
[2022-11-06 07:30] VITALS: BP 162/80; PULSE 90; RESP 18; TEMP 36.9; O2SAT 95
[2022-11-06] MEDS: pregabalin 25 mg Capsule PO (07:48)
[2022-11-06] MEDS: carvedilol 25 mg Tablet PO (07:49)
[2022-11-06] MEDS: isosorbide mononitrate ER 60 mg Tablet PO (07:49)
[2022-11-06] MEDS: pantoprazole DR 40 mg Tablet PO (07:49)
[2022-11-06] MEDS: clopidogrel 75 mg Tablet PO (07:49)
[2022-11-06] MEDS: amlodipine 5 mg Tablet PO (07:49)
--- NOTE | 2022-11-06 07:57 | PM.DCS ---
Discharge Providers Date of Admission: 11/05/2022 Date of Discharge: November 06, 2022 Attending Provider at Admission: Gary Suh MD Attending Provider at Discharge: Gary Suh M.D Primary Care Provider: Marielle Bucio APN Reason for Visit Reason for Visit: R94.39, R07.9 Brief History: 67-year-old woman with past medical history of hypertension and CAD who has been having worsening chest pain symptoms. She had a stress test that was abnormal. Plan for coronary angiogram with possible percutaneous coronary intervention. Hospital Course Hospital Course Patient had severe mid RCA stenosis and severe PDA stenosis. She underwent successful revascularization with RONI x2. She was observed overnight and was discharged home in a stable condition. She will be on aspirin Plavix at least 1 year. Physical Exam Narrative: GENERAL: Patient is alert, awake and oriented x3. [] NECK: No jugular vein distension. [] HEENT: No cyanosis. No icterus. No pallor. [] HEART: Regular S1 and S2. No murmur, rub or gallop. [] LUNGS: Clear to auscultate bilaterally. [] CENTRAL NERVOUS SYSTEM: Grossly nonfocal. [] EXTREMITIES: Lower extremities with no edema Discharge Data Studies Completed and Pending Pending at discharge Category Date Time Status AUTO [employer] MECH[employer]IC request for service Routine Exams 11/05/22 09:00 Taken Laboratory Results WBC 7.7 10^3/uL (4.0-10.0) 11/06/22 02:22 RBC 4.44 10^6/uL (4.1-5.3) 11/06/22 02:22 Hgb 12.8 g/dL (11.5-15.3) 11/06/22 02:22 Hct 41.0 % (37.0-47.0) 11/06/22 02:22 MCV 92.3 fl (81-99) 11/06/22 02:22 MCH 28.8 pg (28.0-34.0) 11/06/22 02:22 MCHC 31.2 g/dL (30.0-36.0) 11/06/22 02:22 RDW 13.8 % (12.1-15.1) 11/06/22 02:22 Plt Count 230 10^3/cmm (130-400) 11/06/22 02:22 MPV 10.5 fL (7.4-10.4) H 11/06/22 02: Neut % (Auto) 72.0 % 11/06/22 02: Lymph % (Auto) 19.5 % 11/06/22 02:22 Harper % (Auto) 7.2 % 11/06/22 02: Eos % (Auto) 0.6 % 11/06/22 02:22 Baso % (Auto) 0.6 % 11/06/22 02: Neut # (Auto) 5.55 10^3/uL (1.8-7.7) 11/06/22 02: Lymph # (Auto) 1.5 10^3/uL (0.8-4.8) 11/06/22 02: Harper # (Auto) 0.6 10^3/uL (0.2-0.9) 11/06/22 02: Eos # (Auto) 0.1 10^3/uL (0.0-0.8) 11/06/22 02: Baso # (Auto) 0.1 10^3/uL (0.0-0.1) 11/06/22 02: Nucleated RBC % (auto) 0 % 11/06/22 02: Nucleated RBCs # 0.0 /100WBC 11/06/22 02:22 APTT 30.9 SECONDS (23.9-36.7) D 11/05/22 15:28 Sodium 136 mmol/L (136-145) 11/06/22 02:22 Potassium 4.4 mmol/L (3.5-5.1) 11/06/22 02:22 Chloride 105 mmol/L (98-107) 11/06/22 02:22 Carbon Dioxide 20 mmol/L (22-29) L 11/06/22 02:22 Anion Gap 15.4 (5-19) 11/06/22 02:22 BUN 9 mg/dL (8-23) 11/06/22 02:22 Creatinine 0.5 mg/dL (0.5-0.9) 11/06/22 02:22 GFR Calculation 123.8 mL/min (90-130) 11/06/22 02:22 Glucose 105 mg/dL (65-115) 11/06/22 02:22 POC Glucose 99 mg/dL (70-110) 11/05/22 09:32 Calculated Osmolality 281 mOsm/kg (285-295) L 11/06/22 02:22 Calcium 8.5 mg/dL (8.5-10.5) 11/06/22 02:22 Vitals Last Vital Signs Temp 98.5 F 11/06/22 07:30 Pulse 90 11/06/22 07:30 Resp 18 11/06/22 07:30 BP 162/80 11/06/22 07:30 Pulse Ox 95 11/06/22 07:30 O2 Del Method Room Air 11/06/22 07:30 Discharge Plan Discharge Patient Disposition: Home Prescriptions: New clopidogrel 75 mg Tablet 75 mg PO DAILY Qty: 90 3RF Continued bismdbjfqf-fulvwqikpqdxd-dyuw 50-325-40 mg capsule 1 cap PO Q8H PRN (Reason: Migraine Headache) multivitamin Tablet 1 tab PO DAILY@12 omega-3 fatty acids 1,000 mg capsule 2,000 mg PO BID@08,18 pregabalin [Lyrica] 25 mg capsule 25 mg PO QID Rx Instructions: @08:00,12:00,18:00,22:00 vitamin B complex [B Complex-Vitamin B12] Tablet 1 tab PO DAILY@12 magnesium 250 mg tablet 400 mg PO DAILY@12 Aimovig Autoinjector 140 mg/mL auto-injector 140 mg SUBCUT .monthly Rx Instructions: Taken on the budesonide-formoterol [Symbicort] 80-4.5 mcg/actuation HFA aerosol inhaler 1 inh inhalation .COMPLEX 30 Days Qty: 10.2 6RF Rx Instructions: 1 inh inhaled 1 puff as needed up to 6 times a day; isosorbide mononitrate 60 mg tablet extended release 24 hr 60 mg PO BID Qty: 180 3RF nitroglycerin [Nitrostat] 0.4 mg tablet, sublingual 0.4 mg SUBLINGUAL Q5M PRN (Reason: Chest Pain) Qty: 25 1RF aspirin 81 mg tablet,delayed release (DR/EC) 81 mg PO BEDTIME Qty: 90 3RF Hold Instructions: Resume on 05/26/22. potassium chloride 20 mEq tablet extended release 20 meq PO QAM PRN (Reason: Edema) Qty: 90 0RF Rx Instructions: Only if taking Lasix. MED ON HOLD amitriptyline 50 mg tablet 50 mg PO BEDTIME cholecalciferol (vitamin D3) [Vitamin D3] 50 mcg (2,000 unit) Capsule 100 mcg PO DAILY carvedilol 25 mg tablet 25 mg PO BID@,18 losartan 100 mg tablet 100 mg PO DAILY@12 Hold Instructions: Resume on 04/19/22. furosemide [Lasix] 40 mg tablet 40 mg PO QAM PRN (Reason: Edema) Qty: 10 0RF Rx Instructions: MED ON HOLD . pantoprazole 40 mg Tablet,Delayed Release (Dr/Ec) 40 mg PO DAILY hydrocodone-acetaminophen 10-325 mg tablet 1 - 2 tab PO PRN PRN (Reason: Pain) Rx Instructions: take 1 to 2 tabs every 4-6 hours, max 5 tablets per day Changed amlodipine 5 mg tablet 10 mg PO DAILY Qty: 90 3RF Discontinued amlodipine 2.5 mg tablet 2.5 mg PO BEDTIME Qty: 90 3RF diltiazem HCl 240 mg capsule,extended release 24hr 240 mg PO QAM No Action atorvastatin 20 mg tablet 20 mg PO DAILY Discharge Orders: Discharge Order (Routine); Ordered 11/06/22 Ordered By: Gary Suh Referrals: Gary Suh M.D [Physician] - 2 months (During your appointment with Awa Cerna you will be scheduled for an follow-up with Dr. Suh. ) Awa Cerna FNP [Nurse Practitioner] - 11/14/22 1:00 pm (Please follow-up with Awa Cerna on at 1:00P.M. If you have any questions or need to reschedule. Please call ) Diet: Cardiac Activity: Increase activity as tolerated Patient Instructions: Clopidogrel (By mouth) (Plavix), Coronary Angioplasty (DC), Post Angiogram Home Care Instructions Discharge Date/Time: 11/06/22 13:39 Discharge Attestations Time Spent in Discharge Care*: less than 30 min Quality Metrics Clinical Quality Measures [ No reported AMI, CVA or VTE this stay] Coding Level of Care Code Acute Code for Chg Fwd Diagnoses
[2022-11-06 08:09] VITALS: PULSE 87; RESP 16; O2SAT 98
--- NOTE | 2022-11-06 13:37 | PC.NURSE ---
Discharge Note Patient discharged to home via POV accompanied by friend. Discharge instructions reviewed with patient and/or solar manufacturer's representative. Mobile pharmacy medications and/or prescriptions provided. Belongings/home medications returned.
== END 2022-11-06 13:39 | disposition home or self-care (01) ==
LOC: CCL 09:25 → CSU 10:02
PROVIDERS: PCP Nurse Practitioner Family; Visit Provider Internal Medicine
DX: I25.10 Atherosclerotic heart disease of native coronary artery without angina pectoris (principal); I10 Essential (primary) hypertension; R94.39 Abnormal result of other cardiovascular function study; Z79.82 Long term (current) use of aspirin; E78.5 Hyperlipidemia, unspecified; E66.9 Obesity, unspecified; Z68.33 Body mass index [BMI] 33.0-33.9, adult; E11.59 Type 2 diabetes mellitus with other circulatory complications; Z86.718 Personal history of other venous thrombosis and embolism; E11.40 Type 2 diabetes mellitus with diabetic neuropathy, unspecified
CPT/HCPCS: 36415; 36416; 80048; 82962; 85025; 85347; 85730; 93454; 96361; 96365; 96376; 99152; 99153; C1725; C1769; C1874; C1887; C1894; C9600; J1644; J2250; J2270; J3010; J3490; J7030; Q0163; Q9967

== ENCOUNTER → 2022-11-14 13:04 | Outpatient (BNVA) | payer MEDICARE, BC, SELFPAY | PROVIDERS: PCP Nurse Practitioner Family; Visit Provider Specialist | DX: I25.118 Atherosclerotic heart disease of native coronary artery with other forms of angina pectoris (principal); E78.5 Hyperlipidemia, unspecified; I10 Essential (primary) hypertension; Z79.82 Long term (current) use of aspirin | CPT/HCPCS: 99214 ==

== ENCOUNTER → 2022-12-27 10:42 | Outpatient (BNVA) | payer MEDICARE, BC, SELFPAY | PROVIDERS: PCP Nurse Practitioner Family; Visit Provider Podiatrist Foot & Ankle Surgery | DX: E11.8 Type 2 diabetes mellitus with unspecified complications (principal); E11.69 Type 2 diabetes mellitus with other specified complication; L60.3 Nail dystrophy; M21.41 Flat foot [pes planus] (acquired), right foot; M21.42 Flat foot [pes planus] (acquired), left foot | CPT/HCPCS: 11721; 99213 ==

== ENCOUNTER → 2023-02-14 14:49 | Outpatient (BNVA) | payer MEDICARE, BC, SELFPAY | PROVIDERS: PCP Nurse Practitioner Family; Visit Provider Internal Medicine | DX: I25.10 Atherosclerotic heart disease of native coronary artery without angina pectoris (principal); I10 Essential (primary) hypertension | CPT/HCPCS: 99214 ==

== ENCOUNTER → 2023-02-27 09:26 | Outpatient (BNVA) | payer MEDICARE, BC, SELFPAY | PROVIDERS: PCP Nurse Practitioner Family; Visit Provider Podiatrist Foot & Ankle Surgery | DX: E11.69 Type 2 diabetes mellitus with other specified complication (principal); L60.3 Nail dystrophy; M21.41 Flat foot [pes planus] (acquired), right foot; M21.42 Flat foot [pes planus] (acquired), left foot | CPT/HCPCS: 11721; 99213 ==

== ENCOUNTER 2023-04-02 13:06 | Outpatient (CLI) | payer MEDICARE, BC, SELFPAY ==
--- NOTE | 2023-04-02 13:21 | XR_ITS ---
WS: [id number] Exam: XR ribs LT 2V* [id number] Date/Time of Exam: 04/02/2023 1:34 PM Reason For Exam: RIB PAIN ON LEFT SIDE No acute LEFT rib fracture. The LEFT lung is clear and fully expanded. No pleural or pulmonary reacti ve changes. The lungs are bilaterally clear. Normal cardiomediastinal silhouette. Signs of coronary a rtery stenting. IMPRESSION: 1. No acute LEFT rib fracture or pneumothorax. 2. No acute cardiopulmonary process.
--- NOTE | 2023-04-02 13:21 | XR_ITS ---
WS: [email or web address] Exam: XR shoulder LT min 2V* [id number] Date/Time of Exam: 04/02/2023 1:34 PM Reason For Exam: L ANTERIOR SHOULDER PAIN No fracture or dislocation. Slight DJD of the AC joint. Normal soft tissues. IMPRESSION: 1. No fracture or other significant finding.
== END 2023-04-02 13:07 | disposition home or self-care (01) ==
PROVIDERS: PCP Nurse Practitioner Family; Visit Provider Nurse Practitioner Family
DX: M25.512 Pain in left shoulder (principal); R07.81 Pleurodynia
CPT/HCPCS: 71100; 73030

== ENCOUNTER → 2023-05-01 09:38 | Outpatient (BNVA) | payer MEDICARE, BC, SELFPAY | PROVIDERS: PCP Nurse Practitioner Family; Visit Provider Podiatrist Foot & Ankle Surgery | DX: L60.3 Nail dystrophy (principal); M21.41 Flat foot [pes planus] (acquired), right foot; M21.42 Flat foot [pes planus] (acquired), left foot; E11.42 Type 2 diabetes mellitus with diabetic polyneuropathy | CPT/HCPCS: 11721 ==

== ENCOUNTER → 2023-05-14 12:07 | Outpatient (BNVA) | payer MEDICARE, BC, SELFPAY | PROVIDERS: PCP Nurse Practitioner Family; Visit Provider Internal Medicine Pulmonary Disease | DX: R06.02 Shortness of breath (principal); G47.33 Obstructive sleep apnea (adult) (pediatric); Z99.89 Dependence on other enabling machines and devices; Z95.5 Presence of coronary angioplasty implant and graft; Q25.6 Stenosis of pulmonary artery; I65.21 Occlusion and stenosis of right carotid artery | CPT/HCPCS: 36415; 82785; 86003; 99214 ==

== ENCOUNTER → 2023-07-03 11:15 | Outpatient (BNVA) | payer MEDICARE, BC, SELFPAY | PROVIDERS: PCP Nurse Practitioner Family; Visit Provider Podiatrist Foot & Ankle Surgery | DX: M25.571 Pain in right ankle and joints of right foot (principal); E11.8 Type 2 diabetes mellitus with unspecified complications; L60.3 Nail dystrophy; M21.41 Flat foot [pes planus] (acquired), right foot; M21.42 Flat foot [pes planus] (acquired), left foot; E11.42 Type 2 diabetes mellitus with diabetic polyneuropathy; M65.9 Synovitis and tenosynovitis, unspecified; Z46.89 Encounter for fitting and adjustment of other specified devices | CPT/HCPCS: 11721; 73610; 97760; 99213; L1902 ==

== ENCOUNTER 2023-07-03 11:37 | Outpatient (CLI) | payer MEDICARE, BC, SELFPAY | END 2023-07-03 11:38 | disposition home or self-care (01) | LOC: SPT 11:38 | PROVIDERS: PCP Nurse Practitioner Family; Visit Provider Podiatrist Foot & Ankle Surgery | DX: Z46.89 Encounter for fitting and adjustment of other specified devices (principal); M25.571 Pain in right ankle and joints of right foot | CPT/HCPCS: 11721; 97760; 99213; L1902 ==

== ENCOUNTER 2023-07-12 11:33 | Outpatient (CLI) | payer MEDICARE, BC, SELFPAY ==
--- NOTE | 2023-07-12 11:39 | MM_ITS ---
WS: [id number] BILATERAL 3D TOMOSYNTHESIS DIGITAL SCREENING MAMMOGRAPHY WITH CAD CLINICAL INFORMATION: SCREEN HISTORY: Screening mammogram. No current complaints. COMPARISON: 2021 TECHNIQUE: Bilateral CC and MLO views. FINDINGS: The breasts are composed of heterogeneous fibroglandular density tissue, which can limit the detectio n of small underlying mass lesions. No suspicious mass, asymmetry, calcifications, or architectural d istortion. No evidence of malignancy. Incidental punctate calcifications. IMPRESSION: MM/[place] [id number] BI-RADS: 2-Benign FOLLOW UP: 1 Year Follow-up Recommend return to annual screening mammography.
== END 2023-07-12 11:34 | disposition home or self-care (01) ==
LOC: RAD 11:33
PROVIDERS: PCP Nurse Practitioner Family; Visit Provider Nurse Practitioner Family
DX: Z12.31 Encounter for screening mammogram for malignant neoplasm of breast (principal)
CPT/HCPCS: 77063; 77067

== ENCOUNTER → 2023-09-11 13:56 | Outpatient (BNVA) | payer MEDICARE, BC, SELFPAY | PROVIDERS: PCP Nurse Practitioner Family; Visit Provider Internal Medicine | DX: I25.10 Atherosclerotic heart disease of native coronary artery without angina pectoris (principal); I10 Essential (primary) hypertension | CPT/HCPCS: 99214 ==

== ENCOUNTER → 2023-10-09 10:27 | Outpatient (BNVA) | payer MEDICARE, BC, SELFPAY | PROVIDERS: PCP Nurse Practitioner Family; Visit Provider Podiatrist Foot & Ankle Surgery | DX: L60.3 Nail dystrophy (principal); E11.42 Type 2 diabetes mellitus with diabetic polyneuropathy | CPT/HCPCS: 11721 ==

== ENCOUNTER → 2023-12-31 09:17 | Outpatient (BNVA) | payer MEDICARE, BC, SELFPAY | PROVIDERS: PCP Nurse Practitioner Family; Visit Provider Podiatrist Foot & Ankle Surgery | DX: L60.3 Nail dystrophy (principal); E11.42 Type 2 diabetes mellitus with diabetic polyneuropathy | CPT/HCPCS: 11721 ==

== ENCOUNTER 2024-03-09 12:04 | Outpatient (CLI) | payer BC, MEDICARE, SELFPAY ==
--- NOTE | 2024-03-09 12:13 | XRR_ITS ---
PROCEDURE INFORMATION: Exam: XR Left Knee Exam date and time: 03/09/2024 12:42 PM Age: 68 years old Clinical indication: Patient HX: Pain in the left knee when weight bearing for the last week. Worse in the last day or two. Pain is more on the medial side of the knee. ; Additional info: Knee pain TECHNIQUE: Imaging protocol: Radiologic exam of the left knee. Views: 3 views. COMPARISON: No relevant prior studies available. FINDINGS: Bones/joints: No fracture or dislocation. No acute osseous, joint, or soft tissue abnormality. Soft tissues: Normal. XR/XR knee LT 3V* [id number] IMPRESSION: No acute findings.
== END 2024-03-09 12:05 | disposition home or self-care (01) ==
PROVIDERS: PCP Nurse Practitioner Family; Visit Provider Nurse Practitioner Family
DX: M25.562 Pain in left knee (principal)
CPT/HCPCS: 73562

== ENCOUNTER → 2024-04-08 13:28 | Outpatient (BNVA) | payer MEDICARE, BC, SELFPAY | PROVIDERS: PCP Nurse Practitioner Family; Visit Provider Podiatrist Foot & Ankle Surgery | DX: L60.3 Nail dystrophy (principal); E11.42 Type 2 diabetes mellitus with diabetic polyneuropathy | CPT/HCPCS: 11721 ==

== ENCOUNTER 2024-04-27 10:27 | Outpatient (CLI) | payer MEDICARE, BC, SELFPAY ==
--- NOTE | 2024-04-27 10:32 | XR_ITS ---
WS: [id number] XR chest 2V* [id number] REASON FOR EXAM: BRONCHITIS FINDINGS: Chest is unchanged compared to 04/02/2023. Mild tortuosity of the thoracic aorta. Normal heart size. Left coronary artery stent. Calcified granulomas disease in both hemithoraces. No focal lung lesion. No acute pulmonary parenchymal or pleural abnormality is identified. Significant degenerative spondylosis in the mid and lower thoracic spine. XR/XR chest 2V* [id number] IMPRESSION: Stable chest without acute abnormality.
== END 2024-04-27 10:28 | disposition home or self-care (01) ==
LOC: RAD 10:28
PROVIDERS: PCP Nurse Practitioner Family; Visit Provider Nurse Practitioner Family
DX: J40 Bronchitis, not specified as acute or chronic (principal); Q25.46 Tortuous aortic arch; M47.894 Other spondylosis, thoracic region
CPT/HCPCS: 71046

== ENCOUNTER → 2024-07-08 13:58 | Outpatient (BNVA) | payer MEDICARE, BC, SELFPAY | PROVIDERS: PCP Nurse Practitioner Family; Visit Provider Podiatrist Foot & Ankle Surgery | DX: E11.42 Type 2 diabetes mellitus with diabetic polyneuropathy; L60.3 Nail dystrophy; L84 Corns and callosities; S90.32XA Contusion of left foot, initial encounter; W22.8XXA Striking against or struck by other objects, initial encounter | CPT/HCPCS: 11055; 11721; 73630; 99213 ==

== ENCOUNTER → 2024-08-10 16:13 | Outpatient (BNVA) | payer MEDICARE, BC, SELFPAY | PROVIDERS: PCP Nurse Practitioner Family; Visit Provider Internal Medicine Cardiovascular Disease | DX: I25.10 Atherosclerotic heart disease of native coronary artery without angina pectoris (principal); I10 Essential (primary) hypertension; R55 Syncope and collapse; G47.30 Sleep apnea, unspecified; E78.5 Hyperlipidemia, unspecified | CPT/HCPCS: 99213 ==

== ENCOUNTER 2024-08-11 08:48 | Outpatient (CLI) | payer MEDICARE, BC, SELFPAY ==
--- NOTE | 2024-08-11 08:50 | MM_ITS ---
WS: [email or web address] BILATERAL 3D TOMOSYNTHESIS DIGITAL SCREENING MAMMOGRAPHY WITH CAD CLINICAL INFORMATION: SCREENING HISTORY: Screening mammogram. No current complaints. COMPARISON: 2022 TECHNIQUE: Bilateral CC and MLO views. FINDINGS: The breasts are composed of heterogeneous fibroglandular density tissue, which can limit the detectio n of small underlying mass lesions. Increasing asymmetric density anterior LEFT breast slightly later al to the nipple. Recommend further evaluation with spot compression views and ultrasound if persiste nt. Few incidental punctate calcifications. Unremarkable RIGHT breast. MM/MM scr tomosynthesis [id number] IMPRESSION: DENSITY: The breasts are heterogeneously dense, which may obscure small masses. BI-RADS: 0 - Incomplete: Need additional imaging evaluation FOLLOW UP: Need Additional Imaging Recommend further evaluation with spot compression views and ultrasound if pers istent
--- NOTE | 2024-08-11 08:54 | XR_ITS ---
WS: [email or web address] LEFT WRIST: 3 VIEW(S) TECHNIQUE: PA, oblique and lateral. HISTORY: Wrist pain, acute left COMPARISON: 01/08/2017 No acute fracture or dislocation. Narrowing of the joint spaces in the carpal roans. Mild degenerative osteoarthritis at the first carp al metacarpal articulation. Scaphoid appears intact. No soft tissue swelling. XR/XR wrist LT min 3V* [id number] IMPRESSION: 1. No acute or healed fracture at the LEFT wrist. 2. Mild progression of degenerative osteoarthritic changes at the first carpal metacarpal joint space.
== END 2024-08-11 08:49 | disposition home or self-care (01) ==
LOC: RAD 08:49
PROVIDERS: PCP Nurse Practitioner Family; Visit Provider Nurse Practitioner Family
DX: Z12.31 Encounter for screening mammogram for malignant neoplasm of breast (principal); M19.032 Primary osteoarthritis, left wrist; R92.333 Mammographic heterogeneous density, bilateral breasts; N64.89 Other specified disorders of breast; R92.1 Mammographic calcification found on diagnostic imaging of breast; R93.6 Abnormal findings on diagnostic imaging of limbs
CPT/HCPCS: 73110; 77063; 77067

== ENCOUNTER → 2024-10-27 10:43 | Outpatient (BNVA) | payer MEDICARE, BC, SELFPAY | PROVIDERS: PCP Nurse Practitioner Family; Visit Provider Podiatrist Foot & Ankle Surgery | DX: S99.921A Unspecified injury of right foot, initial encounter (principal); S99.911A Unspecified injury of right ankle, initial encounter; E11.42 Type 2 diabetes mellitus with diabetic polyneuropathy; L60.3 Nail dystrophy; L84 Corns and callosities; S82.841A Displaced bimalleolar fracture of right lower leg, initial encounter for closed fracture; S93.491A Sprain of other ligament of right ankle, initial encounter; W19.XXXA Unspecified fall, initial encounter | CPT/HCPCS: 73600; 73630 ==

== ENCOUNTER 2024-10-27 11:48 | Outpatient (CLI) | payer MEDICARE, BC, SELFPAY | END 2024-10-27 11:49 | disposition home or self-care (01) | LOC: SPT 11:49 | PROVIDERS: PCP Nurse Practitioner Family; Visit Provider Podiatrist Foot & Ankle Surgery | DX: Z46.89 Encounter for fitting and adjustment of other specified devices (principal); S82.841D Displaced bimalleolar fracture of right lower leg, subsequent encounter for closed fracture with routine healing; X58.XXXD Exposure to other specified factors, subsequent encounter | CPT/HCPCS: 97760; L1902 ==

== ENCOUNTER 2024-12-16 10:13 | Inpatient (IN) | payer MEDICARE, BC, SELFPAY ==
[2024-12-16] VITALS (15 sets, daily range): BP systolic 104–142; BP diastolic 55–84; PULSE 70–139; RESP 15–18; TEMP 36.7–36.8; O2SAT 95–99; BMI 30.4
--- NOTE | 2024-12-16 10:30 | XR_ITS ---
WS: [id number] Portable AP upright chest, 12/16/2024 Clinical Data: chest pain Comparison: Two-view chest, 04/27/2024 Findings: No nodules, masses or effusions are seen. The heart is normal. The pulmonary vascularity is not increased. No pneumonia or pneumothorax is seen. The aortic arch and descending thoracic aorta show minimal calcification and tortuosity. There are monitor leads on the chest wall. XR/XR chest 1V portable [id number] Impression: Atherosclerosis.
--- NOTE | 2024-12-16 10:31 | ECG_ITS ---
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: : 1955 Requested By: Natan Amaya Order Number: [id number] Reading MD: NILDA BLOOM Measurements Intervals [place] Rate: 71 P: 21 MI: 220 QRS: -24 QRSD: 88 T: 25 QT: 320 QTc: 350 Interpretive Statements SINUS RHYTHM WITH FIRST DEGREE AV BLOCK LOW QRS VOLTAGE IN PRECORDIAL LEADS [QRS DEFLECTION < 1.0 mV IN CHEST LEADS] POSSIBLE RIGHT VENTRICULAR CONDUCTION DELAY [RSR (QR) IN V1/V2] ANTERIOR MYOCARDIAL INFARCTION , OF INDETERMINATE AGE [40+ ms Q WAVE AND/OR ST/T ABNORMALITY IN V3/V4] INFERIOR MYOCARDIAL INFARCTION , OF INDETERMINATE AGE [40+ ms Q WAVE AND/OR ST/T ABNORMALITY IN II/aVF] Compared to ECG 04/05/2022 17:42:48 First degree AV block now present Low QRS voltage now present Myocardial infarct finding still present Electronically Signed On 12-23-2024 22:47:03 CDT by NILDA BLOOM [email or web address]
--- NOTE | 2024-12-16 10:59 | W.ED.CHESTPA ---
HPI - Chest Pain General: Chief Complaint: Chest Pain Stated Complaint: chest pain Time Seen by Provider: 12/16/24 10:30 History of Present Illness: Chief complaint is chest pain. Patient states she has had chest pain at rest off-and-on in the last few days. Each time it would go away with nitroglycerin. Today she had an episode in the pain went away with nitroglycerin but then came right back. She states that is now resolved completely. The pain is in the left chest behind the breast. She describes it as a pressure. It does radiate into the left arm. No associated shortness of breath cough fever or abdominal pain or recent immobility or leg pain or swelling. No pleurisy. No hemoptysis. Related Data Home Medications ?Medication ?Instructions ?Recorded ?Confirmed magnesium 250 mg tablet 400 mg PO DAILY@09/02/19 10/27/24 multivitamin 1 tab PO DAILY@09/02/19 10/27/24 pregabalin 25 mg capsule (Lyrica) 25 mg PO QID 09/02/19 10/27/24 vitamin B complex (B 1 tab PO DAILY@09/02/19 10/27/24 Complex-Vitamin B12 tablet) omega-3 fatty acids 1,000 mg 2,000 mg PO BID@11/21/21 10/27/24 capsule cholecalciferol (vitamin D3) 50 100 mcg PO DAILY 04/03/22 10/27/24 mcg (2,000 unit) capsule (Vitamin D3) hydrocodone 10 mg-acetaminophen 1 - 2 tab PO PRN PRN Pain 11/05/22 10/27/24 325 mg tablet atorvastatin 20 mg tablet 20 mg PO DAILY 11/14/22 10/27/24 furosemide 40 mg tablet (Lasix) 40 mg PO QAM Edema 02/14/23 10/27/24 loratadine 10 mg tablet (Allergy 10 mg PO DAILY PRN allergic 05/14/23 10/27/24 Relief (loratadine)) symptoms amlodipine 10 mg tablet 10 mg PO DAILY 10/09/23 10/27/24 fesoterodine 8 mg tablet,extended mg PO 10/09/23 10/27/24 release 24 hr famotidine 40 mg tablet 40 mg PO DAILY 08/10/24 10/27/24 fremanezumab-vfrm 225 mg/1.5 mL mg SUBCUT 08/10/24 10/27/24 subcutaneous auto-injector (Ajovy) omeprazole 40 mg capsule,delayed 40 mg PO BID 08/10/24 10/27/24 release Previous Rx's ?Medication ?Instructions ?Recorded budesonide-formoterol HFA 80 1 inh inhalation .COMPLEX 30 days 04/25/22 mcg-4.5 mcg/actuation aerosol #10.2 grams inhaler (Symbicort) diabetic shoes with 3 inserts #1 ea 12/27/22 mupirocin 2 % topical ointment 1 applic topical BID 2 weeks #22 02/27/23 grams diabetic shoes with 3 inserts #1 ea 05/01/23 ASO brace #1 ea 07/03/23 aspirin 81 mg tablet,delayed See Rx Instructions .Route 01/09/24 release .COMPLEX #90 tabs carvedilol 25 mg tablet See Rx Instructions .Route 02/03/24 .COMPLEX #180 tabs potassium chloride 20 mEq See Rx Instructions .Route 04/01/24 tablet,extended release(part/cryst) .COMPLEX #90 tabs nitroglycerin 0.4 mg sublingual 0.4 mg sublingual Q5M PRN Chest 08/25/24 tablet (Nitrostat) Pain #25 tabs isosorbide mononitrate 60 mg 60 mg PO BID #180 tabs 08/26/24 tablet,extended release 24 hr clopidogrel 75 mg tablet See Rx Instructions .Route 09/28/24 .COMPLEX #90 tabs ASO #1 ea 10/27/24 losartan 100 mg tablet See Rx Instructions .Route 11/19/24 .COMPLEX #90 tabs Allergies Allergy/AdvReac Type Severity Reaction Status Date / Time ampicillin Allergy Unknown ALGY-Rash Verified 10/27/24 10:33 Sulfa (Sulfonamide Allergy Unknown ALGY-Rash Verified 10/27/24 10:33 Antibiotics) Tetanus Vaccines and Toxoid Allergy Unknown ALGY-Redness Verified 10/27/24 10:33 of Skin lisinopril AdvReac ADR-Cough Verified 10/27/24 10:33 [facility] ED PFSH: Medical History Right ankle pain History of coronary angiogram Last procedure October 2020 where she received a drug-eluting stent in her circumflex. LAD 40%, RPDA 40% at that time Migraine headache Chronic back pain Hyperlipidemia Fibromyalgia GERD (gastroesophageal reflux disease) Neuropathy FRANCI (obstructive sleep apnea) HTN (hypertension) Diabetes mellitus History of DVT (deep vein thrombosis) ASHD (arteriosclerotic heart disease) Surgical History S/P carpal tunnel release S/P rotator cuff repair S/P bunionectomy S/P hysterectomy S/P tonsillectomy and adenoidectomy Family History Mother Diabetes Stroke Hypertension Grandmother Diabetes Hypertension Social History Smoking and tobacco/nicotine status: never used tobacco/nicotine Alcohol intake: never Substance/Drug Use: never Lives independently: Yes Household members: none Marital status: Single Current occupational status: retired Do you think of yourself as: Straight/Heterosexual Current gender identity: Female Physical Exam Narrative: EXAM NARRATIVE: Patient sitting up reading a book in no acute distress. She is alert and oriented. Normal conjunctive up. No rash in exposed areas on skin. Heart regular rhythm. Lung sounds are clear. Abdomen soft nontender with no guarding or rebound or palpable mass. Skin is dry and appears warm well-perfused. No calf tenderness or pitting edema in her legs. Speech is clear. Neck is supple. Moist mucous membranes and normal external ENT exam. Course Vital Signs: Vital signs: Vital Signs Temperature 98.1 F 12/16/24 10:19 Pulse Rate 124 H 12/16/24 14:08 Respiratory Rate 15 12/16/24 14:08 Blood Pressure 104/59 12/16/24 14:08 Pulse Oximetry 95 12/16/24 14:08 Oxygen Delivery Me thod Room Air 12/16/24 10:19 MDM - Chest Pain Medical Decision Making Patient presents complaining of intermittent chest pain relieved with nitroglycerin. Currently chest pain-free. She has a history of 3 cardiac stents with the last stent in 2022 and she is on Plavix. I ordered aspirin 324 mg p.o. EKG CBC CMP troponin chest x-ray are ordered. Patient symptoms are not exertional. She denies abdominal pain. Pain is not sharp tearing or pleuritic to suggest PE or dissection and no associated shortness of breath cough hemoptysis pleurisy or leg pain or swelling. Patient EKG to my interpretation shows sinus rhythm with first-degree block with mild diffuse ST segment changes however appears similar in appearance to prior EKGs. Patient certainly high risk for cardiac cause of her pain based on description of symptoms and history of known coronary artery disease. She states her diabetes is diet controlled. She has never smoked. She does have history of high blood pressure. Patient symptoms are not exertional. She is currently pain-free. I advised her to let the nurse know immediately if she develops any pain or discomfort. Patient troponin and delta troponin were negative. Patient creatinine was within normal limits. White count is within normal limits. Chest x-ray negative for acute process per radiology. I consulted with Dr. Suh from cardiology and he recommends admission for further cardiac testing and he will consult on the patient and asked admission to the hospitalist. I discussed with Dr. Baker who will admit and continue patient care. pt agrees with plan Lab Data 12/16/24 10:40 12/16/24 10:40 Radiology Impressions Chest X-Ray 12/16/24 10:30 Impression: Atherosclerosis. Laboratory Results WBC 6.54 10^3/uL (3.29-11.43) 12/16/24 10:40 RBC 4.90 10^6/uL (3.85-5.65) 12/16/24 10:40 Hgb 13.90 g/dL (11.27-16.99) 12/16/24 10:40 Hct 44.3 % (36-47) 12/16/24 10:40 MCV 90.4 fl (85-98) 12/16/24 10:40 MCH 28.4 pg (27-33) 12/16/24 10:40 MCHC 31.4 g/dL (30-55) 12/16/24 10:40 RDW 14.7 % (12.1-15.1) 12/16/24 10:40 Plt Count 325 10^3/cmm (157-399) 12/16/24 10:40 MPV 11.3 fL (7.4-10.4) H 12/16/24 10:40 Neut % (Auto) 60.1 % 12/16/24 10:40 Lymph % (Auto) 28.4 % 12/16/24 10:40 Drew % (Auto) 7.5 % 12/16/24 10:40 Eos % (Auto) 2.6 % 12/16/24 10:40 Baso % (Auto) 1.1 % 12/16/24 10:40 Neut # (Auto) 3.93 10^3/uL (1.8-7.7) 12/16/24 10:40 Lymph # (Auto) 1.9 10^3/uL (0.8-4.8) 12/16/24 10:40 Drew # (Auto) 0.5 10^3/uL (0.2-0.9) 12/16/24 10:40 Eos # (Auto) 0.2 10^3/uL (0.0-0.8) 12/16/24 10:40 Baso # (Auto) 0.1 10^3/uL (0.0-0.1) 12/16/24 10:40 Nucleated RBC % (auto) 0 % 12/16/24 10:40 Nucleated RBCs # 0.0 /100WBC 12/16/24 10:40 Sodium 144 mmol/L (136-145) 12/16/24 10:40 Potassium 4.2 mmol/L (3.5-5.1) 12/16/24 10:40 Chloride 103 mmol/L (98-107) 12/16/24 10:40 Carbon Dioxide 30 mmol/L (22-29) H 12/16/24 10:40 Anion Gap 15.2 (5-19) 12/16/24 10:40 BUN 7 mg/dL (8-23) L 12/16/24 10:40 Creatinine 0.8 mg/dL (0.5-0.9) 12/16/24 10:40 GFR Calculation 71.5 mL/min (90-130) L 12/16/24 10:40 Glucose 99 mg/dL (65-115) 12/16/24 10:40 Calculated Osmolality 296 mOsm/kg (285-295) H 12/16/24 10:40 Calcium 9.5 mg/dL (8.5-10.5) 12/16/24 10:40 Total Bilirubin 0.3 mg/dL (0.15-1.2) 12/16/24 10:40 AST 12 U/L (0-32) 12/16/24 10:40 ALT 18 U/L (0-33) 12/16/24 10:40 Alkaline Phosphatase 146 U/L (35-105) H 12/16/24 10:40 Troponin T Baseline 7 ng/L (0-10) 12/16/24 10:40 Troponin T 120 Minute < 6.0 ng/L (0-10) 12/16/24 12:51 Delta Troponin T -1.03212 ABS# (0-10) L 12/16/24 12:51 Total Protein 7.1 g/dL (6.6-8.7) 12/16/24 10:40 Albumin 4.4 g/dL (3.5-5.2) 12/16/24 10:40 Globulin 2.7 g/dL (1.3-4.6) 12/16/24 10:40 Lipase 16 U/L (13-60) 12/16/24 10:40 All radiology interpretation(s) finalized by discharge Discharge Plan Discharge Patient Disposition: Placed in Observation Clinical Impression: Chest pain Coding Level of Care Code ED Physician Practice Manager for Christiana Mcnamara
[2024-12-16] MEDS: aspirin 81 mg Chew Tablet 324 MG PO (11:06)
[2024-12-16 11:08] LABS: Troponin(5th) Baseline 7 ng/L (0-10)
[2024-12-16 11:09] LABS: Basophils # 0.1 10^3/uL (0.0-0.1); Basophils % 1.1 %; Eosinophils # 0.2 10^3/uL (0.0-0.8); Eosinophils % 2.6 %; Hematocrit 44.3 % (36-47); Lymphocytes # 1.9 10^3/uL (0.8-4.8); Lymphocytes % 28.4 %; Mean Corpuscular HGB Conc 31.4 g/dL (30-55); Mean Corpuscular Hemoglobin 28.4 pg (27-33); Mean Corpuscular Volume 90.4 fl (85-98); Mean Platelet Volume 11.3 fL (7.4-10.4); Monocytes # 0.5 10^3/uL (0.2-0.9); Monocytes % 7.5 %; Neutrophils # 3.93 10^3/uL (1.8-7.7); Neutrophils % 60.1 %; Nucleated Red Blood Cells % 0 %; Platelet Count 325 10^3/cmm (157-399); Red Cell Distribution Width 14.7 % (12.1-15.1); White Blood Count 6.54 10^3/uL (3.29-11.43)
[2024-12-16 11:10] LABS: Alanine Aminotransferase 18 U/L (0-33); Albumin Level 4.4 g/dL (3.5-5.2); Alkaline Phosphatase 146 U/L (35-105); Anion Gap 15.2 (5-19); Aspartate Amino Transferase 12 U/L (0-32); Blood Urea Nitrogen 7 mg/dL (8-23); Calcium 9.5 mg/dL (8.5-10.5); Carbon Dioxide 30 mmol/L (22-29); Chloride 103 mmol/L (98-107); Creatinine Clr Calc Pharmacy 75.6605; Globulin 2.7 g/dL (1.3-4.6); Glomerular Filtration Rate 71.5 mL/min (90-130); Glucose 99 mg/dL (65-115); Lipase 16 U/L (13-60); Osmolality Calculated 296 mOsm/kg (285-295); Potassium 4.2 mmol/L (3.5-5.1); Sodium 144 mmol/L (136-145); Total Bilirubin 0.3 mg/dL (0.15-1.2); Total Protein 7.1 g/dL (6.6-8.7)
--- NOTE | 2024-12-16 13:06 | P.CONIM_ITS ---
<Statement entered by Gary Suh M.D - 12/19/24 13:22> Patient was evaluated and cared for in conjunction with an advanced practice practitioner.? I personally examined the patient and reviewed the chart and all pertinent data including imaging, telemetry, and laboratory results.? I discussed the patient in detail with the advanced practice practitioner.? Please see? their note for complete consult note, testing results and agreed upon plan of care for the patient. Patient chest pain is consistent with unstable angina. Recent onset and worsening. Required multiple nitros. Given her prior cardiac history, we will proceed with coronary angiogram with possible PCI. Benefits of procedure were discussed. GENERAL: Patient is alert, awake and oriented x3. HEART: Regular S1 and S2 LUNGS: Clear to auscultate bilaterally. CENTRAL NERVOUS SYSTEM: Grossly nonfocal. EXTREMITIES: Lower extremities without edema bilaterally. Providers/Reason For Consult 2 Consulting Physician/Specialty*: Dr Suh, cardiology Reason for Consult*: chest pain Requesting Physician: Dr Amaya Primary Care Provider: Marielle Bucio APN History of Present Illness History of Present Illness Nicole Navarro is a 69 year old female with past medical history of CAD (most recent stenting in 2022 coronary mid RCA and PDA, previously placed LAD stent patent at that time), FRANCI on CPAP, diabetes, hypertension, hyperlipidemia, chronic back pain, history of DVT. She has periodic chest pain, sometimes does not require nitroglycerin to resolve. Two days ago she began having more severe chest pain rated 4-5 out of 10 in the left breast area above and below the nipple line, it took 3 sublingual nitroglycerin to relieve the pain, the same pattern occurred yesterday and again today which is what prompted her to present to the emergency room today. She does not have any worsening shortness of breath, nausea, diaphoresis, no radiation of the pain to the jaw, arm or between the scapulae. No recent weight gain or lower extremity edema. She has taken her medications so far today, aspirin, Plavix, isosorbide mononitrate (takes 60 twice daily, has only taken the morning dose), carvedilol, amlodipine, Lasix 40 mg, omeprazole. Baseline troponin 7. Initial EKG shows sinus rhythm first-degree block, some upsloping of the ST segment in lead II, aVF. Does not have active chest pain currently. Review of Systems 2 Const: Denies: fever(s), chills, change in weight, fatigue or diaphoresis Eyes: Denies: change in vision ENMT: Denies: epistaxis Card: Denies: chest pain, palpitations, irregular heart rhythm, edema, syncope, pre-syncope, dyspnea on exertion, orthopnea or leg pain with exertion Resp: Denies: dyspnea, productive cough or wheezing GI: Denies: nausea, vomiting, hematemesis, hematochezia or melena : Denies: hematuria Musc: Denies: extremity swelling Nazario/Lymph: Denies: easy bruising or easy bleeding Medications/Allergies Home Medications ?Medication ?Instructions ?Recorded ?Confirmed ?Last Taken ?Type magnesium 250 mg tablet 400 mg PO DAILY@09/02/19 10/27/24 11/04/22 12:00 History multivitamin 1 tab PO DAILY@09/02/19 0 10/27/24 11/04/22 12:00 History pregabalin 25 mg capsule (Lyrica) 25 mg PO QID 0 10/27/24 11/04/22 18:00 History vitamin B complex (B 1 tab PO DAILY@09/02/19 0 10/27/24 11/04/22 12:00 History Complex-Vitamin B12 tablet) omega-3 fatty acids 1,000 mg 2,000 mg PO BID@10/1010/27/24 11/04/22 18:00 History capsule cholecalciferol (vitamin D3) 50 100 mcg PO DAILY 04/0310/27/24 11/04/22 12:00 History mcg (2,000 unit) capsule (Vitamin D3) budesonide-formoterol HFA 80 1 inh inhalation .COMPLEX 30 days 04/25/22 10/27/24 05/18/22 Rx mcg-4.5 mcg/actuation aerosol #10.2 grams inhaler (Symbicort) hydrocodone 10 mg-acetaminophen 1 - 2 tab PO PRN PRN P ain 11/05/22 10/27/24 Unknown History 325 mg tablet atorvastatin 20 mg tablet 20 mg PO DAILY 11/14/2203/15 Unknown History diabetic shoes with 3 inserts #1 ea 12/27/22 10/27/24 Unknown Rx furosemide 40 mg tablet (Lasix) 40 mg PO QAM Edema 10/27/24 Unknown History mupirocin 2 % topical ointment 1 applic topical BID 2 weeks #22 02/27/23 10/27/24 Unknown Rx grams diabetic shoes with 3 inserts #1 ea 05/01/23 10/27/24 Unknown Rx loratadine 10 mg tablet (Allergy 10 mg PO DAILY PRN al lergic 05/14/23 10/27/24 Unknown History Relief (loratadine)) symptoms ASO brace #1 ea 07/03/23 10/27/24 Unkn own Rx amlodipine 10 mg tablet 10 mg PO DAILY 10/09/2303/15 Unknown History fesoterodine 8 mg tablet,extended mg PO 10/09/2310/27 Unknown History release 24 hr aspirin 81 mg tablet,delayed See Rx Instructions .Rout e 01/09/24 10/27/24 Unknown Rx release .COMPLEX #90 tabs carvedilol 25 mg tablet See Rx Instructions .Route 0 02/03/24 10/27/24 Unknown Rx .COMPLEX #180 tabs potassium chloride 20 mEq See Rx Instructions .Route 0 04/01/24 10/27/24 Unknown Rx tablet,extended release(part/cryst) .COMPLEX #90 tabs famotidine 40 mg tablet 40 mg PO DAILY 08/10/2403/15 Unknown History fremanezumab-vfrm 225 mg/1.5 mL mg SUBCUT 08/10/2403/15 Unknown History subcutaneous auto-injector (Ajovy) omeprazole 40 mg capsule,delayed 40 mg PO BID 08/10/24 10/27/24 Unknown History release nitroglycerin 0.4 mg sublingual 0.4 mg sublingual Q5M PRN Chest 08/25/24 10/27/24 Unknown Rx tablet (Nitrostat) Pain #25 tabs isosorbide mononitrate 60 mg 60 mg PO BID #180 tabs 10/27/24 Unknown Rx tablet,extended release 24 hr clopidogrel 75 mg tablet See Rx Instructions .Route 0 09/28/24 10/27/24 Unknown Rx .COMPLEX #90 tabs ASO #1 ea 10/27/24 10/27/24 Unkn own Rx losartan 100 mg tablet See Rx Instructions .Route 0 11/19/24 Unknown Rx .COMPLEX #90 tabs Allergies Allergy/AdvReac Type Severity Reaction Status Date / Time ampicillin Allergy Unknown ALGY-Rash Verified 10/27/24 10:33 Sulfa (Sulfonamide Allergy Unknown ALGY-Rash Verified 10/27/24 10:33 Antibiotics) Tetanus Vaccines and Toxoid Allergy Unknown ALGY-Redness Verified 10/27/24 10:33 of Skin lisinopril AdvReac ADR-Cough Verified 10/27/24 10:33 PFSH Acute 2 PFSH: Medical History Right ankle pain History of coronary angiogram Last procedure October 2020 where she received a drug-eluting stent in her circumflex. LAD 40%, RPDA 40% at that time Migraine headache Chronic back pain Hyperlipidemia Fibromyalgia GERD (gastroesophageal reflux disease) Neuropathy FRANCI (obstructive sleep apnea) HTN (hypertension) Diabetes mellitus History of DVT (deep vein thrombosis) ASHD (arteriosclerotic heart disease) Surgical History S/P carpal tunnel release S/P rotator cuff repair S/P bunionectomy S/P hysterectomy S/P tonsillectomy and adenoidectomy Family History Mother Diabetes Stroke Hypertension Grandmother Diabetes Hypertension Social History Smoking and tobacco/nicotine status: never used tobacco/nicotine Alcohol intake: never Substance/Drug Use: never Lives independently: Yes Household members: none Marital status: Single Current occupational status: retired Do you think of yourself as: Straight/Heterosexual Current gender identity: Female Vitals/I&O/Wt Last Vital Signs Temp 98.1 F 12/16/24 10:19 Pulse 82 12/16/24 13:02 Resp 16 12/16/24 13:02 BP 119/84 12/16/24 13:02 Pulse Ox 99 12/16/24 13:02 O2 Del Method Room Air 12/16/24 10:19 Weight last 48 hrs Weight 191 lb Physical Exam 2 Const: COMMON NORMALS: no acute distress and patient oriented x3 GENERAL APPEARANCE: cooperative and comfortable ORIENTATION/CONSCIOUSNESS: Yes awake, Yes oriented to person, Yes oriented to place and Yes oriented to time Chest: COMMONS NORMALS: normal inspection of the chest and normal palpation of entire chest wall CHEST: Yes Symmetrical chest wall rise Resp: COMMON NORMALS: normal respiratory effort, No retractions, No use of accessory muscles and clear to auscultation bilaterally EFFORT & INSPECTION: Yes symmetric chest movement AUSCULTATION: clear to auscultation bilaterally Cardio: COMMON NORMALS: regular rate, regular rhythm, S1 normal heart sound present, S2 normal heart sound present, No gallops present (Cardio), No clicks present (Cardio), No murmurs present (Cardio) and No rub (Cardio) RATE: r egular rate RHYTHM: regular rhythm HEART SOUNDS: S1 normal heart sound present and S2 normal heart sound present PERIPHERAL PULSES: radial pulses present Extremity: COMMON NORMALS: no pedal edema Neuro: COMMON NORMALS: patient oriented x3 and moves all extremities S ENSORIUM/ORIENTATION: Yes oriented to person, Yes oriented to place and Yes oriented to time Data 12/16/24 10:40 12/16/24 10:40 A&P Assessment and plan (1) ASHD (arteriosclerotic heart disease): (2) HTN (hypertension): (3) Hyperlipidemia: (4) Diabetes mellitus: (5) FRANCI (obstructive sleep apnea): Plan Since she does not have active chest pain, will continue to trend troponin and EKGs renal function is normal. She does not appear volume overloaded. Most recent echocardiogram in 2021, she may need another echocardiogram. PDMP PDMP Reviewed: Not Reviewed Coding Level of Care Code Acute Code for g Fwd Diagnoses ASHD (arteriosclerotic heart disease) I25.10 Essential hypertension I10 Hyperlipidemia E78.5 Type 2 diabetes mellitus with other specified complication, unspecified whether intermediate designer insulin use E11.69 Diabetes mellitus complication status: with other specified complication Diabetes mellitus intermediate designer insulin use: unspecified alf insulin use status Diabetes mellitus type: type 2 FRANCI (obstructive sleep apnea) G47.33
--- NOTE | 2024-12-16 13:10 | ECG_ITS ---
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1955 Requested By: Natan Amaya Order Number: [id number] Reading MD: NILDA BLOOM Measurements Intervals [place] Rate: 67 P: 7 NC: 212 QRS: -25 QRSD: 84 T: 12 QT: 340 QTc: 360 Interpretive Statements SINUS RHYTHM WITH FIRST DEGREE AV BLOCK ANTERIOR MYOCARDIAL INFARCTION , OF INDETERMINATE AGE [40+ ms Q WAVE AND/OR ST/T ABNORMALITY IN V3/V4] INFERIOR MYOCARDIAL INFARCTION , OF INDETERMINATE AGE [40+ ms Q WAVE AND/OR ST/T ABNORMALITY IN II/aVF] Compared to ECG 12/16/2024 10:24:25 No significant changes Electronically Signed On 12-23-2024 22:55:33 CDT by NILDA BLOOM [email or web address]
[2024-12-16 13:30] LABS: Troponin 5 2HR < 6.0 ng/L (0-10)
[2024-12-16 13:31] LABS: Troponin 5 2HR Delta -1.00001 ABS# (0-10)
--- NOTE | 2024-12-16 14:26 | USCV_ITS ---
Nicole Navarro Age: 69 Gender: F : 1955 Exam Date: 12/16/2024 19:52 Ordering Phys: Homar Buneo MD Technologist: NURYS Exam Location: [facility] Indication: cad, unstable angina BP: 0 / 72 HR: 70 Rhythm: Sinus Technical Quality: Adequate MEASUREMENTS (Male / Female) Normal Values 2D ECHO LV Diastolic Diameter PLAX 3.8 cm 4.2 - 5.9 / 3.9 - 5.3 cm IVS Diastolic Thickness 1.4 cm 0.6 - 1.0 / 0.6 - 0.9 cm IVS Systolic Thickness 1.8 cm LVPW Diastolic Thickness 1.1 cm 0.6 - 1.0 / 0.6 - 0.9 cm LVPW Systolic Thickness 1.8 cm LVOT Diameter 1.9 cm LV Ejection Fraction 2D Teich 70.9 % LV Ejection Fraction MOD 4C 73.3 % LV Ejection Fraction MOD 2C 70.7 % LV Ejection Fraction 2C AL 71.8 % LA Diameter 4.4 cm Aorta at Sinotubular Diameter 2.8 cm IVC Diameter 1.4 cm M-MODE LA Ao Ratio MM 1.4 AV Cusp Separation MM 2.1 cm DOPPLER AV Peak Velocity 152.0 cm/s LVOT Peak Velocity 100.0 cm/s AV Area Cont Eq vti 2.1 cm squared AV Area Cont Eq pk 1.9 cm squared MV Peak Velocity 119.0 cm/s MV Area PHT 3.3 cm squared Mitral E to A Ratio 0.8 TV Peak Velocity 230.0 cm/s TR Peak Velocity 235.0 cm/s TR Peak Gradient 22.1 mmHg TV Peak E Velocity 56.0 cm/s PV Peak Velocity 100.0 cm/s FINDINGS Left Ventricle Left ventricle is normal in size. LV systolic function is normal with EF of 65-70%. No regional wall motion abnormalities are seen. Grade 1 diastolic dysfunction. Right Ventricle Normal in size and function Right Atrium Normal in size Left Atrium Normal in size Mitral Valve Moderate mitral annular calcification. Trace mitral regurgitation Aortic Valve Aortic valve is thickened. Mild aortic regurgitation. No significant stenosis Tricuspid Valve Mild regurgitation. Pulmonary artery systolic pressure is normal. Pulmonic Valve Not well visualized Pericardium Trace pericardial effusion Aorta Normal in size IVC Not well visualized CONCLUSIONS LV systolic function is normal with EF of 65 to 70%. Grade 1 diastolic dysfunction. Trace mitral regurgitation. Mild tricuspid regurgitation Trace pericardial effusion Gary Suh MD (Electronically Signed) Final Date: 18 Dec 2024 09:38 S
--- NOTE | 2024-12-16 14:30 | PM.HP ---
Providers/Chief Complaint Primary Care Provider: Marielle Bucio APN Chief Complaint: chest pain History of Present Illness Nicole Navarro is a 69 year old female with PMH of CAD (most recent cardiac cath in 2022 coronary- mid RCA and PDA, previously placed LAD stent patent at that time), FRANCI on CPAP, diabetes, hypertension, hyperlipidemia, history of DVT not on any AC currently. She returns to the ER today because of chest pain on and off for last 3 to 4 days. Usually chest pain will subside with nitro. Today morning she woke up because of chest pain and because it did not subside with nitro she present to the ER. Chest pain is not associated with nausea, vomiting, headache, dizziness or diaphoresis. Complains of occasional chest heaviness. Review of Systems General: Reports: 10 or more systems reviewed and unremarkable except in HPI and below Const: Denies: fever(s), chills, body aches, change in appetite, change in weight, malaise, night sweats, diaphoresis, change in sleep pattern, daytime sleepiness or snoring Eyes: Denies: change in vision, blurry vision, photophobia, eye discomfort or eye discharge ENMT: Denies: throat pain, enlarged tonsils, hoarseness, mouth pain, oral sores, dry mouth, tinnitus, nasal congestion or post nasal drip Card: Denies: chest pain, palpitations, irregular heart rhythm, edema, swelling of feet/ankles, lightheadedness, syncope, pre-syncope, dyspnea on exertion, orthopnea, leg pain with exertion or acrocyanosis Resp: Denies: dyspnea, productive cough, non-productive cough, wheezing, stridor, pain on inspiration, change in phlegm color, hemoptysis or chest congestion GI: Denies: abdominal pain, nausea, vomiting, hematemesis, coffee ground emesis, dysphagia, heartburn, diarrhea, constipation, bloating, GI cramping, change in bowel habits, pain on defecation, hematochezia or melena : Denies: flank pain, dysuria, urinary frequency, urinary urgency, urinary hesitancy, nocturia or hematuria Musc: Denies: neck pain, back pain, extremity pain, joint pain, joint swelling, joint redness, joint stiffness or limited range of motion Neuro: Denies: headache(s), numbness in extremities, weakness in extremities, sensory changes, lack of coordination, difficulty walking, frequent falls, dizziness, vertigo, confusion, Slurred speech present, difficulty communicating thoughts or seizure-like activity Psych: Denies: anxiety, depression, mood swings, panic attacks, hopelessness or irritability Endo: Denies: polyuria, polydipsia, tired all the time, cold intolerance, excessive sweating, flushing or heat intolerance Nazario/Lymph: Denies: easy bruising or easy bleeding All/Imm: Denies: tongue swelling, facial swelling or acute wheezing Medications/Allergies Home Medications ?Medication ?Instructions ?Recorded ?Confirmed ?Last Taken ?Type magnesium 250 mg tablet 400 mg PO DAILY@09/02/19 10/27/24 11/04/22 12:00 History multivitamin 1 tab PO DAILY@09/02/19 10/27/24 11/04/22 12:00 History pregabalin 25 mg capsule (Lyrica) 25 mg PO QID 09/02/19 10/27/24 11/04/22 18:00 History vitamin B complex (B 1 tab PO DAILY@09/02/19 10/27/24 11/04/22 12:00 History Complex-Vitamin B12 tablet) omega-3 fatty acids 1,000 mg 2,000 mg PO BID@11/21/21 10/27/24 11/04/22 18:00 History capsule cholecalciferol (vitamin D3) 50 100 mcg PO DAILY 04/03/22 10/27/24 11/04/22 12:00 History mcg (2,000 unit) capsule (Vitamin D3) budesonide-formoterol HFA 80 1 inh inhalation .COMPLEX 30 days 04/25/22 10/27/24 05/18/22 Rx mcg-4.5 mcg/actuation aerosol #10.2 grams inhaler (Symbicort) hydrocodone 10 mg-acetaminophen 1 - 2 tab PO PRN PRN Pain 11/05/22 10/27/24 Unknown History 325 mg tablet atorvastatin 20 mg tablet 20 mg PO DAILY 11/14/22 10/27/24 Unknown History diabetic shoes with 3 inserts #1 ea 12/27/22 10/27/24 Unknown Rx furosemide 40 mg tablet (Lasix) 40 mg PO QAM Edema 02/14/23 10/27/24 Unknown History mupirocin 2 % topical ointment 1 applic topical BID 2 weeks #22 02/27/23 10/27/24 Unknown Rx grams diabetic shoes with 3 inserts #1 ea 05/01/23 10/27/24 Unknown Rx loratadine 10 mg tablet (Allergy 10 mg PO DAILY PRN allergic 05/14/23 10/27/24 Unknown History Relief (loratadine)) symptoms ASO brace #1 ea 07/03/23 10/27/24 Unknown Rx amlodipine 10 mg tablet 10 mg PO DAILY 10/09/23 10/27/24 Unknown History fesoterodine 8 mg tablet,extended mg PO 10/09/23 10/27/24 Unknown History release 24 hr aspirin 81 mg tablet,delayed See Rx Instructions .Route 01/09/24 10/27/24 Unknown Rx release .COMPLEX #90 tabs carvedilol 25 mg tablet See Rx Instructions .Route 02/03/24 10/27/24 Unknown Rx .COMPLEX #180 tabs potassium chloride 20 mEq See Rx Instructions .Route 04/01/24 10/27/24 Unknown Rx tablet,extended release(part/cryst) .COMPLEX #90 tabs famotidine 40 mg tablet 40 mg PO DAILY 08/10/24 10/27/24 Unknown History fremanezumab-vfrm 225 mg/1.5 mL mg SUBCUT 08/10/24 10/27/24 Unknown History subcutaneous auto-injector (Ajovy) omeprazole 40 mg capsule,delayed 40 mg PO BID 08/10/24 10/27/24 Unknown History release nitroglycerin 0.4 mg sublingual 0.4 mg sublingual Q5M PRN Chest 08/25/24 10/27/24 Unknown Rx tablet (Nitrostat) Pain #25 tabs isosorbide mononitrate 60 mg 60 mg PO BID #180 tabs 08/26/24 10/27/24 Unknown Rx tablet,extended release 24 hr clopidogrel 75 mg tablet See Rx Instructions .Route 09/28/24 10/27/24 Unknown Rx .COMPLEX #90 tabs ASO #1 ea 10/27/24 10/27/24 Unknown Rx losartan 100 mg tablet See Rx Instructions .Route 11/19/24 Unknown Rx .COMPLEX #90 tabs Allergies Allergy/AdvReac Type Severity Reaction Status Date / Time ampicillin Allergy Unknown ALGY-Rash Verified 10/27/24 10:33 Sulfa (Sulfonamide Allergy Unknown ALGY-Rash Verified 10/27/24 10:33 Antibiotics) Tetanus Vaccines and Toxoid Allergy Unknown ALGY-Redness Verified 10/27/24 10:33 of Skin lisinopril AdvReac ADR-Cough Verified 10/27/24 10:33 PFSH Acute PFSH: Medical History (Updated 12/16/24 @ 17:21 by Homar Bueno MD) Right ankle pain History of coronary angiogram Last procedure October 2020 where she received a drug-eluting stent in her circumflex. LAD 40%, RPDA 40% at that time Migraine headache Chronic back pain Hyperlipidemia Fibromyalgia GERD (gastroesophageal reflux disease) Neuropathy FRANCI (obstructive sleep apnea) HTN (hypertension) Diabetes mellitus History of DVT (deep vein thrombosis) ASHD (arteriosclerotic heart disease) Surgical History (Updated 12/16/24 @ 17:21 by Homar Bueno MD) History of colonoscopy Hx of cholecystectomy S/P carpal tunnel release S/P rotator cuff repair S/P bunionectomy S/P hysterectomy S/P tonsillectomy and adenoidectomy Family History Mother Diabetes Stroke Hypertension Grandmother Diabetes Hypertension Social History Smoking and tobacco/nicotine status: never used tobacco/nicotine Alcohol intake: never Substance/Drug Use: never Lives independently: Yes Household members: none Marital status: Single Current occupational status: retired Do you think of yourself as: Straight/Heterosexual Current gender identity: Female Vitals/I&O/Wt Last Vital Signs Temp 98.1 F 12/16/24 10:19 Pulse 124 H 12/16/24 14:08 Resp 15 12/16/24 14:08 BP 104/59 12/16/24 14:08 Pulse Ox 95 12/16/24 14:08 O2 Del Method Room Air 12/16/24 10:19 Weight last 48 hrs Weight 86.636 kg Physical Exam Narrative: General: No acute distress, AO x3 HEENT: PERRLA, pupils bilaterally equal and reactive Chest: Normal vesicular breath sounds, no added sounds, equal good air entry bilaterally CVS: S1-S2 regular, no murmurs, no tachycardia, no gallops, no rubs Abdomen: Soft, nontender, no organomegaly, bowel sounds present Neuro: No focal deficits, no facial deformity, AO x3, power 5/5 in all limbs Data 12/16/24 10:40 12/16/24 10:40 A&P Assessment and plan (1) Unstable angina: Cycle troponin. Cardiology consulted from the ER. Echocardiogram. Possible cardiac angiogram in AM. N.p.o. after midnight. Aspirin 81 mg daily, statin, blood pressures currently normal to soft. Change for now from carvedilol to metoprolol 25 mg twice daily. Blood pressure titrating up again will restart carvedilol and stop metoprolol. Given significant angina for now start on Lovenox 1 mg/kg body weight every 12 hours. Check D-dimer. Check A1c, lipid panel. (2) Atherosclerotic heart disease of [place] coronary artery with other forms of angina pectoris: (3) HTN (hypertension): Goal blood pressure less than 140/90 mmHg. Takes multiple antihypertensive at home including Imdur 60 mg twice daily, carvedilol amlodipine 10 mg oral daily. Blood pressures are as above. (4) Hyperlipidemia: (5) Elevated d-dimer: D-dimer 0.8. For now we will hold off on CTA as patient is getting cardiac angiogram in AM. If CTA. Lower limb Dopplers were. (6) Diabetes mellitus: Check A1c. Insulin sliding scale and low-dose protocol. Patient does not seem to be on any medications at home. (7) FRANCI (obstructive sleep apnea): Continue with home CPAP Plan Full code Cardiac diet, n.p.o. after midnight Full dose Lovenox observation for DVT prophylaxis Protonix for PUD prophylaxis PDMP PDMP Reviewed: Not Reviewed Attestations Medical Necessity Statement*: Admission under observation for management of unstable angina in a patient with history of CAD Diagnoses Unstable angina I20.0 Atherosclerotic heart disease of [place] coronary artery with other forms of angina pectoris I25.118 Essential hypertension I10 Hyperlipidemia E78.5 Elevated d-dimer R79.89 Type 2 diabetes mellitus with other specified complication, unspecified whether ferry terminal agent insulin use E11.69 Diabetes mellitus complication status: with other specified complication Diabetes mellitus usp insulin use: unspecified ferry terminal agent insulin use status Diabetes mellitus type: type 2 FRANCI (obstructive sleep apnea) G47.33
[2024-12-16] MEDS: enoxaparin 100 mg/mL Syringe 90 MG SUBCUT (15:06)
[2024-12-16] MEDS: sodium chloride 0.9% 1,000 ML 75 ML IV (15:07)
[2024-12-16 15:32] LABS: Procalcitonin 0.05 ng/mL (0-0.5)
--- NOTE | 2024-12-16 16:10 | ECG_ITS ---
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 Measurements Intervals [place] Rate: 77 P: 20 [place]: 202 QRS: -22 QRSD: 86 T: 9 QT: 329 QTc: 374 Interpretive Statements SINUS RHYTHM WITH OCCASIONAL SUPRAVENTRICULAR PREMATURE COMPLEXES POSSIBLE ANTERIOR MYOCARDIAL INFARCTION , OF INDETERMINATE AGE [30 ms Q WAVE IN V3/V4, OR R < 0.2 mV IN V4] Compared to ECG 12/16/2024 15:11:26 First degree AV block no longer present Myocardial infarct finding still present Electronically Signed On 12-22-2024 11:56:12 CDT by Gary Suh M.D. [email or web address]
--- NOTE | 2024-12-16 16:31 | ECG_ITS ---
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1955 Requested By: Natan Amaya Order Number: [id number] Reading MD: NILDA BLOOM Measurements Intervals [place] Rate: 70 P: 7 [place]: 222 QRS: -24 QRSD: 83 T: 13 QT: 326 QTc: 353 Interpretive Statements SINUS RHYTHM WITH FIRST DEGREE AV BLOCK INFERIOR MYOCARDIAL INFARCTION , OF INDETERMINATE AGE [40+ ms Q WAVE AND/OR ST/T ABNORMALITY IN II/aVF] ANTEROLATERAL MYOCARDIAL INFARCTION , OF INDETERMINATE AGE [40+ ms Q WAVE IN I/aVL/V3-V6] Compared to ECG 12/16/2024 13:10:55 No significant changes Electronically Signed On 12-23-2024 22:55:40 CDT by NILDA BLOOM [email or web address]
[2024-12-16 16:40] LABS: Bilirubin Urine Negative (Negative); Blood Urine Negative (Negative); Glucose Urine UA Negative (Normal); Ketones Urine Negative (Negative); Leukocyte Esterase Urine Trace (Negative); Nitrate Urine Positive (Negative); Protein Urine Negative (Negative); Specific Gravity, Urine 1.007 (1.005-1.030); Urine Appearance Clear (CLEAR); Urine Color Yellow (Yellow); Urobilinogen Urine 0.2 mg/dL (Negative); pH Urine 7.5 (5-7)
[2024-12-16 16:45] LABS: Add Urine Microscopic? YES; Bacteria Urine 4+ /hpf; Hyaline Casts Urine 0-4 /lpf; RBC Urine 0-2 /hpf (0-2); Squamous Epithelial Cell Urine 0-5 /hpf (0-5); WBC Urine 0-5 /hpf (0-5)
[2024-12-16 16:59] LABS: D Dimer 0.81 ug/mLFEU (0-0.59)
[2024-12-16 17:18] LABS: Iron 64 ug/dL (37-145); Percent Saturation 19.1 % (20-50); Thyroid Stimulating Hormone 0.94 uIU/mL (0.27-4.20); Total Iron Binding Capacity 334 mcg/dl; Unsaturated Iron Binding 270 ug/dL (112-347); Vitamin B12 442 pg/mL (232-1245)
--- NOTE | 2024-12-16 17:25 | USR_ITS ---
PROCEDURE INFORMATION: Exam: US Duplex Lower Extremity Veins, Bilateral Exam date and time: 12/16/2024 6:06 PM Age: 69 years old Clinical indication: Abnormal findings; Abnormal lab test; Elevated d-dimer; Additional info: Elevated dimer TECHNIQUE: Imaging protocol: Real-time duplex ultrasound of the bilateral extremities with 2-D copeland scale, color Doppler flow and spectral waveform analysis including responses to compression and other maneuvers (when performed) with image documentation. Complete exam focused on the lower extremity veins. COMPARISON: CR XR ankle RT 2V [id number] 10/27/2024 11:10 AM FINDINGS: Right deep veins: Unremarkable. The common femoral, femoral, proximal profunda femoral and popliteal veins are patent without thrombus. Normal Doppler waveforms. Normal compressibility and/or augmentation response. Left deep veins: Unremarkable. The common femoral, femoral, proximal profunda femoral and popliteal veins are patent without thrombus. Normal Doppler waveforms. Normal compressibility and/or augmentation response. Superficial veins: Greater saphenous veins at the saphenofemoral junctions are patent bilaterally without thrombus. Soft tissues: Unremarkable. US/CV venous duplex [facility] [id number] IMPRESSION: No evidence of deep vein thrombosis.
[2024-12-16] MEDS: pantoprazole DR 40 mg Tablet PO (18:08)
[2024-12-16] MEDS: docusate sodium 100 mg Capsule PO (18:08)
[2024-12-16] MEDS: pregabalin 25 mg Capsule PO (18:08)
--- NOTE | 2024-12-16 18:18 | PC.NURSE ---
received from er via stretcher at 1540.report received.pt is alert and awake and oriented 4.denies chest pain at present.sr on monitor.oriented to room environment.instructed to notify staff for any chest pain,sob,or for any concerns at all.pt verb understanding of instructions
[2024-12-16 19:43] LABS: Troponin 5 6HR 6.69 ng/L (0-10)
[2024-12-16 19:46] LABS: Troponin 5 6HR Delta -0.31 ng/L (0-12)
[2024-12-16] MEDS: budesonide 0.5 mg/2 mL Neb INHALATION (19:48)
[2024-12-16] MEDS: ipratropium 0.5 mg/2.5 mL Neb INHALATION (19:48)
[2024-12-16] MEDS: levalbuterol 0.63 mg/3 mL Neb INHALATION (19:48)
[2024-12-16 20:06] LABS: Estmated Average Glucose 123; Hemoglobin A1C 5.9 % (4.0-6.0)
[2024-12-16] MEDS: aspirin 81 mg EC Tablet PO (20:40)
[2024-12-16] MEDS: metoprolol tartrate 25 mg Tablet PO (20:40)
[2024-12-16] MEDS: HYDROcodone-acetaminophen 10-325 mg Tablet 1 TAB PO (20:41)
[2024-12-17] VITALS (38 sets, daily range): BP systolic 103–136; BP diastolic 47–73; PULSE 0–77; RESP 9–30; TEMP 36.4–36.8; O2SAT 91–100
[2024-12-17] MEDS: morphine 4 mg/mL SDV 1 mL 2 MG IVP (01:17)
[2024-12-17] MEDS: enoxaparin 100 mg/mL Syringe 90 MG SUBCUT (01:31)
[2024-12-17] MEDS: ipratropium 0.5 mg/2.5 mL Neb INHALATION ×4 (02:02→20:12)
[2024-12-17] MEDS: levalbuterol 0.63 mg/3 mL Neb INHALATION ×4 (02:02→20:12)
[2024-12-17 03:49] LABS: Basophils # 0.1 10^3/uL (0.0-0.1); Basophils % 0.9 %; Eosinophils # 0.2 10^3/uL (0.0-0.8); Eosinophils % 2.1 %; Hematocrit 39.9 % (36-47); Lymphocytes # 2.2 10^3/uL (0.8-4.8); Lymphocytes % 28.4 %; Mean Corpuscular HGB Conc 32.1 g/dL (30-55); Mean Corpuscular Hemoglobin 28.8 pg (27-33); Mean Corpuscular Volume 89.7 fl (85-98); Mean Platelet Volume 11.1 fL (7.4-10.4); Monocytes # 0.5 10^3/uL (0.2-0.9); Monocytes % 6.6 %; Neutrophils # 4.79 10^3/uL (1.8-7.7); Neutrophils % 61.9 %; Nucleated Red Blood Cells % 0 %; Platelet Count 286 10^3/cmm (157-399); Red Blood Count 4.45 10^6/uL (3.85-5.65); Red Cell Distribution Width 14.4 % (12.1-15.1); White Blood Count 7.74 10^3/uL (3.29-11.43)
[2024-12-17 04:19] LABS: Alanine Aminotransferase 15 U/L (0-33); Albumin Level 3.7 g/dL (3.5-5.2); Alkaline Phosphatase 125 U/L (35-105); Anion Gap 13.7 (5-19); Aspartate Amino Transferase 11 U/L (0-32); Blood Urea Nitrogen 7 mg/dL (8-23); Carbon Dioxide 26 mmol/L (22-29); Chloride 108 mmol/L (98-107); Creatinine Clr Calc Pharmacy 75.1473; Globulin 2.8 g/dL (1.3-4.6); Glomerular Filtration Rate 99.7 mL/min (90-130); Glucose 103 mg/dL (65-115); Osmolality Calculated 296 mOsm/kg (285-295); Phosphorus 3.6 mg/dL (2.5-4.5); Potassium 3.7 mmol/L (3.5-5.1); Sodium 144 mmol/L (136-145); Total Bilirubin 0.3 mg/dL (0.15-1.2); Total Protein 6.5 g/dL (6.6-8.7)
[2024-12-17 04:24] LABS: Chol HDL Ratio 3.42 mg/dL (0.0-4.40); Cholesterol 113 mg/dL (0-200); HDL Cholesterol 33 mg/dL (60-100); LDL Cholesterol Calculated 44 mg/dL (50-129); LDL HDL Ratio 1.33 RATIO (0.00-3.22); Triglycerides 180 mg/dL (0-150)
[2024-12-17 04:25] LABS: Procalcitonin 0.04 ng/mL (0-0.5)
[2024-12-17] MEDS: sodium chloride 0.9% 1,000 ML 50 ML IV (04:41)
[2024-12-17 04:51] LABS: Folate Level > 20.0 ng/mL (4.8-37.3)
[2024-12-17] MEDS: budesonide 0.5 mg/2 mL Neb INHALATION ×2 (07:56→20:12)
[2024-12-17] MEDS: metoprolol tartrate 25 mg Tablet PO ×2 (08:33→20:29)
[2024-12-17] MEDS: ATORVASTATIN 10 MG TABLET 20 MG PO (08:33)
[2024-12-17] MEDS: pantoprazole DR 40 mg Tablet PO ×2 (08:33→17:28)
[2024-12-17] MEDS: docusate sodium 100 mg Capsule PO ×2 (08:33→17:28)
[2024-12-17] MEDS: isosorbide mononitrate ER 60 mg Tablet PO (08:34)
[2024-12-17] MEDS: pregabalin 25 mg Capsule PO ×2 (08:34→17:28)
--- NOTE | 2024-12-17 09:33 | P.PN_ITS ---
<Statement entered by Gary Suh M.D - 12/19/24 13:48> Patient was cared for in conjunction with an advanced practice practitioner.? I reviewed the chart and all pertinent data including imaging, telemetry, and laboratory results.? I discussed the patient in detail with the advanced practice practitioner.? Please see? their note for progress note, testing results and agreed upon plan of care for the patient. Subjective 2 Subjective: No chest pain overnight, blood pressure is stable. Plan for coronary angiogram today. Afternoon update: Coronary angiogram revealed PDA stenosis treated with RONI x 1, patent previously placed RCA and left circumflex stents. Vitals/I&O/Wt Last Vital Signs Temp 97.6 F 12/17/24 12:00 Pulse 64 12/17/24 14:25 Resp 20 H 12/17/24 14:25 BP 126/64 12/17/24 12:00 Pulse Ox 96 12/17/24 14:25 O2 Del Method Room Air 12/17/24 14:25 12/16/24 12/17/24 12/17/24 22:59 06:59 14:59 Intake Total 120 / 1120 1000 / 1120 360 / 360 Balance 120 / 1120 1000 / 1120 360 / 360 Weight last 48 hrs Weight 188 lb 6 oz Weight 191 lb Physical Exam 2 Const: COMMON NORMALS: no acute distress and patient oriented x3 GENERAL APPEARANCE: cooperative and comfortable ORIENTATION/CONSCIOUSNESS: Yes awake, Yes oriented to person, Yes oriented to place and Yes oriented to time Chest: COMMONS NORMALS: normal inspection of the chest and normal palpation of entire chest wall CHEST: Yes Symmetrical chest wall rise Resp: COMMON NORMALS: normal respiratory effort, No retractions, No use of accessory muscles and clear to auscultation bilaterally EFFORT & INSPECTION: Yes symmetric chest movement AUSCULTATION: clear to auscultation bilaterally Cardio: COMMON NORMALS: regular rate, regular rhythm, S1 normal heart sound present, S2 normal heart sound present, No gallops present (Cardio), No clicks present (Cardio), No murmurs present (Cardio) and No rub (Cardio) RATE: r egular rate RHYTHM: regular rhythm HEART SOUNDS: S1 normal heart sound present and S2 normal heart sound present PERIPHERAL PULSES: radial pulses present Extremity: COMMON NORMALS: no pedal edema Neuro: COMMON NORMALS: patient oriented x3 and moves all extremities S ENSORIUM/ORIENTATION: Yes oriented to person, Yes oriented to place and Yes oriented to time Data 12/17/24 03:35 12/17/24 03:35 A&P Assessment and plan (1) ASHD (arteriosclerotic heart disease): (2) HTN (hypertension): (3) Hyperlipidemia: (4) Diabetes mellitus: Plan She is s/p PCI to the PDA. Continue aspirin and Plavix, metoprolol, atorvastatin; will plan for discharge home tomorrow if medically stable. PDMP PDMP Reviewed: Not Reviewed Attestations 2 Medical Necessity Statement*: PCI to the PDA Coding Level of Care Code Acute Code for Chg Fwd Diagnoses ASHD (arteriosclerotic heart disease) I25.10 Essential hypertension I10 Hyperlipidemia E78.5 Type 2 diabetes mellitus with other specified complication, unspecified whether senior care insulin use E11.69 Diabetes mellitus complication status: with other specified complication Diabetes mellitus lobsterman insulin use: unspecified lobsterman insulin use status Diabetes mellitus type: type 2
[2024-12-17] MEDS: diphenhydrAMINE 50 mg Capsule PO (10:31)
--- NOTE | 2024-12-17 11:11 | PC.NURSE ---
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
--- NOTE | 2024-12-17 11:11 | W.PM.OPSUD ---
Surgery/Procedure H&P Update DATE OF PROCEDURE: December 17, 2024 DATE H&P PERFORMED: 12/16/24 H&P UPDATE INFORMATION: I have reviewed H&P completed within last 30 days, I have examined patient prior to procedure and No changes to prior documentation PREOP DIAGNOSIS: Unstable angina PRIMARY INDICATION FOR PROCEDURE: Unstable angina PLANNED PROCEDURE: Operation Date: 12/17/24 11:00 Proposed Procedures p Cardiac Catheterization(Left) - Gary Suh M.D Possible percutaneous coronary intervention PATIENT REASSESSED PRIOR TO SEDATION, WITH NO CHANGE NOTED: Yes PHYSICAL EXAM: alert, oriented x 3, clear to auscultation bilaterally and regular rate & rhythm AIRWAY EVAL/ANESTHESIA PLAN: normal airway, ASA III, Local Anesthesia, Risks, benefits & alternatives of sedation and/or procedure discussed and Patient agrees to continue as planned ADDITIONAL INFORMATION: Moderate sedation
--- NOTE | 2024-12-17 12:02 | PM.PROC ---
Procedure Note: Date of procedure: 12/17/24 Pre-procedure diagnosis: Unstable angina Post-procedure diagnosis: other (Severe PDA stenosis s/p PCI with 1 stent) Procedure: Patent prior stents in RCA and LCX. Severe PDA stenosis s/p PCI with 1 stent Dual antiplatelet therapy with aspirin and plavix Performing Provider: Gary Suh Estimated blood loss (mL): 10 Complications: None Condition: stable Disposition: floor Coding Level of Care Code Acute Code for Christiana Mcnamara
--- NOTE | 2024-12-17 12:18 | P.PN_ITS ---
Subjective 2 Subjective: Overnight patient did have some chest pain while resting in bed which woke her up. Today morning she is chest pain-free. Underwent cardiac angiogram and PCI to high-grade stenosis at PDA. Vitals/I&O/Wt Last Vital Signs Temp 97.6 F 12/17/24 07:57 Pulse 63 12/17/24 07:57 Resp 13 12/17/24 07:57 BP 124/63 12/17/24 07:57 Pulse Ox 100 12/17/24 07:57 O2 Del Method Room Air 12/17/24 07:57 12/16/24 12/17/24 12/17/24 22:59 06:59 14:59 Intake Total 120 / 120 1000 / 1120 Balance 120 / 120 1000 / 1120 Weight last 48 hrs Weight 85.445 kg Weight 86.636 kg Physical Exam 2 Narrative: General: No acute distress, AO x3 HEENT: PERRLA, pupils bilaterally equal and reactive Chest: Normal vesicular breath sounds, no added sounds, equal good air entry bilaterally CVS: S1-S2 regular, no murmurs, no tachycardia, no gallops, no rubs Abdomen: Soft, nontender, no organomegaly, bowel sounds present Neuro: No focal deficits, no facial deformity, AO x3, power 5/5 in all limbs Data 12/17/24 03:35 12/17/24 03:35 A&P Assessment and plan (1) Unstable angina: Postcardiac angiogram. Found to have patent stent. Underwent PCI for severe PDA stenosis. Appreciate cardiology recommendation. Continue DAPT, atorvastatin, metoprolol 25 mg twice daily. Seems supposed to be on carvedilol at home but blood pressure soft currently. Echocardiogram awaited. Appreciate A1c, lipid panel. (2) Atherosclerotic heart disease of [place] coronary artery with other forms of angina pectoris: (3) HTN (hypertension): Goal blood pressure less than 140/90 mmHg. Takes multiple antihypertensive at home including Imdur 60 mg twice daily, carvedilol, amlodipine 10 mg oral daily. For now continue with Imdur and metoprolol as above. Will add other medication with amlodipine versus ARB depending on blood pressures. (4) Hyperlipidemia: (5) Elevated d-dimer: D-dimer 0.8. Lower limb Dopplers (6) Diabetes mellitus: A1c 5.9. Patient is not diabetic. Insulin sliding scale and low-dose protocol. Patient does not seem to be on any medications at home. (7) FRANCI (obstructive sleep apnea): Continue with home CPAP Plan Full code Cardiac diet, Switch to Lovenox 40 mg subcu daily for DVT prophylaxis Protonix for PUD prophylaxis PDMP PDMP Reviewed: Not Reviewed Attestations 2 Medical Necessity Statement*: Nicole Navarro is being changed to inpatient status as stay will now exceed 2 midnights. Ongoing hospital care is necessary for unstable angina found to have single-vessel disease with patent stent, post PCI Diagnoses Unstable angina I20.0 Atherosclerotic heart disease of [place] coronary artery with other forms of angina pectoris I25.118 Essential hypertension I10 Hyperlipidemia E78.5 Elevated d-dimer R79.89 Type 2 diabetes mellitus with other specified complication, unspecified whether fpc insulin use E11.69 Diabetes mellitus complication status: with other specified complication Diabetes mellitus termite exterminator insulin use: unspecified termite exterminator insulin use status Diabetes mellitus type: type 2 FRANCI (obstructive sleep apnea) G47.33
[2024-12-17] MEDS: HYDROcodone-acetaminophen 10-325 mg Tablet 1 TAB PO ×2 (14:08→20:29)
[2024-12-17] MEDS: aspirin 81 mg EC Tablet PO (20:29)
[2024-12-18] VITALS (8 sets, daily range): BP systolic 97–162; BP diastolic 45–96; PULSE 60–64; RESP 10–20; TEMP 36.5–37.1; O2SAT 90–97
[2024-12-18] MEDS: HYDROcodone-acetaminophen 10-325 mg Tablet 1 TAB PO ×2 (03:07→10:07)
[2024-12-18 03:16] LABS: Basophils # 0.1 10^3/uL (0.0-0.1); Basophils % 0.7 %; Eosinophils # 0.1 10^3/uL (0.0-0.8); Eosinophils % 1.5 %; Hematocrit 39.4 % (36-47); Lymphocytes % 22.5 %; Mean Corpuscular HGB Conc 31.7 g/dL (30-55); Mean Corpuscular Hemoglobin 29.1 pg (27-33); Mean Corpuscular Volume 91.6 fl (85-98); Monocytes # 0.7 10^3/uL (0.2-0.9); Neutrophils # 5.93 10^3/uL (1.8-7.7); Neutrophils % 66.8 %; Nucleated Red Blood Cells % 0 %; Platelet Count 277 10^3/cmm (157-399); Red Cell Distribution Width 14.6 % (12.1-15.1); White Blood Count 8.86 10^3/uL (3.29-11.43)
[2024-12-18 03:41] LABS: Alanine Aminotransferase 13 U/L (0-33); Albumin Level 3.6 g/dL (3.5-5.2); Alkaline Phosphatase 118 U/L (35-105); Anion Gap 13.9 (5-19); Aspartate Amino Transferase 8 U/L (0-32); Blood Urea Nitrogen 14 mg/dL (8-23); Calcium 9.1 mg/dL (8.5-10.5); Carbon Dioxide 25 mmol/L (22-29); Chloride 110 mmol/L (98-107); Creatinine Clr Calc Pharmacy 75.1473; Globulin 2.7 g/dL (1.3-4.6); Glomerular Filtration Rate 71.5 mL/min (90-130); Glucose 104 mg/dL (65-115); Osmolality Calculated 301 mOsm/kg (285-295); Potassium 3.9 mmol/L (3.5-5.1); Sodium 145 mmol/L (136-145); Total Bilirubin 0.3 mg/dL (0.15-1.2); Total Protein 6.3 g/dL (6.6-8.7)
--- NOTE | 2024-12-18 08:31 | P.DS_ITS ---
Discharge Providers Date of Admission: 12/17/24 12:19 Date of Discharge: December 18, 2024 Attending Provider at Admission: Homar Bueno MD Attending Provider at Discharge: Homar Bueno MD Primary Care Provider: Marielle Bucio APN Diagnoses at Discharge Discharge Diagnosis (1) ASHD (arteriosclerotic heart disease): Status: Acute (2) HTN (hypertension): Status: Acute (3) Hyperlipidemia: Status: Acute (4) Diabetes mellitus: Status: Acute Qualifiers: Diabetes mellitus complication status: with other specified complication Diabetes mellitus senior living insulin use: unspecified senior living insulin use status Diabetes mellitus type: type 2 Qualified Code(s): E11.69 - Type 2 diab etes mellitus with other specified complication Reason for Visit Reason for Visit: chest pain Hospital Course Hospital Course Nicole Navarro is a 69 year old female with PMH of CAD (most recent cardiac cath in 2022 coronary- mid RCA and PDA, previously placed LAD stent patent at that time), FRANCI on CPAP, diabetes, hypertension, hyperlipidemia, history of DVT not on any AC currently. She returns to the ER today because of chest pain on and off for last 3 to 4 days. Usually chest pain will subside with nitro. Today morning she woke up because of chest pain and because it did not subside with nitro she present to the ER. Chest pain is not associated with nausea, vomiting, headache, dizziness or diaphoresis. Complains of occasional chest heaviness. Patient was admitted to the hospital further evaluation and management of unstable angina. Cardiology was consulted and she underwent cardiac angiogram on 12/17. She was found to have patent prior stents to RCA and LCx and was found to have severe PDA stenosis which was treated with 1 RONI PCI. She leatha erated the procedure well. During hospitalization her antihypertensives were adjusted. She has been discharged home in hemodynamically stable condition with advised to check her blood pressure daily at home and maintain a blood pressure diary Physical Exam Narrative: General: No acute distress, AO x3 HEENT: PERRLA, pupils bilaterally equal and reactive Chest: Normal vesicular breath sounds, no added sounds, equal good air entry bilaterally CVS: S1-S2 regular, no murmurs, no tachycardia, no gallops, no rubs Abdomen: Soft, nontender, no organomegaly, bowel sounds present Neuro: No focal deficits, no facial deformity, AO x3, power 5/5 in all limbs Discharge Data Studies Completed and Pending Completed Studies During Hospitalization Category Date Time Status XR chest 1V portable [id number] Stat Exams 12/16/24 10:30 [place] [id number] Routine Ultrasound 12/16/24 17:25 Completed Pending at discharge Category Date Time Status DRIVER LICENSE EXAMINER request for service Routine Exams 12/17/24 07:10 Taken Complete Blood Count w/Auto AM LABS Lab 12/19/24 04:00 Ordered Comprehensive Metabolic Panel AM LABS Lab 12/19/24 04:00 Ordered Magnesium AM LABS Lab 12/19/24 04:00 Ordered Phosphorus AM LABS Lab 12/19/24 04:00 Ordered CV. echo complete* [id number] Routine Ultrasound 12/16/24 14:26 Taken Radiology Impressions Chest X-Ray 12/16/24 10:30 Impression: Atherosclerosis. Venous Duplex 12/16/24 17:25 IMPRESSION: No evidence of deep vein thrombosis. Echocardiogram: CONCLUSIONS LV systolic function is normal with EF of 65 to 70%. Grade 1 diastolic dysfunction. Trace mitral regurgitation. Mild tricuspid regurgitation Trace pericardial effusion Gary Suh MD (Electronically Signed) Final Date: 18 Dec 2024 09:38 S Laboratory Results WBC 8.86 10^3/uL (3.29-11.43) 12/18/24 03:02 RBC 4.30 10^6/uL (3.85-5.65) 12/18/24 03:02 Hgb 12.50 g/dL (11.27-16.99) 12/18/24 03:02 Hct 39.4 % (36-47) 12/18/24 03:02 MCV 91.6 fl (85-98) 12/18/24 03:02 MCH 29.1 pg (27-33) 12/18/24 03:02 MCHC 31.7 g/dL (30-55) 12/18/24 03:02 RDW 14.6 % (12.1-15.1) 12/18/24 03:02 Plt Count 277 10^3/cmm (157-399) 12/18/24 03:02 MPV 11.0 fL (7.4-10.4) H 12/18/24 03:02 Neut % (Auto) 66.8 % 12/18/24 03:02 Lymph % (Auto) 22.5 % 12/18/24 03:02 [place] % (Auto) 8.0 % 12/18/24 03:02 Eos % (Auto) 1.5 % 12/18/24 03:02 Baso % (Auto) 0.7 % 12/18/24 03:02 Neut # (Auto) 5.93 10^3/uL (1.8-7.7) 12/18/24 03:02 Lymph # (Auto) 2.0 10^3/uL (0.8-4.8) 12/18/24 03:02 [place] # (Auto) 0.7 10^3/uL (0.2-0.9) 12/18/24 03:02 Eos # (Auto) 0.1 10^3/uL (0.0-0.8) 12/18/24 03:02 Baso # (Auto) 0.1 10^3/uL (0.0-0.1) 12/18/24 03:02 Nucleated RBC % (auto) 0 % 12/18/24 03:02 Nucleated RBCs # 0.0 /100WBC 12/18/24 03:02 D-Dimer 0.81 ug/mLFEU (0-0.59) H 12/16/24 10:40 Sodium 145 mmol/L (136-145) 12/18/24 03:02 Potassium 3.9 mmol/L (3.5-5.1) 12/18/24 03:02 Chloride 110 mmol/L (98-107) H 12/18/24 03:02 Carbon Dioxide 25 mmol/L (22-29) 12/18/24 03:02 Anion Gap 13.9 (5-19) 12/18/24 03:02 BUN 14 mg/dL (8-23) 12/18/24 03:02 Creatinine 0.8 mg/dL (0.5-0.9) 12/18/24 03:02 GFR Calculation 71.5 mL/min (90-130) L 12/18/24 03:02 Glucose 104 mg/dL (65-115) 12/18/24 03:02 Estimat Average Glucose 123 12/16/24 10:40 Hemoglobin A1c 5.9 % (4.0-6.0) 12/16/24 10:40 Calculated Osmolality 301 mOsm/kg (285-295) H 12/18/24 03:02 Calcium 9.1 mg/dL (8.5-10.5) 12/18/24 03:02 Phosphorus 4.0 mg/dL (2.5-4.5) 12/18/24 03:02 Magnesium 2.0 mg/dL (1.7-2.3) 12/18/24 03:02 Iron 64 ug/dL (37-145) 12/16/24 12:51 TIBC 334 mcg/dl 12/16/24 12:51 % Saturation 19.1 % (20-50) L 12/16/24 12:51 Unsat Iron Binding 270 ug/dL (112-347) 12/16/24 12:51 Total Bilirubin 0.3 mg/dL (0.15-1.2) 12/18/24 03:02 AST 8 U/L (0-32) 12/18/24 03:02 ALT 13 U/L (0-33) 12/18/24 03:02 Alkaline Phosphatase 118 U/L (35-105) H 12/18/24 03:02 Troponin T Baseline 7 ng/L (0-10) 12/16/24 10:40 Troponin T 120 Minute < 6.0 ng/L (0-10) 12/16/24 12:51 Delta Troponin T -1.67580 ABS# (0-10) L 12/16/24 12:51 Troponin T Hi Sens 6Hr 6.69 ng/L (0-10) 12/16/24 18:38 Troponin T Hi Sens 6Hr Delta -0.31 ng/L (0-12) L 12/16/24 18:38 Total Protein 6.3 g/dL (6.6-8.7) L 12/18/24 03:02 Albumin 3.6 g/dL (3.5-5.2) 12/18/24 03:02 Globulin 2.7 g/dL (1.3-4.6) 12/18/24 03:02 Triglycerides 180 mg/dL (0-150) H 12/17/24 03:35 Cholesterol 113 mg/dL (0-200) 12/17/24 03:35 LDL Cholesterol, Calc 44 mg/dL (50-129) L 12/17/24 03:35 HDL Cholesterol 33 mg/dL (60-100) L 12/17/24 03:35 LDL/HDL Ratio 1.33 RATIO (0.00-3.22) 12/17/24 03:35 Cholesterol/HDL Ratio 3.42 mg/dL (0.0-4.40) 12/17/24 03:35 Lipase 16 U/L (13-60) 12/16/24 10:40 Vitamin B12 442 pg/mL (232-1245) 12/16/24 12:51 Folate > 20.0 ng/mL (4.8-37.3) 12/17/24 03:35 Procalcitonin 0.04 ng/mL (0-0.5) 12/17/24 03:35 TSH 0.94 uIU/mL (0.27-4.20) 12/16/24 12:51 Urine Color Yellow (Yellow) 12/16/24 16:10 Urine Appearance Clear (CLEAR) 12/16/24 16:10 Urine pH 7.5 (5-7) 12/16/24 16:10 Ur Specific [place] 1.007 (1.005-1.030) 12/16/24 16:10 Urine Protein Negative (Negative) 12/16/24 16:10 Urine Glucose (UA) Negative (Normal) 12/16/24 16:10 Urine Ketones Negative (Negative) 12/16/24 16:10 Urine Blood Negative (Negative) 12/16/24 16:10 Urine Nitrate Positive (Negative) A 12/16/24 16:10 Urine Bilirubin Negative (Negative) 12/16/24 16:10 Urine Urobilinogen 0.2 mg/dL (Negative) 12/16/24 16:10 Ur Leukocyte Esterase Trace (Negative) A 12/16/24 16:10 Urine RBC 0-2 /hpf (0-2) 12/16/24 16:10 Urine WBC 0-5 /hpf (0-5) 12/16/24 16:10 Ur Squamous Epith Cells 0-5 /hpf (0-5) 12/16/24 16:10 Amorphous Sediment Not Reportable 12/16/24 16:10 Urine Bacteria 4+ /hpf (NONE) H 12/16/24 16:10 Hyaline Casts 0-4 /lpf H 12/16/24 16:10 Procedures Performed Cardiac angiogram: Date of procedure: 12/17/24 Pre-procedure diagnosis: Unstable angina Post- procedure diagnosis: other (Severe PDA stenosis s/p PCI with 1 stent) Procedure: Patent prior stents in RCA and LCX. Severe PDA stenosis s/p PCI with 1 stent Dual antiplatelet therapy with aspirin and plavix Performing Provider: Gary Suh Estimated blood loss (mL): 10 Vitals Last Vital Signs Temp 97.8 F 12/18/24 08:00 Pulse 64 12/18/24 08:00 Resp 19 H 12/18/24 08:00 BP 136/59 12/18/24 08:00 Pulse Ox 95 12/18/24 08:00 O2 Del Method Room Air 12/18/24 08:00 Discharge Plan Discharge Patient Disposition: Home Condition: Stable Prescriptions: New metoprolol tartrate 25 mg Tablet 25 mg PO BID@0900,2100 Qty: 60 0RF Continued multivitamin Tablet 1 tab PO DAILY@12 vitamin B complex [B Complex-Vitamin B12] Tablet 1 tab PO DAILY@12 magnesium 250 mg tablet 400 mg PO DAILY@12 (DME) diabetic shoes with 3 inserts See Rx Instructions .Route .MEDSUPPLY Qty: 1 0RF Rx Instructions: As directed to HOME fesoterodine 8 mg tablet extended release 24 hr 8 mg PO DAILY famotidine 40 mg tablet 40 mg PO DAILY omeprazole 40 mg capsule,delayed release(DR/EC) 40 mg PO BID loratadine [Allergy Relief (loratadine)] 10 mg tablet 10 mg PO DAILY PRN (Reason: allergic symptoms) atorvastatin 20 mg tablet 20 mg PO DAILY (DME) diabetic shoes with 3 inserts See Rx Instructions .Route .MEDSUPPLY Qty: 1 0RF Rx Instructions: [place] shoe guys [place] [place] See Rx Instructions .Route .MEDSUPPLY Qty: 1 0RF Rx Instructions: [place] [place] See Rx Instructions .Route .MEDSUPPLY Qty: 1 0RF Rx Instructions: As directed aspirin 81 mg tablet,delayed release (DR/EC) See Rx Instructions .ROUTE .COMPLEX Qty: 90 3RF Dose Instruction: TAKE ONE TABLET BY MOUTH AT BEDTIME Rx Instructions: TAKE ONE TABLET BY MOUTH AT BEDTIME potassium chloride 20 mEq tablet,ER particles/crystals See Rx Instructions .ROUTE .COMPLEX Qty: 90 3RF Dose Instruction: TAKE ONE TABLET BY MOUTH EVERY MORNING FOR EDEMA; ONLY take if taking lasix Rx Instructions: TAKE ONE TABLET BY MOUTH EVERY MORNING FOR EDEMA; ONLY take if taking lasix nitroglycerin [Nitrostat] 0.4 mg tablet, sublingual 0.4 mg SUBLINGUAL Q5M PRN (Reason: Chest Pain) Qty: 25 1RF clopidogrel 75 mg tablet See Rx Instructions .ROUTE .COMPLEX Qty: 90 3RF Dose Instruction: TAKE ONE TABLET BY MOUTH DAILY Rx Instructions: TAKE ONE TABLET BY MOUTH DAILY hydrocodone-acetaminophen 10-325 mg tablet 1 - 2 tab PO PRN PRN (Reason: Pain) Rx Instructions: take 1 to 2 tabs every 4-6 hours, max 5 tablets per day Emgality Pen 120 mg/mL pen injector 120 mg SUBCUT .ONCE MONTHLY Changed furosemide [Lasix] 40 mg tablet 40 mg PO QAM PRN (Reason: Edema) 30 Days Qty: 10 0RF Rx Instructions: Body weight gain of 3 pounds isosorbide mononitrate 60 mg tablet extended release 24 hr 60 mg PO DAILY Qty: 180 3RF losartan 100 mg tablet 50 mg PO DAILY Qty: 90 3RF Dose Instruction: TAKE ONE TABLET BY MOUTH DAILY AT 12:00 P.M. pregabalin [Lyrica] 25 mg capsule 50 mg PO BID Qty: 10 0RF Rx Instructions: @08:00,12:00,18:00 Discontinued amlodipine 10 mg tablet 10 mg PO DAILY carvedilol 25 mg tablet See Rx Instructions .ROUTE .COMPLEX Qty: 180 3RF Dose Instruction: TAKE ONE TABLET BY MOUTH TWICE DAILY AT 8:00 A.M. AND 8:00 P.M. Rx Instructions: TAKE ONE TABLET BY MOUTH TWICE DAILY AT 8:00 A.M. AND 8:00 P.M. Discharge Orders: Discharge Order (Routine); Ordered 12/18/24 Ordered By: Homar Bueno Referrals: Awa Cerna FNP [Nurse Practitioner, Cardiology] - 12/24/24 3:30 pm Fortunato,PILAR Palomares [Primary Care Provider, Nurse Practitioner] - 12/25/24 9:40 am Discharge Diet: Cardiac Discharge Activity: Resume usual activity and Increase activity as tolerated Patient Instructions: Metoprolol (By mouth), Angina (DC), Coronary Angioplasty (DC), Opioid Safety Activity Restrictions/Additional Instructions: Multiple medication changes have been done. Do not take your home dose of amlodipine and Coreg. Instead take Imdur 60 mg 1 time a day, losartan 50 mg 1 time a day, metoprolol 25 mg twice a day. Please check your blood pressure daily at home and maintain a blood pressure diary. Your goal blood pressure is between 100-140 mmHg systolic. Please check your blood pressure daily at home and maintain a blood pressure diary. Follow-up with your primary care provider within next 10 days for further adjustment of antihypertensives. Take Lasix only if your body weight increases by 5 pounds. Discharge Attestations Time Spent in Discharge Care*: greater than 30 min Specific Discharge Activities: educating patient, educating and/or supporting family/caregiver, discussing with pcp/other providers, discussing with rehabilitation case coordinator/social workers/dc planners, documenting/other paperwork and evaluating patient/reviewing data Status at Discharge: Cognitive status at discharge: cognitively intact , Behavioral status at discharge: cooperative , Functional status at discharge: independent ambulation , Overall status at discharge: patient is back to baseline Quality Metrics Clinical Quality Measures [ No reported AMI, CVA or VTE this stay] Coding Level of Care Code 19929 Total time (in minutes) for Discharge: 65 Diagnoses ASHD (arteriosclerotic heart disease) I25.10 Essential hypertension I10 Hyperlipidemia E78.5 Type 2 diabetes mellitus with other specified complication, unspecified whether tank terminal gauger insulin use E11.69 Diabetes mellitus complication status: with other specified complication Diabetes mellitus tank terminal gauger insulin use: unspecified senior living insulin use status Diabetes mellitus type: type 2
--- NOTE | 2024-12-18 08:35 | P.PN_ITS ---
<Statement entered by Gary Suh M.D - 12/19/24 14:20> Patient was evaluated and cared for in conjunction with an advanced practice practitioner.? I personally examined the patient and reviewed the chart and all pertinent data including imaging, telemetry, and laboratory results.? I discussed the patient in detail with the advanced practice practitioner.? Please see? their note for complete progress note, testing results and agreed upon plan of care for the patient. Patient had presented with unstable angina and underwent successful revascularization of PDA with 1 stent yesterday. She is chest pain-free. Stable to be discharged home from cardiology standpoint and dual antiplatelet therapy. GENERAL: Patient is alert, awake and oriented x3. HEART: Regular S1 and S2 LUNGS: Clear to auscultate bilaterally. CENTRAL NERVOUS SYSTEM: Grossly nonfocal. EXTREMITIES: Lower extremities without edema bilaterally. Subjective 2 Subjective: She has done well overnight, no chest pain or shortness of breath. No complications with right femoral cath site. Blood pressure and heart rate this morning are stable, renal function is normal. Vitals/I&O/Wt Last Vital Signs Temp 97.8 F 12/18/24 08:00 Pulse 64 12/18/24 08:00 Resp 19 H 12/18/24 08:00 BP 136/59 12/18/24 08:00 Pulse Ox 95 12/18/24 08:00 O2 Del Method Room Air 12/18/24 08:00 12/17/24 12/18/24 12/18/24 22:59 06:59 14:59 Intake Total 1295.833 / 1855.833 200 / 1855.833 120 / 120 Balance 1295.833 / 1855.833 200 / 1855.833 120 / 120 Weight last 48 hrs Weight 187 lb 12.8 oz Weight 187 lb 6.4 oz Weight 188 lb 6 oz Weight 191 lb Physical Exam 2 Const: COMMON NORMALS: no acute distress and patient oriented x3 GENERAL APPEARANCE: cooperative ORIENTATION/CONSCIOUSNESS: Yes awake, Yes oriented to person, Yes oriented to place and Yes oriented to time Chest: COMMONS NORMALS: normal inspection of the chest and normal palpation of entire chest wall CHEST: Yes Symmetrical chest wall rise Resp: COMMON NORMALS: normal respiratory effort, No retractions, No use of accessory muscles and clear to auscultation bilaterally AUSCULTATION: clear to auscultation bilaterally Cardio: COMMON NORMALS: regular rate, regular rhythm, S1 normal heart sound present, S2 normal heart sound present, No gallops present (Cardio), No clicks present (Cardio), No murmurs present (Cardio) and No rub (Cardio) RATE: r egular rate RHYTHM: regular rhythm HEART SOUNDS: S1 normal heart sound present and S2 normal heart sound present PERIPHERAL PULSES: radial pulses present positive right 2+ and femoral pulses present positive right 2+ Neuro: COMMON NORMALS: patient oriented x3 and moves all extremities S ENSORIUM/ORIENTATION: Yes oriented to person, Yes oriented to place and Yes oriented to time Skin: WOUNDS: Yes surgical site (no hematoma palpable) Details: no odor Data 12/18/24 03:02 12/18/24 03:02 A&P Assessment and plan (1) ASHD (arteriosclerotic heart disease): (2) HTN (hypertension): (3) Hyperlipidemia: Plan She is s/p RONI to the PDA yesterday. No complications with right femoral cath site. She has been ambulating without difficulty overnight. Renal function normal. Continue aspirin and Plavix, statin. She may discharge home today when okay with hospitalist service. Follow-up with cardiology clinic in 7 to 10 days. PDMP PDMP Reviewed: Not Reviewed Attestations 2 Medical Necessity Statement*: Plan for discharge home Coding Level of Care Code Acute Code for Chg Fwd Diagnoses ASHD (arteriosclerotic heart disease) I25.10 Essential hypertension I10 Hyperlipidemia E78.5
[2024-12-18] MEDS: pregabalin 25 mg Capsule PO (09:14)
[2024-12-18] MEDS: docusate sodium 100 mg Capsule PO (09:14)
[2024-12-18] MEDS: isosorbide mononitrate ER 60 mg Tablet PO (09:14)
[2024-12-18] MEDS: ATORVASTATIN 10 MG TABLET 20 MG PO (09:15)
[2024-12-18] MEDS: pantoprazole DR 40 mg Tablet PO (09:15)
[2024-12-18] MEDS: metoprolol tartrate 25 mg Tablet PO (09:15)
[2024-12-18] MEDS: clopidogrel 75 mg Tablet PO (09:15)
--- NOTE | 2024-12-18 11:28 | PC.NURSE ---
Discharge Note Patient discharged to home via wheelchair accompanied by self. 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 Mobile pharmacy medications and/or prescriptions provided. Belongings/home medications returned. post angiogram wound care and new med discussed.
== END 2024-12-18 11:20 | disposition home or self-care (01) | DRG 322 ==
LOC: ER 14:14 → ER IP 14:37 → CSU 15:02
PROVIDERS: Internal Medicine; Admitting Provider Student in an Organized Health Care Education/Training Program; Emergency Provider Emergency Medicine; PCP Nurse Practitioner Family; Visit Provider Student in an Organized Health Care Education/Training Program
PROC: 027034Z Dilation of Coronary Artery, One Artery with Drug-eluting Intraluminal Device, Percutaneous Approach (ICD-10-PCS; principal; 2024-12-17 11:00)
PROC: 027034Z Dilation of Coronary Artery, One Artery with Drug-eluting Intraluminal Device, Percutaneous Approach (ICD-10-PCS; 2024-12-17 11:00)
DX: I25.110 Atherosclerotic heart disease of native coronary artery with unstable angina pectoris (principal); I10 Essential (primary) hypertension; E78.5 Hyperlipidemia, unspecified; Z79.891 Long term (current) use of opiate analgesic; G43.909 Migraine, unspecified, not intractable, without status migrainosus; G89.29 Other chronic pain; M54.9 Dorsalgia, unspecified; M79.7 Fibromyalgia; K21.9 Gastro-esophageal reflux disease without esophagitis; G47.33 Obstructive sleep apnea (adult) (pediatric); E11.40 Type 2 diabetes mellitus with diabetic neuropathy, unspecified; I44.0 Atrioventricular block, first degree; Z79.4 Long term (current) use of insulin; Z79.02 Long term (current) use of antithrombotics/antiplatelets; Z79.82 Long term (current) use of aspirin; Z86.718 Personal history of other venous thrombosis and embolism; Z99.89 Dependence on other enabling machines and devices
CPT/HCPCS: 12345; 36415; 71045; 80053; 80061; 81001; 82607; 82746; 83036; 83540; 83550; 83690; 83735; 84100; 84145; 84443; 84484; 85025; 85347; 85378; 93005; 93306; 93454; 93970; 94640; 94664; 96372; 96376; 99152; 99153; C1760; C1769; C1874; C1887; C1894; C9600; G0269; G0378; J1644; J1650; J2250; J2270; J3010; J3490; J7030; J7614; J7626; J7644; J9999; Q0163; Q9967

== ENCOUNTER → 2024-12-24 15:09 | Outpatient (BNVA) | payer MEDICARE, BC, SELFPAY | PROVIDERS: PCP Nurse Practitioner Family; Visit Provider Nurse Practitioner Family | DX: I25.10 Atherosclerotic heart disease of native coronary artery without angina pectoris (principal); I10 Essential (primary) hypertension; E78.5 Hyperlipidemia, unspecified; E87.6 Hypokalemia; Z79.02 Long term (current) use of antithrombotics/antiplatelets; Z79.82 Long term (current) use of aspirin; Z09 Encounter for follow-up examination after completed treatment for conditions other than malignant neoplasm; Z95.5 Presence of coronary angioplasty implant and graft; Z86.718 Personal history of other venous thrombosis and embolism | CPT/HCPCS: 36415; 80048; 99214 ==

== ENCOUNTER 2025-01-19 05:00 | Outpatient (RCR) | payer MEDICARE, BC, SELFPAY | END 2025-02-18 23:59 | disposition home or self-care (01) | LOC: TPT 05:00 | PROVIDERS: PCP Nurse Practitioner Family; Visit Provider Podiatrist Foot & Ankle Surgery | DX: S93.401D Sprain of unspecified ligament of right ankle, subsequent encounter (principal); X58.XXXD Exposure to other specified factors, subsequent encounter | CPT/HCPCS: 97110; 97161 ==

== ENCOUNTER → 2025-01-26 10:42 | Outpatient (BNVA) | payer MEDICARE, BC, SELFPAY | PROVIDERS: PCP Nurse Practitioner Family; Visit Provider Podiatrist Foot & Ankle Surgery | DX: E11.42 Type 2 diabetes mellitus with diabetic polyneuropathy (principal); L60.3 Nail dystrophy; L84 Corns and callosities; E11.8 Type 2 diabetes mellitus with unspecified complications; S82.841A Displaced bimalleolar fracture of right lower leg, initial encounter for closed fracture; S93.491A Sprain of other ligament of right ankle, initial encounter; S90.32XA Contusion of left foot, initial encounter; X58.XXXA Exposure to other specified factors, initial encounter | CPT/HCPCS: 11055; 11721; 73630; 99214 ==

== ENCOUNTER → 2025-02-09 15:55 | Outpatient (BNVA) | payer MEDICARE, BC, SELFPAY | PROVIDERS: PCP Nurse Practitioner Family; Visit Provider Internal Medicine Cardiovascular Disease | DX: I25.10 Atherosclerotic heart disease of native coronary artery without angina pectoris (principal); I10 Essential (primary) hypertension | CPT/HCPCS: 99214 ==

== ENCOUNTER → 2025-05-03 13:49 | Outpatient (BNVA) | payer MEDICARE, BC, SELFPAY | PROVIDERS: PCP Nurse Practitioner Family; Visit Provider Podiatrist Foot & Ankle Surgery | DX: M79.672 Pain in left foot (principal); E11.42 Type 2 diabetes mellitus with diabetic polyneuropathy; L60.3 Nail dystrophy; L84 Corns and callosities; S90.32XA Contusion of left foot, initial encounter; S90.122A Contusion of left lesser toe(s) without damage to nail, initial encounter; W22.8XXA Striking against or struck by other objects, initial encounter | CPT/HCPCS: 11055; 11721; 73630; 99214 ==